=== PATIENT | male | born 1950 | race Caucasian/White ===

== ENCOUNTER → 2017-12-20 | Outpatient (CLI) | payer MEDICARE ==
[2017-12-20 11:09] LABS: HEMATOCRIT 43.8 % (42.0-52.0); HEMOGLOBIN 14.3 g/dl (13.5-17.5); MEAN CORPUSCULAR HEMOGLOBIN 28.5 pg (27.0-33.0); MEAN CORPUSCULAR HGB CONC 32.6 g/dl (32.0-36.5); MEAN CORPUSCULAR VOLUME 87.3 fl (80.0-96.0); PLATELET COUNT, AUTOMATED 205 10^3/uL (150-450); RED BLOOD COUNT 5.02 10^6/uL (4.30-6.10); RED CELL DISTRIBUTION WIDTH 13.6 % (11.5-14.5); WHITE BLOOD COUNT 7.7 10^3/uL (4.0-10.0)
== END ==
LOC: M LAB 09:51
DX: R19.5 Other fecal abnormalities (principal)
CPT/HCPCS: 85027

== ENCOUNTER → 2018-10-24 | Outpatient (CLI) | payer MEDICARE ==
[~2018-10-24] MED LIST: /AMLO25TA PO; /GLIP10TAB PO; ASPI81TA PO; COLA50CA3 PO; COUM7.5T PO; ENAL5TA PO; GLIP2.5T2 PO; GLIP5TAB2 PO; GLUC10TA3 PO; HYDR20IN2 PO; LEVO500T PO; METF1000 PO; MULTCAP PO; PROSCAR PO; VICOBULK PO
--- NOTE | 2018-10-24 15:32 | REP ---
Ultrasound-guided paracentesis The procedure was performed under the direct supervision of Dr. Rogers. The risks and benefits of the procedure were explained to the patient and informed consent was obtained. The largest pocket of fluid was localized in the right flank using ultrasound guidance. The skin was prepped and draped in a sterile fashion. 1% lidocaine was used as a local anesthetic. An 8-Ukrainian multi side-hole catheter was inserted using trocar technique. 7600 ml of meghan colored fluid was withdrawn and discarded. The patient tolerated the procedure well and there were no immediate complications. After the appropriate amount of monitored convalescence the patient was discharged from the department. Reviewed by MT Lentz 10/24/2018 03:22 P Electronically Signed by Sen Rogers MD 10/24/2018 03:24 P
== END ==
LOC: M RADPRO 11:58
PROVIDERS: ATTEND Internal Medicine Nephrology
DX: R18.8 Other ascites (principal); Z88.0 Allergy status to penicillin; Z88.8 Allergy status to other drugs, medicaments and biological substances
CPT/HCPCS: 49083; P9047

== ENCOUNTER → 2018-12-19 | Outpatient (REF) | payer MEDICARE ==
[~2018-12-19] MED LIST changes: -/AMLO25TA PO; -ASPI81TA PO; +CHIL1CHW5 PO; -ENAL5TA PO; +NORV2TAB PO; +[UNRECOGNIZED DRUG - CODE] PO
== END ==
LOC: M LAB LCGH 15:47
PROVIDERS: ATTEND Family Medicine
DX: B07.9 Viral wart, unspecified (principal)

== ENCOUNTER → 2018-12-21 | Outpatient (CLI) | payer MEDICARE ==
--- NOTE | 2018-12-22 11:01 | REP ---
Ultrasound-guided paracentesis The procedure was performed under the direct supervision of Dr. Rogers. The risks and benefits of the procedure were explained to the patient and informed consent was obtained. The largest pocket of fluid was localized in the right flank using ultrasound guidance. The skin was prepped and draped in a sterile fashion. 1% lidocaine was used as a local anesthetic. An 8-Lithuanian multi side-hole catheter was inserted using trocar technique. 3800 ml of clear pink fluid was withdrawn and discarded. The patient tolerated the procedure well and there were no immediate complications. After the appropriate amount of monitored convalescence the patient was discharged from the department. Reviewed by MT Lentz 12/21/2018 03:15 P Electronically Signed by Sen Rogers MD 12/22/2018 10:49 A
== END ==
LOC: M RADPRO 12:48
PROVIDERS: ATTEND Internal Medicine Nephrology
DX: R18.8 Other ascites (principal); I50.22 Chronic systolic (congestive) heart failure; Z79.899 Other long term (current) drug therapy; Z79.4 Long term (current) use of insulin
CPT/HCPCS: 49083; P9047

== ENCOUNTER → 2019-01-23 | Outpatient (CLI) | payer MEDICARE ==
--- NOTE | 2019-01-23 13:21 | REP ---
Ultrasound-guided paracentesis The procedure was performed by MT Salazar, under the direct supervision of Dr. Bello. The risks and benefits of the procedure were explained to the patient and informed consent was obtained both verbally and written. Directly prior to the start of the procedure, a formal timeout was completed in the procedure room. Under ultrasound guidance, the largest pocket of fluid in the left flank was localized and skin was marked. The skin was then prepped and draped in a sterile fashion. 10 ml of 1% lidocaine was used as a local anesthetic. Using ultrasound guidance, an 8-Nigerian multi side-hole catheter was inserted using trocar technique. 5,300 mL of blood tinged colored fluid was withdrawn and discarded. The patient tolerated the procedure well and there were no immediate complications. After the appropriate monitored convalescence the patient was discharged from the department. Reviewed by MT Dobbs 01/23/2019 12:01 P Electronically Signed by Flavio Bello MD 01/23/2019 01:11 P
== END ==
LOC: M RADPRO 10:26
PROVIDERS: ATTEND Internal Medicine Nephrology
DX: I50.22 Chronic systolic (congestive) heart failure (principal); R18.8 Other ascites
CPT/HCPCS: 49083; 96365; P9047

== ENCOUNTER → 2019-02-06 | Outpatient (CLI) | payer MEDICARE ==
--- NOTE | 2019-02-07 17:46 | REP ---
Ultrasound-guided paracentesis The procedure was performed by MT Salazar, under the direct supervision of Dr. Rogers. The risks and benefits of the procedure were explained to the patient and informed consent was obtained both verbally and written. Directly prior to the start of the procedure, a formal timeout was completed in the procedure room. Under ultrasound guidance, the largest pocket of fluid in the right flank was localized and skin was marked. The skin was then prepped and draped in a sterile fashion. 5 ml of 1% lidocaine was used as a local anesthetic. Using ultrasound guidance, an 8-Khmer multi side-hole catheter was inserted using trocar technique. 5,600 mL of meghan colored fluid was withdrawn and discarded. The patient tolerated the procedure well and there were no immediate complications. After the appropriate monitored convalescence the patient was discharged from the department. Reviewed by MT Dobbs 02/06/2019 04:32 P Electronically Signed by Sen Rogers MD 02/07/2019 05:37 P
== END ==
LOC: M IRPRO 14:05 → M RADPRO 14:05
PROVIDERS: ATTEND Internal Medicine Nephrology
DX: R18.8 Other ascites (principal); I50.20 Unspecified systolic (congestive) heart failure
CPT/HCPCS: 49083; 96365; P9047

== ENCOUNTER → 2019-03-27 | Outpatient (CLI) | payer MEDICARE ==
[~2019-03-27] MED LIST changes: +BISO5TAB5 PO; +INSUHUMDS SC; +INSULANT SC; +MAGN400C2 PO; +METO25TA PO; +POTA1TAB14 PO; +PROAAER10 INH; +ROSU20TA5 PO; +SPIR-10 PO; +TORS20TA2 PO
[2019-03-27 08:33] VITALS: BP 112/61
--- NOTE | 2019-03-28 23:33 | REP ---
Ultrasound-guided paracentesis The procedure was performed under the direct supervision of Dr. Rogers. The risks and benefits of the procedure were explained to the patient and informed consent was obtained. The largest pocket of fluid was localized in the left lower quadrant using ultrasound guidance. The skin was prepped and draped in a sterile fashion. 1% lidocaine was used as a local anesthetic. An 8-Indonesian multi side-hole catheter was inserted using trocar technique. 3500 ml of dark meghan fluid was withdrawn and discarded. The patient tolerated the procedure well and there were no immediate complications. After the appropriate amount of monitored convalescence the patient was discharged from the department. Reviewed by MT Lentz 03/27/2019 03:41 P Electronically Signed by Sen Rogers MD 03/28/2019 11:25 P
== END ==
LOC: M IRPRO 07:26
DX: R18.8 Other ascites (principal); I50.22 Chronic systolic (congestive) heart failure
CPT/HCPCS: 49083; 96365; P9047

== ENCOUNTER → 2019-04-14 | Outpatient (CLI) | payer MEDICARE ==
[~2019-04-14] MED LIST changes: +BISO5TAB14 PO; -BISO5TAB5 PO
[2019-04-14 15:10] VITALS: BP 116/67
--- NOTE | 2019-04-14 16:52 | REP ---
Ultrasound-guided paracentesis The procedure was performed under the direct supervision of Dr. Rogers. The risks and benefits of the procedure were explained to the patient and informed consent was obtained. The largest pocket of fluid was localized in the right flank using ultrasound guidance. The skin was prepped and draped in a sterile fashion. 1% lidocaine was used as a local anesthetic. Using ultrasound guidance an 8-Rwandan multi side-hole catheter was inserted using trocar technique. 3200 ml of meghan colored fluid was withdrawn and discarded. The patient tolerated the procedure well and there were no immediate complications. After the appropriate amount of monitored convalescence the patient was discharged from the department. Electronically Signed by MT Lentz 04/14/2019 04:03 P Electronically Signed by Sen Rogers MD 04/14/2019 04:44 P
== END ==
LOC: M IRPRO 14:06
PROVIDERS: ATTEND Internal Medicine Nephrology
DX: R18.8 Other ascites (principal)
CPT/HCPCS: 49083; 96365; P9047

== ENCOUNTER → 2019-04-27 | Outpatient (CLI) | payer MEDICARE ==
[~2019-04-27] MED LIST changes: -BISO5TAB14 PO; +BISO5TAB9 PO
[2019-04-27 10:48] VITALS: BP 103/51
--- NOTE | 2019-04-27 13:40 | REP ---
Ultrasound-guided paracentesis The procedure was performed by MT Salazar, under the direct supervision of Dr. Rogers. The risks and benefits of the procedure were explained to the patient and informed consent was obtained both verbally and written. Directly prior to the start of the procedure, a formal timeout was completed in the procedure room. Under ultrasound guidance, the largest pocket of fluid in the right flank was localized and skin was marked. The skin was then prepped and draped in a sterile fashion. 10 ml of 1% lidocaine was used as a local anesthetic. Using ultrasound guidance, an 8-Somali multi side-hole catheter was inserted using trocar technique. 3,850 mL of meghan colored fluid was withdrawn and discarded. The patient tolerated the procedure well and there were no immediate complications. After the appropriate monitored convalescence the patient was discharged from the department. Reviewed by MT Dobbs 04/27/2019 11:45 A Electronically Signed by Sen Rogers MD 04/27/2019 01:31 P
== END ==
LOC: M IRPRO 09:14
PROVIDERS: ATTEND Internal Medicine Nephrology
DX: R18.8 Other ascites (principal)
CPT/HCPCS: 49083; 96365; P9047

== ENCOUNTER → 2019-05-18 | Outpatient (CLI) | payer MEDICARE ==
[2019-05-18 10:03] VITALS: BP 139/84
--- NOTE | 2019-05-18 18:26 | REP ---
Ultrasound-guided paracentesis The procedure was performed by MT Salazar, under the direct supervision of Dr. Bello. The risks and benefits of the procedure were explained to the patient and informed consent was obtained both verbally and written. Directly prior to the start of the procedure, a formal timeout was completed in the procedure room. Under ultrasound guidance, the largest pocket of fluid in the right flank was localized and skin was marked. The skin was then prepped and draped in a sterile fashion. 10 ml of 1% lidocaine was used as a local anesthetic. Using ultrasound guidance, an 8-Urdu multi side-hole catheter was inserted using trocar technique. 3,500 mL of meghan colored fluid was withdrawn and discarded. The patient tolerated the procedure well and there were no immediate complications. After the appropriate monitored convalescence the patient was discharged from the department. Reviewed by MT Dobbs 05/18/2019 02:44 P Electronically Signed by Flavio Bello MD 05/18/2019 06:17 P
== END ==
LOC: M IRPRO 08:21
PROVIDERS: ATTEND Internal Medicine Nephrology
DX: R18.8 Other ascites (principal)
CPT/HCPCS: 49083; 96365; P9047

== ENCOUNTER → 2019-06-01 | Outpatient (CLI) | payer MEDICARE ==
[2019-06-01 14:52] VITALS: BP 112/71
--- NOTE | 2019-06-01 16:03 | REP ---
Ultrasound-guided paracentesis The procedure was performed under the direct supervision of Dr. Rogers. The risks and benefits of the procedure were explained to the patient and informed consent was obtained. The largest pocket of fluid was localized in the left flank in using ultrasound guidance. The skin was prepped and draped in a sterile fashion. 1% lidocaine was used as a local anesthetic. An 8-Nepali multi side-hole catheter was inserted using trocar technique. 3050 ml of low viscosity red colored fluid was withdrawn and discarded. The patient tolerated the procedure well and there were no immediate complications. After the appropriate amount of monitored convalescence the patient was discharged from the department. Electronically Signed by MT Lentz 06/01/2019 03:50 P Electronically Signed by Sen Rogers MD 06/01/2019 03:55 P
== END ==
LOC: M IRPRO 13:06
PROVIDERS: ATTEND Internal Medicine Nephrology
DX: I50.20 Unspecified systolic (congestive) heart failure (principal); R18.8 Other ascites; Z88.0 Allergy status to penicillin
CPT/HCPCS: 49083; 96374; P9047

== ENCOUNTER → 2020-09-13 | Outpatient (CLI) | payer MEDICARE ==
[~2020-09-13] MED LIST changes: +ALBU8.5H; +BISO5TAB14 PO; -BISO5TAB9 PO; +D31000TA2 PO; +VITMTA PO
== END ==
LOC: M LABSMTC 12:22
PROVIDERS: ATTEND Anesthesiology
DX: Z01.812 Encounter for preprocedural laboratory examination (principal); Z20.822 Contact with and (suspected) exposure to COVID-19

== ENCOUNTER 2020-09-18 09:55 | Day surgery (SDC) | payer MEDICARE ==
[~2020-09-18] VITALS: Ht 180.3 cm; Wt 114.3 kg
[~2020-09-18 09:55] MED LIST changes: +LIDOCAINE 1% MDV 20ML VIAL SQ PRN; +LR 1,000 ML IV ONE; +MIDAZOLAM INJ 2MG/2ML VIAL (J2250 PER 1MG) IV PRN; +ceFAZolin SOD 2 GM in IV 1 EA IV ONE; +fentaNYL 100 MCG/2 ML INJECTION (J3010) IV PRN
--- OUTSIDE RECORDS SUMMARY | 2020-09-18 10:00 | CCD | Continuity of Care Document ---
Author Author Jackson BENITEZ MD Organization Unknown Address [id number] [place] [address] , [facility] [address] [place] [address] Phone [phone] Care Team Providers Care [employer] President Name Role Phone Ailyn Henry AUTM [phone] AUTM Unavailable Ace Espinoza M.D. AUTM [phone] Carole Feliz M.D. AUTM [phone] Problems Description No Active Problems Social History Type Date Description Comments Sex Unknown ETOH Use Denies alcohol use Tobacco Use Start: Unknown Patient has never smoked Allergies, Adverse Reactions, Alerts Active Allergies Reaction Severity Comments Date Penicillin 12/20/2017 Atenolol 12/20/2017 Medications Active Medications SIG Qnty Indications Ordering Provide r Date Benzoyl Peroxide 5% Gel 5 cc apply to affected area as directed 60gm Amrit Benitez MD 08/2020 Advair HFA 115-21mcg/Act Aerosol 2 puff twice a day with spacer. use spacer. rinse mouth 12gm Carmen Reid M.D. 07/06/2018 Aerochamber Plus Misc as directed w/ hfa 1units Carmen Reid M.D. 07/06/2018 Lantus 100Unit/ML Solution 30 unit injection every night Unknown Humalog 100Unit/ML Solution sliding scale Unknown Multivitamins Capsules 1 by mouth every day Unknown Ventolin HFA 108(90Base) mcg/Act A erosol 2 puffs every 4 hours as needed Unknown Torsemide 20mg Tablets 2 by mouth every other day, 1 every other day Unknown Spironolactone 25mg Tablets 1/2 by mouth every day Unknown Potassium Chloride ER 10Meq Capsul es ER 1 by mouth daily Unknown Magnesium 400mg Tablets 1 by mouth every week Unknown Vitamin D3 Complete Tablets 2000 units once a week Unknown History Medications Benzoyl Peroxide 5% Gel 1 60gm Amrit Benitez MD 09/02/2020 - 09/02/2020 Immunizations Description No Information Available Vital Signs Date Vital Result Comment 09/02/2020 8:50am Body Temperature 98.6 F Height 70.5 inches 5'10.50" [place] Body Weight 166 lb 06/09/2018 10:06am BP Systolic 115 mmHg BP Diastolic 77 mmHg Heart Rate 88 /min Height 70.5 inches 5'10.50" Weight 253.00 lb BMI (Body Mass Index) 35.8 kg/m2 [place] Body Weight 166 lb Weight 114.761 kg BSA (Body Surface Area) 2.32 m2 Results Test Acquired Date Facility Test Result H/L Range Note CBC With Auto Diff 09/11/2020 [facility] [address] [place] [address] [phone] WBC # Bld Auto 7.3 10*3/uL Normal 4.45-10.71 1 RBC # Bld Auto 4.56 10*6/uL Normal 4.3-6.1 Hgb Bld-sCnc 13.7 g/dL Normal 13-18 Hct VFr Bld Auto 42.3 % Normal 42-52 MCV BldCo Auto 92.8 fL Normal 80-96 MCH RBC Qn Auto 30.0 pg Normal 27-31 MCHC BldCo-mCnc 32.4 g/dL Low 33-37 RDW RBC Auto 14 % Normal 11-15 Platelet # Bld Auto 176 10*3/uL Normal 130-472 PMV Bld 10.7 fL Normal 9.1-13.1 Neutrophils/leuk NFr Bld Auto 72.7 % Normal 41-77 Neutrophils # Bld Auto 5.3 U Normal 1.7-7.6 Lymphocytes/leuk NFr Bld Auto 11.5 % Low 14-46 Lymphocytes # Bld Auto 0.8 U Normal 0.6-4.6 Monocytes/leuk NFr Bld Auto 8.4 % Normal 4-12 Monocytes # Bld Auto 0.6 U Normal 0.2-1.2 Eosinophil/leuk NFr Bld Auto 5.9 % Normal 0-7 Eosinophil # Bld Auto 0.4 U Normal 0.0-0.5 Basophils/leuk NFr Bld Auto 1.4 % High 0.4-1.3 Basophils # Bld Auto 0.1 U Normal 0.0-0.2 Nucleated Red Blood Cell 0 % Nucleated Red Blood Cell# 0 U Imm Granulocytes Bld Ql Auto 0.1 Normal 0-2 Imm Granulocytes # Bld Auto 0.0 U Normal 0-0.1 Manual diff Bld NO Electrolyte Panel 09/11/2020 [facility] [id number] [place] [address] [phone] Sodium SerPl-sCnc 139 mmol/L Normal 132-146 Potassium SerPl-sCnc 4.0 mmol/L Normal 3.5-5.5 Chloride SerPl-sCnc 101 mmol/L Normal 99-109 Co2 SerPl-sCnc 32 mmol/L High 20-31 Anion Gap SerPl-sCnc 10 mmol/L Normal 8-16 PT/PTT 09/11/2020 [facility] [id number] [place] [address] [phone] Prothrombin Time (Patient) 11.1 s Normal 9.6-1 2.3 Inr 1.0 Normal 0.9-1.1 2 Screen aPTT 25.8 s Normal 22.7-31.6 1 PREOP M19.90,M19.011 2 THE INR IS OPERATIONALLY DEF INED FOR FRESH PLASMA FROM PATIENTS STABILIZED ON ORAL ANTICOAGULANTS. ROUTINE ANTICOAGULANT THERAPY 2.0-3.0 RECURRENT SYSTEMIC EMBOLISM/HEART VALVE REPLACEMENT 2.5-3.5 Procedures Description No Information Available Medical Devices Description No Information Available Encounters Type Date Location Provider Dx Diagnosis Office Visit 09/02/2020 9:00a [facility] Amrit Benitez MD M19.011 Primary osteoarthritis, right shoulder Assessments Date Code Description Provider 09/02/2020 M19.011 Primary osteoarthritis, right sh sarah Benitez MD Plan of Treatment Future Appointment(s):* 10/01/2020 9:45 am - Amrit Benitez MD at [facility] * 09/18/2020 12:45 pm - Amrit Benitez MD at [facility] 09/02/2020 - Amrit Benitez MD* M19.011 Primary osteoarthritis, right shoulder Functional Status Functional Condition Comment Date Status Independent with all ADL's Activ e Independent with all IADL's Acti ve Mental Status Mental Condition Comment Date Status Cognitive ability not impaired A ctive Referrals Refer to Reason for Referral Status Appt Date Amrit Benitez M.D. rt shoulder pain, arthrosco py, rotator cuff repair, osteoarthritis and looks like high-riding humeral head. Closed [address] [place] [address] [phone]
--- OUTSIDE RECORDS SUMMARY | 2020-09-18 10:00 | CCD | Continuity of Care Document ---
Author Author Jackson WANG RN Organization Unknown Address [address] [place] [id number] Phone [phone] Care Team Providers Care Business Administration Instructor Name Role Phone Carole Lux M.D. AUTM [phone] Mckinley Conn MD AUTM [phone] Problems Active Problems Provider Date Benign prostatic hyperplasia Onset: Diabetes mellitus Onset: Hyperlipidemia Onset: Asystole Onset: Note: During surgery Dyspnea Mak Sol MD Onset: 09/29/2016 Precordial pain Mak Sol MD Onset: 09/29/2016 Mixed hyperlipidemia Mak Sol MD Onset: 09/29/2016 Benign prostatic hypertrophy without outflow obstruction Last Sol MD Onset: 09/29/2016 Type 2 diabetes mellitus Mak Sol MD Onset: 09/29/19 17 Sinus node dysfunction Mak Sol MD Onset: 09/29/2016 Chronic diastolic heart failure Mak Sol MD Onset: 0 09/29/2016 Obesity Sen Desouza MD Onset: 10/16/2016 Cardiac pacemaker Ailyn Henry RN, REPAIR ORDER CLERK Onset: 10/27/2016 Cardiac pacemaker in situ Sen Desouza MD Onset: 017 Transient cerebral ischemia Adam Han MD Onset: 0 10/14/2017 Patient post percutaneous transluminal coronary angioplasty Rambo Ward MD Onset: 01/14/2018 St elevation (Stemi) myocardial infarcti on involving other coronary artery of anterior wall Rambo Ward MD Onset: 01/14/2018 Mitral valve disorder Ailyn Henry RN, REPAIR ORDER CLERK Onset: 8 Pulmonary valve disorder Ailyn Henry RN, REPAIR ORDER CLERK Onset: 2017 Rheumatic disease of tricuspid valve Ailyn Henry RN, REPAIR ORDER CLERK O nset: 03/15/2018 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 Ailyn Henry RN, REPAIR ORDER CLERK Onset: 03/15/2018 Paroxysmal atrial fibrillation Coy Webb MD Onset: Paroxysmal ventricular tachycardia Ailyn Henry RN, REPAIR ORDER CLERK Ons et: 06/07/2018 Chronic ischemic heart disease Sen Desouza MD Onset: Chronic kidney disease stage 3 Sen Desouza MD Onset: Chronic systolic heart failure Sen Desouza MD Onset: Complete atrioventricular block Ailyn Henry RN, REPAIR ORDER CLERK Onset: 03/14/2019 First degree atrioventricular block Ailyn Henry RN, REPAIR ORDER CLERK On set: 07/18/2019 Tricuspid valve disorder, non-rheumatic Ailyn Henry RN, FN P Onset: 09/03/2020 Difficulty breathing Ailyn Henry RN, REPAIR ORDER CLERK Onset: 09/03/2020 Social History Type Date Description Comments Sex Unknown ETOH Use Denies alcohol use Tobacco Use Start: Unknown Patient has never smoked Recreational Drug Use Denies Drug Use Smoking Status Reviewed: 03/14/20 Patient has never smoked Allergies, Adverse Reactions, Alerts Active Allergies Reaction Severity Comments Date Penicillins Anaphylaxis Severe 09/28/2016 Atenolol 3rd degree heart block Severe unconscious 09/28 Enalapril cough Mild 09/29/2016 Inactive Allergies Potassium Chloride Hives 7 Medications Active Medications SIG Qnty Indications Ordering Provide r Date Ventolin HFA 108(90Base) mcg/Act A erosol 2 puffs every 4 hours as needed 8gm Ailyn Henry RN, REPAIR ORDER CLERK 04/12/2018 Multivitamins Tablets 1 by mouth every day Unknown Lantus Solostar 100U nit/ML Solution Pen-Inject 20 units qhs Unknown Humalog Kwikpen 100U nit/ML Solution Pen-Inject sliding scale Unknown Magnesium Oxide 400mg Tablets 1 by mouth twice daily Unknown Stool Softener 100mg Capsules 1 by mouth every day as needed Unknown Spironolactone 25mg Tablets 1 tab alternate with 2 tabs daily Unknown Klor-Con 10 10Meq Tablets ER 1 po q am Unknown Torsemide 20mg Tablets 2 po i n am Unknown Vitamin D2 2000Unit Tablets 1 po daily Unknown History Medications Eliquis 2.5mg Tablets 1 tab by mouth twice a day 180tabs Ailyn Henry RN, REPAIR ORDER CLERK 09/03/2020 - 09/03/2020 Medications Administered in Office Medication SIG Qnty Indications Ordering Provider Date Injection For Venography Injection Sen Desouza MD 11/15/2018 Immunizations Description No Information Available Vital Signs Date Vital Result Comment 09/03/2020 1:39pm BP Systolic 110 mmHg stated home B P BP Diastolic 76 mmHg stated home BP Height 71 inches 5'11" Weight 254.00 lb BMI (Body Mass Index) 35.4 kg/m2 04/30/2020 1:06pm BP Systolic 122 mmHg BP Diastolic 64 mmHg Heart Rate 68 /min Height 71 inches 5'11" Weight 246.00 lb BMI (Body Mass Index) 34.3 kg/m2 Results Test Acquired Date Facility Test Result H/L Range Note Order 09/03/2020 [facility] Icd Remote Check Prof & Tech <pending> [facility] Remote Check Prof & Tech <pending> Order 04/30/2020 [facility] Cardiology Icd Multi Program <pending> Optivol In Office <pending> CBC With Auto Diff 04/04/2020 [facility] WBC # Bld Auto 6.2 10*3/uL Normal 4.45-10.71 RBC # Bld Auto 4.39 10*6/uL Normal 4.3-6.1 Hgb Bld-sCnc 13.3 g/dL Normal 13-18 Hct VFr Bld Auto 40.2 % Low 42-52 MCV BldCo Auto 91.6 fL Normal 80-96 MCH RBC Qn Auto 30.3 pg Normal 27-31 MCHC BldCo-mCnc 33.1 g/dL Normal 33-37 RDW RBC Auto 15 % Normal 11-15 Platelet # Bld Auto 175 10*3/uL Normal 130-472 PMV Bld 9.7 fL Normal 9.1-13.1 Neutrophils/leuk NFr Bld Auto 71.6 % Normal 41-77 Neutrophils # Bld Auto 4.5 U Normal 1.7-7.6 Lymphocytes/leuk NFr Bld Auto 13.2 % Low 14-46 Lymphocytes # Bld Auto 0.8 U Normal 0.6-4.6 Monocytes/leuk NFr Bld Auto 8.8 % Normal 4-12 Monocytes # Bld Auto 0.6 U Normal 0.2-1.2 Eosinophil/leuk NFr Bld Auto 4.7 % Normal 0-7 Eosinophil # Bld Auto 0.3 U Normal 0.0-0.5 Basophils/leuk NFr Bld Auto 1.4 % High 0.4-1.3 Basophils # Bld Auto 0.1 U Normal 0.0-0.2 Nucleated Red Blood Cell 0 % Nucleated Red Blood Cell# 0 U Imm Granulocytes Bld Ql Auto 0.3 Normal 0-2 Imm Granulocytes # Bld Auto 0.0 U Normal 0-0.1 Manual diff Bld NO PT/PTT 04/04/2020 [facility] Prothrombin Time (Patient) 11.2 s Normal 9.6-12.3 Inr 1.1 Normal 0.9-1.1 1 Screen aPTT 27.3 s Normal 22.7-31.6 Comprehensive Metabolic Prof 04/04/2020 [facility] BUN SerPl-mCnc 60 mg/dL High 9-23 Sodium SerPl-sCnc 138 mmol/L Normal 132-146 Potassium SerPl-sCnc 4.5 mmol/L Normal 3.5-5.5 Chloride SerPl-sCnc 102 mmol/L Normal 99-109 Co2 SerPl-sCnc 30 mmol/L Normal 20-31 Anion Gap SerPl-sCnc 11 mmol/L Normal 8-16 Glucose SerPl-mCnc 185 mg/dL High 74-106 Creatinine 2.5 mg/dL High 0.5-1.1 GFR/Bsa.pred SerPlBld-ArVRat 26 [facility] Above 60 Alt SerPl w P-5'-P-cCnc 34 U/L Normal 10-49 Ast SerPl w P-5'-P-cCnc 25 U/L Normal 0-33 Alp SerPl-cCnc 173 U/L High 45-129 Calcium SerPl-mCnc 10.5 mg/dL High 8.5-10.1 Bilirub SerPl-mCnc 1.2 mg/dL Normal 0.3-1.2 Albumin SerPl BCP-mCnc 3.9 g/dL Normal 3.2-4.8 Prot SerPl-mCnc 7.6 g/dL Normal 5.7-8.2 Laboratory test finding 03/26/2020 [facility] Coronavirus Covid-19 QL RT-PCR <pending> Xray 03/18/2020 [facility] Chest 2 Views <pending> CBC With Auto Diff 03/12/2020 [facility] WBC # Bld Auto 8.3 10*3/uL Normal 4.45-10.71 2 RBC # Bld Auto 4.85 10*6/uL Normal 4.3-6.1 Hgb Bld-sCnc 14.7 g/dL Normal 13-18 Hct VFr Bld Auto 43.8 % Normal 42-52 MCV BldCo Auto 90.3 fL Normal 80-96 MCH RBC Qn Auto 30.3 pg Normal 27-31 MCHC BldCo-mCnc 33.6 g/dL Normal 33-37 RDW RBC Auto 14 % Normal 11-15 Platelet # Bld Auto 191 10*3/uL Normal 130-472 PMV Bld 10.3 fL Normal 9.1-13.1 Neutrophils/leuk NFr Bld Auto 77.1 % High 41-77 Neutrophils # Bld Auto 6.4 U Normal 1.7-7.6 Lymphocytes/leuk NFr Bld Auto 8.8 % Low 14-46 Lymphocytes # Bld Auto 0.7 U Normal 0.6-4.6 Monocytes/leuk NFr Bld Auto 8.6 % Normal 4-12 Monocytes # Bld Auto 0.7 U Normal 0.2-1.2 Eosinophil/leuk NFr Bld Auto 4.0 % Normal 0-7 Eosinophil # Bld Auto 0.3 U Normal 0.0-0.5 Basophils/leuk NFr Bld Auto 1.0 % Normal 0.4-1.3 Basophils # Bld Auto 0.1 U Normal 0.0-0.2 Nucleated Red Blood Cell 0 % Nucleated Red Blood Cell# 0 U Imm Granulocytes Bld Ql Auto 0.5 Normal 0-2 Imm Granulocytes # Bld Auto 0.0 U Normal 0-0.1 Manual diff Bld NO Comprehensive Metabolic Prof 03/12/2020 [facility] BUN SerPl-mCnc 78 mg/dL 9-23 3 Sodium SerPl-sCnc 140 mmol/L Normal 132-146 Potassium SerPl-sCnc 4.4 mmol/L Normal 3.5-5.5 Chloride SerPl-sCnc 103 mmol/L Normal 99-109 Co2 SerPl-sCnc 31 mmol/L Normal 20-31 Anion Gap SerPl-sCnc 10 mmol/L Normal 8-16 Glucose SerPl-mCnc 208 mg/dL High 74-106 Creatinine 2.6 mg/dL High 0.5-1.1 GFR/Bsa.pred SerPlBld-ArVRat 24 [facility] Above 60 Alt SerPl w P-5'-P-cCnc 54 U/L High 10-49 Ast SerPl w P-5'-P-cCnc 31 U/L Normal 0-33 Alp SerPl-cCnc 177 U/L High 45-129 Calcium SerPl-mCnc 10.8 mg/dL High 8.5-10.1 Bilirub SerPl-mCnc 0.8 mg/dL Normal 0.3-1.2 Albumin SerPl BCP-mCnc 4.2 g/dL Normal 3.2-4.8 Prot SerPl-mCnc 8.5 g/dL High 5.7-8.2 CMP 03/12/2020 [facility] Albumin Serum/Plasma <pending> Alt - SGPT <pending> Calcium Ser/Plasma Mass/Vol <pending> Carbon Dioxide Ser/Plasm <pending> Chloride Serum/Plasma <pending> Creatinine Serum Mass/Vol <pending> Glucose Serum <pending> Alkaline Phosphatase <pending> Potassium <pending> Protein Total <pending> Sodium QN Ser/Plasma <pending> Ast - Sgot <pending> BUN - Urea Nitrogen <pending> CBC W/Manual Diff 03/12/2020 [facility] White Blood Count Ser Auto CNT <pending> RBC Red Blood Count <pending> Hemoglobin Blood <pending> Hematocrit <pending> MCV (Corpuscular Volume) <pending> MCH (Corpuscular Hemoglobin) <pending> MCHC (Corpuscular Hemog Conc) <pending> RDW <pending> Platelet Count Blood Auto CNT <pending> MPV <pending> Neutrophils <pending> Fluid Bands <pending> Fluid Lymphocytes <pending> Monocytes <pending> Fluid Body Eosinophils <pending> Basophils % <pending> Absolute Neutrophils Auto CNT <pending> Absolute Lymphocytes <pending> Absolute Monocytes <pending> Absolute Eosinophils <pending> Absolute Basophils <pending> Order 03/12/2020 [facility] Icd Multi Program <pending> Optivol In Office <pending> Order 03/12/2020 [facility] EKG <pending> Order 03/08/2020 [facility] Echocardiogram <pending> 1 THE INR IS OPERATIONALLY DEF INED FOR FRESH PLASMA FROM PATIENTS STABILIZED ON ORAL ANTICOAGULANTS. ROUTINE ANTICOAGULANT THERAPY 2.0-3.0 RECURRENT SYSTEMIC EMBOLISM/HEART VALVE REPLACEMENT 2.5-3.5 2 I50.23,N18.3,I49.5 3 Called to [facility] @ 7212 by Judi Bermeo. Results read back. Repeated by: Judi Bermeo 03/12/20 1400. Result Confirmation: 77 mg/dL Procedures Date Code Description Status 04/30/2020 78658 Implant Cardiovascular Monitorin g System Completed 04/30/2020 74479 Multiple Lead Impantable Cardiov erter-Defibrillator Completed 03/12/2020 53203 Implant Cardiovascular Monitorin g System Completed 03/12/2020 70485 Multiple Lead Impantable Cardiov erter-Defibrillator Completed 03/08/2020 58800 Echocardiography, Tranthoracic C omplete Image Documentation Completed Medical Devices Description No Information Available Encounters Type Date Location Provider Dx Diagnosis Office Visit 03/12/2020 12:00p [place] [facility] Ailyn Henry RN, REPAIR ORDER CLERK I50.23 Acute on chronic systolic (congestive) heart failure Z45.02 Encntr for adjust and mgmt o f automatic implntbl card defib I25.5 Ischemic cardiomyopathy I48.0 Paroxysmal atrial fibrillati on N18.3 Chronic kidney disease, stag e 3 (moderate) I47.2 Ventricular tachycardia R06.02 Shortness of breath E11.9 Type 2 diabetes mellitus wit hout complications E78.2 Mixed hyperlipidemia I34.0 Nonrheumatic mitral (valve) insufficiency Assessments Date Code Description Provider 09/03/2020 I34.0 Nonrheumatic mitral (valve) insu fficiency Ailyn Henry RN, REPAIR ORDER CLERK 09/03/2020 I36.1 Nonrheumatic tricuspid (valve) i nsufficiency Ailyn Henry RN, [facility] 09/03/2020 I25.5 Ischemic cardiomyopathy Ailyn Henry RN, [facility] 09/03/2020 I48.0 Paroxysmal atrial fibrillation S rory Henry RN, [facility] 09/03/2020 N18.31 Chronic kidney disease, stage 3a Ailyn Henry RN, [facility] 09/03/2020 I47.2 Ventricular tachycardia Ailyn Henry RN, [facility] 09/03/2020 E78.2 Mixed hyperlipidemia Ailyn carbajal RN, [facility] 09/03/2020 I50.22 Chronic systolic (congestive) he art failure Ailyn Henry RN, [facility] 09/03/2020 Z95.810 Presence of automatic (implantab le) cardiac defibrillator Ailyn Henry RN, [facility] 09/03/2020 I44.2 Atrioventricular block, complete Ailyn Henry RN, [facility] 09/03/2020 E66.09 Other obesity due to excess betzy anuj Ailyn Henry RN, [facility] 09/03/2020 E11.9 Type 2 diabetes mellitus without complications Ailyn Henry RN, [facility] 09/03/2020 Z95.810 Presence of automatic (implantab le) cardiac defibrillator Bridget Wang RN, [facility] 09/03/2020 I25.5 Ischemic cardiomyopathy Bridget lee RN, [facility] 09/03/2020 I48.0 Paroxysmal atrial fibrillation A phillip Wang RN, [facility] ATT[facility] 09/03/2020 I50.22 Chronic systolic (congestive) he art failure Bridget Wang RN, [facility] ATT[facility] 04/30/2020 I34.0 Nonrheumatic mitral (valve) insu fficiency Ailyn Henry RN, [facility] 04/30/2020 I37.1 Nonrheumatic pulmonary valve ins ufficiency Ailyn Henry RN, [facility] 04/30/2020 I36.1 Nonrheumatic tricuspid (valve) i nsufficiency Ailyn Henry RN, [facility] 04/30/2020 I50.23 Acute on chronic systolic (conge stive) heart failure Ailyn Henry RN, [facility] 04/30/2020 I25.5 Ischemic cardiomyopathy Ailyn Henry RN, [facility] 04/30/2020 I48.0 Paroxysmal atrial fibrillation S rory Henry RN, [facility] 04/30/2020 N18.3 Chronic kidney disease, stage 3 (moderate) Ailyn Henry RN, [facility] 04/30/2020 I47.2 Ventricular tachycardia Ailyn Henry RN, [facility] 04/30/2020 R06.02 Shortness of breath Ailyn Henry RN, [facility] 04/30/2020 E78.2 Mixed hyperlipidemia Ailyn carbajal RN, [facility] 04/30/2020 I50.22 Chronic systolic (congestive) he art failure Ailyn Henry RN, [facility] 04/30/2020 Z95.810 Presence of automatic (implantab le) cardiac defibrillator Ailyn Henry RN, [facility] 04/30/2020 I44.2 Atrioventricular block, complete Ailyn Henry RN, [facility] 04/30/2020 R07.2 Precordial pain Ailyn Henry RN , [facility] 04/30/2020 I49.5 Sick sinus syndrome Ailyn Henry RN, [facility] 04/30/[address] elevation (Stemi) myocardial infarction involving other c Ailyn Henry RN, [facility] 04/30/2020 Z98.61 Coronary angioplasty status Dalton Henry RN, [facility] 04/30/2020 I44.0 Atrioventricular block, first de gree Ailyn Henry RN, [facility] 04/30/2020 E66.09 Other obesity due to excess betzy anuj Ailyn Henry RN, [facility] 04/30/2020 I50.32 Chronic diastolic (congestive) h eart failure Ailyn Henry RN, [facility] 03/12/2020 I50.23 Acute on chronic systolic (conge stive) heart failure Ailyn Henry RN, [facility] 03/12/2020 Z45.02 Encounter for adjust ment and management of automatic implantable cardiac defibrillator Ailyn Henry RN, [facility] 03/12/2020 I25.5 Ischemic cardiomyopathy Ailyn Henry RN, [facility] 03/12/2020 I48.0 Paroxysmal atrial fibrillation S rory Henry RN, [facility] 03/12/2020 N18.3 Chronic kidney disease, stage 3 (moderate) Ailyn Henry RN, [facility] 03/12/2020 I47.2 Ventricular tachycardia Ailyn Henry RN, [facility] 03/12/2020 R06.02 Shortness of breath Ailyn Henry RN, [facility] 03/12/2020 E11.9 Type 2 diabetes mellitus without complications Ailyn Henry RN, [facility] 03/12/2020 E78.2 Mixed hyperlipidemia Ailyn carbajal RN, [facility] 03/12/2020 I34.0 Nonrheumatic mitral (valve) insu fficiency Ailyn Henry RN, [facility] 03/08/2020 I25.5 Ischemic cardiomyopathy Antione vargas MD 03/08/2020 I50.22 Chronic systolic (congestive) he art failure Antione Camarena MD 03/08/2020 Z95.810 Presence of automatic (implantab le) cardiac defibrillator Antione Camarena MD Plan of Treatment Future Appointment(s):* 12/04/2020 10:15 am - [facility] Schedule (517) at [place] [facility] Downloads (Patch-Ins) * 01/21/2021 2:00 pm - [place] [facility]/Device (415) at [place] [facility] * 03/25/2021 3:30 pm - [place] [facility] (315) at [place] [facility] 09/03/2020 - Ailyn Henry RN, [facility]* I34.0 Nonrheumatic mitral (valve) insufficiency * I36.1 Nonrheumatic tricuspid (valve) insufficiency * I25.5 Ischemic cardiomyopathy * I48.0 Paroxysmal atrial fibrillation * N18.31 Chronic kidney disease, stage 3a * I47.2 Ventricular tachycardia * E78.2 Mixed hyperlipidemia * I50.22 Chronic systolic (congestive) heart failure * Z95.810 Presence of automatic (implantable) cardiac defibrillator * I44.2 Atrioventricular block, complete * E66.09 Other obesity due to excess calories * E11.9 Type 2 diabetes mellitus without complications* Recommendations:* At this time is pending shoulder surgery and is felt to be stable though at a mo derate risk given his cardiomyopathy. He does not require any further testing prior to having this completed. He will be scheduled for an echocardiogram in March 2021 to reevaluate his valvular disease and overall LV dysfunction. He is aware of the embolic risk associated with not being anticoagulated for his paroxysmal atrial fibrillation. He will be scheduled for a device check in the clinic as soon as possible. He will continue to try to monitor his caloric intake and would benefit with weight loss. He will have a clinical follow-up in 4 months in the office will call him for that appointment. This was completed as a phone interview no video capability. Visit was in excess of 20 minutes to review chart, discuss patient disposition and upcoming surgery and discuss plan of care, review meds. Plan of care will be reviewed with Dr. Sol Functional Status Description No Information Available Mental Status Description No Information Available Referrals Description No Information Available
--- OUTSIDE RECORDS SUMMARY | 2020-09-18 10:00 | CCD | Continuity of Care Document ---
Author Author Jackson HENRY RN Organization Unknown Address [address] [place] [address] Phone [phone] Care Team Providers Care Shift Boss Name Role Phone Carole Lux M.D. AUTM [phone] Mckinley Conn MD AUTM [phone] Problems Active Problems Provider Date Benign prostatic [...] Onset: 10/16/2016 Cardiac pacemaker Ailyn Henry RN, VICE PRESIDENT OF CONSULTING SERVICES Onset: 10/27/2016 Cardiac pacemaker in situ Sen Desouza MD Onset: 017 Transient cerebral ischemia Adam Han MD Onset: 0 10/14/2017 Patient post percutaneous transluminal coronary angioplasty Rambo Ward MD Onset: 01/14/2018 St elevation (Stemi) myocardial infarcti on involving other coronary artery of anterior wall Rambo Ward MD Onset: 01/14/2018 Mitral valve disorder Ailyn Henry RN, VICE PRESIDENT OF CONSULTING SERVICES Onset: 8 Pulmonary valve disorder Ailyn Henry RN, VICE PRESIDENT OF CONSULTING SERVICES Onset: 2017 Rheumatic disease of tricuspid valve Ailyn Henry RN, VICE PRESIDENT OF CONSULTING SERVICES O nset: 03/15/2018 Atherosclerotic heart disease of [place] coronary arter y without angina pectoris Ailyn Henry RN, VICE PRESIDENT OF CONSULTING SERVICES Onset: 03/15/2018 Paroxysmal atrial fibrillation Coy Webb MD Onset: Paroxysmal ventricular tachycardia Ailyn Henry RN, VICE PRESIDENT OF CONSULTING SERVICES Ons et: 06/07/2018 Chronic ischemic heart disease Sen Desouza MD Onset: Chronic kidney disease stage 3 Sen Desouza MD Onset: Chronic systolic heart failure Sen Desouza MD Onset: Complete atrioventricular block Ailyn Henry RN, VICE PRESIDENT OF CONSULTING SERVICES Onset: 03/14/2019 First degree atrioventricular block Ailyn Henry RN, VICE PRESIDENT OF CONSULTING SERVICES On set: 07/18/2019 Tricuspid valve disorder, non-rheumatic Ailyn Henry RN, FN P Onset: 09/03/2020 Difficulty breathing Ailyn Henry RN, VICE PRESIDENT OF CONSULTING SERVICES Onset: 09/03/2020 Social History Type Date Description [...] hours as needed 8gm Ailyn Henry RN, VICE PRESIDENT OF CONSULTING SERVICES 04/12/2018 Multivitamins Tablets 1 by mouth every [...] twice a day 180tabs Ailyn Henry RN, VICE PRESIDENT OF CONSULTING SERVICES 09/03/2020 - 09/03/2020 Medications Administered in Office [...] Test Result H/L Range Note Order 09/03/2020 [facility] Cardiology Icd Remote Check Prof & Tech <pending> Optivol Remote Check Prof & Tech <pending> Order 04/30/2020 [facility] Cardiology Icd Multi Program <pending> Optivol In Office <pending> CBC With Auto Diff 04/04/2020 [facility] WBC # Bld Auto 6.2 10*3/uL Normal [...] 0-0.1 Manual diff Bld NO PT/PTT 04/04/2020 [facility] Prothrombin Time (Patient) 11.2 s Normal 9.6-12.3 Inr 1.1 Normal 0.9-1.1 1 Screen aPTT 27.3 s Normal 22.7-31.6 Comprehensive Metabolic Prof 04/04/2020 [facility] BUN SerPl-mCnc 60 mg/dL High 9-23 [...] 03/18/2020 [facility] 2 Views <pending> 1 THE INR IS OPERATIONALLY DEF INED FOR FRESH PLASMA FROM PATIENTS STABILIZED ON ORAL ANTICOAGULANTS. ROUTINE ANTICOAGULANT THERAPY 2.0-3.0 RECURRENT SYSTEMIC EMBOLISM/HEART VALVE REPLACEMENT 2.5-3.5 Procedures Date Code Description Status 04/30/2020 23736 Implant Cardiovascular Monitorin g System Completed 04/30/2020 73522 Multiple Lead Impantable Cardiov erter-Defibrillator Completed Medical Devices Description No Information Available Encounters Type Date Location Provider Dx Diagnosis Office Visit 09/03/2020 3:15p [place] [facility] Ailyn Henry RN, [facility] I34.0 Nonrheumatic mitral (valve) insufficiency I36.1 Nonrheumatic tricuspid (valv e) insufficiency I25.5 Ischemic cardiomyopathy I48.0 Paroxysmal atrial fibrillati on N18.31 Chronic kidney disease, stag e 3a I47.2 Ventricular tachycardia E78.2 Mixed hyperlipidemia I50.22 Chronic systolic (congestive ) heart failure Z95.810 Presence of automatic (impla ntable) cardiac defibrillator I44.2 Atrioventricular block, comp lete E66.09 Other obesity due to excess calories E11.9 Type 2 diabetes mellitus wit hout complications Assessments Date Code Description Provider 09/03/2020 I34.0 Nonrheumatic mitral (valve) insu fficiency Ailyn Henry RN, VICE PRESIDENT OF CONSULTING SERVICES 09/03/2020 I36.1 Nonrheumatic tricuspid (valve) i nsufficiency Ailyn Henry RN, VICE PRESIDENT OF CONSULTING SERVICES 09/03/2020 I25.5 Ischemic cardiomyopathy Ailyn Henry RN, [employer]ICE PRESIDENT OF CONSULTING SERVICES 09/03/2020 I48.0 Paroxysmal atrial fibrillation S rory Henry RN, VICE PRESIDENT OF CONSULTING SERVICES 09/03/2020 N18.31 Chronic kidney disease, stage 3a Ailyn Henry RN, VICE PRESIDENT OF CONSULTING SERVICES 09/03/2020 I47.2 Ventricular tachycardia Ailyn Henry RN, [facility] 09/03/2020 E78.2 Mixed hyperlipidemia Ailyn carbajal RN, [facility] 09/03/2020 I50.22 Chronic systolic (congestive) he art failure Ailyn Henry RN, [facility] 09/03/2020 Z95.810 Presence of automatic (implantab le) cardiac defibrillator Ailyn Henry RN, [facility] 09/03/2020 I44.2 Atrioventricular block, complete Ailyn Henry RN, [facility] 09/03/2020 E66.09 Other obesity due to excess betzy anuj Ailyn Henry RN, [facility] 09/03/2020 E11.9 Type 2 diabetes mellitus without complications Ailyn Henry RN, [facility] 09/03/2020 Z95.810 Presence of automatic (implantab le) cardiac defibrillator Bridegt Wang RN, SUPERVISOR MACHINING 09/03/2020 I25.5 Ischemic cardiomyopathy Bridget lee RN, SUPERVISOR MACHINING 09/03/2020 I48.0 Paroxysmal atrial fibrillation A phillip Wang RN, SUPERVISOR MACHINING 09/03/2020 I50.22 Chronic systolic (congestive) he art failure Bridget Wang RN, SUPERVISOR MACHINING 04/30/2020 I34.0 Nonrheumatic mitral (valve) insu fficiency Ailyn Henry RN, [facility] 04/30/2020 I37.1 Nonrheumatic pulmonary valve ins ufficiency Ailyn Henry RN, [facility] 04/30/2020 I36.1 Nonrheumatic tricuspid (valve) i nsufficiency Ailyn Henry RN, [facility] 04/30/2020 I50.23 Acute on chronic systolic (conge stive) heart failure Ailyn Henry RN, [facility] 04/30/2020 I25.5 Ischemic cardiomyopathy Ailyn Henry RN, [facility] 04/30/2020 I48.0 Paroxysmal atrial fibrillation S rory Henry RN, [facility] 04/30/2020 N18.3 Chronic kidney disease, stage 3 (moderate) Ailyn Henry RN, [facility] 04/30/2020 I47.2 Ventricular tachycardia Ailyn Henry RN, [facility] 04/30/2020 R06.02 Shortness of breath Ailyn Henry RN, [facility] 04/30/2020 E78.2 Mixed hyperlipidemia Ailyn carbajal RN, [facility] 04/30/2020 I50.22 Chronic systolic (congestive) he art failure Ailyn Henry RN, [facility] 04/30/2020 Z95.810 Presence of automatic (implantab le) cardiac defibrillator Ailyn Henry RN, [facility] 04/30/2020 I44.2 Atrioventricular block, complete Ailyn Henry RN, [facility] 04/30/2020 R07.2 Precordial pain Ailyn Henry RN , [facility] 04/30/2020 I49.5 Sick sinus syndrome Ailyn Henry RN, [facility] 04/30/[address] elevation (Stemi) myocardial infarction involving other c Ailyn Henry RN, [facility] 04/30/2020 Z98.61 Coronary angioplasty status Dalton Henry RN, [facility] 04/30/2020 I44.0 Atrioventricular block, first de gree Ailyn Henry RN, [facility] 04/30/2020 E66.09 Other obesity due to excess betzy anuj Ailyn Henry RN, [facility] 04/30/2020 I50.32 Chronic diastolic (congestive) h eart failure Ailyn Henry RN, [facility] Plan of Treatment Future Appointment(s):* 12/04/2020 10:15 am - Device SUPERVISOR MACHINING Schedule (517) at [place] Device Downloads (Patch-Ins) * 01/21/2021 2:00 pm - [place] SUPERVISOR MACHINING/Device (415) at [place] [facility] * 03/25/2021 3:30 pm - [place] [facility] (315) at [place] [facility] 09/03/2020 - Ailyn Henry RN, VICE PRESIDENT OF CONSULTING SERVICES* I34.0 Nonrheumatic mitral (valve) insufficiency * I36.1 [...]
--- OUTSIDE RECORDS SUMMARY | 2020-09-18 10:01 | CCD | Continuity of Care Document ---
Author Author Jackson BENITEZ MD Organization Unknown Address [address] [place] [address] , [facility] [address] [place] [address] Phone [phone] Care Team Providers Care Baseball Pitcher Name Role Phone Aliyn Henry AUTM [phone] AUTM Unavailable Ace Espinoza M.D. AUTM [phone] Carole Feliz M.D. AUTM [phone] Problems Description No Active Problems Social History Type Date Description Comments Sex Unknown ETOH Use Denies alcohol use Tobacco Use Start: Unknown Patient has never smoked Allergies, Adverse Reactions, Alerts Active Allergies Reaction Severity Comments Date Penicillin 12/20/2017 Atenolol 12/20/2017 Medications Active Medications SIG Qnty Indications Ordering Provide r Date Advair HFA 115-21mcg/Act Aerosol 2 puff twice a day with spacer. use spacer. rinse mouth 12gm Carmen Reid M.D. 07/06/2018 Aerochamber Plus Misc as directed w/ hfa 1units Carmen Reid M.D. 07/06/2018 Lantus 100Unit/ML Solution 20 unit injection every night Unknown Humalog 100Unit/ML Solution sliding scale Unknown Multivitamins Capsules 1 by mouth every day Unknown Atorvastatin Calcium 20mg Tablets 1 by mouth every day Unknown Clopidogrel Bisulfate 75mg Tablets 1 by mouth every day Unknown Bisoprolol Fumarate 5mg Tablets 1/2 by mouth every day Unknown Ventolin HFA 108(90Base) mcg/Act A erosol 2 puffs every 4 hours as needed Unknown Torsemide 20mg Tablets 2 by mouth every other day, 1 every other day Unknown Docusate Sodium 100mg Capsules daily Unknown Spironolactone 25mg Tablets 1/2 by mouth every day Unknown Metolazone 2.5mg Tablets Wed and prn Unknown Potassium Chloride ER 10Meq Capsul es ER 1 by mouth daily Unknown Immunizations Description No Information Available Vital Signs Date Vital Result Comment 09/02/2020 8:50am Body Temperature 98.6 F Height 70.5 inches 5'10.50" [place] Body Weight 166 lb 06/09/2018 10:06am BP Systolic 115 mmHg BP Diastolic 77 mmHg Heart Rate 88 /min Height 70.5 inches 5'10.50" Weight 253.00 lb BMI (Body Mass Index) 35.8 kg/m2 [place] Body Weight 166 lb Weight 114.761 kg BSA (Body Surface Area) 2.32 m2 Results Description No Information Available Procedures Description No Information Available Medical Devices Description No Information Available Encounters Type Date Location Provider Dx Diagnosis Office Visit 09/02/2020 9:00a [facility] Orthopedics Amrit Benitez MD M19.011 Primary osteoarthritis, right shoulder Assessments Date Code Description Provider 09/02/2020 M19.011 Primary osteoarthritis, right [facility] Amrit Benitez MD Plan of Treatment No Information Available Functional Status Functional Condition Comment Date Status Independent with all ADL's Activ e Independent with all IADL's Acti ve Mental Status Mental Condition Comment Date Status Cognitive ability not impaired A ctive Referrals Refer to Reason for Referral Status Appt Date Amrit Benitez M.D. rt shoulder pain, arthrosco py, rotator cuff repair, osteoarthritis and looks like high-riding humeral head. Closed [id number] [place] [address] [phone]
--- OUTSIDE RECORDS SUMMARY | 2020-09-18 10:01 | CCD | Continuity of Care Document ---
Author Author Jackson HENRY RN Organization Unknown Address [address] [place] [address] Phone [phone] Care Team Providers Care Principal Technical Writer Name Role Phone Carole Lux M.D. AUTM [phone] Mckinley Conn MD AUTM [phone] Problems Active Problems Provider Date Benign prostatic [...] Onset: 10/16/2016 Cardiac pacemaker Ailyn Henry RN, MANAGER INVENTORY Onset: 10/27/2016 Cardiac pacemaker in situ Sen Desouza MD Onset: 017 Transient cerebral ischemia Adam Han MD Onset: 0 10/14/2017 Patient post percutaneous transluminal coronary angioplasty Rambo Ward MD Onset: 01/14/2018 St elevation (Stemi) myocardial infarcti on involving other coronary artery of anterior wall Rambo Ward MD Onset: 01/14/2018 Mitral valve disorder Ailyn Henry RN, MANAGER INVENTORY Onset: 8 Pulmonary valve disorder Ailyn Henry RN, MANAGER INVENTORY Onset: 2017 Rheumatic disease of tricuspid valve Ailyn Henry RN, MANAGER INVENTORY O nset: 03/15/2018 Atherosclerotic heart disease of [place] coronary arter y without angina pectoris Ailyn Henry RN, MANAGER INVENTORY Onset: 03/15/2018 Paroxysmal atrial fibrillation Coy Webb MD Onset: Paroxysmal ventricular tachycardia Ailyn Henry RN, MANAGER INVENTORY Ons et: 06/07/2018 Chronic ischemic heart disease Sen Desouza MD Onset: Chronic kidney disease stage 3 Sen Desouza MD Onset: Chronic systolic heart failure Sen Desouza MD Onset: Complete atrioventricular block Ailyn Henry RN, MANAGER INVENTORY Onset: 03/14/2019 First degree atrioventricular block Ailyn Henry RN, MANAGER INVENTORY On set: 07/18/2019 Tricuspid valve disorder, non-rheumatic Ailyn Henry RN, FN P Onset: 09/03/2020 Difficulty breathing Ailyn Henry RN, MANAGER INVENTORY Onset: 09/03/2020 Social History Type Date Description [...] hours as needed 8gm Ailyn Henry RN, MANAGER INVENTORY 04/12/2018 Multivitamins Tablets 1 by mouth every [...] twice a day 180tabs Ailyn Henry RN, MANAGER INVENTORY 09/03/2020 - 09/03/2020 Medications Administered in Office [...] Test Result H/L Range Note Order 09/03/2020 [facility] Cardiology Icd Remote Check Prof & Tech <pending> Optivol Remote Check Prof & Tech <pending> Order 04/30/2020 [facility] Cardiology Icd Multi Program <pending> Optivol In Office <pending> CBC With Auto Diff 04/04/2020 [facility] WBC # Bld Auto 6.2 10*3/uL [...] 0-0.1 Manual diff Bld NO PT/PTT 04/04/2020 [facility] Prothrombin Time (Patient) 11.2 s Normal 9.6-12.3 Inr 1.1 Normal 0.9-1.1 1 Screen aPTT 27.3 s Normal 22.7-31.6 Comprehensive Metabolic Prof 04/04/2020 [facility] BUN SerPl-mCnc 60 mg/dL High [...] Views <pending> CBC With Auto Diff 03/12/2020 [facility] WBC # Bld Auto 8.3 10*3/uL Normal [...] diff Bld NO Comprehensive Metabolic Prof 03/12/2020 [facility] BUN SerPl-mCnc 78 mg/dL 9-23 3 [...] 2 I50.23,N18.3,I49.5 3 Called to YUE @ 2328 by Judi Bermeo. Results read back. Repeated by: Judi Bermeo 03/12/20 1400. Result Confirmation: 77 mg/dL Procedures Date Code Description Status 04/30/2020 69039 Implant Cardiovascular Monitorin g System Completed 04/30/2020 45374 Multiple Lead Impantable Cardiov erter-Defibrillator Completed 03/12/2020 02701 Implant Cardiovascular Monitorin g System Completed 03/12/2020 05329 Multiple Lead Impantable Cardiov erter-Defibrillator Completed 03/08/2020 74920 Echocardiography, Tranthoracic C omplete Image Documentation Completed Medical Devices Description No Information Available Encounters Type Date Location Provider Dx Diagnosis Office Visit 03/12/2020 12:00p [place] [facility] Ailyn Henry RN, MANAGER INVENTORY I50.23 Acute on chronic systolic (congestive) heart [...] mitral (valve) insu fficiency Ailyn Henry RN, MANAGER INVENTORY 09/03/2020 I36.1 Nonrheumatic tricuspid (valve) i nsufficiency Ailyn Henry RN, [facility] 09/03/2020 I25.5 Ischemic cardiomyopathy Ailyn Henry RN, [facility] 09/03/2020 I48.0 Paroxysmal atrial fibrillation S rory Henry RN, [facility] 09/03/2020 N18.31 Chronic kidney disease, stage 3a Ailyn Henry RN, [facility] 09/03/2020 I47.2 Ventricular tachycardia Ailyn Henry RN, [facility] 09/03/2020 E78.2 Mixed hyperlipidemia Ailyn carbajal RN, [facility] 09/03/2020 I50.22 Chronic systolic (congestive) he art failure Ailyn Henry RN, [facility] 09/03/2020 Z95.810 Presence of automatic (implantab le) cardiac defibrillator Ailyn Henry RN, [facility] 09/03/2020 I44.2 Atrioventricular block, complete Ailyn Henry RN, [facility] 09/03/2020 E66.09 Other obesity due to excess betzy anuj Ailyn Henry RN, [facility] 09/03/2020 E11.9 Type 2 diabetes mellitus without complications Ailyn Henry RN, [facility] 09/03/2020 Z95.810 Presence of automatic (implantab le) cardiac defibrillator Bridget Wang RN, DRIER OPERATOR 09/03/2020 I25.5 Ischemic cardiomyopathy Bridget lee RN, DRIER OPERATOR 09/03/2020 I48.0 Paroxysmal atrial fibrillation A phillip Wang RN, DRIER OPERATOR 09/03/2020 I50.22 Chronic systolic (congestive) he art failure Bridget Wang RN, DRIER OPERATOR 04/30/2020 I34.0 Nonrheumatic mitral (valve) insu fficiency Ailyn Henry RN, [facility] 04/30/2020 I37.1 Nonrheumatic pulmonary valve ins ufficiency Ailyn Henry RN, [facility] 04/30/2020 I36.1 Nonrheumatic tricuspid (valve) i nsufficiency Ailyn Henry RN, [facility] 04/30/2020 I50.23 Acute on chronic systolic (conge stive) heart failure Ailyn Henry RN, [facility] 04/30/2020 I25.5 Ischemic cardiomyopathy Ailyn Henry RN, [facility] 04/30/2020 I48.0 Paroxysmal atrial fibrillation S rory Henry RN, [facility] 04/30/2020 N18.3 Chronic kidney disease, stage 3 (moderate) Ailyn Henry RN, [facility] 04/30/2020 I47.2 Ventricular tachycardia Ailyn Henry RN, [facility] 04/30/2020 R06.02 Shortness of breath Ailyn Henry RN, [facility] 04/30/2020 E78.2 Mixed hyperlipidemia Ailyn carbajal RN, [facility] 04/30/2020 I50.22 Chronic systolic (congestive) he art failure Ailyn Henry RN, [facility] 04/30/2020 Z95.810 Presence of automatic (implantab le) cardiac defibrillator Ailyn Henry RN, [facility] 04/30/2020 I44.2 Atrioventricular block, complete Ailyn Henry RN, [facility] 04/30/2020 R07.2 Precordial pain Ailyn Henry RN , [facility] 04/30/2020 I49.5 Sick sinus syndrome Ailyn Henry RN, [facility] 04/30/[address] elevation (Stemi) myocardial infarction involving other c Ailyn Henry RN, [facility] 04/30/2020 Z98.61 Coronary angioplasty status Dalton Henry RN, [facility] 04/30/2020 I44.0 Atrioventricular block, first de gree Ailyn Henry RN, [facility] 04/30/2020 E66.09 Other obesity due to excess betzy anuj Ailyn Henry RN, [facility] 04/30/2020 I50.32 Chronic diastolic (congestive) h eart failure Ailyn Henry RN, [facility] 03/12/2020 I50.23 Acute on chronic systolic (conge stive) heart failure Ailyn Henry RN, [facility] 03/12/2020 Z45.02 Encounter for adjust ment and management of automatic implantable cardiac defibrillator Ailyn Henry RN, [facility] 03/12/2020 I25.5 Ischemic cardiomyopathy Ailyn Henry RN, [facility] 03/12/2020 I48.0 Paroxysmal atrial fibrillation S rory Henry RN, [facility] 03/12/2020 N18.3 Chronic kidney disease, stage 3 (moderate) Ailyn Henry RN, [facility] 03/12/2020 I47.2 Ventricular tachycardia Ailyn Henry RN, [facility] 03/12/2020 R06.02 Shortness of breath Ailyn Henry RN, [facility] 03/12/2020 E11.9 Type 2 diabetes mellitus without complications Ailyn Henry RN, [facility] 03/12/2020 E78.2 Mixed hyperlipidemia Ailyn carbajal RN, [facility] 03/12/2020 I34.0 Nonrheumatic mitral (valve) insu fficiency Ailyn Henry RN, [facility] 03/08/2020 I25.5 Ischemic cardiomyopathy Antione vargas MD 03/08/2020 I50.22 Chronic systolic (congestive) he art failure Antione Camarena MD 03/08/2020 Z95.810 Presence of automatic (implantab le) cardiac defibrillator Antione Camarena MD Plan of Treatment Future Appointment(s):* 12/04/2020 10:15 am - Device DRIER OPERATOR Schedule (517) at [place] Device Downloads (Patch-Ins) * 01/21/2021 2:00 pm - [place] DRIER OPERATOR/Device (415) at [place] [facility] * 03/25/2021 3:30 pm - [place] [facility] (315) at [place] [facility] 09/03/2020 - Ailyn Henry RN, [facility]* I34.0 Nonrheumatic mitral (valve) insufficiency * I36.1 [...]
--- OUTSIDE RECORDS SUMMARY | 2020-09-18 10:01 | CCD ---
Author Author [facility] Organization [facility] Address [address] [place] [address] Phone Care Team Providers Care Gullet Slitter Name Role Phone JAMILAH, Cardiology Unavailable [phone] Alexis PACE, Allison Unavailable [phone] Jose J PACE, Carole Lafleur PP [phone] Johnathan PACE, Saulo Rider Unavailable Unavailable Deandra Conn DO Unavailable Unavailable Jeanette PACE/peds,Sleep, Carmen Daniel Unavailable [phone] Reason for Referral No Reason for Referral Recorded Problems Includes: Active, inactive, and resolved Problems All Visits Onset Date - Time Resolved Date - Time Provider Co ndition Status Hypertens Heart & Chronic Kidney Dis Malig W/ [facility] Heart 10/13/2018 - 12:00AM Tanisha Lozada ANP-BC Active Note: Diastolic per ECHO Sick Sinus Syndrome 06/20/2018 - 12:00AM Carole rondon MD Active Note: pacemaker placed Congestive Heart Failure Diastolic 06/20/2018 - 12:00AM Carole Lux MD Active Note: EF 40-45% on 02/16 echo Family History of Colon Cancer 06/15/2018 - 12:00AM Leticia Lozada ANP-BC Active Note: brother dx age 54 Chronic Obstructive Asthma 04/08/2018 - 12:00AM Jefferson Lux MD Active Coronary Artery Disease 12/30/2017 - 12:00AM Tanisha bauman ANP-BC Active Note: s/p STEMI and stent LA D, on plavix Mixed hyperlipidemia 11/23/2017 - 12:00AM Carole Magallanes MD Active Atrial Fibrillation Chronic 08/04/2016 - 12:00AM Lew Lozada PA-C Active Note: not on anticoagulation Vasomotor rhinitis 08/04/2016 - 12:00AM Carole hess MD Active Chronic Kidney Disease Stage 3 08/04/2016 - 12:00AM Gene Lux MD Active Diabetes Mellitus Type 2 with Complication 08/04/2016 - 12:00AM Carole Lux MD Active Note: HAI 09/20 7.5 improved , sees Dr Espinoza Male erectile dysfunction, unspecified 08/04/2016 - 12:00AM Carole Lux MD Active Essential Hypertension 08/04/2016 - 12:00AM Carole Lux MD Active Benign prostatic hyperplasia with lower urinary tract symp 0 08/04/2016 - 12:00AM Carole Lux MD Active Plan of Treatment Pending Tests Order Diagnosis Results Due Ordering Provi carol Outside Labs Uric Acid Gout due to renal impairment, le ft ankle and foot 07/22/20 Carole Lux MD Referral Orthopedic Pain in right shoulder 07/25/20 Pari uLx MD Xrays - X-Ray Orders Foot X-Ray Pain in left foot 08/14/20 Gene Lux MD Future Tests Order Diagnosis Results Due Ordering Provid er Lab A1C 10/30/20 Carole nelson MD Lab AlbuminCreatinineRatio 10/30/20 Pari Lux MD Lab CMP 10/30/20 Carole nelson MD Lab Lipid Panel 10/30/20 Carole nelson MD Findings Encounter Date Education and counseling Age and gender specific counceling on preventative health discussed with the patient using USPTF and/or ACP guidlines on health maintenance and screening ANNUAL PE-followup with Carole Lux MD 04/24/2020 Education and counseling Age and gender specific counceling on preventative health discussed with the patient using USPTF and/or ACP guidlines on health maintenance and screening followup with Carole Lux MD 04/24/2020 Aspirin to be held for 1 week prior to the procedure Pre-op consult for surgery with Lew Lozada PA-C 09/12/2019 Management of diabetic care performed . Patient instructed to hold diabetic medication the morning of the procedure Pre-op consult for surgery with Lew Lozada PA-C 09/12/2019 The Preoperative History and Physical c ompleted as above. May proceed with the planned procedure. Chronic medical problems are stable and controlled. Routine perioperative care recommended Pre-op consult for surgery with Lew Lozada PA-C 09/12/2019 Education and counseling Age and gender specific counceling on preventative health discussed with the patient using USPTF and/or ACP guidlines on health maintenance and screening followup with Carole Lux MD 04/24/2019 Assessments Includes: Assessments for all patient encounters Findings Encounter Date Chronic kidney disease (NKF classificati on) stable, follows with nephrology [Chronic kidney disease, stage 4 (severe)] sick visit with Carole Lux MD 07/15/2020 Chronic obstructive asthma which is stab le Not using Advair inhaler, follows with pulmonology [Chronic obstructive pulmonary disease, unspecified] sick visit with Carole Lux MD 07/15/2020 Coronary artery disease which is stable Asymptomatic, on Plavix therapy, cardiology managing diuretics for ascites secondary to his CHF, is on fluid restriction of 1500 cc [Atherosclerotic heart disease of [place] coronary artery without angina pectoris] sick visit with Carole Lux MD 07/15/2020 Diastolic congestive heart failure which is stable -Contributing to ascites. Not to be started on any Freedom or ARB medications due to high risk. Torsemide 40 mg in the morning, 40 mg in the afternoon, spironolactone [Unspecified diastolic (congestive) heart failure] sick visit with Carole Lux MD 07/15/2020 Essential hypertension which is stable Stable [Essential (primary) hypertension] sick visit with Carole Lux MD 07/15/2020 Gout of ankle and foot due to renal impa irment Clinical exam suspicious for gout, however given multiple medical issues and risk for fracture, infection, etc. will evaluate further with x-ray and uric acid level to confirm before proceeding with treatment [Gout due to renal impairment, left ankle and foot] sick visit with Carole Lux MD 07/15/2020 Sick sinus syndrome which is stable def ibrillator in place, on Eliquis [Sick sinus syndrome] sick visit with Carole Lux MD 07/15/2020 Type 2 diabetes mellitus with complicati on last A1c 8.0 in April, A1c pending today. On 30 units of lantus daily and humalog TIDAC. Home glucose readings stable. Foot exam performed 04/24/20. Following with optho [Type 2 diabetes mellitus with other specified complication] sick visit with Carole Lux MD 07/15/2020 Arthralgia of right shoulder region Obt ain x-ray and refer to ortho. Declines PT at this time, would like to discuss with ortho first [Pain in right shoulder] followup with Carole Lux MD 07/08/2020 Chronic obstructive asthma which is stab le Not using Advair inhaler, follows with pulmonology [Chronic obstructive pulmonary disease, unspecified] followup with Carole Lux MD 07/08/2020 Coronary artery disease which is stable Asymptomatic, on Plavix therapy, cardiology managing diuretics for ascites secondary to his CHF, is on fluid restriction of 1500 cc [Atherosclerotic heart disease of [place] coronary artery without angina pectoris] followup with Carole Lux MD 07/08/2020 Diastolic congestive heart failure which is stable -Contributing to ascites. Not to be started on any Freedom or ARB medications due to high risk. Torsemide 40 mg in the morning, 40 mg in the afternoon, spironolactone [Unspecified diastolic (congestive) heart failure] followup with Carole Lux MD 07/08/2020 Essential hypertension which is stable Stable [Essential (primary) hypertension] followup with Carole Lux MD 07/08/2020 Hypertensive heart and stage 3 chronic k idney disease which is stable following with nephrology [Chronic kidney disease, stage 3 (moderate)] followup with Carole Lux MD 07/08/2020 Sick sinus syndrome which is stable def ibrillator in place, on Eliquis [Sick sinus syndrome] followup with Carole Lux MD 07/08/2020 Type 2 diabetes mellitus with complicati on last A1c 8.0 in April, A1c pending today. On 30 units of lantus daily and humalog TIDAC. Home glucose readings stable. Foot exam performed 04/24/20. Following with optho [Type 2 diabetes mellitus with other specified complication] followup with Carole Lux MD 07/08/2020 Routine senior citizen history and physi timi (65-80 yrs) history of colonoscopy, op report requested from [facility] today to determine when due for next [Encounter for general adult medical examination with abnormal findings] ANNUAL PE-followup exam/30 with Carole Lux MD 04/24/2020 Chronic obstructive asthma which is stab le Not using Advair inhaler, follows with pulmonology [Chronic obstructive pulmonary disease, unspecified] followup with Carole Lux MD 04/24/2020 Coronary artery disease which is stable Asymptomatic, on Plavix therapy, cardiology managing diuretics for ascites secondary to his CHF, is on fluid restriction of 1500 cc [Atherosclerotic heart disease of [place] coronary artery without angina pectoris] followup with Carole Lux MD 04/24/2020 Diastolic congestive heart failure which is stable -Contributing to ascites. Not to be started on any Freedom or ARB medications due to high risk. Torsemide 40 mg in the morning, 40 mg in the afternoon, spironolactone [Unspecified diastolic (congestive) heart failure] followup with Carole Lux MD 04/24/2020 Essential hypertension which is stable Stable [Essential (primary) hypertension] followup with Carole Lux MD 04/24/2020 Hypertensive heart and stage 3 chronic k idney disease which is stable following with nephrology [Chronic kidney disease, stage 3 (moderate)] followup with Carole Lux MD 04/24/2020 Sick sinus syndrome which is stable inc reased energy s/p pacemaker/defibrillator adjustment, now on Eliquis [Sick sinus syndrome] followup with Carole Lux MD 04/24/2020 Type 2 diabetes mellitus with complicati on last A1C up to 8.1 in December. On 30 units of lantus daily and humalog. Home glucose readings stable. Obtain A1c today. Lipid, CMP, ACR, A1c prior to next visit in 3 months. Foot exam performed today and normal. Following with optho [Type 2 diabetes mellitus with other specified complication] followup with Carole Lux MD 04/24/2020 Warts Cryotherapy performed today on ri ght knee, right and left wrist warts [Other viral warts] followup with Carole Lux MD 04/24/2020 No tobacco use Annual Wellness SUBSEQUEN T visi t(> 1yr since prev. with Carole Lux MD 04/24/2020 Routine senior citizen history and physical (65-80 yrs ) Annual Wellness SUBSEQUENT visi t(> 1yr since prev. with Carole Lux MD 04/24/2020 Pain in right foot sick visit with Susan Kan [employer] 0 03/01/2020 Plantar fasciitis sick visit with Susan Kan [employer] 0 03/01/2020 Cellulitis of lower leg surrounding wou nd, will treat with Bactrim [Cellulitis of left lower limb] followup with Carole Lux MD 01/23/2020 Chronic kidney disease, stage 3 GFR 51 [Chronic kidney disease, stage 3 (moderate)] followup with Carole Lux MD 01/23/2020 Dysplastic nevus shave biopsies perform ed today [Neoplasm of uncertain behavior of skin] followup with Carole Lux MD 01/23/2020 Type 2 diabetes mellitus with complicati on , A1C up to 8.1. He has not felt well with recent bout of A fib and has been doing much less than normal for him. He is using 30 units of lantus daily and has needed to increase his humalog. He does state that he is doing better with his diet followup with Carole Lux MD 01/23/2020 Chronic atrial fibrillation , recently i n a fib again. Has echo/stress test coming up in January. Has had pacemaker checked followup with Lew Lozada PA-C 01/18/2020 Chronic kidney disease, stage 3 , creati nine 2.5 on 01/01. 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 BP stable with spironolactone and torsemide followup with Lew Lozada PA-C 01/18/2020 Type 2 diabetes mellitus with complicati on , A1C up to 8.1. He has not felt well with recent bout of A fib and has been doing much less than normal for him. He is using 30 units of lantus daily and has needed to increase his humalog. He does state that he is doing better with his diet followup with Lew Lozada PA-C 01/18/2020 Warts , left anterior boothe. Wart versus other. Had wart removed on posterior left leg in 2019 that was concerning for possible squamous cell. Similar concerns regarding these lesions. Schedule with Dr. Lux for possible biopsy of skin lesions followup with Lew Lozada PA-C 01/18/2020 Chronic obstructive asthma Not using Advair inhaler, follows with pulmonology followup with Carole Lux MD 10/18/2019 Coronary artery disease Asymptomatic, o n Plavix therapy, cardiology managing diuretics for ascites secondary to his CHF, is on fluid restriction of 1500 cc, Last paracentesis was last week. Doing them every 2-3 weeks [Atherosclerotic heart disease of [place] coronary artery without angina pectoris] followup with Carole Lux MD 10/18/2019 Diastolic congestive heart failure -Con tributing to ascites. Not to be started on any Freedom or ARB medications due to high risk. Torsemide 40 mg in the morning, 40 mg in the afternoon, spironolactone [Unspecified diastolic (congestive) heart failure] followup with Carole Lux MD 10/18/2019 Essential hypertension Stable [Essential (primary) hy pertension] followup with Carole Lux MD 10/18/2019 Hypertensive heart and stage 3 chronic k idney disease following with nephrology followup with Carole Lux MD 10/18/2019 Sick sinus syndrome continues to feel b nadine s/p pacemaker/defibrillator replacement [Sick sinus syndrome] followup with Carole Lux MD 10/18/2019 Type 2 diabetes mellitus with complicati on Lantus insulin with sliding scale. Humalog on sliding scale TID, doses range from 25-30 units of Humalog. A1c improving from 8.8 to 7.6. Continue lantus 30 units HS. Continue diabetic diet. Follow-up in 3 months with TM with CMP and A1c prior [Type 2 diabetes mellitus with other specified complication] followup with Carole Lux MD 10/18/2019 Cataract in both eyes Pre-op consult for surgery with Lew bauman PA-C 09/12/2019 Chronic kidney disease, stage 3 , managed by Dr. Hogue u's office Pre-op consult for surgery with Lew Lozada PA-C 09/12/2019 Working diagnosis of visit for: preoperative exam , ca taracts Pre-op consult for surgery with Lew Lozada PA-C 09/12/2019 Chronic obstructive asthma Not using Advair inhaler, follows with pulmonology followup with Carole Lux MD 07/24/2019 Coronary artery disease Asymptomatic, o n Plavix therapy, cardiology managing diuretics for ascites secondary to his CHF, is on fluid restriction of 1500 cc, Last paracentesis was last week. Doing them every 2-3 weeks [Atherosclerotic heart disease of [place] coronary artery without angina pectoris] followup with Carole Lux MD 07/24/2019 Diastolic congestive heart failure -Con tributing to ascites. Not to be started on any Freedom or ARB medications due to high risk. Torsemide 40 mg in the morning, 40 mg in the afternoon, spironolactone [Unspecified diastolic (congestive) heart failure] followup with Carole Lux MD 07/24/2019 Essential hypertension Stable [Essential (primary) hy pertension] followup with Carole Lux MD 07/24/2019 Flank pain Will obtain renal US for fur ther evaluation [Upper abdominal pain, unspecified] followup with Carole Lux MD 07/24/2019 Hypertensive heart and stage 3 chronic k idney disease following with nephrology followup with Carole Lux MD 07/24/2019 Sick sinus syndrome continues to feel b nadine s/p pacemaker/defibrillator replacement [Sick sinus syndrome] followup with Carole Lux MD 07/24/2019 Type 2 diabetes mellitus with complicati on Lantus insulin with sliding scale. Humalog on sliding scale TID, doses range from 25-30 units of Humalog. Will increase Lantus to 30 units HS. A1c pending today. [Type 2 diabetes mellitus with other specified complication] followup with Carole Lux MD 07/24/2019 Chronic obstructive asthma Not using Advair inhaler, follows with pulmonology followup with Carole Lux MD 04/24/2019 Coronary artery disease Asymptomatic, o n Plavix therapy, cardiology managing diuretics for ascites secondary to his CHF, is on fluid restriction of 1500 cc, Last paracentesis was last week. Doing them every 2-3 weeks [Atherosclerotic heart disease of [place] coronary artery without angina pectoris] followup with Carole Lux MD 04/24/2019 Diastolic congestive heart failure -Con tributing to ascites. Not to be started on any Freedom or ARB medications due to high risk. Torsemide 40 mg in the morning, 40 mg in the afternoon, spironolactone [Unspecified diastolic (congestive) heart failure] followup with Carole Lux MD 04/24/2019 Essential hypertension Stable [Essential (primary) hy pertension] followup with Carole Lux MD 04/24/2019 Hypertensive heart and stage 3 chronic k idney disease following with nephrology followup with Carole Lux MD 04/24/2019 Sick sinus syndrome continues to feel b nadine s/p pacemaker/defibrillator replacement [Sick sinus syndrome] followup with Carole Lux MD 04/24/2019 Type 2 diabetes mellitus with complicati on Follows with Dr. Espinoza, taking Lantus insulin with sliding scale. Lantus 20 units HS. Humalog on sliding scale TID, doses range from 10-40 units of Humalog. Will increase Lantus to 25 units HS. Obtain labs today [Type 2 diabetes mellitus with other specified complication] followup with Carole Lux MD 04/24/2019 No tobacco use Annual INITIAL Wellness v isit (enrolled >1year) with Carole Lux MD 04/24/2019 Routine senior citizen history and physi timi (65-80 yrs) [Encounter for general adult medical examination with abnormal findings] Annual INITIAL Wellness visit (enrolled >1year) with Carole Lux MD 04/24/2019 Cellulitis Will treat with Bactrim, ref er to wound care for further treatment of non-healing wound [Acute lymphangitis of left lower limb] sick visit with Carole Lux MD 02/08/2019 Chronic kidney disease, stage 3 sick visit with Carole Magallanes MD 02/08/2019 Open wound of left lower leg [Unspecifie d open wound, left lower leg, initial encounter] sick visit with Carole Lux MD 02/08/2019 Cellulitis of left lower leg resolved w ith Keflex follow-up in 3 months for MAW [Cellulitis of left lower limb] followup with Carole Lux MD 01/13/2019 Chronic obstructive asthma Not using Advair inhaler, follows with pulmonology followup with Carole Lux MD 01/13/2019 Coronary artery disease Asymptomatic, o n Plavix therapy, cardiology managing diuretics for ascites secondary to his CHF, is on fluid restriction of 1500 cc, recent paracentesis [Atherosclerotic heart disease of [place] coronary artery without angina pectoris] followup with Carole Lux MD 01/13/2019 Diastolic congestive heart failure -Con tributing to ascites, last paracentesis 2 weeks ago, removed 1.5 gallons. Not to be started on any Freedom or ARB medications due to high risk. Torsemide 40 mg in the morning, 20 mg in the afternoon, spironolactone [Unspecified diastolic (congestive) heart failure] followup with Carole Lux MD 01/13/2019 Essential hypertension Stable [Essential (primary) hy pertension] followup with Carole Lux MD 01/13/2019 Hypertensive heart and stage 3 chronic k idney disease following with nephrology followup with Carole Lux MD 01/13/2019 Sick sinus syndrome continues to feel b nadine s/p pacemaker replacement [Sick sinus syndrome] followup with Carole Lux MD 01/13/2019 Skin disorder pathology reviewed, farheen montemayor [Disorder of the skin and subcutaneous tissue, unspecified] followup with Carole Lux MD 01/13/2019 Type 2 diabetes mellitus with complicati on Follows with Dr. Espinoza, taking Lantus insulin with sliding scale [Type 2 diabetes mellitus with other specified complication] followup with Carole Lux MD 01/13/2019 Cellulitis of left lower leg No signifi cant improvement with Keflex, will try Bactrim [Cellulitis of left lower limb] Ambulatory Procedure with Carole Lux MD 12/19/2018 Skin disorder [Disorder of the skin and subcutaneous t issue, unspecified] Ambulatory Procedure with Carole Lux MD 12/19/2018 Cellulitis of left lower leg Will treat with Keflex [Cellulitis of left lower limb] followup with Carole Lux MD 12/05/2018 Chronic obstructive asthma Not using Advair inhaler, follows with pulmonology followup with Carole Lux MD 12/05/2018 Coronary artery disease Asymptomatic, o n Plavix therapy, cardiology managing diuretics for ascites secondary to his CHF, is on fluid restriction of 1500 cc, recent paracentesis [Atherosclerotic heart disease of [place] coronary artery without angina pectoris] followup with Carole Lux MD 12/05/2018 Diastolic congestive heart failure -Con tributing to ascites, recently had an paracentesis when 7600 cc removed, not to be started on any Freedom or ARB medications due to high risk. Torsemide was increased to 40 mg in the morning, 20 mg in the afternoon, restarted spironolactone discontinued metolazone [Unspecified diastolic (congestive) heart failure] followup with Carole Lux MD 12/05/2018 Essential hypertension Stable [Essential (primary) hy pertension] followup with Carole Lux MD 12/05/2018 Hypertensive heart and stage 3 chronic k idney disease following with nephrology followup with Carole Lux MD 12/05/2018 Sick sinus syndrome Feeling much better s/p pacemaker replacement [Sick sinus syndrome] followup with Carole Lux MD 12/05/2018 Skin disorder on posterior aspect of le ft lower extremity, will schedule for excisional biopsy [Disorder of the skin and subcutaneous tissue, unspecified] followup with Carole Lux MD 12/05/2018 Type 2 diabetes mellitus with complicati on Follows with Dr. Espinoza, taking Lantus insulin with sliding scale [Type 2 diabetes mellitus with other specified complication] followup with Carole Lux MD 12/05/2018 Chronic obstructive asthma Not using Advair inhaler, follows with pulmonology incident to previous visit- with Tanisha Lozada [facility] 10/14/2018 Coronary artery disease -Denies any nicola st discomfort, on Plavix therapy, cardiology managing diuretics for ascites secondary to his CHF, is on fluid restriction of 1500 cc, recent paracentesis, is scheduled for nuclear stress test in next few weeks incident to previous visit- with Tanisha Lozada [facility] 10/14/2018 Diastolic congestive heart failure -Con tributing to ascites, recently had an paracentesis when 7600 cc removed, not to be started on any Freedom or ARB medications due to high risk. Torsemide was increased to 40 mg in the morning, 20 mg in the afternoon, restarted spironolactone and continue metolazone twice weekly incident to previous visit- with Tanisha Lozada [facility] 10/14/2018 Essential hypertension -Under control with bisoprolol incident to previous visit- with Tanisha Lozada [facility] 10/14/2018 Hypertensive heart and stage 3 chronic k idney disease To follow up in 2 weeks with nephrology, will have repeat labs at that time incident to previous visit- with Tanisha Lozada [facility] 10/14/2018 Sick sinus syndrome Has pacemaker, follows with [facility] incident to previous visit- with Tanisha Lozada [facility]- 10/14/2018 Type 2 diabetes mellitus with complicati on Did have hypoglycemia of 51 during the night, reports appetite fluctuates. Continues to use the treadmill 4-5 minutes 2-3 times a day. Follows with Dr. Espinoza, taking Lantus insulin with sliding scale incident to previous visit- with Tanisha Lozada [facility]- 10/14/2018 Chronic kidney disease, stage 3 BUN con tinues to trend up, creatinine stable at 2.0. Follow-up with nephrology. Repeat BMP to monitor hypokalemia. RTC in 3 months for follow-up [Chronic kidney disease, stage 3 (moderate)] followup with Carole Lux MD 07/11/2018 Chronic obstructive asthma Stable, cont inue Advair BID and Ventolin inh q4-6 hours [Chronic obstructive pulmonary disease, unspecified] followup with Carole Lux MD 07/11/2018 Diastolic congestive heart failure Staartem dorado, continue current management per cardiology followup with Carole Lux MD 07/11/2018 Essential hypertension Stable. Continue current management [Essential (primary) hypertension] followup with Carole Lux MD 07/11/2018 Chronic kidney disease, stage 3 BUN and creatining trending up since November with worsening lower extremity edema and ascites. Will refer to nephrology [Chronic kidney disease, stage 3 (moderate)] followup with Carole Lux MD 06/20/2018 Chronic obstructive asthma Wheezing on exam today with reported shortness of breath. Encourage Ventolin inh q4-6 hours [Chronic obstructive pulmonary disease, unspecified] followup with Carole Lux MD 06/20/2018 Diastolic congestive heart failure Adelso dorado, continue current management per cardiology followup with Carole Lux MD 06/20/2018 Essential hypertension Stable. Continue current management [Essential (primary) hypertension] followup with Carole Lux MD 06/20/2018 Type 2 diabetes mellitus with complicati on Stable. Lab results requested from Dr. Espinoza. Continue current management. RTC in 1 month for follow-up [Type 2 diabetes mellitus with other specified complication] followup with Carole Lux MD 06/20/2018 Dog bite right index finger urgent visit with Rebecca Lopez RPA 02/07/2016 Instructions Instructions not supported for this document typeNo Instructions Recorded Medical Equipment - Implanted Devices Includes: Current and historical DevicesNo Medical Equipment Recorded Medications Includes: Current and historical Medications Current Medications (continue as prescribed) Spironolactone 25 MG Oral Tablet 07/09/2020 Provide r: Carole Lux MD Diagnosis: as directed 1 tab PO on even days and 2 tabs PO on odd days Potassium Chloride ER 10 MEQ Oral Tablet Extended Release Provider: Carole Lux MD Diagnosis: Take 2 tablets by mouth once daily Lantus 100 UNIT/ML Subcutaneous Solution 05/23/2020 - 2020 Provider: Carole Lux MD Diagnosis: use as directed 30 units at bedtime BD Pen Needle Short U/F 31G X 8 MM Miscellaneous 05/13/2020 Provider: Carole Lux MD Diagnosis: use as directed testing up to qid and prn Eliquis 2.5 MG Oral Tablet 04/24/2020 - 10/21/2020 Provider: Diagnosis: 1 PO BID HumaLOG KwikPen 100 UNIT/ML Subcutaneous Solution Pen- injector 04/09/2020 - 04/04/2021 Provider: Susan Kan [employer] Diagnosis: use per sliding scale 15-35 units per meals FreeStyle Lite Test In Vitro Strip 02/06/2020 - 09/18/2020 Armand rodarteder: Carole Lux MD Diagnosis: used as directed tid-qid dilTIAZem HCl 60 MG Oral Tablet 01/18/2020 Provider : Diagnosis: 60 mg bid Ventolin HFA 108 (90 Base) MCG/ACT Inhalation Aerosol Soluti on 01/08/2020 Provider: Carole Lux MD Diagnosis: 1 every 4 - 6 hours as needed Torsemide 20MG Oral Tablet 03/27/2019 Provider: Deandra Conn DO Diagnosis: Potassium Chloride 10MEQ/50ML Intravenous Solution 9 Provider: Antione Camarena Diagnosis: Rosuvastatin Calcium 20MG Oral Tablet 10/14/2018 Pr ovider: Tanisha Lozada ANP-BC Diagnosis: taking M and TH cardiology [facility] Magnesium Oxide 500MG Oral Tablet 10/14/2018 Pr ovider: Diagnosis: Advair HFA 115-21MCG/ACT Inhalation Aerosol 07/06/2018 Provider: Carmen Reid MD/peds,Sleep Diagnosis: Colace 100MG Oral Capsule 06/20/2018 Provider: Diagnosis: EQ Complete Multivit Adult 50+ Tablet 02/07/2016 Pr ovider: Diagnosis: Suspended Medications Spironolactone 25MG Oral Tablet 07/03/2019 - 06/27/2020 Prov ider: Carole Lux MD Diagnosis: 1.5 tabs daily Past Medications on file predniSONE 20 MG Oral Tablet 03/01/2020 - 03/06/2020 Provide r: Susan Kan [employer] Diagnosis: 2 tabs once per day in the morning with food BD Pen Needle Short U/F 31G X 8 MM Miscellaneous 02/06/2020 - 04/24/2020 Provider: Carole Lux MD Diagnosis: use as directed testing up to qid and prn Sulfamethoxazole-Trimethoprim 800-160 MG Oral Tablet 020 - 01/30/2020 Provider: Carole Lux MD Diagnosis: 1 PO BID Spironolactone 25 MG Oral Tablet 12/28/2019 - 07/09/2020 Pro vider: Carole Lux MD Diagnosis: Lantus 100 UNIT/ML Subcutaneous Solution 10/31/2019 - 2019 Provider: Carole Lux MD Diagnosis: use as directed 30 units at bedtime HumaLOG KwikPen 100 UNIT/ML Subcutaneous Solution Pen- injector 09/20/2019 - 03/01/2020 Provider: Lew Lozada PA-C Diagnosis: use per sliding scale 15-35 units per meals HumaLOG KwikPen 100UNIT/ML Subcutaneous Solution Pen-i njector 07/24/2019 - 09/12/2019 Provider: Carole Lux MD Diagnosis: use per sliding scale 15-35 units per meals Lantus 100UNIT/ML Subcutaneous Solution 07/24/2019 - 020 Provider: Carole Lux MD Diagnosis: use as directed 30 units at bedtime Lantus 100UNIT/ML Subcutaneous Solution 06/21/2019 - 019 Provider: Carole Lux MD Diagnosis: use as directed 25 units at bedtime BD Pen Needle Short U/F 31G X 8 MM Miscellaneous 06/06/2019 - 01/23/2020 Provider: Carole Lux MD Diagnosis: use as directed testing up to qid and prn Potassium Chloride ER 10MEQ Oral Tablet Extended Relea se 05/01/2019 - 06/08/2020 Provider: Carole Lux MD Diagnosis: 2 PO QD FreeStyle Lite Test In Vitro Strip 04/10/2019 - 01/23/2020 P rovider: Carole Lux MD Diagnosis: used as directed tid-qid Bisoprolol Fumarate 5MG Oral Tablet 04/04/2019 - 07/24/2019 Provider: Diagnosis: HumaLOG KwikPen 100UNIT/ML Subcutaneous Solution Pen-i njector 02/27/2019 - 07/24/2019 Provider: Carole Lux MD Diagnosis: use per sliding scale 15-35 units per meals HumaLOG KwikPen 100UNIT/ML Subcutaneous Solution Pen-i njector 02/13/2019 - 02/08/2019 Provider: Carole Lux MD Diagnosis: use per sliding scale 15-20 units per meals HumaLOG KwikPen 100UNIT/ML Subcutaneous Solution Pen-i njector 02/10/2019 - 02/08/2019 Provider: Carole Lux MD Diagnosis: use per sliding scale 15-20 units per meals FreeStyle Lite Test In Vitro Strip 02/10/2019 - 02/08/2019 P rovider: Carole Lux MD Diagnosis: used as directed tid-qid BD Pen Needle Short U/F 31G X 8 MM Miscellaneous 02/10/2019 - 04/24/2019 Provider: Carole Lux MD Diagnosis: use as directed HumaLOG 100UNIT/ML Subcutaneous Solution Cartridge - 02/10/2019 Provider: Carole Lux MD Diagnosis: use as directed sliding scale Dr Alexis average 15-20 units p er meals Bactrim DS 800-160MG Oral Tablet 02/08/2019 - 02/15/2019 Pro vider: Carole Lux MD Diagnosis: 1 PO BID Spironolactone 25MG Oral Tablet 01/25/2019 - 04/24/2019 Prov ider: Carole Lux MD Diagnosis: 1.5 tabs daily Sulfamethoxazole-Trimethoprim 800-160MG Oral Tablet 12/20/19 - 12/26/2018 Provider: Carole Lux MD Diagnosis: 1 PO BID Cephalexin 500MG Oral Capsule 12/14/2018 - 12/21/2018 Provid er: Carole Lux MD Diagnosis: 1 PO BID Cephalexin 500MG Oral Capsule 12/05/2018 - 12/12/2018 Provid er: Carole Lux MD Diagnosis: 1 PO BID Torsemide 20MG Oral Tablet 11/17/2018 - 01/01/2019 Provider: Diagnosis: 2 tabs in the morning, 1 in the afternoon nephrology metOLazone 2.5MG Oral Tablet 11/17/2018 - 12/05/2018 Provide r: Diagnosis: twice weekly Spironolactone 25MG Oral Tablet 11/12/2018 - 01/13/2019 Prov ider: Carole Lux MD Diagnosis: Bisoprolol Fumarate 5MG Oral Tablet 11/12/2018 - 12/05/2018 Provider: Diagnosis: Ventolin HFA 108 (90 Base)MCG/ACT Inhalation Aerosol S olution 11/11/2018 - 05/10/2019 Provider: Carole Lux MD Diagnosis: 1-2 puffs every 4-6 hours as needed for wheezing. Bisoprolol Fumarate 5MG Oral Tablet 10/14/2018 - 12/13/2018 Provider: Diagnosis: 1/2 once daily HumaLOG 100UNIT/ML Subcutaneous Solution Cartridge 9 - 02/08/2019 Provider: Diagnosis: sliding scale Dr Espinoza average 15-20 units per meals Lantus 100UNIT/ML Subcutaneous Solution 10/14/2018 - 019 Provider: Diagnosis: 20 units at bedtime Torsemide 20MG Oral Tablet 10/14/2018 - 11/17/2018 Provider: Diagnosis: 1 tab twice daily Potassium Chloride ER 10MEQ Oral Tablet Extended Relea se 10/14/2018 - 04/24/2019 Provider: Diagnosis: 2 tabs daily metOLazone 2.5MG Oral Tablet 10/14/2018 - 11/17/2018 Provide r: Diagnosis: once weekly Thur Clopidogrel Bisulfate 75MG Oral Tablet 10/14/2018 - 01/13/20 19 Provider: Rambo Leroy MD Diagnosis: Rosuvastatin Calcium 20MG Oral Tablet 09/16/2018 - 9 Provider: Carole Lux MD Diagnosis: 1 PO QD Spironolactone 25MG Oral Tablet 08/04/2018 - 10/14/2018 Prov ider: Carole Lux MD Diagnosis: 1 PO QD Spironolactone 25MG Oral Tablet 08/03/2018 - 07/11/2018 Prov ider: Carole Lux MD Diagnosis: as directed 1/2 tab po daily Potassium Chloride ER 10MEQ Oral Tablet Extended Relea se 06/07/2018 - 10/14/2018 Provider: Diagnosis: MetOLazone 2.5MG Oral Tablet 06/07/2018 - 10/14/2018 Provide r: Diagnosis: Ventolin HFA 108 (90 Base)MCG/ACT Inhalation Aerosol S olution 05/31/2018 - 10/14/2018 Provider: Diagnosis: Breo Ellipta 200-25MCG/INH Inhalation Aerosol Powder B reath Activated 05/30/2018 - 07/11/2018 Provider: Carmen Reid MD/peds,Sleep Diagnosis: Spironolactone 25MG Oral Tablet 05/20/2018 - 07/11/2018 Prov ider: Diagnosis: Bisoprolol Fumarate 5MG Oral Tablet 05/16/2018 - 10/14/2018 Provider: Diagnosis: BD Pen Needle Short U/F 31G X 8 MM Miscellaneous 05/06/2018 - 02/08/2019 Provider: Allison Espinoza MD Diagnosis: Torsemide 20MG Oral Tablet 05/03/2018 - 10/14/2018 Provider: Diagnosis: Atorvastatin Calcium 20MG Oral Tablet 05/03/2018 - 9 Provider: Diagnosis: Clopidogrel Bisulfate 75MG Oral Tablet 04/10/2018 - 10/15/19 19 Provider: Rambo Leroy MD Diagnosis: FreeStyle Lite Test In Vitro Strip 04/02/2018 - 02/08/2019 Armand orellana: Mariana Ca [employer] Diagnosis: HumaLOG KwikPen 100UNIT/ML Subcutaneous Solution Pen-i njector 02/22/2018 - 02/08/2019 Provider: Allison Espinoza MD Diagnosis: Clindamycin HCl 300 MG Capsule 02/07/2016 - 10/14/2018 Provi carol: Rebecca Lopez RPA Diagnosis: Bitten by dog, initi al encounter 1 tab po tid Xarelto 20 MG Tablet 02/07/2016 - 06/20/2018 Provider: Diagnosis: Lantus 100 UNIT/ML Solution 02/07/2016 - 10/14/2018 Provider : Diagnosis: HumaLOG 100 UNIT/ML Solution Cartridge 02/07/2016 - 10/15/19 19 Provider: Diagnosis: Losartan Potassium 50 MG Tablet 02/07/2016 - 06/20/2018 Prov ider: Diagnosis: MetFORMIN HCl 1000 MG Tablet 02/07/2016 - 06/20/2018 Provide r: Diagnosis: Medications Administered Includes: Administered Medications in patient's chartNo Administered Medications Recorded Vital Signs Includes: Vital Signs from 07/15/2019 through 07/15/2020 Vital Name 07/15/2020 10:45A 07/08/2020 09:31A 04/24/2020 11:03A 04/24/2020 11:01A 04/24/2020 10:59A Blood Pressure Sitting (mmHg) 136/82 108/68 110/74 110/74 110/74 Pulse Rate-Sitting (bpm) 64 115 68 68 68 Height (in) 71 71 71 71 71 Weight (lb) 254.6 255.6 251.6 251.6 251.6 Body Mass Index (kg/m2) 35.5 35.6 35.1 35.1 3 5.1 Body Surface Area (m2) 2.34 2.34 2.32 2.32 2. 32 Respiration Rate (breaths/min) 24 22 22 22 Vital Name 03/01/2020 11:25A 01/23/2020 02:42P 01/18/2020 10:42A 10/18/2019 09:24A 09/12/2019 09:40A Blood Pressure Sitting (mmHg) 120/80 110/70 110/70 Pulse Rate-Sitting (bpm) 78 72 80 72 92 Height (in) 71 71 71 71 71 Weight (lb) 253 256 256 250 248 Body Mass Index (kg/m2) 35.3 35.7 35.7 34.9 3 4.6 Body Surface Area (m2) 2.33 2.34 2.34 2.32 2. 31 Respiration Rate (breaths/min) 18 20 20 20 20 Blood Pressure Sitting L 126/68 110/68 BP Cuff Size Large Large Vital Name 07/24/2019 08:12A Blood Pressure Sitting (mmHg) 120/62 Pulse Rate-Sitting (bpm) 77 Height (in) 71 Weight (lb) 249 Body Mass Index (kg/m2) 34.7 Body Surface Area (m2) 2.31 Respiration Rate (breaths/min) 20 Results Includes: Results from 07/15/2019 through 07/15/2020 [facility] Ordered by Carole Lux MD on 07/08/2020 [address] [place], [address] Collected: 07/08/2020 Reported: 07/08/2020 09:57 tel :[phone] ext. [phone] [facility] 7.6 na (5.0-6.0) H (High) Note: Responsible Observer: KM Reviewed by Carole Lux MD on 07/08; All test results are final unless otherwise noted. [facility] Ordered by Carole Lux MD on 04/24/2020 [address] [place], [address] Collected: 04/24/2020 Reported: 04/24/2020 12:03 tel :[phone] ext. 1500 [facility] 8.0 na (5.0-6.0) H (High) Note: Responsible Observer: KM Reviewed by Carole Lux MD on 04/24; All test results are final unless otherwise noted. CBC W AUTO DIFF [facility] Ordered by Carole Lux MD on 04/04/2020 Collected: 04/04/2020 Reported: 04/04/2020 10:01 MCV BldCo Auto 91.6 FemtoLiter_[SI_Volume_Units] (80-96) N (Normal) Note: Responsible Observer: MCV MCV 100 .0600 (B) RDW RBC Auto 15 percent (11-15) N (Normal) Note: Responsible Observer: RDW RDW 100 .0900 (B) Manual diff Bld NO None Note: Responsible Observer: CBC Manual D ifferential Added 100.1990 (B) PMV Bld 9.7 FemtoLiter_[SI_Volume_Units] (9.1-13.1) N (Normal) Note: Responsible Observer: MPV MPV 100 .1100 (B) Imm Granulocytes Bld Ql Auto See Note (0-2) N (Normal) Note: [id number] ible Observer: IG% IG% 100.1375 (B) Hct VFr Bld Auto 40.2 percent (42-52) L (Low) Note: Responsible Observer: HEMATOCRIT H EMATOCRIT 100.0500 (B) MCHC BldCo-mCnc 33.1 GramsPerDeciLiter_[Mass_Concentration_Units] (33-37) N (Normal) Note: Responsible Observer: MCHC MCHC 1 00.0800 (B) Imm Granulocytes # Bld Auto 0.0 Unit (0-0.1) None Note: Responsible Observer: IG# IG# 100 .1400 (B) Monocytes/leuk NFr Bld Auto 8.8 percent (4-12) N (Normal) Note: Responsible Observer: MONO % MONO % 100.1225 (B) Hgb Bld-sCnc 13.3 GramsPerDeciLiter_[Mass_Concentration_Units] (13-18) N (Normal) Note: Responsible Observer: HGB HEMOGLOB IN 100.0400 (B) WBC # Bld Auto 6.2 ThousandsPerMicroLiter_[Number_Concentration_Units] (4.45-10 .71) N (Normal) Note: Responsible Observer: WBC WHITE BL OOD COUNT 100.0100 (E) Basophils # Bld Auto 0.1 Unit (0.0-0.2) N (Normal) Note: Responsible Observer: BASO # BASO# 100.1350 (B) Basophils/leuk NFr Bld Auto 1.4 percent (0.4-1.3) H (High) Note: Responsible Observer: BASO % BASO % 100.1325 (B) Eosinophil # Bld Auto 0.3 Unit (0.0-0.5) N (Normal) Note: Responsible Observer: EOS # EOS# 100.1300 (D) Eosinophil/leuk NFr Bld Auto 4.7 percent (0-7) N (Normal) Note: Responsible Observer: EOS % EOS % 100.1275 (B) Lymphocytes # Bld Auto 0.8 Unit (0.6-4.6) N (Normal) Note: Responsible Observer: LYMPH # LYMP H# 100.1200 (B) Lymphocytes/leuk NFr Bld Auto 13.2 percent (14-46) L (Low) Note: Responsible Observer: LYMPH % LYMP H % 100.1175 (B) Monocytes # Bld Auto 0.6 Unit (0.2-1.2) N (Normal) Note: Responsible Observer: MONO # MONO# 100.1250 (C) Neutrophils # Bld Auto 4.5 Unit (1.7-7.6) N (Normal) Note: Responsible Observer: NEUT# NEUT# 100.1150 (B) Neutrophils/leuk NFr Bld Auto 71.6 percent (41-77) N (Normal) Note: Responsible Observer: NEUT% NEUT% 100.1125 (B) Platelet # Bld Auto 175 ThousandsPerMicroLiter_[Number_Concentration_Units] (130-472 ) N (Normal) Note: Responsible Observer: PLATELET COU NT PLATELET COUNT 100.1000 (D) MCH RBC Qn Auto 30.3 PicoGram_[SI_Mass_Units] (27-31) N (Normal) Note: Responsible Observer: MCH MCH 100 .0700 (B) RBC # Bld Auto 4.39 MillionsPerMicroLiter_[Number_Concentration_Units] (4.3-6.1) N (Normal) Note: Responsible Observer: RBC Red Bloo d Count 100.0300 (B) NUCLEATED RED BLOOD CELL# 0 Unit None Note: Responsible Observer: NRBC# NUCLEA GABRIEL RBC 100.1362 (A) NUCLEATED RED BLOOD CELL 0 percent None Note: Responsible Observer: NRBC% NRBC% 100.1360 (B) Reviewed by Carole Lux MD on 04/05; All test results are final unless otherwise noted. PT/PTT [facility] Ordered by Carole Lux MD on 04/04/2020 Collected: 04/04/2020 Reported: 04/04/2020 10:28 Screen aPTT 27.3 second (22.7-31.6) N (Normal) Note: Responsible Observer: PTT PTT 200 .0500 (A) INR 1.1 (0.9-1.1) N (Normal) Note: THE INR IS OPERATIONALLY DEFINED F OR FRESH PLASMA FROMPATIENTS STABILIZED ON ORAL ANTICOAGULANTS.ROUTINE ANTICOAGULANT THERAPY 2.0-3.0RECURRENT SYSTEMIC EMBOLISM/HEART VALVE REPLACEMENT 2.5-3.5Responsible Observer: INR INR 200.0400 (A) Prothrombin Time (Patient) 11.2 second (9.6-12.3) N (Normal) Note: Responsible Observer: PT Prothromb in Time 200.0300 (A) Reviewed by Carole Lux MD on 04/05; All test results are final unless otherwise noted. [facility] Ordered by Carole Lux MD on 04/04/2020 Collected: 04/04/2020 Reported: 04/04/2020 10:54 ALT SerPl w P-5'-P-cCnc 34 enzyme_unit_per_liter (10-49) N (Normal) Note: Responsible Observer: SGPT/ALT SGP T/ALT 400.1750 (G) Calcium SerPl-mCnc 10.5 MilliGramsPerDeciLiter_[Mass_Concentration_Units] (8.5-10.1) H (High) Note: Responsible Observer: Calcium Calc ium 400.2500 (G) Bilirub SerPl-mCnc 1.2 MilliGramsPerDeciLiter_[Mass_Concentration_Units] (0.3-1.2) N (Normal) Note: Responsible Observer: T KATI Total Bilirubin 400.2600 (G) CO2 SerPl-sCnc 30 MilliMolesPerLiter_[Substance_Concentration_Units] (20-31) N (Normal) Note: Responsible Observer: CO2 Carbon D ioxide 400.1400 (G) Chloride SerPl-sCnc 102 MilliMolesPerLiter_[Substance_Concentration_Units] (99-109) N (Normal) Note: Responsible Observer: Chloride Chl oride 400.1250 (G) Glucose SerPl-mCnc 185 MilliGramsPerDeciLiter_[Mass_Concentration_Units] (74-106) H (High) Note: Responsible Observer: Glucose Gluc ose 400.1500 (G) Potassium SerPl-sCnc 4.5 MilliMolesPerLiter_[Substance_Concentration_Units] (3.5-5.5) N (Normal) Note: Responsible Observer: K Potassium 400.1210 (G) Prot SerPl-mCnc 7.6 GramsPerDeciLiter_[Mass_Concentration_Units] (5.7-8.2) N (Normal) Note: Responsible Observer: TP Total Pro tein 400.2800 (G) Sodium SerPl-sCnc 138 MilliMolesPerLiter_[Substance_Concentration_Units] (132-146) N (Normal) Note: Responsible Observer: Sodium Sodiu m 400.1100 (G) AST SerPl w P-5'-P-cCnc 25 enzyme_unit_per_liter (0-33) N (Normal) Note: Responsible Observer: SGOT / AST S GOT / AST 400.1900 (G) BUN SerPl-mCnc 60 MilliGramsPerDeciLiter_[Mass_Concentration_Units] (9-23) H (High) Note: Responsible Observer: BUN Blood Ur ea Nitrogen 400.1000 (G) Anion Gap SerPl-sCnc 11 MilliMolesPerLiter_[Substance_Concentration_Units] (8-16) N (Normal) Note: Responsible Observer: ANION GAP AN ION GAP 400.1402 (E) Albumin SerPl BCP-mCnc 3.9 GramsPerDeciLiter_[Mass_Concentration_Units] (3.2-4.8) N (Normal) Note: Responsible Observer: Albumin Albu min 400.2700 (G) ALP SerPl-cCnc 173 enzyme_unit_per_liter (45-129) H (High) Note: Responsible Observer: ALP Alkaline Phosphatase 400.2000 (G) GFR/BSA.pred SerPlBld-ArVRat 26 (ABOVE 60) None Note: Responsible Observer: GFR Glomerul ar Filt Rate Calc 400.1605 (D) Creatinine 2.5 MilliGramsPerDeciLiter_[Mass_Concentration_Units] (0.5-1.1) H (High) Note: Responsible Observer: Creatinine C reatinine 400.1600 (G) Reviewed by Carole Lux MD on 04/05; All test results are final unless otherwise noted. Reported Physicians [facility] Ordered by Carole Lux MD on 04/04/2020 Collected: 04/04/2020 Reported: 04/04/2020 10:54 Reported Physicians See Note None Note: Reported Physicians:Ordering: Fred Traceyending: Margy Desouza To: Carole Lux Reviewed by Carole Lux MD on 04/05; All test results are final unless otherwise noted. CBC W AUTO DIFF [facility] Ordered by Carole Lux MD on 03/12/2020 Collected: 03/12/2020 Reported: 03/12/2020 13:33 MCV BldCo Auto 90.3 FemtoLiter_[SI_Volume_Units] (80-96) N (Normal) Note: Responsible Observer: MCV MCV 100 .0600 (B) RDW RBC Auto 14 percent (11-15) N (Normal) Note: Responsible Observer: RDW RDW 100 .0900 (B) Manual diff Bld NO None Note: Responsible Observer: CBC Manual D ifferential Added 100.1990 (B) PMV Bld 10.3 FemtoLiter_[SI_Volume_Units] (9.1-13.1) N (Normal) Note: Responsible Observer: MPV MPV 100 .1100 (B) Imm Granulocytes Bld Ql Auto See Note (0-2) N (Normal) Note: [id number] ible Observer: IG% IG% 100.1375 (B) Hct VFr Bld Auto 43.8 percent (42-52) N (Normal) Note: Responsible Observer: HEMATOCRIT H EMATOCRIT 100.0500 (B) MCHC BldCo-mCnc 33.6 GramsPerDeciLiter_[Mass_Concentration_Units] (33-37) N (Normal) Note: Responsible Observer: MCHC MCHC 1 00.0800 (B) Imm Granulocytes # Bld Auto 0.0 Unit (0-0.1) None Note: Responsible Observer: IG# IG# 100 .1400 (B) Monocytes/leuk NFr Bld Auto 8.6 percent (4-12) N (Normal) Note: Responsible Observer: MONO % MONO % 100.1225 (B) Hgb Bld-sCnc 14.7 GramsPerDeciLiter_[Mass_Concentration_Units] (13-18) N (Normal) Note: Responsible Observer: HGB HEMOGLOB IN 100.0400 (B) WBC # Bld Auto 8.3 ThousandsPerMicroLiter_[Number_Concentration_Units] (4.45-10 .71) N (Normal) Note: Responsible Observer: WBC WHITE BL OOD COUNT 100.0100 (E) Basophils # Bld Auto 0.1 Unit (0.0-0.2) N (Normal) Note: Responsible Observer: BASO # BASO# 100.1350 (B) Basophils/leuk NFr Bld Auto 1.0 percent (0.4-1.3) N (Normal) Note: Responsible Observer: BASO % BASO % 100.1325 (B) Eosinophil # Bld Auto 0.3 Unit (0.0-0.5) N (Normal) Note: Responsible Observer: EOS # EOS# 100.1300 (D) Eosinophil/leuk NFr Bld Auto 4.0 percent (0-7) N (Normal) Note: Responsible Observer: EOS % EOS % 100.1275 (B) Lymphocytes # Bld Auto 0.7 Unit (0.6-4.6) N (Normal) Note: Responsible Observer: LYMPH # LYMP H# 100.1200 (B) Lymphocytes/leuk NFr Bld Auto 8.8 percent (14-46) L (Low) Note: Responsible Observer: LYMPH % LYMP H % 100.1175 (B) Monocytes # Bld Auto 0.7 Unit (0.2-1.2) N (Normal) Note: Responsible Observer: MONO # MONO# 100.1250 (C) Neutrophils # Bld Auto 6.4 Unit (1.7-7.6) N (Normal) Note: Responsible Observer: NEUT# NEUT# 100.1150 (B) Neutrophils/leuk NFr Bld Auto 77.1 percent (41-77) H (High) Note: Responsible Observer: NEUT% NEUT% 100.1125 (B) Platelet # Bld Auto 191 ThousandsPerMicroLiter_[Number_Concentration_Units] (130-472 ) N (Normal) Note: Responsible Observer: PLATELET COU NT PLATELET COUNT 100.1000 (D) MCH RBC Qn Auto 30.3 PicoGram_[SI_Mass_Units] (27-31) N (Normal) Note: Responsible Observer: MCH MCH 100 .0700 (B) RBC # Bld Auto 4.85 MillionsPerMicroLiter_[Number_Concentration_Units] (4.3-6.1) N (Normal) Note: Responsible Observer: RBC Red Bloo d Count 100.0300 (B) NUCLEATED RED BLOOD CELL# 0 Unit None Note: Responsible Observer: NRBC# NUCLEA GABRIEL RBC 100.1362 (A) NUCLEATED RED BLOOD CELL 0 percent None Note: Responsible Observer: NRBC% NRBC% 100.1360 (B) Reviewed by Carole Lux MD on 03/13; All test results are final unless otherwise noted. [facility] Ordered by Carole Lux MD on 03/12/2020 Collected: 03/12/2020 Reported: 03/12/2020 14:04 ALT SerPl w P-5'-P-cCnc 54 enzyme_unit_per_liter (10-49) H (High) Note: Responsible Observer: SGPT/ALT SGP T/ALT 400.1750 (G) Calcium SerPl-mCnc 10.8 MilliGramsPerDeciLiter_[Mass_Concentration_Units] (8.5-10.1) H (High) Note: Responsible Observer: Calcium Calc ium 400.2500 (G) Bilirub SerPl-mCnc 0.8 MilliGramsPerDeciLiter_[Mass_Concentration_Units] (0.3-1.2) N (Normal) Note: Responsible Observer: T KATI Total Bilirubin 400.2600 (G) CO2 SerPl-sCnc 31 MilliMolesPerLiter_[Substance_Concentration_Units] (20-31) N (Normal) Note: Responsible Observer: CO2 Carbon D ioxide 400.1400 (G) Chloride SerPl-sCnc 103 MilliMolesPerLiter_[Substance_Concentration_Units] (99-109) N (Normal) Note: Responsible Observer: Chloride Chl oride 400.1250 (G) Glucose SerPl-mCnc 208 MilliGramsPerDeciLiter_[Mass_Concentration_Units] (74-106) H (High) Note: Responsible Observer: Glucose Gluc ose 400.1500 (G) Potassium SerPl-sCnc 4.4 MilliMolesPerLiter_[Substance_Concentration_Units] (3.5-5.5) N (Normal) Note: Responsible Observer: K Potassium 400.1210 (G) Prot SerPl-mCnc 8.5 GramsPerDeciLiter_[Mass_Concentration_Units] (5.7-8.2) H (High) Note: Responsible Observer: TP Total Pro tein 400.2800 (G) Sodium SerPl-sCnc 140 MilliMolesPerLiter_[Substance_Concentration_Units] (132-146) N (Normal) Note: Responsible Observer: Sodium Sodiu m 400.1100 (G) AST SerPl w P-5'-P-cCnc 31 enzyme_unit_per_liter (0-33) N (Normal) Note: Responsible Observer: SGOT / AST S GOT / AST 400.1900 (G) BUN SerPl-mCnc 78 MilliGramsPerDeciLiter_[Mass_Concentration_Units] (9-23) None Note: @Review test & document.Called to MARY KAY @ [phone] by Judi Bermeo. Results readback.Repeated by: Judi Bermeo 03/12/20 1400.Result Confirmation: 77 mg/dLResponsible Observer: BUN Blood Urea Nitrogen 400.1000 (G) Anion Gap SerPl-sCnc 10 MilliMolesPerLiter_[Substance_Concentration_Units] (8-16) N (Normal) Note: Responsible Observer: ANION GAP AN ION GAP 400.1402 (E) Albumin SerPl BCP-mCnc 4.2 GramsPerDeciLiter_[Mass_Concentration_Units] (3.2-4.8) N (Normal) Note: Responsible Observer: Albumin Albu min 400.2700 (G) ALP SerPl-cCnc 177 enzyme_unit_per_liter (45-129) H (High) Note: Responsible Observer: ALP Alkaline Phosphatase 400.2000 (G) GFR/BSA.pred SerPlBld-ArVRat 24 (ABOVE 60) None Note: Responsible Observer: GFR Glomerul ar Filt Rate Calc 400.1605 (D) Creatinine 2.6 MilliGramsPerDeciLiter_[Mass_Concentration_Units] (0.5-1.1) H (High) Note: Responsible Observer: Creatinine C reatinine 400.1600 (G) Reviewed by Carole Lux MD on 03/13; All test results are final unless otherwise noted. Reported Physicians [facility] Ordered by Carole Lux MD on 03/12/2020 Collected: 03/12/2020 Reported: 03/12/2020 14:04 Reported Physicians See Note None Note: Reported Physicians:Ordering: Ailyn Henry: Shashi Henry To: Carole Lux Reviewed by Carole Lux MD on 03/13; All test results are final unless otherwise noted. SURGICAL PATHOLOGY [facility] Ordered by Carole Lux MD on 01/23/2020 Collected: 01/23/2020 Reported: 01/30/2020 07:48 Pathology studies See scanned report None Note: Responsible Observer: SURGICAL PAT H SURGICAL PATHOLOGY [phone] (A) NOTES See Note None Note: PATH SPEC #:: [id number] Reviewed by Carole Lux MD on 01/29; All test results are final unless otherwise noted. Reported Physicians [facility] Ordered by Carole Lux MD on 01/23/2020 Collected: 01/23/2020 Reported: 01/30/2020 07:48 Reported Physicians See Note None Note: Reported Physicians:Ordering: Carole MortensenAttending: Carole Lux Reviewed by Carole Lux MD on 01/29; All test results are final unless otherwise noted. [facility] Ordered by Lew Lozada PA-C on 01/18/2020 [address] [place], [address] Collected: 01/18/2020 Reported: 01/18/2020 14:05 tel : ext. 1500 Albumin 4.5 g/dl (3.4-5.0) None Note: Responsible Observer: KM Alkaline Phos 158 IU/L (39-117) H (High) Note: Responsible Observer: KM ALT 23 IU/L (4-40) None Note: Responsible Observer: KM AST 28 IU/L (4-37) None Note: Responsible Observer: KM Urea Nitrogen 51 mg/dl (6-20) H (High) Note: Responsible Observer: KM Calcium 10.8 mg/dl (8.4-10.2) H (High) Note: Responsible Observer: KM Chloride 105 mmol/L (96-108) None Note: Responsible Observer: KM CO2 24 mmol/L (23-31) None Note: Responsible Observer: KM Creatinine 2.1 mg/dl (0.5-1.2) H (High) Note: Responsible Observer: KM EGFR - AfricanAm 38 N/A (-) H (High) Note: Responsible Observer: KM EGFR - Non AF AM 31 N/A (-) H (High) Note: Responsible Observer: KM Glucose 55 mg/dl (70-105) L (Low) Note: Responsible Observer: KM Potassium 4.2 mmol/L (3.2-5.4) None Note: Responsible Observer: KM Sodium 137 mmol/L (133-145) None Note: Responsible Observer: KM Total Bilirubin 1.2 mg/dl (0.0-1.2) None Note: Responsible Observer: KM Total Protein 6.6 g/dl (6.0-8.0) None Note: Responsible Observer: KM Reviewed on 01/18/2020; All test result s are final unless otherwise noted. [facility] Ordered by Carole Lux MD on 01/02/2020 Collected: 01/02/2020 Reported: 01/02/2020 18:25 ALT SerPl w P-5'-P-cCnc 33 enzyme_unit_per_liter (10-49) N (Normal) Note: Responsible Observer: SGPT/ALT SGP T/ALT 400.1750 (G) Calcium SerPl-mCnc 10.0 MilliGramsPerDeciLiter_[Mass_Concentration_Units] (8.5-10.1) N (Normal) Note: Responsible Observer: Calcium Calc ium 400.2500 (G) Bilirub SerPl-mCnc 0.9 MilliGramsPerDeciLiter_[Mass_Concentration_Units] (0.3-1.2) N (Normal) Note: Responsible Observer: T KATI Total Bilirubin 400.2600 (G) CO2 SerPl-sCnc 30 MilliMolesPerLiter_[Substance_Concentration_Units] (20-31) N (Normal) Note: Responsible Observer: CO2 Carbon D ioxide 400.1400 (G) Chloride SerPl-sCnc 102 MilliMolesPerLiter_[Substance_Concentration_Units] (99-109) N (Normal) Note: Responsible Observer: Chloride Chl oride 400.1250 (G) Glucose SerPl-mCnc 131 MilliGramsPerDeciLiter_[Mass_Concentration_Units] (74-106) H (High) Note: Responsible Observer: Glucose Gluc ose 400.1500 (G) Potassium SerPl-sCnc 4.7 MilliMolesPerLiter_[Substance_Concentration_Units] (3.5-5.5) N (Normal) Note: Responsible Observer: K Potassium 400.1210 (G) Prot SerPl-mCnc 7.6 GramsPerDeciLiter_[Mass_Concentration_Units] (5.7-8.2) N (Normal) Note: Responsible Observer: TP Total Pro tein 400.2800 (G) Sodium SerPl-sCnc 139 MilliMolesPerLiter_[Substance_Concentration_Units] (132-146) N (Normal) Note: Responsible Observer: Sodium Sodiu m 400.1100 (G) AST SerPl w P-5'-P-cCnc 27 enzyme_unit_per_liter (0-33) N (Normal) Note: Responsible Observer: SGOT / AST S GOT / AST 400.1900 (G) BUN SerPl-mCnc 56 MilliGramsPerDeciLiter_[Mass_Concentration_Units] (9-23) H (High) Note: Responsible Observer: BUN Blood Ur ea Nitrogen 400.1000 (G) Anion Gap SerPl-sCnc 12 MilliMolesPerLiter_[Substance_Concentration_Units] (8-16) N (Normal) Note: Responsible Observer: ANION GAP AN ION GAP 400.1402 (E) Albumin SerPl BCP-mCnc 3.8 GramsPerDeciLiter_[Mass_Concentration_Units] (3.2-4.8) N (Normal) Note: Responsible Observer: Albumin Albu min 400.2700 (G) ALP SerPl-cCnc 160 enzyme_unit_per_liter (45-129) H (High) Note: Responsible Observer: ALP Alkaline Phosphatase 400.2000 (G) GFR/BSA.pred SerPlBld-ArVRat 26 (ABOVE 60) None Note: Responsible Observer: GFR Glomerul ar Filt Rate Calc 400.1605 (D) Creatinine 2.5 MilliGramsPerDeciLiter_[Mass_Concentration_Units] (0.5-1.1) H (High) Note: Responsible Observer: Creatinine C reatinine 400.1600 (G) Reviewed by Carole Lux MD on 01/02; All test results are final unless otherwise noted. Reported Physicians [facility] Ordered by Carole Lux MD on 01/02/2020 Collected: 01/02/2020 Reported: 01/02/2020 18:26 Reported Physicians See Note None Note: Reported Physicians:Ordering: Yumiko oMrtensenending: Carole Lux Reviewed by Carole Lux MD on 01/02; All test results are final unless otherwise noted. [facility] Ordered by Carole Lux MD on 01/02/2020 [address] [place], [address] Collected: 01/02/2020 Reported: 01/02/2020 15:31 tel :[phone] ext. 1500 Hgba1c 8.1 na (5.0-6.0) H (High) Note: Responsible Observer: AW Reviewed by Carole Lux MD on 01/01; All test results are final unless otherwise noted. [facility]MP [facility] Ordered by Carole Lux MD on 09/12/2019 [address] [place], [address] Collected: 09/12/2019 Reported: 09/12/2019 12:49 tel :[phone] ext. 1500 Albumin 4.5 g/dl (3.4-5.0) None Note: Responsible Observer: AW Alkaline Phos 122 IU/L (39-117) H (High) Note: Responsible Observer: AW ALT 22 IU/L (4-40) None Note: Responsible Observer: AW AST 24 IU/L (4-37) None Note: Responsible Observer: AW Urea Nitrogen 49 mg/dl (6-20) H (High) Note: Responsible Observer: AW Calcium 11.1 mg/dl (8.4-10.2) H (High) Note: Responsible Observer: AW Chloride 98 mmol/L (96-108) None Note: Responsible Observer: AW CO2 30 mmol/L (23-31) None Note: Responsible Observer: AW Creatinine 2.1 mg/dl (0.5-1.2) H (High) Note: Responsible Observer: AW EGFR - AfricanAm 38 N/A (-) H (High) Note: Responsible Observer: AW EGFR - Non AF AM 31 N/A (-) H (High) Note: Responsible Observer: AW Glucose 214 mg/dl (70-105) H (High) Note: Responsible Observer: AW Potassium 4.8 mmol/L (3.2-5.4) None Note: Responsible Observer: AW Sodium 139 mmol/L (133-145) None Note: Responsible Observer: AW Total Bilirubin 1.1 mg/dl (0.0-1.2) None Note: Responsible Observer: AW Total Protein 7 g/dl (6.0-8.0) None Note: Responsible Observer: AW Reviewed by Carole Lux MD on 09/12; All test results are final unless otherwise noted. [facility] Ordered by Carole Lux MD on 09/12/2019 [address] [place], [address] Collected: 09/12/2019 Reported: 09/12/2019 12:49 tel :[phone] ext. 1500 Hgba1c 7.6 na (5.0-6.0) H (High) Note: Responsible Observer: AW Reviewed by Carole Lux MD on 09/12; All test results are final unless otherwise noted. [facility] Ordered by Carole Lux MD on 07/24/2019 [address] [place], [address] Collected: 07/24/2019 Reported: 07/24/2019 09:00 tel :[phone] ext. 1500 Hgba1c 8.8 na (5.0-6.0) H (High) Note: Responsible Observer: AW Reviewed by Carole Lux MD on 07/24; All test results are final unless otherwise noted. History of Present Illness History of Present Illness not supported for this document typeNo History of Present Illness Recorded Social History Description Last Updated Psychosocial support is sufficient 04/24/2019 12th grade completed 06/15/2018 Currently 06/15/2018 Previous service 06/15/2018 No consumption of alcohol 02/08/2016 No tobacco use 02/08/2016 Smoking status : Never smoker 02/07/2016 Procedures and Surgical History Includes: Procedures from 07/15/2019 through 07/15/2020 Procedures Code Diagnosis Performing Provider Service Location Service Date HgbA1C 33013 Type 2 diabetes mellitus with ot her specified complication Carole Lux MD [facility], [facility] 07/08/2020 Venipuncture (routine) 02382 Type 2 diabetes m ellitus with other specified complication Carole Lux MD [facility], P 020 MC- subseq't annual wellness exam(1 yr a fter Initial) (Unrel. Eval. & Man.during post op period) G0439 Encounter for general adult medical exam w abnormal findings Carole Lux MD [facility], [facility] 020 cryo/destruct. of benign lesion(exclude skin tags) < 15 (n/c 94483 Other viral warts Carole Lux MD [facility], [facility] 020 -Annual depression screening- 15 min. (Distinct Sepe rate service-same day) G0444 Encounter for general adult medical exam w abnormal findings, Encounter for screening for other disorder Carole Lux MD [facility], [facility] 04/24/2020 HgbA1C 37615 Type 2 diabetes mellitus with ot her specified complication Carole Lux MD [facility], [facility] 04/24/2020 -collection of capillary blood (fingerstick, heel ) 84734 Type 2 diabetes mellitus with other specified complication Carole Lux MD [facility], [facility] 04/24/2020 Biopsy- skin (shave,scoop,curette) EACH addit'l (w/65059) 11 103 Neoplasm of uncertain behavior of skin Carole Lux MD [facility], [facility] 01/23/2020 Biopsy skin(shave,scoop,curette) First Lesion 00822 Neoplasm of uncertain behavior of skin Carole Lux MD [facility], [facility] 020 CMP-Complete Metabolic Profile 98183 Chronic kidney di sease, stage 3 (moderate) Lew Lozada [facility], [facility] 01/18/2020 Venipuncture (routine) 36499 Chronic kidney disease, s tage 3 (moderate) [facility] 01/18/2020 HgbA1C 77226 Type 2 diabetes mellitus with ot her specified complication Carole Lux MD [facility], [facility] 01/02/2020 -collection of capillary blood (fingerstick, heel ) 06239 Type 2 diabetes mellitus with other specified complication Carole Lux MD [facility], [facility] 01/02/2020 CMP-Complete Metabolic Profile 73392 Type 2 di abetes mellitus with other specified complication Carole Lux MD [facility], [facility] 09/12/2019 Venipuncture (routine) 57334 Type 2 diabetes m ellitus with other specified complication Carole Lux MD [facility], [facility] 020 HgbA1C 62918 Type 2 diabetes mellitus with ot her specified complication Carole Lux MD [facility], [facility] 09/12/2019 HgbA1C 42577 Type 2 diabetes mellitus with ot her specified complication Carole Lux MD [facility], [facility] 07/24/2019 -collection of capillary blood (fingerstick, heel ) 92099 Type 2 diabetes mellitus with other specified complication Carole Lux MD [facility], [facility] 07/24/2019 Surgical History Last Updated Surgical / procedural history PCI with stent 11/2017 ~Shoulder arthroscopies bilaterally ~TURP 12/201206/20/2018 Medical History Includes: Medical History in patient's chart Description Last Updated Health care proxy on file If no HCP in chart the pt was given our informational handout and FAQ sheet along with a blank HCP form to be brought back at the next visit. All questions answered 04/24/2019 History of colonoscopy Report requested 04/24/2019 ~Left Shoulder 09/2014 ~Right Shoulder ~TURP- 201206/15/2018 Tissue injury of the hand 02/08/2016 Trauma to the fingers 02/08/2016 Trauma to the hand(s) 02/08/2016 Family History Includes: Family History in patient's chart Description Last Updated Brother 1 health status was reviewed de ceased ~Colorectal cancer, diagnosed at age 58 ~Mesothelioma 06/20/2018 Children 3 daughters: healthy 06/20/2018 Father health status was reviewed ~Obst ructive sleep apnea syndrome ~Arnett's lung 06/20/2018 Mother health status was reviewed CAD, at ag e 96 06/20/2018 Second sister health status was reviewed healthy 06/02 Sister 1 health status was reviewed CHF 06/20/2018 Review of Systems Review of Systems not supported for this document typeNo Review of Systems Recorded Mental Status Mental Status not supported for this document typeNo Mental Status Recorded Functional Status Functional Status not supported for this document typeNo Functional Status Recorded Physical Exam Physical Exam not supported for this document typeNo Physical Exam Recorded Immunizations Includes: Immunizations in patient's chart Vaccine Dose # Date Site Reaction(s) Status Source [id number] 1 11/15/2017 Complete (Reported) Patient Tdap (> 7 yrs) 1 02/07/2016 Left Arm Complete (Admi nistered) [facility] Allergies Includes: Active, inactive, and resolved Allergies Substance Type Reaction Onset Date - Time Resolved Date - Ti me Status Penicillin G Benzathine Allergy Asthma, Shortness of Maya ath 02/07/2016 - 12:00AM Active Clindamycin HCl Allergy Skin Rashes, Hives 07/15/2020 - 10:48AM Active Breo Ellipta Intolerance tremors dizziness 10/14/2018 - 12:00AM Active Atenolol Allergy Shock, Unconsciousness 02/07/2016 - 12:00AM Active Encounters Includes: Encounters from 07/15/2019 through 07/15/2020 Encounter Provider Location Date Check-In Time Check-Out Time D iagnosis sick visit Carole Lux MD [facility], [facility] 1 09/15/2019 10:34AM 07/08/2020 11:59PM Essential Hypertension, Sick Sinus Syndrome, Coronary Artery Disease, Chronic Obstructive Asthma, Diabetes Mellitus Type 2 with Complication, Congestive Heart Failure Diastolic, Chronic Kidney Disease (Nkf Classification), Gout of Ankle 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 Pari Lux MD [facility], [facility] 04/24/2020 10:50AM 11:23AM Routine History and Physical Senior Citizen (65-80 Yrs), Tobacco Use ANNUAL PE-followup exam/30 Carole Lux MD [facility], [facility] 04/24/2020 10:50AM 11:23AM Routine History and Physical Senior Citizen (65-80 Yrs) followup Carole Lux MD [facility], [facility] 0 04/24/2020 10:50AM 11:23AM Diabetes Mellitus Type 2 wit h Complication, Essential Hypertension, Sick Sinus Syndrome, Coronary Artery Disease, Chronic Obstructive Asthma, Congestive Heart Failure Diastolic, Hypertensive Heart and Chronic Kidney Disease Stage 3, Warts sick visit [facility], [facility] 03/01/2020 11:17AM 11:43AM Plantar Fasciitis, Limb Pain Right Foot followup Carole Lux MD [facility], [facility] 01/22 2:32PM 3:02PM Diabetes Mellitus Type 2 with Complicati on, Chronic Kidney Disease Stage 3, Dysplastic Nevus, Cellulitis of Lower Leg followup Lew Lozada PA-C [facility], [facility] 0 10:28AM 11:06AM Chronic Kidney Disease Stage 3, Atrial F ibrillation Chronic, Chronic Obstructive Asthma, Diabetes Mellitus Type 2 with Complication, Essential Hypertension, Warts [Patient Encounter] Carole Lux MD 01/08/2020 020 9:04AM 10/18/2019 11:59PM followup Carole Lux MD [facility], [facility] 10/17 9:21AM 9:45AM Essential Hypertension, Sick Sinus Syndr ome, Coronary Artery Disease, Chronic Obstructive Asthma, Diabetes Mellitus Type 2 with Complication, Congestive Heart Failure Diastolic, Hypertensive Heart and Chronic Kidney Disease Stage 3 Pre-op consult [facility] 09/12/2019 9:02AM 10:03AM Working Diagnosis of Visit For: Preoperative Exam, Cataract - Both Eyes, Chronic Kidney Disease Stage 3 [Patient Encounter] Ace Mortensen MD 08/03/2019 1 09/24/2018 8:30AM 07/24/2019 11:59PM followup Carole Lux MD [facility], [facility] 07/24 7:45AM 8:22AM Essential Hypertension, Sick Sinus Syndr ome, Coronary Artery Disease, Chronic Obstructive Asthma, Diabetes Mellitus Type 2 with Complication, Congestive Heart Failure Diastolic, Hypertensive Heart and Chronic Kidney Disease Stage 3, Flank Pain Insurance Includes: Active Insurance Policies Plan Name Member ID Group # Subscriber Relationship Effective Da william 1 - [facility] [facility]- [id number] Jackson Lucia Self 08/02/2019 - Unknown Advance Directives Includes: Current Advance DirectivesNo Advance Directives Recorded Health Concerns Includes: Active Health ConcernsNo Active Health Concerns Recorded Goals Includes: Active GoalsNo Active Goals Recorded Interventions Includes: Interventions for active GoalsNo Interventions Recorded Evaluations & Outcomes Includes: Evaluations & Outcomes for active GoalsNo Outcomes Recorded
--- OUTSIDE RECORDS SUMMARY | 2020-09-18 10:01 | CCD | Continuity of Care Document ---
Author Author Jackson BACON MD Organization Unknown Address [address] [place] [address], [address] [address] Phone [phone] Care Team Providers Care Transformer Mechanic Name Role Phone Ace Mortensen MD AUTM [phone] Problems Active Problems Provider Date Type 2 diabetes mellitus Onset: 01/16/20 15 Social History Type Date Description Comments Sex Unknown ETOH Use Denies alcohol use Tobacco Use Start: Unknown Patient has never smoked Allergies, Adverse Reactions, Alerts Active Allergies Reaction Severity Comments Date Penicillin 01/21/2015 Medications Active Medications SIG Qnty Indications Ordering Provide r Date Vicodin 5-500mg Tablets 1-2 tabs q4-6hr prn for pain 40tabs Hira Newberry DO 06/24/2011 Metformin HCL ER 500mg Tablets ER 24HR Unknown Glipizide 5mg Tablets Unknown Multi Complete Capsules po q d Unknown Xarelto 5mg Tablets 1 by mouth every day Unknown Enalapril Maleate 25mg Tablets Unknown Immunizations Description No Information Available Vital Signs Date Vital Result Comment 07/11/2020 11:03am Body Temperature 96.6 F Height 70.75 inches 5'10.75" Weight 246.50 lb BMI (Body Mass Index) 34.6 kg/m2 Results Description No Information Available Procedures Description No Information Available Medical Devices Description No Information Available Encounters Description No Information Available Assessments Date Code Description Provider 08/16/2020 M19.011 Primary osteoarthritis, right sh oulder Ace Bacon MD 07/11/2020 M25.511 Pain in right shoulder Ace Bacon MD Plan of Treatment 08/16/2020 - Ace Bacon MD* M19.011 Primary osteoarthritis, right shoulder * Follow up:* ( sent referral to Dr. Crwoe for surg eval) Functional Status Description No Information Available Mental Status Description No Information Available Referrals Refer to Dr Reason for Referral Status Appt Date Ace Bacon MD REF NO AUTH REQUIRED FOR REF TO DR MEADOWS SON TO TRANS NT Created [address] [facility], [address] [place] [address] [phone]
--- OUTSIDE RECORDS SUMMARY | 2020-09-18 10:01 | CCD | Continuity of Care Document ---
Author Author Jackson BACON MD Organization Unknown Address [address] [place] [address], [address] [address] Phone [phone] Care Team Providers Care Central Office Mechanic Name Role Phone Ace Mortensen MD AUTM [phone] Problems Active Problems Provider Date Type 2 [...] tabs q4-6hr prn for pain 40tabs Hira Newberry, 06/24/2011 Metformin HCL ER 500mg Tablets ER [...] Information Available Assessments Date Code Description Provider 07/11/2020 S40.011A Contusion of right shoulder, ini tial encounter Ace Bacon MD Plan of Treatment 07/11/2020 - Ace Bacon MD* S40.011A Contusion of right shoulder, initial encounter* New Xrays:* CT Arthrogram Shoulder - Right, Ordered: 07/11/20 * Follow up:* with DPV per [facility] for rt shoulder ct results Functional Status Description No Information Available Mental Status Description No Information Available Referrals Description No Information Available
--- OUTSIDE RECORDS SUMMARY | 2020-09-18 10:01 | CCD | Continuity of Care Document ---
Author Author Jackson BACON MD Organization Unknown Address [address] [place] [address], [address] [address] Phone [phone] Care Team Providers Care Chief Projectionist Name Role Phone Ace Mortensen MD AUTM [phone] Problems Active Problems Provider Date Type 2 [...] Available Assessments Date Code Description Provider 07/11/2020 M25.511 Pain in right shoulder Ace aBcon MD Plan of Treatment 07/11/2020 - Ace Bacon MD* M25.511 Pain in right shoulder* Follow up:* with DPV per [facility] for rt shoulder ct results Functional Status Description No Information Available Mental Status Description No Information Available Referrals Description No Information Available
--- OUTSIDE RECORDS SUMMARY | 2020-09-18 10:02 | CCD ---
Author Author [facility] Organization [facility] Address [address] [place] [address] Phone Care Team Providers Care Banking Attorney Name Role Phone JAMILAH, Cardiology Unavailable [phone] Alexis PACE, Allison Unavailable [phone] Jose J PACE, Carole Lafleur PP [phone] Johnathan PACE, Saulo Rider Unavailable Unavailable Deandra Conn DO Unavailable Unavailable Jeanette PACE/peds,Sleep, Carmen Daniel Unavailable [phone] Reason for Referral No Reason for Referral Recorded Problems Includes: Active, inactive, and resolved Problems All Visits Onset Date - Time Resolved Date - Time Provider Co ndition Status Hypertens Heart & Chronic Kidney Dis Malig W/ Congest Heart 10/13/2018 - 12:00AM Tanisha Lozada ANP-BC Active Note: Diastolic per ECHO Sick Sinus Syndrome 06/20/2018 - 12:00AM Carole ronodn MD Active Note: pacemaker placed Congestive Heart [...] - 12:00AM Carole Lux MD Active Note: [facility] 09/20 7.5 improved , sees Dr Espinoza Male erectile dysfunction, unspecified 08/04/2016 - 12:00AM Carole Lux MD Active Essential Hypertension 08/04/2016 - 12:00AM Carole Lux MD Active Benign prostatic hyperplasia with lower urinary tract symp 0 08/04/2016 - 12:00AM Carole Lux MD Active Plan of Treatment Pending Tests Order Diagnosis Results Due Ordering Provi carol Lab A1C 07/15/20 Carole nelson MD Xrays - X-Ray Orders Shoulder X-Ray Pain in right shoulder 08/07/20 Carole Lux MD Future Tests Order Diagnosis Results Due Ordering Provid er Referral Orthopedic Pain in right shoulder 10/06/20 Pari Lux MD Lab A1C 10/30/20 Carole nelson MD Lab [...] for all patient encounters Findings Encounter Date Arthralgia of right shoulder region Obt ain [...] of 1500 cc [Atherosclerotic heart disease of [place] coronary artery without angina pectoris] followup with [...] history of colonoscopy, op report requested from [facility] today to determine when due for next [Encounter for general adult medical examination with abnormal findings] ANNUAL PE-followup exam with Carole Lux MD 04/24/2020 Chronic obstructive asthma which is stab le Not using Advair inhaler, follows with pulmonology [Chronic obstructive pulmonary disease, unspecified] followup with Carole Lux MD 04/24/2020 Coronary artery disease which is stable Asymptomatic, on Plavix therapy, cardiology managing diuretics for ascites secondary to his CHF, is on fluid restriction of 1500 cc [Atherosclerotic heart disease of [place] coronary artery without angina pectoris] followup with [...] Stable [Essential (primary) hypertension] followup with Carole uLx MD 04/24/2020 Hypertensive heart and stage 3 [...] right foot sick visit with Susan Kan [employer] 0 03/01/2020 Plantar fasciitis sick visit with Susan Kan [employer] 0 03/01/2020 Cellulitis of lower leg surrounding [...] asthma , 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, does not use inhalers as they make [...] every 2-3 weeks [Atherosclerotic heart disease of [place] coronary artery without angina pectoris] followup with [...] every 2-3 weeks [Atherosclerotic heart disease of [place] coronary artery without angina pectoris] followup with [...] every 2-3 weeks [Atherosclerotic heart disease of [place] coronary artery without angina pectoris] followup with [...] cc, recent paracentesis [Atherosclerotic heart disease of [place] coronary artery without angina pectoris] followup with [...] cc, recent paracentesis [Atherosclerotic heart disease of [place] coronary artery without angina pectoris] followup with [...] incident to previous visit- with Tanisha Lozada [facility] 10/14/2018 Coronary artery disease -Denies any nicola st discomfort, on Plavix therapy, cardiology managing diuretics for ascites secondary to his CHF, is on fluid restriction of 1500 cc, recent paracentesis, is scheduled for nuclear stress test in next few weeks incident to previous visit- with aTnisha Lozada [facility] 10/14/2018 Diastolic congestive heart failure -Con tributing to ascites, recently had an paracentesis when 7600 cc removed, not to be started on any Freedom or ARB medications due to high risk. Torsemide was increased to 40 mg in the morning, 20 mg in the afternoon, restarted spironolactone and continue metolazone twice weekly incident to previous visit- with Tanisha Lozada [facility] 10/14/2018 Essential hypertension -Under control with bisoprolol incident to previous visit- with Tanisha Lozada [facility] 10/14/2018 Hypertensive heart and stage 3 chronic k idney disease To follow up in 2 weeks with nephrology, will have repeat labs at that time incident to previous visit- with Tanisha Marie Kierra [facility] 10/14/2018 Sick sinus syndrome Has pacemaker, follows with JAMILAH stahl ardiology incident to previous visit- with Tanisha Marie Kierra [facility] 10/14/2018 Type 2 diabetes mellitus with complicati on Did have hypoglycemia of 51 during the night, reports appetite fluctuates. Continues to use the treadmill 4-5 minutes 2-3 times a day. Follows with Dr. Espinoza, taking Lantus insulin with sliding scale incident to previous visit- with Tanisha Marie Kierra [facility] 10/14/2018 Chronic kidney disease, stage 3 BUN [...] Lux MD 07/11/2018 Diastolic congestive heart failure Stab le, continue current management per cardiology followup with [...] Lux MD 06/20/2018 Diastolic congestive heart failure Stab le, continue current management per cardiology followup with [...] historical Medications Current Medications (continue as prescribed) Potassium Chloride ER 10 MEQ Oral Tablet [...] injector 04/09/2020 - 04/04/2021 Provider: Susan Kan [employer] Diagnosis: use per sliding scale 15-35 units per meals FreeStyle Lite Test In Vitro Strip 02/06/2020 - 09/18/2020 Armand orellana: Carole Lux MD Diagnosis: used as directed [...] Oral Tablet 03/01/2020 - 03/06/2020 Provide r: Susanprabha Blandonotte [employer] WORK[employer] Diagnosis: 2 tabs once per day in the morning with food BD Pen Needle Short U/F 31G X 8 MM Miscellaneous 02/06/2020 - 04/24/2020 Provider: Carole Lux MD Diagnosis: use as directed testing up to qid and prn Sulfamethoxazole-Trimethoprim 800-160 MG Oral Tablet 020 - 01/30/2020 Provider: Carole Lux MD Diagnosis: 1 PO BID Lantus 100 UNIT/ML Subcutaneous Solution 10/31/2019 - 2019 Provider: Carole Lux MD Diagnosis: use as directed 30 units at bedtime HumaLOG KwikPen 100 UNIT/ML Subcutaneous Solution Pen- injector 09/20/2019 - 03/01/2020 Provider: eLw Lozada PA-C Diagnosis: use per sliding scale [...] Diagnosis: use as directed sliding scale Dr Fish average 15-20 units p er meals Bactrim [...] 11/17/2018 Provider: Diagnosis: 1 tab twice daily metOLazone 2.5MG Oral Tablet 10/14/2018 - 11/17/2018 Provide r: Diagnosis: once weekly Thur Potassium Chloride ER 10MEQ Oral Tablet Extended Relea se 10/14/2018 - 04/24/2019 Provider: Diagnosis: 2 tabs daily Clopidogrel Bisulfate 75MG Oral Tablet 10/14/2018 - [...] - 02/08/2019 Provider: Allison Espinoza MD Diagnosis: Atorvastatin Calcium 20MG Oral Tablet 05/03/2018 - 9 Provider: Diagnosis: Torsemide 20MG Oral Tablet 05/03/2018 - 10/14/2018 Provider: Diagnosis: Clopidogrel Bisulfate 75MG Oral Tablet 04/10/2018 - 10/15/19 Provider: Rambo Leroy MD Diagnosis: FreeStyle Lite Test In Vitro Strip 04/02/2018 - 02/08/2019 Armand orellana: Mariana Ca [employer]ING WORKER Diagnosis: HumaLOG KwikPen 100UNIT/ML Subcutaneous Solution Pen-i njector 02/22/2018 - 02/08/2019 Provider: Allison Espinoza MD Diagnosis: Xarelto 20 MG Tablet 02/07/2016 - 06/20/2018 Provider: Diagnosis: MetFORMIN HCl 1000 MG Tablet 02/07/2016 - 06/20/2018 Provide r: Diagnosis: Lantus 100 UNIT/ML Solution 02/07/2016 - 10/14/2018 Provider : Diagnosis: HumaLOG 100 UNIT/ML Solution Cartridge 02/07/2016 - 10/15/19 19 Provider: Diagnosis: Losartan Potassium 50 MG Tablet 02/07/2016 - 06/20/2018 Prov ider: Diagnosis: Clindamycin HCl 300 MG Capsule 02/07/2016 - 10/14/2018 Provi carol: Rebecca Lopez [facility] Diagnosis: Bitten by dog, initi al encounter 1 tab po tid Medications Administered Includes: Administered Medications in patient's chartNo Administered Medications Recorded Vital Signs Includes: Vital Signs from 07/08/2019 through 07/08/2020 Vital Name 07/08/2020 09:31A 04/24/2020 11:03A 04/24/2020 11:01A 04/24/2020 10:59A 03/01/2020 11:25A Blood Pressure Sitting (mmHg) 108/68 110/74 110/74 110/74 120/80 Pulse Rate-Sitting (bpm) 115 68 68 68 78 Respiration Rate (breaths/min) 24 22 22 22 18 Height (in) 71 71 71 71 71 Weight (lb) 255.6 251.6 251.6 251.6 253 Body Mass Index (kg/m2) 35.6 35.1 35.1 35.1 3 5.3 Body Surface Area (m2) 2.34 2.32 2.32 2.32 2. 33 Vital Name 01/23/2020 02:42P 01/18/2020 10:42A 10/18/2019 09:24A 09/12/2019 09:40A 07/24/2019 08:12A Blood Pressure Sitting (mmHg) 110/70 110/70 120/62 Pulse Rate-Sitting (bpm) 72 80 72 92 77 Respiration Rate (breaths/min) 20 20 20 20 20 Height (in) 71 71 71 71 71 Weight (lb) 256 256 250 248 249 Body Mass Index (kg/m2) 35.7 35.7 34.9 34.6 3 4.7 Body Surface Area (m2) 2.34 2.34 2.32 2.31 2. 31 Blood Pressure Sitting L 126/68 110/68 BP Cuff Size Large Large Results Includes: Results from 07/08/2019 through 07/08/2020 [facility] Ordered by Carole Lux MD on 04/24/2020 [address] [place], [address] Collected: 04/24/2020 Reported: 04/24/2020 12:03 tel :[phone] ext. 1500 Hgba1c 8.0 na (5.0-6.0) H (High) Note: Responsible Observer: KM Reviewed by Carole uLx MD on 04/24; All test results are final unless otherwise noted. CBC W AUTO DIFF [facility] Ordered by Carole Lux MD on [...] Auto See Note (0-2) N (Normal) Note: [id number] ible Observer: IG% IG% 100.1375 (B) Hct [...] results are final unless otherwise noted. PT/PTT [facility] Ordered by Carole Lux MD on [...] results are final unless otherwise noted. CMP [facility] Ordered by Carole Lux MD on [...] are final unless otherwise noted. Reported Physicians [facility] Ordered by Carole Lux MD on 04/04/2020 Collected: 04/04/2020 Reported: 04/04/2020 10:54 Reported Physicians See Note None Note: Reported Physicians:Ordering: Fred Traceyending: Margy Desouza To: Carole Lux Reviewed by Carole Lux MD on 04/05; All test results are final unless otherwise noted. CBC W AUTO DIFF [facility] Ordered by Carole Lux MD on [...] Auto See Note (0-2) N (Normal) Note: [id number] ible Observer: IG% IG% 100.1375 (B) Hct [...] test results are final unless otherwise noted. [facility] Ordered by Carole Lux MD on [...] test & document.Called to MARY KAY @ [phone] by Judi Bermeo. Results readback.Repeated by: Judi [...] are final unless otherwise noted. Reported Physicians [facility] Ordered by Carole Lux MD on 03/12/2020 Collected: 03/12/2020 Reported: 03/12/2020 14:04 Reported Physicians See Note None Note: Reported Physicians:Ordering: Ailyn Henry: Shashi Henry To: Carole Lux Reviewed by Carole Lux MD on 03/13; All test results are final unless otherwise noted. SURGICAL PATHOLOGY [facility] Ordered by Carole Lux MD on 01/23/2020 Collected: 01/23/2020 Reported: 01/30/2020 07:48 Pathology studies See scanned report None Note: Responsible Observer: SURGICAL PAT H SURGICAL PATHOLOGY [phone] (A) NOTES See Note None Note: PATH SPEC #:: [id number] Reviewed by Carole Lux MD on 01/29; All test results are final unless otherwise noted. Reported Physicians [facility] Ordered by Carole Lux MD on 01/23/2020 Collected: 01/23/2020 Reported: 01/30/2020 07:48 Reported Physicians See Note None Note: Reported Physicians:Ordering: Carole MortensenAttending: Carole Lux Reviewed by Carole Lux MD on 01/29; All test results are final unless otherwise noted. [facility] Ordered by Lew Lozada PA-C on 01/18/2020 [address] [place], [address] Collected: 01/18/2020 Reported: 01/18/2020 14:05 tel : [...] result s are final unless otherwise noted. [facility] Ordered by Carole Lux MD on [...] are final unless otherwise noted. Reported Physicians [facility] Ordered by Carole Lux MD on 01/02/2020 Collected: 01/02/2020 Reported: 01/02/2020 18:26 Reported Physicians See Note None Note: Reported Physicians:Ordering: Carole MortensenAttending: Carole Lux Reviewed by Carole Lux MD on 01/02; All test results are final unless otherwise noted. [facility] Ordered by Carole Lux MD on 01/02/2020 [address] [place], [address] Collected: 01/02/2020 Reported: 01/02/2020 15:31 tel :[phone] ext. 1500 Hgba1c 8.1 na (5.0-6.0) H (High) Note: Responsible Observer: AW Reviewed by Carole Lux MD on 01/01; All test results are final unless otherwise noted. CMP [facility] Ordered by Carole Lux MD on 09/12/[address] [place] [address], [address] Collected: 09/12/2019 Reported: 09/12/2019 12:49 tel :[phone] ext. 1500 Albumin 4.5 g/dl (3.4-5.0) None [...] Ordered by Carole Lux MD on 09/12/[address] [place] [address], [address] Collected: 09/12/2019 Reported: 09/12/2019 12:49 tel : ext. 1500 Hgba1c 7.6 na (5.0-6.0) H (High) Note: Responsible Observer: AW Reviewed by Carole Lux MD on 09/12; All test results are final unless otherwise noted. [facility] Ordered by Carole Lux MD on 07/24/2019 [address] [place], [address] Collected: 07/24/2019 Reported: 07/24/2019 09:00 tel : ext. 1500 Hgba1c 8.8 na (5.0-6.0) H [...] Procedures and Surgical History Includes: Procedures from 07/08/2019 through 07/08/2020 Procedures Code Diagnosis Performing Provider Service Location Service Date - subseq't annual wellness exam(1 yr a fter Initial) (Unrel. Eval. & Man.during post op period) G0439 Encounter for general adult medical exam w abnormal findings Carole Lux MD [facility], [facility] 020 cryo/destruct. of benign lesion(exclude skin tags) < 15 (n/c 55344 Other viral warts Carole Lux MD [facility], [facility] 020 -Annual depression screening- 15 min. (Distinct Sepe rate service-same day) G0444 Encounter for general adult medical exam w abnormal findings, Encounter for screening for other disorder Carole Lux MD [facility], [facility] 04/24/2020 HgbA1C 56516 Type 2 diabetes mellitus with ot her specified complication Carole Lux MD [facility], [facility] 04/24/2020 -collection of capillary blood (fingerstick, heel ) 11253 Type 2 diabetes mellitus with other specified complication Carole Lux MD [facility], [facility] 04/24/2020 Biopsy- skin (shave,scoop,curette) EACH addit'l (w/97187) 11 103 Neoplasm of uncertain behavior of skin Carole Lux MD [facility], [facility] 01/23/2020 Biopsy skin(shave,scoop,curette) First Lesion 05529 Neoplasm of uncertain behavior of skin Carole Lux MD [facility], [facility] 020 CMP-Complete Metabolic Profile 17888 Chronic kidney di sease, stage 3 (moderate) Lew FELIXValerie [facility], [facility] 01/18/2020 Venipuncture (routine) 58533 Chronic kidney disease, s tage 3 (moderate) [facility] 01/18/2020 HgbA1C 86970 Type 2 diabetes mellitus with ot her specified complication Carole Lux MD [facility], [facility] 01/02/2020 -collection of capillary blood (fingerstick, heel ) 13481 Type 2 diabetes mellitus with other specified complication Carole Lux MD [facility], [facility] 01/02/2020 HgbA1C 76350 Type 2 diabetes mellitus with ot her specified complication Carole Lux MD [facility], [facility] 09/12/2019 Venipuncture (routine) 28852 Type 2 diabetes m ellitus with other specified complication Carole Lux MD [facility], [facility] 020 CMP-Complete Metabolic Profile 36686 Type 2 di abetes mellitus with other specified complication Carole Lux MD [facility], [facility] 09/12/2019 HgbA1C 23919 Type 2 diabetes mellitus with ot her specified complication Carole Lux MD [facility], [facility] 07/24/2019 -collection of capillary blood (fingerstick, heel ) 83059 Type 2 diabetes mellitus with other specified complication Carole Lux MD [facility], [facility] 07/24/2019 Surgical History Last Updated Surgical / [...] Dose # Date Site Reaction(s) Status Source [id number] 1 11/15/2017 Complete (Reported) Patient Tdap (> 7 yrs) 1 02/07/2016 Left Arm Complete (Admi nistered) [facility] Allergies Includes: Active, inactive, and resolved Allergies Substance Type Reaction Onset Date - Time Resolved Date - Ti me Status Penicillin G Benzathine Allergy Asthma, Shortness of Maya ath 02/07/2016 - 12:00AM Active Breo Ellipta Intolerance tremors dizziness 10/14/2018 - 12:00AM Active Atenolol Allergy Shock, Unconsciousness 02/07/2016 - 12:00AM Active Encounters Includes: Encounters from 07/08/2019 through 07/08/2020 Encounter Provider Location Date Check-In Time Check-Out Time D iagnosis followup Carole Lux MD [facility], [facility] 07/08 9:22AM 9:46AM Essential Hypertension, Sick Sinus Syndr ome, Coronary Artery Disease, Chronic Obstructive Asthma, Diabetes Mellitus Type 2 with Complication, Congestive Heart Failure Diastolic, Hypertensive Heart and Chronic Kidney Disease Stage 3, Arthralgia - Shoulder Region Right Annual Wellness SUBSEQUENT visi t(> 1yr since prev. Pari Lux MD [facility], [facility] 04/24/2020 10:50AM 11:23AM Routine History and Physical Senior Citizen (65-80 Yrs), Tobacco Use ANNUAL PE-followup exam/30 Carole Lux MD [facility], [facility] 04/24/2020 10:50AM 11:23AM Routine History and Physical Senior Citizen (65-80 Yrs) followup Carole Lux MD [facility], [facility] 0 04/24/2020 10:50AM 11:23AM Diabetes Mellitus Type 2 wit h Complication, Essential Hypertension, Sick Sinus Syndrome, Coronary Artery Disease, Chronic Obstructive Asthma, Congestive Heart Failure Diastolic, Hypertensive Heart and Chronic Kidney Disease Stage 3, Warts sick visit Susan Kan [facility], [facility] 03/01/2020 11:17AM 11:43AM Plantar Fasciitis, Limb Pain Right Foot followup Carole Lux MD [facility], [facility] 01/22 2:32PM 3:02PM Diabetes Mellitus Type 2 with Complicati on, Chronic Kidney Disease Stage 3, Dysplastic Nevus, Cellulitis of Lower Leg followup Lew Lozada PA-C [facility], [facility] 0 10:28AM 11:06AM Chronic Kidney Disease Stage 3, Atrial F ibrillation Chronic, Chronic Obstructive Asthma, Diabetes Mellitus Type 2 with Complication, Essential Hypertension, Warts [Patient Encounter] Carole Lux MD 01/08/2020 020 9:04AM 10/18/2019 11:59PM followup Carole Lux MD [facility], [facility] 10/17 9:21AM 9:45AM Essential Hypertension, Sick Sinus Syndr ome, Coronary Artery Disease, Chronic Obstructive Asthma, Diabetes Mellitus Type 2 with Complication, Congestive Heart Failure Diastolic, Hypertensive Heart and Chronic Kidney Disease Stage 3 Pre-op consult for surgery [facility], [facility] 09/12/2019 9:02AM 10:03AM Working Diagnosis of Visit For: Preoperative Exam, Cataract - Both Eyes, Chronic Kidney Disease Stage 3 [Patient Encounter] Ace Mortensen MD 08/03/2019 1 09/24/2018 8:30AM 07/24/2019 11:59PM followup Carole Lux MD [facility], [facility] 07/24 7:45AM 8:22AM Essential Hypertension, Sick Sinus Syndr ome, Coronary Artery Disease, Chronic Obstructive Asthma, Diabetes Mellitus Type 2 with Complication, Congestive Heart Failure Diastolic, Hypertensive Heart and Chronic Kidney Disease Stage 3, Flank Pain Insurance Includes: Active Insurance Policies Plan Name Member ID Group # Subscriber Relationship Effective Da william 1 - Sherryus [facility]- [id number] Jackson Lucia Self 08/02/2019 - Unknown Advance Directives Includes: Current Advance DirectivesNo Advance Directives Recorded Health Concerns Includes: Active Health ConcernsNo Active Health Concerns Recorded Goals Includes: Active GoalsNo Active Goals Recorded Interventions Includes: Interventions for active GoalsNo Interventions Recorded Evaluations & Outcomes Includes: Evaluations & Outcomes for active GoalsNo Outcomes Recorded
--- OUTSIDE RECORDS SUMMARY | 2020-09-18 10:04 | CCD ---
Author Author [facility] Organization [facility] Address Unknown Phone Unavailable Care Team Providers Care Watch Assembler Name Role Phone Kimberley Crowe MD Unavailable Unavailable Kimberley Crowe MD Unavailable Unavailable Kimberley Crowe MD Unavailable Unavailable Kimberley Crowe MD Unavailable Unavailable Kimberley Crowe MD Unavailable Unavailable Kimberley Crowe MD Unavailable Unavailable Kimberley Crowe MD Unavailable Unavailable Kimberley Crowe MD Unavailable Unavailable Kimberley Crowe MD Unavailable Unavailable Kimberley Crowe MD Unavailable Unavailable Kimberley Crowe MD Unavailable Unavailable Mollison, Kimberley Marcus MD Unavailable Unavailable Mollison, Kimberley Marcus MD Unavailable Unavailable Mollison, Kimberley Marcus MD Unavailable Unavailable Mollison, Kimberley Marcus MD Unavailable Unavailable Mollison, Kimberley Marcus MD Unavailable Unavailable Mollison, Kimberley Marcus MD Unavailable Unavailable Mollison, Kimberley Marcus MD Unavailable Unavailable Mollison, Kimberley Marcus MD Unavailable Unavailable Mollison, Kimberley Marcus MD Unavailable Unavailable Mollison, Kimberley Marcus MD Unavailable Unavailable Mollison, Kimberley Marcus MD Unavailable Unavailable Mollison, Kimberley Marcus MD Unavailable Unavailable Mollison, Kimberley Marcus MD Unavailable Unavailable Mollison, Kimberley Marcus MD Unavailable Unavailable Ciarra HORTON MD Unavailable Unavailable Ciarra HORTON MD Unavailable Unavailable Ciarra HORTON MD Unavailable Unavailable Ciarra HORTON MD Unavailable Unavailable Ciarra HORTON MD Unavailable Unavailable Ciarra HORTON MD Unavailable Unavailable Ciarra HORTON MD Unavailable Unavailable Ciarra HORTON MD Unavailable Unavailable Ciarra HORTON MD Unavailable Unavailable Ciarra HORTON MD Unavailable Unavailable Ciarra HORTON MD Unavailable Unavailable Ciarra HORTON MD Unavailable Unavailable Ciarra HORTON MD Unavailable Unavailable Ciarra HORTON MD Unavailable Unavailable Ciarra HORTON MD Unavailable Unavailable Ciarra HORTON MD Unavailable Unavailable Ciarra HORTON MD Unavailable Unavailable Ciarra HORTON MD Unavailable Unavailable Ciarra HORTON MD Unavailable Unavailable Ciarra HORTON MD Unavailable Unavailable Ciarra HORTON MD Unavailable Unavailable Ciarra HORTON MD Unavailable Unavailable Ciarra HORTON MD Unavailable Unavailable Ciarra HORTON MD Unavailable Unavailable Ciarra HORTON MD Unavailable Unavailable Ciarra HORTON MD Unavailable Unavailable Ciarra HORTON MD Unavailable Unavailable Ciarra HORTON MD Unavailable Unavailable Ciarra HORTON MD Unavailable Unavailable Ciarra HOTRON MD Unavailable Unavailable Ciarra HORTON MD Unavailable Unavailable Ciarra HORTON MD Unavailable Unavailable Ciarra HORTON MD Unavailable Unavailable Ciarra HORTON MD Unavailable Unavailable Ciarra HORTON MD Unavailable Unavailable Ciarra HORTON MD Unavailable Unavailable Ciarra HORTON MD Unavailable Unavailable Ciarra HORTON MD Unavailable Unavailable Ciarra HORTON MD Unavailable Unavailable JEANNINE LOFTON MD Unavailable Unavailable Hamo, M Ailyn FASHION DESIGN PROFESSOR Unavailable Unavailable Hamo, M Ailyn FASHION DESIGN PROFESSOR Unavailable Unavailable Hamo, M Ailyn FASHION DESIGN PROFESSOR Unavailable Unavailable Hamo, M Ailyn FASHION DESIGN PROFESSOR Unavailable Unavailable Hamo, M Ailyn FASHION DESIGN PROFESSOR Unavailable Unavailable Hamo, M Ailyn FASHION DESIGN PROFESSOR Unavailable Unavailable Hamo, M Ailyn FASHION DESIGN PROFESSOR Unavailable Unavailable Hamo, M Ailyn FASHION DESIGN PROFESSOR Unavailable Unavailable Hamo, M Ailyn FASHION DESIGN PROFESSOR Unavailable Unavailable Hamo, M Ailyn FASHION DESIGN PROFESSOR Unavailable Unavailable Hamo, M Ailyn FASHION DESIGN PROFESSOR Unavailable Unavailable Hamo, M Ailyn FASHION DESIGN PROFESSOR Unavailable Unavailable Hamo, M Ailyn FASHION DESIGN PROFESSOR Unavailable Unavailable Hamo, M Ailyn FASHION DESIGN PROFESSOR Unavailable Unavailable Hamo, M Ailyn FASHION DESIGN PROFESSOR Unavailable Unavailable Hamo, M Ailyn FASHION DESIGN PROFESSOR Unavailable Unavailable Hamo, M Ailyn FASHION DESIGN PROFESSOR Unavailable Unavailable Hamo, M Ailyn FASHION DESIGN PROFESSOR Unavailable Unavailable Hamo, M Ailyn FASHION DESIGN PROFESSOR Unavailable Unavailable Hamo, M Ailyn FASHION DESIGN PROFESSOR Unavailable Unavailable Hamo, M Ailyn FASHION DESIGN PROFESSOR Unavailable Unavailable Lucius, A Susan GENETIC SUPERVISOR Unavailable Unavailable Lucius, A Susan GENETIC SUPERVISOR Unavailable Unavailable Lucius, A Susan GENETIC SUPERVISOR Unavailable Unavailable Lucius, A Susan GENETIC SUPERVISOR Unavailable Unavailable Lucius, A Susan GENETIC SUPERVISOR Unavailable Unavailable Lucius, A Susan GENETIC SUPERVISOR Unavailable Unavailable Lucuis, A Susan GENETIC SUPERVISOR Unavailable Unavailable Lucius, A Susan GENETIC SUPERVISOR Unavailable Unavailable Lucius, A Susan GENETIC SUPERVISOR Unavailable Unavailable Lucius, A Susan GENETIC SUPERVISOR Unavailable Unavailable Lucius, A Susan GENETIC SUPERVISOR Unavailable Unavailable Lucius, A Susan GENETIC SUPERVISOR Unavailable Unavailable Lucius, A Susna GENETIC SUPERVISOR Unavailable Unavailable Lucius, A Susan GENETIC SUPERVISOR Unavailable Unavailable Lucius, A Susan GENETIC SUPERVISOR Unavailable Unavailable Lucius, A Susan GENETIC SUPERVISOR Unavailable Unavailable Lucius, A Susan GENETIC SUPERVISOR Unavailable Unavailable Lucius, A Susan GENETIC SUPERVISOR Unavailable Unavailable Lucius, A Susan GENETIC SUPERVISOR Unavailable Unavailable Lucius, A Susan GENETIC SUPERVISOR Unavailable Unavailable Lucius, A Susan GENETIC SUPERVISOR Unavailable Unavailable Lucius, A Susan GENETIC SUPERVISOR Unavailable Unavailable Lucius, A Susan GENETIC SUPERVISOR Unavailable Unavailable Lucius, A Susan GENETIC SUPERVISOR Unavailable Unavailable Lucius, A Susan GENETIC SUPERVISOR Unavailable Unavailable Lucius, A Susan GENETIC SUPERVISOR Unavailable Unavailable Lucius, A Susan GENETIC SUPERVISOR Unavailable Unavailable Lucius, A Susan GENETIC SUPERVISOR Unavailable Unavailable Lucius, A Susan GENETIC SUPERVISOR Unavailable Unavailable Lucius, A Susan GENETIC SUPERVISOR Unavailable Unavailable Lucius, A Susan GENETIC SUPERVISOR Unavailable Unavailable Lucius, A Susan GENETIC SUPERVISOR Unavailable Unavailable Lucius, A Susan GENETIC SUPERVISOR Unavailable Unavailable Lucius, A Susan GENETIC SUPERVISOR Unavailable Unavailable Lucius, A Susan GENETIC SUPERVISOR Unavailable Unavailable Lucius, A Susan GENETIC SUPERVISOR Unavailable Unavailable Lucius, A Susan GENETIC SUPERVISOR Unavailable Unavailable Lucius, A Susan GENETIC SUPERVISOR Unavailable Unavailable Lucius, A Susan GENETIC SUPERVISOR Unavailable Unavailable Lucius, A Susan GENETIC SUPERVISOR Unavailable Unavailable Lucius, A Susan GENETIC SUPERVISOR Unavailable Unavailable Lucius, A Susan GENETIC SUPERVISOR Unavailable Unavailable Lucius, A Susan GENETIC SUPERVISOR Unavailable Unavailable Lucius, A Susan GENETIC SUPERVISOR Unavailable Unavailable Jose J, E Carole MD Unavailable Unavailable Jose J, E Carole MD Unavailable Unavailable Jose J, E Carole MD Unavailable Unavailable Jose J, E Carole MD Unavailable Unavailable Jose J, E Carole MD Unavailable Unavailable Jose J, E Carole MD Unavailable Unavailable Jose J, E Carole MD Unavailable Unavailable Jose J, E Carole MD Unavailable Unavailable Jose J, E Carole MD Unavailable Unavailable Jose J, E Carole MD Unavailable Unavailable Jose J, E Carole MD Unavailable Unavailable Jose J, E Carole MD Unavailable Unavailable Jose J, E Carole MD Unavailable Unavailable Jose J, E Carole MD Unavailable Unavailable Jose J, E Carole MD Unavailable Unavailable oJse J, E Carole MD Unavailable Unavailable Jose J, E Carole MD Unavailable Unavailable Jose J, E Carole MD Unavailable Unavailable Jose J, E Carole MD Unavailable Unavailable Jose J, E Carole MD Unavailable Unavailable Jose J, E Carole MD Unavailable Unavailable Jose J, E Carole MD Unavailable Unavailable Jose J, E Carole MD Unavailable Unavailable Jose J, E Carole MD Unavailable Unavailable Jose J, E Carole MD Unavailable Unavailable Jose J, E Carole MD Unavailable Unavailable Jose J, E Carole MD Unavailable Unavailable Jose J, E Carole MD Unavailable Unavailable Jose J, E Carole MD Unavailable Unavailable Jose J, E Carole MD Unavailable Unavailable Jose J, E Carole MD Unavailable Unavailable Jose J, E Carole MD Unavailable Unavailable Jose J, E Carole MD Unavailable Unavailable Jose J, E Carole MD Unavailable Unavailable Jose J, E Carole MD Unavailable Unavailable Jose J, E Carole MD Unavailable Unavailable Jose J, Ciarra Lam MD Unavailable Unavailable Jose J, Ciarra Carole MD Unavailable Unavailable Jose J, Ciarra Carole MD Unavailable Unavailable Jose J, E Carole MD Unavailable Unavailable Jose J, E Carole MD Unavailable Unavailable Jose J, E Carole MD Unavailable Unavailable Jose J, E Carole MD Unavailable Unavailable Jose J, E Carole MD Unavailable Unavailable Jose J, E Carole MD Unavailable Unavailable Jose J, E Carole MD Unavailable Unavailable Ciarra HORTON MD Unavailable Unavailable Ciarra HORTON MD Unavailable Unavailable Ciarra HORTON MD Unavailable Unavailable Ciarra HORTON MD Unavailable Unavailable Ciarra HORTON MD Unavailable Unavailable Ciarra HORTON MD Unavailable Unavailable Ciarra HORTON MD Unavailable Unavailable Ciarra HORTON MD Unavailable Unavailable Ciarra HORTON MD Unavailable Unavailable Ciarra HORTON MD Unavailable Unavailable Ciarra HORTON MD Unavailable Unavailable Ciarra HORTON MD Unavailable Unavailable Ciarra HORTON MD Unavailable Unavailable Ciarra HORTON MD Unavailable Unavailable Ciarra HORTON MD Unavailable Unavailable Ciarra HORTON MD Unavailable Unavailable Ciarra HORTON MD Unavailable Unavailable Ciarra HORTON MD Unavailable Unavailable Ciarra HORTON MD Unavailable Unavailable Ciarra HORTON MD Unavailable Unavailable Ciarra HORTON MD Unavailable Unavailable Ciarra HORTON MD Unavailable Unavailable Ciarra HORTON MD Unavailable Unavailable Ciarra HORTON MD Unavailable Unavailable Ciarra HORTON MD Unavailable Unavailable Ciarra HORTON MD Unavailable Unavailable Ciarra HORTON MD Unavailable Unavailable Ciarra HORTON MD Unavailable Unavailable Ciarra HORTON MD Unavailable Unavailable Ciarra HORTON MD Unavailable Unavailable Ciarra HORTON MD Unavailable Unavailable Ciarra HORTON MD Unavailable Unavailable Ciarra HORTON MD Unavailable Unavailable Ciarra HORTON MD Unavailable Unavailable Ciarra HORTON MD Unavailable Unavailable Ciarra HORTON MD Unavailable Unavailable Ciarra HORTON MD Unavailable Unavailable Ciarra HORTON MD Unavailable Unavailable Ciarra HORTON MD Unavailable Unavailable Jose J, Ciarra Lam MD Unavailable Unavailable Jose J, Ciarra Lam MD Unavailable Unavailable Jose J, Ciarra Lam MD Unavailable Unavailable Jose J, Ciarra Carole MD Unavailable Unavailable Jose J, Ciarra Carole MD Unavailable Unavailable Jose J, Ciarra Carole MD Unavailable Unavailable Jose J, Ciarra Carole MD Unavailable Unavailable Jose J, Ciarra Carole MD Unavailable Unavailable Jose J, E Carole MD Unavailable Unavailable Jose J, E Carole MD Unavailable Unavailable Jose J, E Carole MD Unavailable Unavailable Jose J, E Carole MD Unavailable Unavailable Jose J, E Carole MD Unavailable Unavailable Jose J, E Carole MD Unavailable Unavailable Jose J, E Carole MD Unavailable Unavailable Jose J, E Carole MD Unavailable Unavailable Jose J, E Carole MD Unavailable Unavailable Jose J, E Carole MD Unavailable Unavailable Jose J, E Carole MD Unavailable Unavailable Jose J, E Carole MD Unavailable Unavailable Jose J, E Carole MD Unavailable Unavailable Jose J, E Carole MD Unavailable Unavailable Jose J, E Carole MD Unavailable Unavailable Jose J, E Carole MD Unavailable Unavailable Jose J, E Carole MD Unavailable Unavailable Jose J, E Carole MD Unavailable Unavailable Jose J, E Carole MD Unavailable Unavailable Jose J, E Carole MD Unavailable Unavailable Jose J, E Carole MD Unavailable Unavailable Jose J, E Carole MD Unavailable Unavailable Jose J, E Carole MD Unavailable Unavailable Jose J, E Carole MD Unavailable Unavailable Jose J, E Carole MD Unavailable Unavailable Jose J, E Carole MD Unavailable Unavailable Jose J, E Carole MD Unavailable Unavailable Jose J, E Carole MD Unavailable Unavailable Jose J, E Carole MD Unavailable Unavailable Jose J, E Carole MD Unavailable Unavailable Jose J, E Carole MD Unavailable Unavailable Jose J, E Carole MD Unavailable Unavailable Jose J, E Carole MD Unavailable Unavailable Jose J, E Carole MD Unavailable Unavailable Jose J, E Carole MD Unavailable Unavailable Jose J, E Carole MD Unavailable Unavailable Jose J, E Carole MD Unavailable Unavailable Jose J, E Carole MD Unavailable Unavailable Lucius, A Susan GENETIC SUPERVISOR Unavailable Unavailable Lucius, A Susan GENETIC SUPERVISOR Unavailable Unavailable Lucius, A Susna GENETIC SUPERVISOR Unavailable Unavailable Lucius, A Susan GENETIC SUPERVISOR Unavailable Unavailable Lucius, A Susan GENETIC SUPERVISOR Unavailable Unavailable Lucius, A Susan GENETIC SUPERVISOR Unavailable Unavailable Lucius, A Susan GENETIC SUPERVISOR Unavailable Unavailable Lucius, A Susan GENETIC SUPERVISOR Unavailable Unavailable Lucius, A Susan GENETIC SUPERVISOR Unavailable Unavailable Lucius, A Susan GENETIC SUPERVISOR Unavailable Unavailable Lucius, A Susan GENETIC SUPERVISOR Unavailable Unavailable Lucius, A Susan GENETIC SUPERVISOR Unavailable Unavailable Lucius, A Susan GENETIC SUPERVISOR Unavailable Unavailable Lucius, A Susan GENETIC SUPERVISOR Unavailable Unavailable Lucius, A Susan GENETIC SUPERVISOR Unavailable Unavailable Lucius, A Susan GENETIC SUPERVISOR Unavailable Unavailable Lucius, A Susan GENETIC SUPERVISOR Unavailable Unavailable Lucius, A Susan GENETIC SUPERVISOR Unavailable Unavailable Lucius, A Susan GENETIC SUPERVISOR Unavailable Unavailable Lucius, A Susan GENETIC SUPERVISOR Unavailable Unavailable Lucius, A Susan GENETIC SUPERVISOR Unavailable Unavailable Lucius, A Susan GENETIC SUPERVISOR Unavailable Unavailable Lucius, A Susan GENETIC SUPERVISOR Unavailable Unavailable Lucius, A Susan GENETIC SUPERVISOR Unavailable Unavailable Lucius, A Susan GENETIC SUPERVISOR Unavailable Unavailable Lucius, A Susan GENETIC SUPERVISOR Unavailable Unavailable Lucius, A Susan GENETIC SUPERVISOR Unavailable Unavailable Lucius, A Susan GENETIC SUPERVISOR Unavailable Unavailable Lucius, A Susan GENETIC SUPERVISOR Unavailable Unavailable Lucius, A Susan GENETIC SUPERVISOR Unavailable Unavailable Lucius, A Susan GENETIC SUPERVISOR Unavailable Unavailable Lucius, A Susan GENETIC SUPERVISOR Unavailable Unavailable Lucius, A Susan GENETIC SUPERVISOR Unavailable Unavailable Lucius, A Susan GENETIC SUPERVISOR Unavailable Unavailable Lucius, A Susan GENETIC SUPERVISOR Unavailable Unavailable Lucius, A Susan GENETIC SUPERVISOR Unavailable Unavailable Lucius, A Susan GENETIC SUPERVISOR Unavailable Unavailable Lucius, A Susan GENETIC SUPERVISOR Unavailable Unavailable Lucius, A Susan GENETIC SUPERVISOR Unavailable Unavailable Lucius, A Susan GENETIC SUPERVISOR Unavailable Unavailable Lucius, A Susan GENETIC SUPERVISOR Unavailable Unavailable Lucius, A Susan GENETIC SUPERVISOR Unavailable Unavailable Lucius, A Susan GENETIC SUPERVISOR Unavailable Unavailable Lucius, A Susan GENETIC SUPERVISOR Unavailable Unavailable Brijesh JRSerafin MD Unavailable Unavailable Brijesh JR D [place] Unavailable Unavailable Brijesh JR, Serafin Jeffrey MD Unavailable Unavailable Brijesh JR D [place] Unavailable Unavailable Brijesh JR D [place] Unavailable Unavailable Brijesh JR D [place] Unavailable Unavailable Brijesh JR D [place] Unavailable Unavailable Brijesh JR, D [place] Unavailable Unavailable Brijesh JR, D [place] Unavailable Unavailable Brijesh JR, D [place] Unavailable Unavailable Brijesh JR, D [place] Unavailable Unavailable Brijesh JR, D [place] Unavailable Unavailable Brijesh JR, D Rachele PCAE Unavailable Unavailable Brijesh JR, D [place] Unavailable Unavailable Brijesh JR, D [place] Unavailable Unavailable Brijesh JR, D [place] Unavailable Unavailable Brijesh JR, D [place] Unavailable Unavailable Brijesh JR, D [place] Unavailable Unavailable Brijesh JR, D [place] Unavailable Unavailable Brijesh JR, D [place] Unavailable Unavailable Brijesh JR, D [place] Unavailable Unavailable Brijesh JR, D [place] Unavailable Unavailable Brijesh JR, D [place] Unavailable Unavailable Brijesh JR, D [place] Unavailable Unavailable Brijesh JR, D [place] Unavailable Unavailable Brijesh JR, D Rahcele PACE Unavailable Unavailable Brijesh JR, D [place] Unavailable Unavailable Brijesh JR, D [place] Unavailable Unavailable Brijesh JR, D [place] Unavailable Unavailable Brijesh JR, D [place] Unavailable Unavailable Brijesh JR, D [place] Unavailable Unavailable Brijesh JR, D [place] Unavailable Unavailable Brijesh JR, D [place] Unavailable Unavailable Brijesh JR, D [place] Unavailable Unavailable Brijesh JR, D [place] Unavailable Unavailable Brijesh JR, D [place] Unavailable Unavailable Brijesh JR, D [place] Unavailable Unavailable Brijesh JR, D [place] Unavailable Unavailable Brijesh JR, D [place] Unavailable Unavailable Brijesh JR, D [place] Unavailable Unavailable Brijesh JR, D [place] Unavailable Unavailable Brijesh JR, D [place] Unavailable Unavailable Brijesh JR, D [place] Unavailable Unavailable Brijesh JR, D [place] Unavailable Unavailable Brijesh JR, D [place] Unavailable Unavailable Brijesh JR, D [place] Unavailable Unavailable Brijesh JR, D [place] Unavailable Unavailable Brijesh JR, D [place] Unavailable Unavailable Brijesh JR, D [place] Unavailable Unavailable Brijesh JR, D [place] Unavailable Unavailable Brijesh JR, D [place] Unavailable Unavailable Brijesh JR, D [place] Unavailable Unavailable Brijesh JR, D [place] Unavailable Unavailable Brijesh JR, D [place] Unavailable Unavailable Brijesh JR, D [place] Unavailable Unavailable Brijesh JR, D [place] Unavailable Unavailable Brijesh JR, D [place] Unavailable Unavailable Brijesh JR, D [place] Unavailable Unavailable Brijesh JR, D [place] Unavailable Unavailable Brijesh JR, D [place] Unavailable Unavailable Brijesh JR, D [place] Unavailable Unavailable Brijesh JR, D [place] Unavailable Unavailable Brijesh JR, D [place] Unavailable Unavailable Brijesh JR, D [place] Unavailable Unavailable Hamo, M Ailyn FASHION DESIGN PROFESSOR Unavailable Unavailable Hamo, M Ailyn FASHION DESIGN PROFESSOR Unavailable Unavailable Hamo, M Ailyn FASHION DESIGN PROFESSOR Unavailable Unavailable Hamo, M Ailyn FASHION DESIGN PROFESSOR Unavailable Unavailable Hamo, M Ailyn FASHION DESIGN PROFESSOR Unavailable Unavailable Hamo, M Ailyn FASHION DESIGN PROFESSOR Unavailable Unavailable Hamo, M Ailyn FASHION DESIGN PROFESSOR Unavailable Unavailable Hamo, M Ailyn FASHION DESIGN PROFESSOR Unavailable Unavailable Hamo, M Ailyn FASHION DESIGN PROFESSOR Unavailable Unavailable Hamo, M Ailyn FASHION DESIGN PROFESSOR Unavailable Unavailable Hamo, M Ailyn FASHION DESIGN PROFESSOR Unavailable Unavailable Hamo, M Ailyn FASHION DESIGN PROFESSOR Unavailable Unavailable Hamo, M Ailyn FASHION DESIGN PROFESSOR Unavailable Unavailable Hamo, M Ailyn FASHION DESIGN PROFESSOR Unavailable Unavailable Hamo, M Ailyn FASHION DESIGN PROFESSOR Unavailable Unavailable Hamo, M Ailyn FASHION DESIGN PROFESSOR Unavailable Unavailable Hamo, M Ailyn FASHION DESIGN PROFESSOR Unavailable Unavailable Hamo, M Ailyn FASHION DESIGN PROFESSOR Unavailable Unavailable Hamo, M Ailyn FASHION DESIGN PROFESSOR Unavailable Unavailable Hamo, M Ailyn FASHION DESIGN PROFESSOR Unavailable Unavailable Hamo, M Ailyn FASHION DESIGN PROFESSOR Unavailable Unavailable Emory Mortensen MD Unavailable Unavailable Emory Mortensen MD Unavailable Unavailable Emory Mortensen MD Unavailable Unavailable Emory Mortensen MD Unavailable Unavailable Emory Mortensen MD Unavailable Unavailable Emory Mortensen MD Unavailable Unavailable Eomry Mortensen MD Unavailable Unavailable Emory Mortensen MD Unavailable Unavailable Emory Mortensen MD Unavailable Unavailable Emory Mortensen MD Unavailable Unavailable Emory Mortensen MD Unavailable Unavailable Emory Mortensen MD Unavailable Unavailable Emory Mortensen MD Unavailable Unavailable Emory Mortensen MD Unavailable Unavailable LyndaEmory griffin MD Unavailable Unavailable LyndaEmory griffin MD Unavailable Unavailable LyndaEmory griffin MD Unavailable Unavailable LyndaEmory griffin MD Unavailable Unavailable LyndaEmory griffin MD Unavailable Unavailable LyndaEmory griffin MD Unavailable Unavailable LyndaEmory griffin MD Unavailable Unavailable LyndaEmory griffin MD Unavailable Unavailable LyndaEmory griffin MD Unavailable Unavailable LyndaEmory griffin MD Unavailable Unavailable LyndaEmory griffin MD Unavailable Unavailable LyndaEmory griffin MD Unavailable Unavailable LyndaEmory griffin MD Unavailable Unavailable LyndaEmory griffin MD Unavailable Unavailable LyndaEmory griffin MD Unavailable Unavailable LyndaEmory griffin MD Unavailable Unavailable LyndaEmory griffin MD Unavailable Unavailable LyndaEmory griffin MD Unavailable Unavailable LyndaEmory griffin MD Unavailable Unavailable LynEmory sultana MD Unavailable Unavailable LynEmory sultana MD Unavailable Unavailable LyndaEmory griffin MD Unavailable Unavailable LyndaEmory griffin MD Unavailable Unavailable LyndaEmory griffin MD Unavailable Unavailable LyndaEmory griffin MD Unavailable Unavailable LyndaEmory griffin MD Unavailable Unavailable LynEmory sultana MD Unavailable Unavailable LynEmory sultana MD Unavailable Unavailable LyndaEmory griffin MD Unavailable Unavailable LynEmory sultana MD Unavailable Unavailable LynEmory sultana MD Unavailable Unavailable LynEmory sultana MD Unavailable Unavailable LynEmory sultana MD Unavailable Unavailable LynEmory sultana MD Unavailable Unavailable LynEmory sultana MD Unavailable Unavailable LyndaEmory griffin MD Unavailable Unavailable LynEmory sultana MD Unavailable Unavailable LynEmory sultana MD Unavailable Unavailable LynEmory sultana MD Unavailable Unavailable LynEmory sultana MD Unavailable Unavailable LynEmory sultana MD Unavailable Unavailable LyndaEmory griffin MD Unavailable Unavailable LyndaEmory griffin MD Unavailable Unavailable LynEmory sultana MD Unavailable Unavailable LynEmory sultana MD Unavailable Unavailable LynEmory sultana MD Unavailable Unavailable LyndaEmory griffin MD Unavailable Unavailable LyndaEmory griffin MD Unavailable Unavailable LyndaEmory griffin MD Unavailable Unavailable LyndaEmory griffin MD Unavailable Unavailable Emory Mortensen MD Unavailable Unavailable Emory Mortensen MD Unavailable Unavailable Emory Mortensen MD Unavailable Unavailable Emory Mortensen MD Unavailable Unavailable Emory Mortensen MD Unavailable Unavailable Emory Mortensen MD Unavailable Unavailable Emory Mortensen MD Unavailable Unavailable Emory Mortensen MD Unavailable Unavailable Emory Mortensen MD Unavailable Unavailable Eomry Mortensen MD Unavailable Unavailable Emory Mortensen MD Unavailable Unavailable Emory Mortensen MD Unavailable Unavailable Emory Mortensen MD Unavailable Unavailable Emory Mortensen MD Unavailable Unavailable Emory Mortensen MD Unavailable Unavailable Emory Mortensen MD Unavailable Unavailable Emory Mortensen MD Unavailable Unavailable Emory Mortensen MD Unavailable Unavailable Emory Mortensen MD Unavailable Unavailable Emory Mortensen MD Unavailable Unavailable Emory Mortensen MD Unavailable Unavailable Emory Mortensen MD Unavailable Unavailable Emory Mortensen MD Unavailable Unavailable Emory Mortensen MD Unavailable Unavailable Emory Mortensen MD Unavailable Unavailable Emory Mortensen MD Unavailable Unavailable Emory Mortensen MD Unavailable Unavailable Kierra, D Lew PA Unavailable Unavailable Kierra, D Lew PA Unavailable Unavailable Kierra, D Lew PA Unavailable Unavailable Kierra, D Lew PA Unavailable Unavailable Kierra, D Lew PA Unavailable Unavailable Kierra, D Lew PA Unavailable Unavailable Kierra, D Lwe PA Unavailable Unavailable Kierra, D Lew PA Unavailable Unavailable Kierra, D Lew PA Unavailable Unavailable Kierra, D Lew PA Unavailable Unavailable Kierra, D Lew PA Unavailable Unavailable Kierra, D Lew PA Unavailable Unavailable Kierra, D Lew PA Unavailable Unavailable Kierra, D Lew PA Unavailable Unavailable Kierra, D Lew PA Unavailable Unavailable Kierra, D Lew PA Unavailable Unavailable Ikerra, D Lew PA Unavailable Unavailable Kierra, D Lew PA Unavailable Unavailable Kierra, D Lew PA Unavailable Unavailable Kierra, D Lew PA Unavailable Unavailable Kierra, D Lew PA Unavailable Unavailable Emory Mortensen MD Unavailable Unavailable Emory Mortensen MD Unavailable Unavailable Emory Mortensen MD Unavailable Unavailable Emory Mortensen MD Unavailable Unavailable LyndaEmory griffin MD Unavailable Unavailable LyndaEmory griffin MD Unavailable Unavailable LyndaEmory griffin MD Unavailable Unavailable LyndaEmory griffin MD Unavailable Unavailable LyndaEmory griffin MD Unavailable Unavailable LyndaEmory griffin MD Unavailable Unavailable LyndaEmory griffin MD Unavailable Unavailable LyndaEmory griffin MD Unavailable Unavailable LyndaEmory griffin MD Unavailable Unavailable LyndakerEmory MD Unavailable Unavailable LyndaEmory griffin MD Unavailable Unavailable LyndaEmory griffin MD Unavailable Unavailable LyndaEmory griffin MD Unavailable Unavailable LyndaEmory griffin MD Unavailable Unavailable LyndaEmory griffin MD Unavailable Unavailable LyndaEmory griffin MD Unavailable Unavailable LyndaEmory griffin MD Unavailable Unavailable LyndaEmory griffin MD Unavailable Unavailable LyndaEmory griffin MD Unavailable Unavailable LyndaEmory griffin MD Unavailable Unavailable LyndaEmory griffin MD Unavailable Unavailable LyndaEmory griffin MD Unavailable Unavailable LyndaEmory griffin MD Unavailable Unavailable LyndaEmory griffin MD Unavailable Unavailable LyndaEmory griffin MD Unavailable Unavailable LyndaEmory griffin MD Unavailable Unavailable LynEmory sultana MD Unavailable Unavailable LyndaEmory griffin MD Unavailable Unavailable LyndaEmory griffin MD Unavailable Unavailable LyndaEmory griffin MD Unavailable Unavailable LyndaEmory griffin MD Unavailable Unavailable LynEmory sultana MD Unavailable Unavailable LynEmory sultana MD Unavailable Unavailable LynEmory sultana MD Unavailable Unavailable LynEmory sultana MD Unavailable Unavailable LyndaEmory griffin MD Unavailable Unavailable LyndaEmory griffin MD Unavailable Unavailable LynEmory sultana MD Unavailable Unavailable LyndaEmory griffin MD Unavailable Unavailable LynEmory sultana MD Unavailable Unavailable LyndaEmory griffin MD Unavailable Unavailable LyndaEmory griffin MD Unavailable Unavailable LyndaEmory griffin MD Unavailable Unavailable LyndaEmory griffin MD Unavailable Unavailable LyndaEmory griffin MD Unavailable Unavailable LyndaEmory griffin MD Unavailable Unavailable LyndaEmory griffin MD Unavailable Unavailable LyndaEmory griffin MD Unavailable Unavailable LyndaEmory griffin MD Unavailable Unavailable LyndaEmory griffin MD Unavailable Unavailable LynEmory sultana MD Unavailable Unavailable LynEmory sultana MD Unavailable Unavailable LynEmory sultana MD Unavailable Unavailable LynEmory sultana MD Unavailable Unavailable LynEmory sultana MD Unavailable Unavailable LynEmory sultana MD Unavailable Unavailable LynEmory sultana MD Unavailable Unavailable LynEmory sultana MD Unavailable Unavailable LynEmory sultana MD Unavailable Unavailable LynEmory sultana MD Unavailable Unavailable LynEmory sultana MD Unavailable Unavailable LynEmory sultana MD Unavailable Unavailable LynEmory sultana MD Unavailable Unavailable LynEmory sultana MD Unavailable Unavailable LynEmory sultana MD Unavailable Unavailable LynEmory sultana MD Unavailable Unavailable LynEmory sultana MD Unavailable Unavailable LynEmory sultana MD Unavailable Unavailable LynEmory sultana MD Unavailable Unavailable LynEmory sultana MD Unavailable Unavailable Emory Mortensen MD Unavailable Unavailable LynEmory sultana MD Unavailable Unavailable LynEmory sultana MD Unavailable Unavailable LynEmory sultana MD Unavailable Unavailable LynEmory sultana MD Unavailable Unavailable LynEmory sultana MD Unavailable Unavailable Emory Mortensen MD Unavailable Unavailable Emory Mortensen MD Unavailable Unavailable Emory Mortensen MD Unavailable Unavailable Emory Mortensen MD Unavailable Unavailable Emory Mortensen MD Unavailable Unavailable Emory Mortensen MD Unavailable Unavailable Emory Mortensen MD Unavailable Unavailable Emory Mortensen MD Unavailable Unavailable LynEmory sultana MD Unavailable Unavailable LynEmory sultana MD Unavailable Unavailable LynEmory sultana MD Unavailable Unavailable Ciarra Lux MD Unavailable Unavailable Ciarra Lux MD Unavailable Unavailable Jose JCiarra rondon MD Unavailable Unavailable Jose JCiarra rondon MD Unavailable Unavailable Jose JCiarra MD Unavailable Unavailable Jose JCiarra MD Unavailable Unavailable Jose JCiarra rondon MD Unavailable Unavailable Jose JCiarra rondon MD Unavailable Unavailable Jose JCiarra rondon MD Unavailable Unavailable Jose JCiarra MD Unavailable Unavailable Jose JCiarra MD Unavailable Unavailable Jose JCiarra MD Unavailable Unavailable Jose J, E Carole MD Unavailable Unavailable Jose J, E Carole MD Unavailable Unavailable Jose J, E Carole MD Unavailable Unavailable Jose J, E Carole MD Unavailable Unavailable Jose J, E Carole MD Unavailable Unavailable Jose J, E Carole MD Unavailable Unavailable Jose J, E Carole MD Unavailable Unavailable Jose J, E Carole MD Unavailable Unavailable Jose J, E Carole MD Unavailable Unavailable Jose J, E Carole MD Unavailable Unavailable Jose J, E Carole MD Unavailable Unavailable Jose J, E Carole MD Unavailable Unavailable Jose J, E Carole MD Unavailable Unavailable Jose J, E Carole MD Unavailable Unavailable Jose J, E Carole MD Unavailable Unavailable Jose J, E Carole MD Unavailable Unavailable Jose J, E Carole MD Unavailable Unavailable Jose J, E Carole MD Unavailable Unavailable Jose J, E Carole MD Unavailable Unavailable Jose J, E Carole MD Unavailable Unavailable Jose J, E Carole MD Unavailable Unavailable Jose J, E Carole MD Unavailable Unavailable Jose J, E Carole MD Unavailable Unavailable Jose J, E Carole MD Unavailable Unavailable Jose J, E Carole MD Unavailable Unavailable Jose J, E Carole MD Unavailable Unavailable Jose J, E Carole MD Unavailable Unavailable Jose J, E Carole MD Unavailable Unavailable Jose J, E Carole MD Unavailable Unavailable Jose J, E Carole MD Unavailable Unavailable Jose J, E Carole MD Unavailable Unavailable Jose J, E Carole MD Unavailable Unavailable Jose J, E Carole MD Unavailable Unavailable Jose J, E Carole MD Unavailable Unavailable Kimberley Crowe MD Unavailable Unavailable MollKimberley duncan MD Unavailable Unavailable MollKimberley duncan MD Unavailable Unavailable MollKimberley duncan MD Unavailable Unavailable MollKimberley duncan MD Unavailable Unavailable MollKimberley duncan MD Unavailable Unavailable Kimberley Crowe MD Unavailable Unavailable Kimberley Crowe MD Unavailable Unavailable Kimberley Crowe MD Unavailable Unavailable Kimberley Crowe MD Unavailable Unavailable Kimberley Crowe MD Unavailable Unavailable Kimbelrey Crowe MD Unavailable Unavailable Kimberley Crowe MD Unavailable Unavailable Kimberley Crowe MD Unavailable Unavailable Kimberley Crowe MD Unavailable Unavailable Kimberley Crowe MD Unavailable Unavailable Kimberley Crowe MD Unavailable Unavailable Kimberley Crowe MD Unavailable Unavailable Kimberley Crowe MD Unavailable Unavailable Kimberley Crowe MD Unavailable Unavailable Kimberley Crowe MD Unavailable Unavailable Mollperla W Amrit MD Unavailable Unavailable Kimberley Crowe MD Unavailable Unavailable Kimberley Crowe MD Unavailable Unavailable Kimberley Crowe MD Unavailable Unavailable Nereida Cespedes Unavailable Unavailable Re-disclosure Warning The records that you are about to access may contain information from federally-assisted alcohol or drug abuse programs. If such information is present, then the following federally mandated warning applies: This information has been disclosed to you from records protected by federal confidentiality rules (42 CFR part 2). The federal rules prohibit you from making any further disclosure of this information unless further disclosure is expressly permitted by the written consent of the person to whom it pertains or as otherwise permitted by 42 CFR part 2. A general authorization for the release of medical or other information is NOT sufficient for this purpose. The Federal rules restrict any use of the information to criminally investigate or prosecute any alcohol or drug abuse patient.The records that you are about to access may contain highly sensitive health information, the redisclosure of which is protected by Article 27-F of the [facility] Public Health law. If you continue you may have access to information: Regarding HIV / AIDS; Provided by facilities licensed or operated by the [facility] Office of Mental Health; or Provided by the [facility] Office for People With Developmental Disabilities. If such information is present, then the following [facility] mandated warning applies: This information has been disclosed to you from confidential records which are protected by state law. State law prohibits you from making any further disclosure of this information without the specific written consent of the person to whom it pertains, or as otherwise permitted by law. Any unauthorized further disclosure in violation of state law may result in a fine or long term sentence or both. A general authorization for the release of medical or other information is NOT sufficient authorization for further disc losure. Allergies and Adverse Reactions Type Description Substance Reaction Status Data Source(s ) Drug allergy Cleocin Clindamycin HCl Skin Rashes, Hives Active [place] ([facility]) Drug Class PENICILLINS PENICILLINS Swelling [facility] DRUG INGREDI ENALAPRIL Enalapril Dizziness [facility] DRUG INGREDI ATENOLOL Atenolol Dizziness [facility] SYSTEMIC NO ALLERGIES ON FILE NO ALLERGIES ON FILE [facility] Drug allergy atenolol atenolol LO BLOOD PRESSURE [facility] Drug allergy Pencillin Pencillin PUFFS UP [facility] Family History Family Member Name Family Member Gender Family Member Status Date o f Status Description Data Source(s) Unknown Male Problem [facility] ([facility]) () Encounters Encounter Providers Location Date Indications Data Source(s ) Outpatient Attender: Amrit Crowe MD 09/11/2020 09 :29:00 AM EST PREOP M19.90,M19.011 [facility] PREOP M19.90,M19.011 Outpatient Attender: Ailyn Henry NP [facility] 09/03 02:15:00 PM EST [facility] ([facility]) Outpatient Attender: Amrit Mesa/Sayad/Etienne/Re indl 09/02/2020 08:00:00 AM EST [facility] ([facility] Outpatient Attender: Carole Lux MD 07/15/2020 11 :06:00 AM EST PAIN IN LT FOOT,M10.372 [facility] PAIN IN LT FOOT,M10.372 Outpatient<td ID="encounterTypeDescripti onID0">sick visit</td><td>Carole Lux MD</td><td>[facility], [facility]</td><td>07/15/2020</td><td>10:34AM</td><td>07/08/2020 11:59PM</td> <td><content ID="encounterDiagnosisID0-0">Essential Hypertension</content>, <content ID="encounterDiagnosisID0-1">Sick Sinus Syndrome</content>, <content ID="encounterDiagnosisID0-2">Coronary Artery Disease</content>, <content ID="encounterDiagnosisID0-3">Chronic Obstructive Asthma</content>, <content ID="encounterDiagnosisID0-4">Diabetes Mellitus Type 2 with Complication</content >, <content ID="encounterDiagnosisID0-5">Congestive Heart Failure Diastolic</content>, <content ID="encounterDiagnosisID0-6">Chronic Kidney Disease (Nkf Classification)</content>, <content ID="encounterDiagnosisID0- 7">Gout of Ankle and Foot Secondary To Renal Impairment</content></td> Attender: Carole Lux MD [facility] 07/15/2020 10:34:00 A M EST - 07/08/2020 11:59:00 PM EST Gout of Ankle and Foot Secondary To Ashley l ImpairmentChronic Kidney Disease (Nkf Classification)Congestive Heart Failure DiastolicSick Sinus SyndromeChronic Obstructive AsthmaCoronary Artery DiseaseDi abetes Mellitus Type 2 with ComplicationEssential Hypertension [place] ([facility]) Gout of Ankle and Foot Secondary To Ashley l Impairment Chronic Kidney Disease (Nkf Classificati on) Congestive Heart Failure Diastolic Sick Sinus Syndrome Chronic Obstructive Asthma Coronary Artery Disease Diabetes Mellitus Type 2 with Complicati on Essential Hypertension Outpatient Attender: Carole Lux MD 07/08/2020 10:11:[address] [facility] M25.511 Outpatient<td ID="encounterTypeDescripti onID1">followup</td><td>Carole Lux MD</td><td>[facility], [facility]</td><td>07/08/2020</td><td>9:22AM</td><td>9:46AM</td><td><content ID="encounterDiagnosisID1-0">Essential Hypertension</content>, <content ID="encounterDiagnosisID1-1">Sick Sinus Syndrome</content>, <content ID="encounterDiagnosisID1-2">Coronary Artery Disease</content>, <content ID="encounterDiagnosisID1-3">Chronic Obstructive Asthma</content>, <content ID="encounterDiagnosisID1-4">Diabetes Mellitus Type 2 with Complication</content >, <content ID="encounterDiagnosisID1-5">Congestive Heart Failure Diastolic</content>, <content ID="encounterDiagnosisID1-6">Hypertensive Heart and Chronic Kidney Disease Stage 3</content>, <content ID="encounterDiagnosisID1-7">Arthralgia - Shoulder Region Right</content></td> Attender: Carole Lux MD [facility] 07/08/2020 09:22:00 AM EST - 07/08/2020 09:46:00 AM EST Arthralgia - Shoulder Region RightArthra lgia - Shoulder Region RightCongestive Heart Failure DiastolicSick Sinus SyndromeCongestive Heart Failure DiastolicSick Sinus SyndromeChronic Obstructive AsthmaChronic Obstructive AsthmaCoronary Artery DiseaseCoronary Artery DiseaseHypertensive Heart and Chronic Kidney Disease Stage 3Diabetes Mellitus Type 2 with ComplicationEssential HypertensionHypertensive Heart and Chronic Kidney Disease Stage 3Diabetes Mellitus Type 2 with ComplicationEssential Hypertension [place] ([facility]) Arthralgia - Shoulder Region Right Arthralgia - Shoulder Region Right Congestive Heart Failure Diastolic Sick Sinus Syndrome Congestive Heart Failure Diastolic Sick Sinus Syndrome Chronic Obstructive Asthma Chronic Obstructive Asthma Coronary Artery Disease Coronary Artery Disease Hypertensive Heart and Chronic Kidney Di sease Stage 3 Diabetes Mellitus Type 2 with Complicati on Essential Hypertension Hypertensive Heart and Chronic Kidney Di sease Stage 3 Diabetes Mellitus Type 2 with Complicati on Essential Hypertension Outpatient<td ID="encounterTypeDescripti onID4">followup</td><td>Carole Lux MD</td><td>[facility]</td><td>04/24/2020</td><td>10:50AM</td><td>11:23AM</td><td><content ID="encounterDiagnosisID4-0">Diabetes Mellitus Type 2 with Complication</content>, <content ID="encounterDiagnosisID4-1">Essential Hypertension</content>, <content ID="encounterDiagnosisID4-2">Sick Sinus Syndrome</content>, <content ID="encounterDiagnosisID4-3">Coronary Artery Disease</content>, <content ID="encounterDiagnosisID4-4">Chronic Obstructive Asthma</content>, <content ID="encounterDiagnosisID4-5">Congestive Heart Failure Diastolic</content>, <content ID="encounterDiagnosisID4-6">Hypertensive Heart and Chronic Kidney Disease Stage 3</content>, <content ID="encounterDiagnosisID4-7">Warts</content></td> Attender: Carole Lux MD [facility] 04/24/2020 10:50:00 AM EDT - 04/24/2020 11:23:00 AM EDT WartsWartsWartsWartsWartsCongestive Hear t Failure DiastolicSick Sinus SyndromeCongestive Heart Failure DiastolicSick Sinus SyndromeCongestive Heart Failure DiastolicSick Sinus SyndromeCongestive Heart Failure DiastolicSick Sinus SyndromeCongestive Heart Failure DiastolicSick Sinus SyndromeChronic Obstructive AsthmaChronic Obstructive AsthmaChronic Obstructive AsthmaChronic Obstructive AsthmaChronic Obstructive AsthmaCoronary Artery DiseaseCoronary Artery DiseaseCoronary Artery DiseaseCoronary Artery DiseaseCoronary Artery DiseaseHypertensive Heart and Chronic Kidney Disease Stage 3Essential HypertensionDiabetes Mellitus Type 2 with ComplicationHypertensive Heart and Chronic Kidney Disease Stage 3Essential HypertensionDiabetes Mellitus Type 2 with ComplicationHypertensive Heart and Chronic Kidney Disease Stage 3Essential HypertensionDiabetes Mellitus Type 2 with ComplicationHypertensive Heart and Chronic Kidney Disease Stage 3Essential HypertensionDiabetes Mellitus Type 2 with ComplicationHypertensive Heart and Chronic Kidney Disease Stage 3Essential HypertensionDiabetes Mellitus Type 2 with Complication [place] ([facility]) Warts Warts Warts Warts Warts Congestive Heart Failure Diastolic Sick Sinus Syndrome Congestive Heart Failure Diastolic Sick Sinus Syndrome Congestive Heart Failure Diastolic Sick Sinus Syndrome Congestive Heart Failure Diastolic Sick Sinus Syndrome Congestive Heart Failure Diastolic Sick Sinus Syndrome Chronic Obstructive Asthma Chronic Obstructive Asthma Chronic Obstructive Asthma Chronic Obstructive Asthma Chronic Obstructive Asthma Coronary Artery Disease Coronary Artery Disease Coronary Artery Disease Coronary Artery Disease Coronary Artery Disease Hypertensive Heart and Chronic Kidney Di sease Stage 3 Essential Hypertension Diabetes Mellitus Type 2 with Complicati on Hypertensive Heart and Chronic Kidney Di sease Stage 3 Essential Hypertension Diabetes Mellitus Type 2 with Complicati on Hypertensive Heart and Chronic Kidney Di sease Stage 3 Essential Hypertension Diabetes Mellitus Type 2 with Complicati on Hypertensive Heart and Chronic Kidney Di sease Stage 3 Essential Hypertension Diabetes Mellitus Type 2 with Complicati on Hypertensive Heart and Chronic Kidney Di sease Stage 3 Essential Hypertension Diabetes Mellitus Type 2 with Complicati on Outpatient<td ID="encounterTypeDescripti onID3">ANNUAL PE-followup exam</td><td>Carole Lux MD</td><td>[facility], [facility]</td><td>04/24/2020</td><td>10:50AM</td><td>11:23AM</td><td><content ID="encounterDiagnosisID3-0">Routine History and Physical Senior Citizen (65-80 Yrs)</content></td> Attender: Carole Lux MD [facility], [facility] 04/24/2020 10:50:00 AM EDT - 04/24/2020 11:23:00 AM ED T Routine History and Physical Senior Citizen (65-80 Yrs)Routine History and Physical Senior Citizen (65-80 Yrs)Routine History and Physical Senior Citizen (65-80 Yrs)Routine History and Physical Senior Citizen (65-80 Yrs) [place] ([facility]) Routine History and Physical Senior Citi jyoti (65-80 Yrs) Routine History and Physical Senior Citi jyoti (65-80 Yrs) Routine History and Physical Senior Citi jyoti (65-80 Yrs) Routine History and Physical Senior Citi jyoti (65-80 Yrs) Outpatient<td ID="encounterTypeDescripti onID2"> Annual Wellness SUBSEQUENT visi t(> 1yr since prev.</td><td>Carole Lux MD</td><td>[facility], [facility]</td><td>04/24/2020</td><td> 10:50AM</td><td>11:23AM</td><td><content ID="encounterDiagnosisID2-0">Routine History and Physical Senior Citizen (65-80 Yrs)</content>, <content ID="encounterDiagnosisID2-1">Tobacco Use</content></td> Attender: Carole Lux MD [facility] 04/24/2020 10:50:00 A M EDT - 04/24/2020 11:23:00 AM EDT Tobacco UseRoutine History and Physical Senior Citizen (65-80 Yrs)Tobacco UseRoutine History and Physical Senior Citizen (65-80 Yrs)Tobacco UseRoutine History and Physical Senior Citizen (65-80 Yrs) [place] ([facility]) Tobacco Use Routine History and Physical Senior Citi jyoti (65-80 Yrs) Tobacco Use Routine History and Physical Senior Citi jyoti (65-80 Yrs) Tobacco Use Routine History and Physical Senior Citi jyoti (65-80 Yrs) OUTPATIENT Attender: JEANNINE LOFTON MD 2E-CCL 04/11/2020 07:09:49 AM EDT [facility] Outpatient Attender: SEN HOROTN MDAdmitter: SEN HORTON MD 2E-2C 04/11/2020 06:19:55 AM EDT - 04/11/2020 09:15:00 AM EDT [facility] Patient discharged. Outpatient [id number] 04/08/2020 07:06:00 AM EDT - 020 11:59:00 PM EDT [facility] Patient discharged. Outpatient Attender: SEN HORTON MDAttender: Nereida nelson 04/04/2020 12:00:00 AM EDT [facility] Outpatient Attender: Ailyn Henry NP 03/12/2020 12:57: 00 PM EDT I50.23,N18.3,I49.5 [facility] I50.23,N18.3,I49.5 Outpatient Attender: Ailyn Henry NP [facility] 03/12 12:00:00 PM EDT [facility] ([facility]) Outpatient Attender: Susan Kan [facility] 03/01/2020 11:54:00 AM EDT M79.671,M79.671,M79.671 [facility] M79.671,M79.671,M79.671 Outpatient<td ID="encounterTypeDescripti onID5">sick visit</td><td>Susan Kan [facility]</td><td>[facility]</td><td>03/01/2020</td><td>11:17AM</td><td>11:43AM</td><td><content ID="encounterDiagnosisID5-0">Plantar Fasciitis</content>, <content ID="encounterDiagnosisID5-1">Limb Pain Right Foot</content></td> [facility] 03/01/2020 11:17:00 A M EDT - 03/01/2020 11:43:00 AM EDT Limb Pain Right FootPlantar FasciitisLim b Pain Right FootPlantar FasciitisLimb Pain Right FootPlantar FasciitisLimb Pain Right FootPlantar FasciitisLimb Pain Right FootPlantar FasciitisLimb Pain Right FootPlantar Fasciitis [place] ([facility]) Limb Pain Right Foot Plantar Fasciitis Limb Pain Right Foot Plantar Fasciitis Limb Pain Right Foot Plantar Fasciitis Limb Pain Right Foot Plantar Fasciitis Limb Pain Right Foot Plantar Fasciitis Limb Pain Right Foot Plantar Fasciitis Outpatient Attender: Carole Lux MD 02/13/2020 08 :39:00 AM EDT CAD, HTN, CM, PAF, SOB, DYSLIPIDEMIA [facility] CAD, HTN, CM, PAF, SOB, DYSLIPIDEMIA Outpatient Attender: Carole Lux MD 01/23/2020 05:53:[address] [facility] D48.5 Outpatient<td ID="encounterTypeDescripti onID6">followup</td><td>Carole Lux MD</td><td>[facility]</td><td>01/23/2020</td><td>2:32PM</td><td>3:02PM</td><td><content ID="encounterDiagnosisID6-0">Diabetes Mellitus Type 2 with Complication</content>, <content ID="encounterDiagnosisID6-1">Chronic Kidney Disease Stage 3</content>, <content ID="encounterDiagnosisID6-2">Dysplastic Nevus</content>, <content ID="encounterDiagnosisID6-3">Cellulitis of Lower Leg</content></td> Attender: Carole Lux MD [facility] 01/23/2020 02:32:00 PM EDT - 01/23/2020 03:02:00 PM EDT Cellulitis of Lower LegDysplastic NevusCellulitis of Lower LegDysplastic NevusCellulitis of Lower LegDysplastic NevusCellulitis of Lower LegDysplastic NevusCellulitis of Lower LegDysplastic NevusCellulitis of Lower LegDysplastic NevusCellulitis of Lower LegDysplastic NevusChronic Kidney Disease Stage 3Diabetes Mellitus Type 2 with ComplicationChronic Kidney Disease Stage 3Diabetes Mellitus Type 2 with ComplicationChronic Kidney Disease Stage 3Diabetes Mellitus Type 2 with ComplicationChronic Kidney Disease Stage 3Diabetes Mellitus Type 2 with ComplicationChronic Kidney Disease Stage 3Diabetes Mellitus Type 2 with ComplicationChronic Kidney Disease Stage 3Diabetes Mellitus Type 2 with ComplicationChronic Kidney Disease Stage 3Diabetes Mellitus Type 2 with Complication [place] ([facility]) Cellulitis of Lower Leg Dysplastic Nevus Cellulitis of Lower Leg Dysplastic Nevus Cellulitis of Lower Leg Dysplastic Nevus Cellulitis of Lower Leg Dysplastic Nevus Cellulitis of Lower Leg Dysplastic Nevus Cellulitis of Lower Leg Dysplastic Nevus Cellulitis of Lower Leg Dysplastic Nevus Chronic Kidney Disease Stage 3 Diabetes Mellitus Type 2 with Complicati on Chronic Kidney Disease Stage 3 Diabetes Mellitus Type 2 with Complicati on Chronic Kidney Disease Stage 3 Diabetes Mellitus Type 2 with Complicati on Chronic Kidney Disease Stage 3 Diabetes Mellitus Type 2 with Complicati on Chronic Kidney Disease Stage 3 Diabetes Mellitus Type 2 with Complicati on Chronic Kidney Disease Stage 3 Diabetes Mellitus Type 2 with Complicati on Chronic Kidney Disease Stage 3 Diabetes Mellitus Type 2 with Complicati on Outpatient<td ID="encounterTypeDescripti onID7">followup</td><td>Lew Padilla</td><td>[facility]</td><td>01/18/2020</td><td>10:28AM</td><td>11:06AM</td><td><content ID="encounterDiagnosisID7-0">Chronic Kidney Disease Stage 3</content>, <content ID="encounterDiagnosisID7-1">Atrial Fibrillation Chronic</content>, <content ID="encounterDiagnosisID7-2">Chronic Obstructive Asthma</content>, <content ID="encounterDiagnosisID7-3">Diabetes Mellitus Type 2 with Complication</content>, <content ID="encounterDiagnosisID7-4">Essential Hypertension</content>, <content ID="encounterDiagnosisID7-5">Warts</content></td> Attender: Lew FELIX [facility] 01/18/2020 10:28:00 AM EDT - 01/18/2020 11:06:00 AM EDT [place] Chronic Obstructive AsthmaChronic Obstructive AsthmaChronic Obstructive AsthmaChronic Obstructive AsthmaChronic Obstructive AsthmaChronic Obstructive AsthmaChronic Obstructive AsthmaChronic Obstructive AsthmaEssential HypertensionDiabetes Mellitus Type 2 with ComplicationAtrial Fibrillation ChronicChronic Kidney Disease Stage 3Essential HypertensionDiabetes Mellitus Type 2 with ComplicationAtrial Fibrillation ChronicChronic Kidney Disease Stage 3Essential HypertensionDiabetes Mellitus Type 2 with ComplicationAtrial Fibrillation ChronicChronic Kidney Disease Stage 3Essential HypertensionDiabetes Mellitus Type 2 with ComplicationAtrial Fibrillation ChronicChronic Kidney Disease Stage 3Essential HypertensionDiabetes Mellitus Type 2 with ComplicationAtrial Fibrillation ChronicChronic Kidney Disease Stage 3Essential HypertensionDiabetes Mellitus Type 2 with ComplicationAtrial Fibrillation ChronicChronic Kidney Disease Stage 3Essential HypertensionDiabetes Mellitus Type 2 with ComplicationAtrial Fibrillation ChronicChronic Kidney Disease Stage 3Essential HypertensionDiabetes Mellitus Type 2 with ComplicationAtrial Fibrillation ChronicChronic Kidney Disease Stage 3 [place] ([facility]) Warts Warts Warts Warts Warts Warts Warts Warts Chronic Obstructive Asthma Chronic Obstructive Asthma Chronic Obstructive Asthma Chronic Obstructive Asthma Chronic Obstructive Asthma Chronic Obstructive Asthma Chronic Obstructive Asthma Chronic Obstructive Asthma Essential Hypertension Diabetes Mellitus Type 2 with Complicati on Atrial Fibrillation Chronic Chronic Kidney Disease Stage 3 Essential Hypertension Diabetes Mellitus Type 2 with Complicati on Atrial Fibrillation Chronic Chronic Kidney Disease Stage 3 Essential Hypertension Diabetes Mellitus Type 2 with Complicati on Atrial Fibrillation Chronic Chronic Kidney Disease Stage 3 Essential Hypertension Diabetes Mellitus Type 2 with Complicati on Atrial Fibrillation Chronic Chronic Kidney Disease Stage 3 Essential Hypertension Diabetes Mellitus Type 2 with Complicati on Atrial Fibrillation Chronic Chronic Kidney Disease Stage 3 Essential Hypertension Diabetes Mellitus Type 2 with Complicati on Atrial Fibrillation Chronic Chronic Kidney Disease Stage 3 Essential Hypertension Diabetes Mellitus Type 2 with Complicati on Atrial Fibrillation Chronic Chronic Kidney Disease Stage 3 Essential Hypertension Diabetes Mellitus Type 2 with Complicati on Atrial Fibrillation Chronic Chronic Kidney Disease Stage 3 Outpatient Attender: Ailyn Henry NP [facility] 01/08 09:30:00 AM EDT [facility] ([facility]) Outpatient Attender: Ailyn Henry NP [facility] 01/08 09:30:00 AM EDT [facility] ([facility]) Outpatient<td ID="encounterTypeDescripti onID8">[Patient Encounter]</td><td>Carole Lux MD</td><td></td><td>01/08/2020</td><td>10/18/2019 9:04AM</td><td>10/18/2019 11:59PM</td><td></td> Attender: Carole Lux MD 01/08/2020 09:04:00 AM EDT - 10/18/2019 11:59:00 PM EDT [place] ([facility]) Outpatient Attender: Carole Lux MD 01/02/2020 02:54:[address] [facility] E11.69 Outpatient Attender: Ailyn Henry NP [facility] 10/23 01:15:00 PM EDT [facility] ([facility]) Outpatient Attender: Ailyn Henry NP [facility] 10/23 01:00:00 PM EDT [facility] ([facility]) Outpatient<td ID="encounterTypeDescripti onID9">followup</td><td>Carole Lux MD</td><td>[facility]</td><td>10/18/2019</td><td>9:21AM</td><td>9:45AM</td><td><content ID="encounterDiagnosisID9-0">Essential Hypertension</content>, <content ID="encounterDiagnosisID9-1">Sick Sinus Syndrome</content>, <content ID="encounterDiagnosisID9-2">Coronary Artery Disease</content>, <content ID="encounterDiagnosisID9-3">Chronic Obstructive Asthma</content>, <content ID="encounterDiagnosisID9-4">Diabetes Mellitus Type 2 with Complication</content >, <content ID="encounterDiagnosisID9-5">Congestive Heart Failure Diastolic</content>, <content ID="encounterDiagnosisID9-6">Hypertensive Heart and Chronic Kidney Disease Stage 3</content></td> Attender: Carole Lux MD [facility] 10/18/2019 09:21:00 AM EDT - 10/18/2019 09:45:00 AM EDT Congestive Heart Failure DiastolicSick S inus SyndromeCongestive Heart Failure DiastolicSick Sinus SyndromeCongestive Heart Failure DiastolicSick Sinus SyndromeCongestive Heart Failure DiastolicSick Sinus SyndromeCongestive Heart Failure DiastolicSick Sinus SyndromeCongestive Heart Failure DiastolicSick Sinus SyndromeCongestive Heart Failure DiastolicSick Sinus SyndromeCongestive Heart Failure DiastolicSick Sinus SyndromeCongestive Heart Failure DiastolicSick Sinus SyndromeChronic Obstructive AsthmaChronic Obstructive AsthmaChronic Obstructive AsthmaChronic Obstructive AsthmaChronic Obstructive AsthmaChronic Obstructive AsthmaChronic Obstructive AsthmaChronic Obstructive AsthmaChronic Obstructive AsthmaCoronary Artery DiseaseCoronary Artery DiseaseCoronary Artery DiseaseCoronary Artery DiseaseCoronary Artery DiseaseCoronary Artery DiseaseCoronary Artery DiseaseCoronary Artery DiseaseCoronary Artery DiseaseHypertensive Heart and Chronic Kidney Disease Stage 3Diabetes Mellitus Type 2 with ComplicationEssential HypertensionHypertensive Heart and Chronic Kidney Disease Stage 3Diabetes Mellitus Type 2 with ComplicationEssential HypertensionHypertensive Heart and Chronic Kidney Disease Stage 3Diabetes Mellitus Type 2 with ComplicationEssential HypertensionHypertensive Heart and Chronic Kidney Disease Stage 3Diabetes Mellitus Type 2 with Complication Essential HypertensionHypertensive Heart and Chronic Kidney Disease Stage 3Diabetes Mellitus Type 2 with ComplicationEssential HypertensionHypertensive Heart and Chronic Kidney Disease Stage 3Diabetes Mellitus Type 2 with ComplicationEssential HypertensionHypertensive Heart and Chronic Kidney Disease Stage 3Diabetes Mellitus Type 2 with ComplicationEssential HypertensionHypertensive Heart and Chronic Kidney Disease Stage 3Diabetes Mellitus Type 2 with ComplicationEssential HypertensionHypertensive Heart and Chronic Kidney Disease Stage 3Diabetes Mellitus Type 2 with ComplicationEssential Hypertension [place] ([facility]) Congestive Heart Failure Diastolic Sick Sinus Syndrome Congestive Heart Failure Diastolic Sick Sinus Syndrome Congestive Heart Failure Diastolic Sick Sinus Syndrome Congestive Heart Failure Diastolic Sick Sinus Syndrome Congestive Heart Failure Diastolic Sick Sinus Syndrome Congestive Heart Failure Diastolic Sick Sinus Syndrome Congestive Heart Failure Diastolic Sick Sinus Syndrome Congestive Heart Failure Diastolic Sick Sinus Syndrome Congestive Heart Failure Diastolic Sick Sinus Syndrome Chronic Obstructive Asthma Chronic Obstructive Asthma Chronic Obstructive Asthma Chronic Obstructive Asthma Chronic Obstructive Asthma Chronic Obstructive Asthma Chronic Obstructive Asthma Chronic Obstructive Asthma Chronic Obstructive Asthma Coronary Artery Disease Coronary Artery Disease Coronary Artery Disease Coronary Artery Disease Coronary Artery Disease Coronary Artery Disease Coronary Artery Disease Coronary Artery Disease Coronary Artery Disease Hypertensive Heart and Chronic Kidney Di sease Stage 3 Diabetes Mellitus Type 2 with Complicati on Essential Hypertension Hypertensive Heart and Chronic Kidney Di sease Stage 3 Diabetes Mellitus Type 2 with Complicati on Essential Hypertension Hypertensive Heart and Chronic Kidney Di sease Stage 3 Diabetes Mellitus Type 2 with Complicati on Essential Hypertension Hypertensive Heart and Chronic Kidney Di sease Stage 3 Diabetes Mellitus Type 2 with Complicati on Essential Hypertension Hypertensive Heart and Chronic Kidney Di sease Stage 3 Diabetes Mellitus Type 2 with Complicati on Essential Hypertension Hypertensive Heart and Chronic Kidney Di sease Stage 3 Diabetes Mellitus Type 2 with Complicati on Essential Hypertension Hypertensive Heart and Chronic Kidney Di sease Stage 3 Diabetes Mellitus Type 2 with Complicati on Essential Hypertension Hypertensive Heart and Chronic Kidney Di sease Stage 3 Diabetes Mellitus Type 2 with Complicati on Essential Hypertension Hypertensive Heart and Chronic Kidney Di sease Stage 3 Diabetes Mellitus Type 2 with Complicati on Essential Hypertension Outpatient Attender: Rachele Coley JRConsultant: Carole Lux MD 10/12/2019 07:30:00 AM EDT - 10/12/2019 10:02:00 AM T [facility] Patient discharged. Outpatient Attender: Rachele Coley JRConsultant: Carole Lux MD 09/28/2019 07:00:00 AM EST - 09/28/2019 10:07:00 AM [facility] Patient discharged. Outpatient<td ID="encounterTypeDescripti onID10">Pre-op consult for surgery</td><td>Lew Lozada PA-C</td><td>[facility]</td><td>09/12/2019</td><td>9:02AM</td><td>10:03AM</td><td><content ID="[id number]">Working Diagnosis of Visit For: Preoperative Exam</content>, <content ID="[id number]">Cataract - Both Eyes</content>, <content ID="ahhvvkkspFelbouzewZD56-1">Chronic Kidney Disease Stage 3</content></td> [facility] 09:02:00 AM EST - 09/12/2019 10:03:38 AM EST Cataract - Both EyesWorking Diagnosis of Visit For: Preoperative ExamCataract - Both EyesWorking Diagnosis of Visit For: Preoperative ExamCataract - Both EyesWorking Diagnosis of Visit For: Preoperative ExamCataract - Both EyesWorking Diagnosis of Visit For: Preoperative ExamCataract - Both EyesWorking Diagnosis of Visit For: Preoperative ExamCataract - Both EyesWorking Diagnosis of Visit For: Preoperative ExamCataract - Both EyesWorking Diagnosis of Visit For: Preoperative ExamCataract - Both EyesWorking Diagnosis of Visit For: Preoperative ExamCataract - Both EyesWorking Diagnosis of Visit For: Preoperative ExamCataract - Both EyesWorking Diagnosis of Visit For: Preoperative ExamChronic Kidney Disease Stage 3Chronic Kidney Disease Stage 3Chronic Kidney Disease Stage 3Chronic Kidney Disease Stage 3Chronic Kidney Disease Stage 3Chronic Kidney Disease Stage 3Chronic Kidney Disease Stage 3Chronic Kidney Disease Stage 3Chronic Kidney Disease Stage 3Chronic Kidney Disease Stage 3 [facility] Cataract - Both Eyes Working Diagnosis of Visit For: Preopera tive Exam Cataract - Both Eyes Working Diagnosis of Visit For: Preopera tive Exam Cataract - Both Eyes Working Diagnosis of Visit For: Preopera tive Exam Cataract - Both Eyes Working Diagnosis of Visit For: Preopera tive Exam Cataract - Both Eyes Working Diagnosis of Visit For: Preopera tive Exam Cataract - Both Eyes Working Diagnosis of Visit For: Preopera tive Exam Cataract - Both Eyes Working Diagnosis of Visit For: Preopera tive Exam Cataract - Both Eyes Working Diagnosis of Visit For: Preopera tive Exam Cataract - Both Eyes Working Diagnosis of Visit For: Preopera tive Exam Cataract - Both Eyes Working Diagnosis of Visit For: Preopera tive Exam Chronic Kidney Disease Stage 3 Chronic Kidney Disease Stage 3 Chronic Kidney Disease Stage 3 Chronic Kidney Disease Stage 3 Chronic Kidney Disease Stage 3 Chronic Kidney Disease Stage 3 Chronic Kidney Disease Stage 3 Chronic Kidney Disease Stage 3 Chronic Kidney Disease Stage 3 Chronic Kidney Disease Stage 3 Outpatient Attender: Ace Mortensen MD 08/07/2019 1 0:12:00 AM EST W/O, RIGHT FLANK PAIN N18.3 [facility] W/O, RIGHT FLANK PAIN N18.3 Outpatient<td ID="encounterTypeDescripti onID11">[Patient Encounter]</td><td>Ace Mortensen MD</td><td></td><td>08/03/2019</td><td>07/24/2019 8:30AM</td><td>07/24/2019 11:59PM</td><td></td> Attender: Ace Mortensen MD 0 08:30:00 AM EST - 07/24/2019 11:59:00 PM EST [place] ([facility]) Outpatient Attender: Carole Lux MD 07/28/2019 08:46:[address] [facility] N81.3 Outpatient<td ID="encounterTypeDescripti onID12">followup</td><td>Carole Lux MD</td><td>[facility]</td><td>07/24/2019</td><td>7:45AM</td><td>8:22AM</td><td><content ID="[id number]">Essential Hypertension</content>, <content ID="[id number]">Sick Sinus Syndrome</content>, <content ID="[id number]">Coronary Artery Disease</content>, <content ID="ciewobhasItqqfwwkeDI96-0">Chronic Obstructive Asthma</content>, <content ID="qrrmorgirWwjfponyrIJ31-6">Diabetes Mellitus Type 2 with Complication</yas nt>, <content ID="fsmhapcuaDcqomrrymAE60-6">Congestive Heart Failure Diastolic</content>, <content ID="qlftvoujrUhybxelyrNP96-7">Hypertensive Heart and Chronic Kidney Disease Stage 3</content>, <content ID="kslppahlqZgmpquallFN58-4">Flank Pain</content></td> Attender: Carole Lux MD [facility] 07/24/2019 07:45:00 A M EST - 07/24/2019 08:22:00 AM EST Flank PainFlank PainFlank PainFlank Pain Flank PainFlank PainFlank PainFlank PainFlank PainFlank PainFlank PainCongestive Heart Failure DiastolicSick Sinus SyndromeCongestive Heart Failure DiastolicSick Sinus SyndromeCongestive Heart Failure DiastolicSick Sinus SyndromeCongestive Heart Failure DiastolicSick Sinus SyndromeCongestive Heart Failure DiastolicSick Sinus SyndromeCongestive Heart Failure DiastolicSick Sinus SyndromeCongestive Heart Failure DiastolicSick Sinus SyndromeCongestive Heart Failure DiastolicSick Sinus SyndromeCongestive Heart Failure DiastolicSick Sinus SyndromeCongestive Heart Failure DiastolicSick Sinus SyndromeCongestive Heart Failure DiastolicSick Sinus SyndromeChronic Obstructive AsthmaChronic Obstructive AsthmaChronic Obstructive AsthmaChronic Obstructive AsthmaChronic Obstructive AsthmaChronic Obstructive AsthmaChronic Obstructive AsthmaChronic Obstructive AsthmaChronic Obstructive AsthmaChronic Obstructive AsthmaChronic Obstructive AsthmaCoronary Artery DiseaseCoronary Artery DiseaseCoronary Artery DiseaseCoronary Artery DiseaseCoro nary Artery DiseaseCoronary Artery DiseaseCoronary Artery DiseaseCoronary Artery DiseaseCoronary Artery DiseaseCoronary Artery DiseaseCoronary Artery DiseaseHypertensive Heart and Chronic Kidney Disease Stage 3Diabetes Mellitus Type 2 with ComplicationEssential HypertensionHypertensive Heart and Chronic Kidney Disease Stage 3Diabetes Mellitus Type 2 with ComplicationEssential HypertensionHypertensive Heart and Chronic Kidney Disease Stage 3Diabetes Mellitus Type 2 with ComplicationEssential HypertensionHypertensive Heart and Chronic Kidney Disease Stage 3Diabetes Mellitus Type 2 with ComplicationEssential HypertensionHypertensive Heart and Chronic Kidney Disease Stage 3Diabetes Mellitus Type 2 with ComplicationEssential Hypertension Hypertensive Heart and Chronic Kidney Disease Stage 3Diabetes Mellitus Type 2 with ComplicationEssential HypertensionHypertensive Heart and Chronic Kidney Disease Stage 3Diabetes Mellitus Type 2 with ComplicationEssential Hypertension Hypertensive Heart and Chronic Kidney Disease Stage 3Diabetes Mellitus Type 2 with ComplicationEssential HypertensionHypertensive Heart and Chronic Kidney Disease Stage 3Diabetes Mellitus Type 2 with ComplicationEssential Hypertension Hypertensive Heart and Chronic Kidney Disease Stage 3Diabetes Mellitus Type 2 with ComplicationEssential HypertensionHypertensive Heart and Chronic Kidney Disease Stage 3Diabetes Mellitus Type 2 with ComplicationEssential Hypertension [place] ([facility]) Flank Pain Flank Pain Flank Pain Flank Pain Flank Pain Flank Pain Flank Pain Flank Pain Flank Pain Flank Pain Flank Pain Congestive Heart Failure Diastolic Sick Sinus Syndrome Congestive Heart Failure Diastolic Sick Sinus Syndrome Congestive Heart Failure Diastolic Sick Sinus Syndrome Congestive Heart Failure Diastolic Sick Sinus Syndrome Congestive Heart Failure Diastolic Sick Sinus Syndrome Congestive Heart Failure Diastolic Sick Sinus Syndrome Congestive Heart Failure Diastolic Sick Sinus Syndrome Congestive Heart Failure Diastolic Sick Sinus Syndrome Congestive Heart Failure Diastolic Sick Sinus Syndrome Congestive Heart Failure Diastolic Sick Sinus Syndrome Congestive Heart Failure Diastolic Sick Sinus Syndrome Chronic Obstructive Asthma Chronic Obstructive Asthma Chronic Obstructive Asthma Chronic Obstructive Asthma Chronic Obstructive Asthma Chronic Obstructive Asthma Chronic Obstructive Asthma Chronic Obstructive Asthma Chronic Obstructive Asthma Chronic Obstructive Asthma Chronic Obstructive Asthma Coronary Artery Disease Coronary Artery Disease Coronary Artery Disease Coronary Artery Disease Coronary Artery Disease Coronary Artery Disease Coronary Artery Disease Coronary Artery Disease Coronary Artery Disease Coronary Artery Disease Coronary Artery Disease Hypertensive Heart and Chronic Kidney Di sease Stage 3 Diabetes Mellitus Type 2 with Complicati on Essential Hypertension Hypertensive Heart and Chronic Kidney Di sease Stage 3 Diabetes Mellitus Type 2 with Complicati on Essential Hypertension Hypertensive Heart and Chronic Kidney Di sease Stage 3 Diabetes Mellitus Type 2 with Complicati on Essential Hypertension Hypertensive Heart and Chronic Kidney Di sease Stage 3 Diabetes Mellitus Type 2 with Complicati on Essential Hypertension Hypertensive Heart and Chronic Kidney Di sease Stage 3 Diabetes Mellitus Type 2 with Complicati on Essential Hypertension Hypertensive Heart and Chronic Kidney Di sease Stage 3 Diabetes Mellitus Type 2 with Complicati on Essential Hypertension Hypertensive Heart and Chronic Kidney Di sease Stage 3 Diabetes Mellitus Type 2 with Complicati on Essential Hypertension Hypertensive Heart and Chronic Kidney Di sease Stage 3 Diabetes Mellitus Type 2 with Complicati on Essential Hypertension Hypertensive Heart and Chronic Kidney Di sease Stage 3 Diabetes Mellitus Type 2 with Complicati on Essential Hypertension Hypertensive Heart and Chronic Kidney Di sease Stage 3 Diabetes Mellitus Type 2 with Complicati on Essential Hypertension Hypertensive Heart and Chronic Kidney Di sease Stage 3 Diabetes Mellitus Type 2 with Complicati on Essential Hypertension Medications Medication Brand Name Start Date Product Form Dose Route Admi nistrative Instructions Pharmacy Instructions Status Indications Reaction Description Data Source(s) apixaban 2.5 MG Oral Tablet [Eliquis] Eliquis 09/03/2020 12:00:00 AM EST ORAL completed [facility] Benzoyl Peroxide 0.05 MG/MG Topical Gel Benzoyl Peroxide 09/02/2020 12:00:00 AM EST completed [facility] ([facility] ) Benzoyl Peroxide 0.05 MG/MG Topical Gel Benzoyl Peroxide 09/02/2020 12:00:00 AM EST TOPICAL active [facility] ([facility], ) Spironolactone 25 MG Oral Tablet Spironolactone 25 MG Oral T ablet 07/09/2020 12:00:00 AM EST active spironol actone 25 MG Oral Tablet [place] ([facility]) Potassium Chloride 10 MEQ Extended Relea se Oral Tablet Potassium Chloride ER 10 MEQ Oral Tablet Extended Release Potassium Chloride ER 10 MEQ Oral Tablet Extended Release 06/08/2020 12:00:00 AM EST a ctive potassium chloride 10 MEQ Extended Release Oral Tablet [place] ([facility]) Insulin Glargine 100 UNT/ML Injectable S olution [Lantus] Lantus 100 UNIT/ML Subcutaneous Solution Lantus 100 UNIT/ML Subcutaneous Solution 05/23/2020 12:00:00 AM EDT active insulin glargine 100 UNT/ML Injectable Solution [Lantus] [place] ([facility]) BD Pen Needle Short U/F 31G X 8 MM Miscellaneous BD Pe n Needle Short U/F 31G X 8 MM Miscellaneous 05/13/2020 12:00:00 AM EDT active BD Pen Needle Short U/F [place] ([facility]) apixaban 2.5 MG Oral Tablet [Eliquis] Eliquis 2.5 MG O ral Tablet Eliquis 2.5 MG Oral Tablet 04/24/2020 12:00:00 AM EDT 1 active apixaban 2.5 MG Oral Tablet [Eliquis] [place] ([facility]) 3 ML Insulin Lispro 100 UNT/ML Pen Injec tor [Humalog] HumaLOG KwikPen 100 UNIT/ML Subcutaneous Solution Pen-injector HumaLOG KwikPen 100 UNIT/ML Subcutaneous Solution Pen-injector 04/09/2020 12:00:00 AM EDT active 3 ML insulin lispro 100 UNT/ML Pen Injec tor [Humalog] [place] ([facility]) apixaban 2.5 MG Oral Tablet [Eliquis] Eliquis 03/14/2020 12:00:00 AM EDT ORAL active [facility] Prednisone 20 MG Oral Tablet predniSONE 20 MG Oral Tab let predniSONE 20 MG Oral Tablet 03/01/2020 12:00:00 AM EDT completed prednisone 20 MG Oral Tablet [place] ([facility]) BD Pen Needle Short U/F 31G X 8 MM Miscellaneous BD Pe n Needle Short U/F 31G X 8 MM Miscellaneous 02/06/2020 12:00:00 AM EDT aborted BD Pen Needle Short U/F [place] ([facility]) FreeStyle Lite Test In Vitro Strip FreeStyle Lite Test In Vi tro Strip 02/06/2020 12:00:00 AM EDT active FreeSty le Lite Test [place] ([facility]) Sulfamethoxazole 800 MG / Trimethoprim 1 60 MG Oral Tablet Sulfamethoxazole- Trimethoprim 800-160 MG Oral Tablet Sulfamethoxazole-Trimethoprim 800-160 MG Oral Tablet 01/23/2020 12:00:00 AM EDT 1 comple sol sulfamethoxazole 800 MG / trimethoprim 160 MG Oral Tablet [place] ([facility]) Diltiazem Hydrochloride 60 MG Oral Tablet dilTIAZem HC l 60 MG Oral Tablet dilTIAZem HCl 60 MG Oral Tablet 01/18/2020 12:00:00 AM EDT active diltiazem hydrochloride 60 MG Oral Tablet [place] ([facility]) Diltiazem Hydrochloride 60 MG Oral Tablet Diltiazem HCL 01/09/2020 12:00:00 AM EDT active [facility] 200 ACTUAT Albuterol 0.09 MG/ACTUAT [place] red Dose Inhaler [Ventolin] Ventolin HFA 108 (90 Base) MCG/ACT Inhalation Aerosol Solution Ventolin HFA 108 (90 Base) MCG/ACT Inhalation Aerosol Solution 01/08/2020 12:00:00 AM EDT active [id number] 200 ACTUAT albuter ol 0.09 MG/ACTUAT Metered Dose Inhaler [Ventolin] [place] ([facility]) Spironolactone 25 MG Oral Tablet Spironolactone 25 MG Oral T ablet 12/28/2019 12:00:00 AM EDT aborted spirono lactone 25 MG Oral Tablet [place] ([facility]) Insulin Glargine 100 UNT/ML Injectable S olution [Lantus] Lantus 100 UNIT/ML Subcutaneous Solution Lantus 100 UNIT/ML Subcutaneous Solution 10/31/2019 12:00:00 AM EDT aborted insulin glargine 100 UNT/ML Injectable Solution [Lantus] [place] ([facility]) 3 ML Insulin Lispro 100 UNT/ML Pen Injec tor [Humalog] HumaLOG KwikPen 100 UNIT/ML Subcutaneous Solution Pen-injector HumaLOG KwikPen 100 UNIT/ML Subcutaneous Solution Pen-injector 09/20/2019 12:00:00 AM EST aborted 3 ML insulin lispro 100 UNT/ML Pen Injec tor [Humalog] [place] ([facility]) Insulin Glargine 100 UNT/ML Injectable S olution [Lantus] Lantus 100UNIT/ML Subcutaneous Solution Lantus 100UNIT/ML Subcutaneous Solution 07/24/2019 12:00:00 AM EST aborted insulin glargine 100 UNT/ML Injectable Solution [Lantus] [place] ([facility]) 3 ML Insulin Lispro 100 UNT/ML Pen Injec tor [Humalog] HumaLOG KwikPen 100UNIT/ML Subcutaneous Solution Pen-injector HumaLOG KwikPen 100UNIT/ML Subcutaneous Solution Pen-injector 07/24/2019 12:00:00 AM EST aborted 3 ML insulin lispro 100 UNT/ML Pen Injector [Humalog] [place] ([facility]) Spironolactone 25 MG Oral Tablet Spironolactone 25MG O ral Tablet Spironolactone 25MG Oral Tablet 07/03/2019 12:00:00 AM EST s uspended spironolactone 25 MG Oral Tablet [place] ([facility]) Insulin Glargine 100 UNT/ML Injectable S olution [Lantus] Lantus 100UNIT/ML Subcutaneous Solution Lantus 100UNIT/ML Subcutaneous Solution 06/21/2019 12:00:00 AM EST aborted insulin glargine 100 UNT/ML Injectable Solution [Lantus] [place] ([facility]) BD Pen Needle Short U/F 31G X 8 MM Miscellaneous BD Pe n Needle Short U/F 31G X 8 MM Miscellaneous 06/06/2019 12:00:00 AM EST aborted BD Pen Needle Short U/F [place] ([facility]) Potassium Chloride 10 MEQ Extended Relea se Oral Tablet Potassium Chloride ER 10MEQ Oral Tablet Extended Release Potassium Chloride ER 10MEQ Oral Tablet Extended Release 05/01/2019 12:00:00 AM EDT 2 a borted potassium chloride 10 MEQ Extended Release Oral Tablet [place] ([facility]) FreeStyle Lite Test In Vitro Strip FreeStyle Lite Test In Vi tro Strip 04/10/2019 12:00:00 AM EDT aborted FreeSt yle Lite Test [place] ([facility]) Bisoprolol Fumarate 5 MG Oral Tablet Bisoprolol Fumara te 5MG Oral Tablet Bisoprolol Fumarate 5MG Oral Tablet 04/04/2019 12:00:00 AM EDT aborted bisoprolol fumarate 5 MG Oral Ta blet [place] ([facility]) 3 ML Insulin Lispro 100 UNT/ML Pen Injec tor [Humalog] HumaLOG KwikPen 100UNIT/ML Subcutaneous Solution Pen-injector HumaLOG KwikPen 100UNIT/ML Subcutaneous Solution Pen-injector 02/27/2019 12:00:00 AM EDT aborted 3 ML insulin lispro 100 UNT/ML Pen Injector [Humalog] [place] ([facility]) Insurance Providers Payer name Policy type / Coverage type Policy ID Covered green party ID Covered green party's relationship to salvador Policy Salvador Plan Information MEDICARE BLUE PPO 306 [id number] SP [id number] [employer] BCBS B [id number] S [id number] [employer] of [place] Other 0 Self 0 [employer] [place] Other 0 Self 0 [employer] [place] Other 0 Self 0 [employer] [place] Other 0 Self 0 [employer] [facility] [place] Other 0 Self 0 [facility] MEDICARE [id number] Self [id number] [facility] MEDICARE [id number] [employer] [place] Other 0 Self 0 [facility] MEDICARE BLUE PPO G [id number] Self [id number] [employer] of [place] Other 0 Self 0 [employer] [place] Other 0 Self 0 BLUE CROSS BLUE SHIELD MCR -OP [id number] 18 [id number] [employer] [place] Other 0 Self 0 BLUE CROSS BLUE SHIELD -O/P [id number] 18 [id number] [employer] [place] Other 0 Self 0 [facility] [facility] [place] Other 0 Self 0 [facility] of [facility] [place] Other 0 Self 0 BC[employer] of [facility] [place] Other 0 Self 0 BC[employer] of [facility] [place] Other 0 Self 0 MEDICARE BLUE PPO 306 [id number] SP [id number] MEDICARE BLUE PPO 306 [id number] SP [id number] BC[employer] of [facility] [place] Other 0 Self 0 ANSI-Medicare Part B [id number] BCBS of [facility] [place] Other 0 Self 0 MEDICAID [id number] SP [id number] BCBS of [facility] [place] Other 0 Self 0 BCBS of [facility] [place] Other 0 Self 0 [employer] MEDICARE CHOICE [id number] Patient [id number] [employer] BCBS Medicare Health Maintenance Organization (HMO) [id number] Self [id number] BCBS of [facility] [place] Other 0 Self 0 Blue Shield MCR Advantage Commercial [id number] Self [id number] [facility] Other 0 Self 0 BCBS of [facility] [place] Other 0 Self 0 BCBS of [facility] [place] Other 0 Self 0 Medicare Blue Ppo Commercial [id number] Self [id number] Medicare Blue Ppo Commercial [id number] Self [id number] Medicare Blue Ppo Commercial [id number] Self [id number] MEDICARE BLUE PPO 306 [id number] SP [id number] [employer] [place] Commercial [id number] Self [id number] [employer] [place] Commercial [id number] Self [id number] Blue Shield MCR Advantage Commercial Self HMO BLUE [id number] SP [id number] MEDICAID [id number] PT [id number] MEDICAID P [id number] MEDICAID [id number] PT [id number] MEDICAID MISSING INFO MA PEND PT MA PEND SELF PAY UNAVAILABLE SP UNAVAILA BLE UNAVAILABLE UNAVAILA BLE Problems, Conditions, and Diagnoses Code Display Name Description Problem Type Effective Dates Data Source(s) 949020735 Difficulty breathing Difficulty breathing Problem 09/03/2020 12:00:00 AM EST [facility] ([facility]) [id number] Tricuspid valve disorder, non-rheumatic Tricuspid valve disorder, non-rheumatic Problem 09/03/2020 12:00:00 AM EST [facility]) CARDIOVERSION CARDIOVERSION Diagnosis 04/11/2020 06:19:55 AM EDT [facility] Z01.818 Encounter for other preprocedural examin ation Encounter for other preprocedural examination Diagnosis 04/08/2020 07:06:11 AM EDT [facility] [id number] Primary open-angle glaucoma, right eye, mild stage Primary open-angle glaucoma, right eye, mild stage Diagnosis 10/12/2019 07:30:00 AM EDT [facility] H268 Other specified cataract Other specified cataract Diag nosis 10/12/2019 07:30:00 AM EDT [facility] [id number] Primary open-angle glaucoma, left eye, m ild stage Primary open-angle glaucoma, left eye, mild stage Diagnosis 09/28/2019 07:00:00 AM EST [facility] Surgeries/Procedures Procedure Description Date Indications Data Source(s) Venipuncture (routine) Venipuncture (routine) 07/08/2020 12:00:00 A M UBALDO QUINTERO ([facility]) HgbA1C HgbA1C 07/08/2020 12:00:00 AM EST Bebeto GÓMEZ ([facility]) Multiple Lead Impantable Cardioverter-Defibrillator 04/30/2020 12:00:00 AM EDT [facility] ([facility]) Implant Cardiovascular Monitoring System 04/30/2020 12 :00:00 AM EDT [facility] ([facility]) -collection of capillary blood (fingerstick, heel ) -c ollection of capillary blood (fingerstick, heel ) 04/24/2020 12:00:00 AM EDJuan C ASTOR[place] ([facility]) HgbA1C HgbA1C 04/24/2020 12:00:00 AM EDT Bebeto GÓMEZ ([facility]) Annual depression screening, 15 minutes [facility]-Annual depr ession screening- 15 min. (Distinct Seperate service-same day) 04/24/2020 12:00:00 AM EDT [facility] DESTRUCTION BENIGN LESIONS UP TO 14 cryo/destruct. of benign lesion(exclude skin tags) < 15 (n/c 04/[facility] visit, includes a person alized prevention plan of service (pps), subsequent visit [facility] subseq't annual wellness exam(1 yr a fter Initial) (Unrel. Eval. & Man.during post op period) 04/24/2020 12:00:00 AM EDT [facility]) DESTRUCTION BENIGN LESIONS UP TO 14 cryo/destruct. of benign lesion(exclude skin tags) < 15 (n/c 04/24/2020 [facility] Annual depression screening, 15 minutes MC-Annual depression screening- 15 min. 04/24/2020 12:00:00 AM [facility] ([facility]) Annual wellness visit, includes a person alized prevention plan of service (pps), subsequent visit [facility]- subseq't annual wellness exam(1 yr after Initial) 04/24/2020 12:00:00 AM [facility] ([facility]) POCT GLUCOSE METER UNSOLICITED RESULTS POCT GLUCOSE METER U NSOLICITED RESULTS Routine 04/11/2020 7:03 AM EDT 04/11/2020 11:03:00 AM EDT [facility] Multiple Lead Impantable Cardioverter-Defibrillator 03/12/2020 12:00:00 AM EDT [facility] ([facility]) Implant Cardiovascular Monitoring System 03/12/2020 12 :00:00 AM EDT [facility] ([facility]) ECG Complete 03/12/2020 12:00:00 AM EDT M [facility] ([facility]) Echocardiography, Tranthoracic Complete Image Documentation 03/08/2020 12:00:00 AM [facility] Myocardial Perfusion Imaging Tomographic (Spect) Multiple St udies 02/13/2020 12:00:00 AM EDT [facility]) Cardiovascular Stress Test Physician Supervision Only 02/13/2020 12:00:00 AM EDT [facility]) Cardiovascular Stress Test Interpretation & Report Only 02/13/2020 12:00:00 AM EDT [facility]) Biopsy skin(shave,scoop,curette) First Lesion Biopsy s kin(shave,scoop,curette) First Lesion 01/23/2020 12:00:00 AM EDT [place] ([facility]) Biopsy- skin (shave,scoop,curette) EACH addit'l (w/111 ) Biopsy- skin (shave,scoop,curette) EACH addit'l (w/[id number]) 01/23/2020 12:00:00 AM EDT [place] ([facility]) Biopsy- skin (shave,scoop,curette) EACH addit'l (w/111 ) Biopsy- skin (shave,scoop,curette) EACH addit'l (w/[id number]) 01/23/2020 12:00:00 AM EDT [place] ([facility]) Biopsy skin(shave,scoop,curette) First Lesion Biopsy s kin(shave,scoop,curette) First Lesion 01/23/2020 12:00:00 AM EDT [place] ([facility]) Venipuncture (routine) Venipuncture (routine) 01/18/2020 12:00:00 A M EDJuan C [place] ([facility]) CMP-Complete Metabolic Profile CMP-Complete Metabolic Profil e 01/18/2020 12:00:00 AM EDT [place] [facility]) Multiple Lead Impantable Cardioverter-Defibrillator 01/09/2020 12:00:00 AM EDT [facility] Implant Cardiovascular Monitoring System 01/09/2020 12 :00:00 AM EDT [facility] ([facility]) -collection of capillary blood (fingerstick, heel ) -c ollection of capillary blood (fingerstick, heel ) 01/02/2020 12:00:00 AM EDJuan C ASTORGA ([facility]) HgbA1C HgbA1C 01/02/2020 12:00:00 AM EDT Bebeto GÓMEZ ([facility]) Multiple Lead Impantable Cardioverter-Defibrillator 10/24/2019 12:00:00 AM EDT [facility] ([facility]) Implant Cardiovascular Monitoring System 10/24/2019 12 :00:00 AM EDT [facility] ([facility]) HgbA1C HgbA1C 09/12/2019 12:00:00 AM EST Bebeto GÓMEZ ([facility]) Venipuncture (routine) Venipuncture (routine) 09/12/2019 12:00:00 A M EST [place] ([facility]) CMP-Complete Metabolic Profile CMP-Complete Metabolic Profil e 09/12/2019 12:00:00 AM EST [place] [facility]) -collection of capillary blood (fingerstick, heel ) -c ollection of capillary blood (fingerstick, heel ) 07/24/2019 12:00:00 AM EST LOVE ASTORGA ([facility]) HgbA1C HgbA1C 07/24/2019 12:00:00 AM EST Bebeto GÓMEZ ([facility]) Results ID Date Data Source [id number] 09/13/2020 10:45:00 AM EST [facility] Name Value Range Interpretation Code Description Data Jaci rce(s) Supporting Document(s) SARS coronavirus 2 RNA Not Detected [facility] [place] This lab was ordered by [facility] and reported by [facility]. ID Date Data Source [id number] 09/11/2020 10:24:00 AM EST [facility] [address] [place] [address] [place] [address] [phone] NAME SEX PT STATUS ACCOUNT NUMBER JACKSON LUCIA REG REF [id number] ORDERING PHYSICIAN LOCATION MEDICAL RECORD NO. Amrit Crowe MD RAD [id number] ATTENDING PHYSICIAN DATE OF DATE OF EXAM/TIME Carole Lux MD 1950 09/11/201019 TYPE / EXAM Xray Chest 2 view PA/LAT REASON FOR EXAM PRE OP COMPARISON: April 04, 2020 FINDINGS: A left-sided dual-chamber AICD is in place. A third lead is seen in the coronary sinus. There is cardiomegaly. The mediastinal silhouette is otherwise unremarkable. Subsegmental atelectasis is seen at the left lung base. Lungs otherwise essentially clear. There isno pleural effusion. No focal bone lesion is seen. The patient has had rotator cuff surgery, bilaterally. IMPRESSION: 1. Cardiomegaly. 2. Subsegmental atelectasis at the left lung base. Lungs otherwise essentially clear. Reported By Jerel Buitrago MD on 09/11/20 1024 Signed By Jerel Buitrago MD on 09/11/20 1025 Date Time CC: Carole Lux MD; Jerel Buitrago MD Techn: BAKLE Trans Dt/Tm: Trans by: DT Prt Dt/Tm: 4399-6914: Total DLP = 0.00 mGy-cm Fluoroscopy Time (in secs): Name Value Range Interpretation Code Description Data Jaci rce(s) Supporting Document(s) ID Date Data Source [id number] 09/11/2020 10:28:[address] [facility] Name Value Range Interpretation Code Description Data Jaci rce(s) Supporting Document(s) Leukocytes [#/volume] in Blood by Automated count 7.3 10*3/uL 4.45-10 .71 [facility] Erythrocytes [#/volume] in Blood by Automated count 4.56 10*6/uL 4.3- 6.1 [facility] Hemoglobin [Moles/volume] in Blood 13.7 g/dL 13-[address] [facility] Hematocrit [Volume Fraction] of Blood by Automated count 42.3 % 4 2-[address] [facility] Erythrocyte mean corpuscular volume [Ent itic volume] in Cord blood by Automated count 92.8 fL 80-96 N [facility] Erythrocyte mean corpuscular hemoglobin [Entitic mass] by Automated count 30.0 pg 27-31 N [facility] l Erythrocyte mean corpuscular hemoglobin concentration [Mass/volume] in Cord blood 32.4 g/dL 33-37 Below low normal [facility] Erythrocyte distribution width [Entitic volume] by Automated count 14 % 11-[address] [facility] Platelets [#/volume] in Blood by Automated count 176 10*3/uL 130-[address] [facility] Platelet mean volume [Entitic volume] in Blood 10.7 fL 9.1-13.[address] [facility] Neutrophils/100 leukocytes in Blood by Automated count 72.7 % 41- [address] [facility] Neutrophils [#/volume] in Blood by Automated count 5.3 U 1.7-7.[address] [facility] Lymphocytes/100 leukocytes in Blood by Automated count 11.5 % 14-[address] [facility] Lymphocytes [#/volume] in Blood by Automated count 0.8 U 0.6-4.[address] [facility] Monocytes/100 leukocytes in Blood by Automated count 8.4 % 4-[address] [facility] Monocytes [#/volume] in Blood by Automated count 0.6 U 0.2-1.[address] [facility] Eosinophils/100 leukocytes in Blood by Automated count 5.9 % 0-[address] [facility] Eosinophils [#/volume] in Blood by Automated count 0.4 U 0.0-0.[address] [facility] Basophils/100 leukocytes in Blood by Automated count 1.4 % 0.4-1.[address] [facility] Basophils [#/volume] in Blood by Automated count 0.1 U 0.0-0.[address] [facility] NUCLEATED RED BLOOD CELL 0 % [facility] NUCLEATED RED BLOOD CELL# 0 U [facility] Immature granulocytes [Presence] in Blood by Automated count 0-[address] [facility] Immature granulocytes [#/volume] in Blood by Automated count 0.0 U 0-0.[address] [facility] Manual Differential panel - Blood NO [facility] ID Date Data Source [id number] 09/11/2020 10:51:[address] [facility] Name Value Range Interpretation Code Description Data Jaci rce(s) Supporting Document(s) Sodium [Moles/volume] in Serum or Plasma 139 mmol/L 132-[address] [facility] Potassium [Moles/volume] in Serum or Plasma 4.0 mmol/L 3.5-5.[address] [facility] Chloride [Moles/volume] in Serum or Plasma 101 mmol/L 99-[address] [facility] Carbon dioxide, total [Moles/volume] in Serum or Plasma 32 mmol/ L 20-[address] [facility] Anion gap in Serum or Plasma 10 mmol/L 8-16 N [facility] ID Date Data Source [id number] 09/11/2020 10:52:[address] [facility] Name Value Range Interpretation Code Description Data Jaci rce(s) Supporting Document(s) Prothrombin Time (Patient) 11.1 s 9.6-12.3 N [facility] INR 1.0 0.9-1.[address] [facility] THE INR IS OPERATIONALLY DEFINED FOR LAVIN SH PLASMA FROMPATIENTS STABILIZED ON ORAL ANTICOAGULANTS.ROUTINE ANTICOAGULANT THERAPY 2.0-3.0RECURRENT SYSTEMIC EMBOLISM/HEART VALVE REPLACEMENT 2.5-3.5 aPTT.lupus sensitive (LA screen) 25.8 s 22.7-31.[address] [facility] ID Date Data Source [id number] 09/11/2020 09:56:00 AM EST [facility] ([facility], ) Name Value Range Interpretation Code Description Data Jaci rce(s) Supporting Document(s) Laboratory test finding (navigational concept) 11.1 s 9 .6-12.3 Normal (applies to non-numeric results) [facility] ([facility], ) PREOP M19.90,M19.011 Inr 1.0 0.9-1.1 Normal (applies to non-numeric resul ts) [facility]) PREOP M19.90,M19.011 aPTT.lupus sensitive (LA screen) 25.8 s 22.7-31.6 Normal (applies to non-numeric results) [facility] ([facility]) PREOP M19.90,M19.011 ID Date Data Source [id number] 09/11/2020 09:56:00 AM EST [facility] ([facility]) Name Value Range Interpretation Code Description Data Jaci rce(s) Supporting Document(s) Sodium [Moles/volume] in Serum or Plasma 139 mmol/L 132-146 Normal (applies to non-numeric results) [facility] ([facility], ) PREOP M19.90,M19.011 Potassium [Moles/volume] in Serum or Plasma 4.0 mmol/L 3.5- 5.5 Normal (applies to non-numeric results) [facility] ([facility]) PREOP M1.,M19.011 Chloride [Moles/volume] in Serum or Plasma 101 mmol/L 99-10 9 Normal (applies to non-numeric results) [facility]) PREOP M1.,M19.011 Carbon dioxide, total [Moles/volume] in Serum or Plasma 32 mmol/ L 20-31 Above high normal [facility] ([facility]) PREOP M1.,M19.011 Anion gap in Serum or Plasma 10 mmol/L 8-16 Nor mal (applies to non-numeric results) [facility]) PREOP .,M19.011 ID Date Data Source [id number] 09/11/2020 09:56:00 AM EST [facility] ([facility]) Name Value Range Interpretation Code Description Data Jaci rce(s) Supporting Document(s) Leukocytes [#/volume] in Blood by Automated count 7.3 10*3/uL 4.45-10.71 Normal (applies to non-numeric results) [facility] ([facility]) PREOP M1.,.011 Hematocrit [Volume Fraction] of Blood by Automated count 42.3 % 42-52 Normal (applies to non-numeric results) [facility] ([facility]) PREOP .,.011 Erythrocytes [#/volume] in Blood by Automated count 4.56 10*6/uL 4.3-6.1 Normal (applies to non-numeric results) [facility] ([facility]) PREOP M1.,M19.011 Hemoglobin [Moles/volume] in Blood 13.7 g/dL 13-18 Normal (applies to non- numeric results) [facility] ([facility]) PREOP M1.,M19.011 Erythrocyte mean corpuscular volume [Ent itic volume] in Cord blood by Automated count 92.8 fL 80-96 Normal (applies to non-numeric results) [facility] ([facility]) PREOP M19.90,M19.011 Erythrocyte mean corpuscular hemoglobin [Entitic mass] by Automated count 30.0 pg 27-31 Normal (applies to non-numeric results) [facility] ([facility]) PREOP M19.90,M19.011 Erythrocyte mean corpuscular hemoglobin concentration [Mass/volume] in Cord blood 32.4 g/dL 33-37 Below low normal [facility] ([facility]) PREOP M19.90,M19.011 Erythrocyte distribution width [Entitic volume] by Automated cou nt 14 % 11-15 Normal (applies to non-numeric results) [facility] ([facility]) PREOP M19.90,M19.011 Platelets [#/volume] in Blood by Automated count 176 10*3/uL 130-472 Normal (applies to non-numeric results) [facility] ([facility]) PREOP M19.90,M19.011 Neutrophils [#/volume] in Blood by Automated count 5.3 U 1.7-7.6 Normal (applies to non-numeric results) [facility] ([facility]) PREOP M19.90,M19.011 Platelet mean volume [Entitic volume] in Blood 10.7 fL 9 .1-13.1 Normal (applies to non-numeric results) [facility] ([facility]) PREOP M19.90,M19.011 Neutrophils/100 leukocytes in Blood by Automated count 72.7 % 41-77 Normal (applies to non-numeric results) [facility] ([facility]) PREOP M19.90,M19.011 Lymphocytes [#/volume] in Blood by Automated count 0.8 U 0.6-4.6 Normal (applies to non-numeric results) [facility] ([facility]) PREOP M19.90,M19.011 Monocytes/100 leukocytes in Blood by Automated count 8.4 % 4-12 Normal (applies to non-numeric results) [facility] ([facility]) PREOP M19.90,M19.011 Lymphocytes/100 leukocytes in Blood by Automated count 11.5 % 14-46 Below low normal [facility] ([facility]) PREOP M19.90,M19.011 Monocytes [#/volume] in Blood by Automated count 0.6 U 0.2-1.2 Normal (applies to non-numeric results) [facility] ([facility]) PREOP M19.90,M19.011 Eosinophils/100 leukocytes in Blood by Automated count 5.9 % 0-7 Normal (applies to non-numeric results) [facility] ([facility]) PREOP M19.90,M19.011 Eosinophils [#/volume] in Blood by Automated count 0.4 U 0.0-0.5 Normal (applies to non-numeric results) [facility] ([facility]) PREOP M19.90,M19.011 Basophils/100 leukocytes in Blood by Automated count 1.4 % 0.4-1.3 Above high normal [facility] ([facility]) PREOP M19.90,M19.011 Basophils [#/volume] in Blood by Automated count 0.1 U 0.0-0.2 Normal (applies to non-numeric results) [facility] ([facility]) PREOP M19.90,M19.011 Immature granulocytes [Presence] in Blood by Automated count 0.1 0-2 Normal (applies to non-numeric results) [facility] ([facility]) PREOP M19.90,M19.011 Laboratory test finding (navigational concept) 0 U [facility] PREOP M19.90,M19.011 Nucleated Red Blood Cell 0 % [facility] ([facility]) PREOP M19.90,M19.011 Manual Differential panel - Blood Laboratory test result [facility] ([facility]) PREOP M19.90,M19.011 Immature granulocytes [#/volume] in Blood by Automated count 0.0 U 0-0.1 Normal (applies to non-numeric results) [facility] ([facility]) PREOP M19.90,M19.011 ID Date Data Source [id number] 09/03/2020 03:03:00 PM EST [facility] ([facility] Name Value Range Interpretation Code Description Data Jaci rce(s) Supporting Document(s) [facility]cd Remote Check [facility] Tech Laboratory test result [facility] ([facility]) Optivol Remote Check Prof & Tech Laboratory test result [facility] ([facility]) ID Date Data Source [id number] 08/05/2020 12:00:00 AM EST [facility] Ace Espinoza MD Patient Name: [facility]IA [facility] 1950[facility] [place] [address] Date of Exam: 08/05/2020#: Fax: [phone] EXAM: CT UPPER RIGHT EXTREMITY WITH CONTRASTCLINICAL INFORMATION: Chronic pain.Low dose 64 slice helical scanning through the right shoulder with shoulderCT arthrography was obtained using 2 mm increments and reconstructed inboth coronal and sagittal planes. 3D reconstructions were also obtained.Post processing was performed at the physician's workstation. Theglenohumeral injection was performed by Gerber Lopez [facility].There is glenohumeral joint space narrowing which is asymmetric and seen inconjunction with superior subluxation of the humeral head within theglenoid. There is marked chondral thinning and irregularity seen involvingboth the humeral head and the glenoid. The superior labrum appears rathermarkedly truncated. There is also evidence of labral irregularity andpossibly fraying and particularly along the biceps labr al complex. A smallamount of the injected fluid seems to have migrated superior to thesupraspinatus tendon. The tendon cannot be directly visualized, however.There does appear to be severe supraspinatus muscle atrophy. There ismoderate hypertrophic degenerative change seen involving theacromioclavicular joint. The acromion process is Type II with a spurarising from the inferior surface at the level of the AC joint.IMPRESSION:1. Changes involving the labrum as described above. An acute tear uponchronic labral degeneration cannot be ruled out.2. Advanced arthritic changes.3. The supraspinatus tendon is most probably torn but would be much betterevaluation with shoulder MRI.4. Other findings as described above.Accredited by the [employer] in [place].TABITHA Dang/Seema you for referring JACKSON LUCIA to our office.Electronically Signed - BRONSON UNDERWOOD DO 08/06/20 10:17 Name Value Range Interpretation Code Description Data Jaci rce(s) Supporting Document(s) ID Date Data Source [id number] 08/05/2020 12:00:00 AM EST [facility] Imaging Ace Espinoza MD Patient Name: JACKSON LUCIA[address] [facility] Date of : 1950[place] [address] Date of Exam: 08/05/2020#: Fax: [phone] EXAM: INJECTION PROCEDURE FOR SHOULDER ARTHROGRAMRIGHT SHOULDER ARTHROGRAM:The procedure was performed by [facility], under the generalsupervision of Dr. Rogers.The benefits and risks including but not limited to pain, infection,bleeding and anaphylaxis were explained to the patient and informed consentwas obtained. The right glenohumeral joint space was localized usingfluoroscopic guidance. The skin was prepped and draped in a sterilefashion. 1% Lidocaine was used as a local anesthetic. Using fluoroscopicguidance, a #22 gauge spinal needle was inserted and advanced into theglenohumeral joint space. 11 cc of Omnipaque 300 was injected into thejoint space. The needle was removed and the patient was taken to CT forpost procedural imaging.The patient tolerated the procedure well and there were no immediatecomplications.Fluoroscopic images are performed with last image hold technology. Theseimages require no additional radiation to acquire.Fluoroscopy time was 2 seconds at 3 pulses/second. This is equal to 0.5seconds continuous fluoroscopy time which is a 75% reduction in radiation.Dictated by MT Agee, with Dr. Rogers.Sen Rogers, MDDSG/jmcTestuardo you for referring JACKSON LUCIA to our office.Electronically Signed - SEN ROGERS MD 08/08/20 17:12 Name Value Range Interpretation Code Description Data Jaci rce(s) Supporting Document(s) ID Date Data Source [id number] 08/05/2020 12:00:00 AM EST [facility] Imaging Ace Espinoza MD Patient Name: EDA LUCIA [facility] Date of : 1950[place] [address] Date of Exam: 08/05/2020#: Fax: [phone] EXAM: INJECTION PROCEDURE FOR SHOULDER ARTHROGRAMRIGHT SHOULDER ARTHROGRAM:The procedure was performed by [facility] Agee, under the generalsupervision of Dr. Rogers.The benefits and risks including but not limited to pain, infection,bleeding and anaphylaxis were explained to the patient and informed consentwas obtained. The right glenohumeral joint space was localized usingfluoroscopic guidance. The skin was prepped and draped in a sterilefashion. 1% Lidocaine was used as a local anesthetic. Using fluoroscopicguidance, a #22 gauge spinal needle was inserted and advanced into theglenohumeral joint space. 11 cc of Omnipaque 300 was injected into thejoint space. The needle was removed and the patient was taken to CT forpost procedural imaging.The patient tolerated the procedure well and there were no immediatecomplications.Fluoroscopic images are performed with last image hold technology. Theseimages require no additional radiation to acquire.Fluoroscopy time was 2 seconds at 3 pulses/second. This is equal to 0.5seconds continuous fluoroscopy time which is a 75% reduction in radiation.Dictated by MT Agee, with Dr. Rogers.Sen Rogers, HIRA/jmcThank you for referring JACKSON LUCIA to our office.Electronically Signed - SEN ROGERS MD 08/08/20 17:12 Name Value Range Interpretation Code Description Data Jaci rce(s) Supporting Document(s) ID Date Data Source [id number] 07/15/2020 04:31:00 PM [facility] [address] [place] [address] [phone] NAME SEX PT STATUS ACCOUNT NUMBER JACKSON LUCIA REG REF [id number] ORDERING PHYSICIAN LOCATION MEDICAL RECORD NO. Carole Lux MD LAB [id number] ATTENDING PHYSICIAN DATE OF DATE OF EXAM/TIME Carole Lux MD 1950 07/15/201124 TYPE / EXAM Xray Foot Complete LT REASON FOR EXAM PAIN IN LEFT FOOT COMPARISON: None FINDINGS: Routine views show no fracture or dislocation. The joint spaces are well-maintained and the articular surfaces are smooth. No osseous abnormality is demonstrated. Mild degenerative changes are noted with a plantar heel spur. Vascular calcifications correspond with patient's history of diabetes. Diffuse soft tissue swelling is identified nonspecific.. IMPRESSION: Diffuse soft tissue swelling is nonspecific. No acute bony abnormality is seen. Reported By Marly Lanier MD on 07/15/201630 Signed By Marly Lanier MD on 07/15/201632 Date Time CC: Carole Lux MD; Marly Lanier MD Techn: MORSA Trans Dt/Tm: Trans by: DT Prt Dt/Tm: [id number]: Total DLP = 0.00 mGy-cm Fluoroscopy Time (in secs): Name Value Range Interpretation Code Description Data Jaci rce(s) Supporting Document(s) ID Date Data Source [id number] 07/15/2020 11:49:00 AM [facility] Name Value Range Interpretation Code Description Data Jaci rce(s) Supporting Document(s) Urate [Mass/volume] in Serum or Plasma 11.9 mg/dL 3.3-8.[address] hi gh normal [facility] ID Date Data Source [id number] 07/08/2020 11:21:00 AM [facility] [address] [place] [id number] [phone] NAME SEX PT STATUS ACCOUNT NUMBER JACKSON LUCIA REG REF [id number] ORDERING PHYSICIAN LOCATION MEDICAL RECORD NO. Carole Lux MD [facility] [id number] ATTENDING PHYSICIAN DATE OF DATE OF EXAM/TIME Carole Lux MD 1950 07/08/20 / 0 TYPE / EXAM Xray Shoulder complete RT REASON FOR EXAM PAIN IN RIGHT SHOULDER COMPARISON: 05/09/2017 FINDINGS: There is normal alignment and position of the bones of the shoulder. No evidence for acute bony injury is identified. Postoperative changes are seen with 2 anchors identified in the region of the humeral head. There is a new bony spur seen at extending from the inferior part of the humeral head medially with mild to moderate degenerative changes in the shoulder joint. The AC joint also shows degenerative change which is moderate in degree. The soft tissues also appear normal. IMPRESSION: Postoperative changes with 2 anchors seen in the humeral head. Moderate degenerative changes are seen in the shoulder joint itself and AC joint. This represents progression since prior study. Reported By Marly Lanier MD on 07/08/201120 Signed By Marly Lanier MD on 07/08/20 112 Date Time CC: Carole Lux MD; Marly Lanier MD Techn: MORSA Trans Dt/Tm: Trans by: DT Prt Dt/Tm: [id number]: Total DLP = 0.00 mGy-cm Fluoroscopy Time (in secs): Name Value Range Interpretation Code Description Data Jaci rce(s) Supporting Document(s) ID Date Data Source [id number] 07/08/2020 09:56:00 AM EST [facility] ([facility]) Name Value Range Interpretation Code Description Data Jaci rce(s) Supporting Document(s) Hemoglobin A1c/Hemoglobin.total in Blood 7.6 na Above high normal [facility]) Note: Responsible Observer: KM ID Date Data Source [id number] 04/30/2020 01:17:00 PM EDT [facility] ([facility]) Name Value Range Interpretation Code Description Data Jaci rce(s) Supporting Document(s) Icd Multi Program Laboratory test result [facility] ([facility]) [facility] In Office Laboratory test result [facility]) ID Date Data Source [id number] 04/24/2020 12:02:00 PM EDT [facility] ([facility]) Name Value Range Interpretation Code Description Data Jaci rce(s) Supporting Document(s) Hemoglobin A1c/Hemoglobin.total in Blood 8.0 na Above high normal Hgba1c [facility] ([facility]) Note: Responsible Observer: KM ID Date Data Source [id number] 04/11/2020 08:53:12 AM EDT [facility] Name Value Range Interpretation Code Description Data Jaci rce(s) Supporting Document(s) Cardiology/IR note [facility] VERJGm0aZtKVMnEs45/SBIsyLNOxr1ZdTUxsAOe6JKeeZVLdL4AuEZS8vL6mBPU6EAkDRpBxOuWgZQWg lbm [file] AgICAgICAgICAgICAgICAgICAgICAgICAgICAgICAg ICAgICAgICAgICAgICAgICAgICAgICAgICAgICAgICAgICAgICAgICAgICAgICAgICANCiAgICAgICAg ICAgICAgICAgICAgICAgICAgICAgICAgICAgICAgICAgICAgICAgICAgICAgICAgICAgICAgICAgICAg ICAgICAgICAgICAgICAgICAgICAgICAgICAgICAgIC ANCiAgICAgICAgICAgICAgICAgICAgICAgICAgICAgICAgICAgICAgICAgICAgICAgICAgICAgICAgIC AgICAgICAgICAgICAgICAgICAgICAgICAgICAgICAgICAgICAgICAgICANCiAgICAgICAgICAgICAgIC AgICAgICAgICAgICAgICAgICAgICAgICAgICAgICAg ICAgICAgICAgICAgICAgICAgICAgICAgICAgICAgICAgICAgICAgICAgICAgICAgICAgICANCiAgICAg ICAgICAgICAgICAgICAgICAgICAgICAgICAgICAgICAgICAgICAgICAgICAgICAgICAgICAgICAgICAg ICAgICAgICAgICAgICAgICAgICAgICAgICAgICAgIC AgICANCiAgICAgICAgICAgICAgICAgICAgICAgICAgICAgICAgICAgICAgICAgICAgICAgICAgICAgIC AgICAgICAgICAgICAgICAgICAgICAgICAgICAgICAgICAgICAgICAgICAgICANCiAgICAgICAgICAgIC AgICAgICAgICAgICAgICAgICAgICAgICAgICAgICAg ICAgICAgICAgICAgICAgICAgICAgICAgICAgICAgICAgICAgICAgICAgICAgICAgICAgICAgICANCiAg ICAgICAgICAgICAgICAgICAgICAgICAgICAgICAgICAgICAgICAgICAgICAgICAgICAgICAgICAgICAg ICAgICAgICAgICAgICAgICAgICAgICAgICAgICAgIC AgICAgICANCiAgICAgICAgICAgICAgICAgICAgICAgICAgICAgICAgICAgICAgICAgICAgICAgICAgIC AgICAgICAgICAgICAgICAgICAgICAgICAgICAgICAgICAgICAgICAgICAgICAgICANCiAgICAgICAgIC AgICAgICAgICAgICAgICAgICAgICAgICAgICAgICAg ICAgICAgICAgICAgICAgICAgICAgICAgICAgICAgICAgICAgICAgICAgICAgICAgICAgICAgICAgICAN Cjw/zGDvW5kgjDPadbP6R6lbVb6VQt4ZYN9pt2OtIBFkGEdrmmMwMtuLHrBhMNKpKewZTau3XItrEI8Y aSSyV3ZbI1PeWGguRK7BJHRbPKNlmTPhWXEsUOHcCo M6BINrNEjiZP7LsTKmZIpjGHYxHQQtDR8MWBTxG669fuHxNT0PBa0MPyRsHZ8ezw4CEcKtCKQsEnoYMs c2YKgoKP8TnWUhsQKqSVVyYCKOQgWbY1ybw2OgNeAbHIKKXBrvMX9Pb0LqnKCnAQx+Zw3SHN8ol0RfTT wcUPAgXA3lmx7OKIgSKeKyZ6PksAtqFDNrhmFuo8xs C6lvMSCnnd44OYJodSCEJN1mYIyvCJFtFkCWZCIkCNFZWKMvbFX3WbRpVlVfRhCmOFd9RQpvDD5iTOfj EJ8SARS1IXvnNTRgCQEuX7lNViQyBRtgRNPczIcoWQ5PQhYhQ1VqdyWwkLRuXSTmJZNUJk9+DQplbmRv JmnVUmKhCPUow9XxTRb3HV5LFHRdILjkZD5WOABpaD 4aZGlwPN5MFyExHKXjCOCGSxVkB25tnVSzBLm3H0FkQaSjZVEvHqbnMDJlXJldRyDnRKGhJzHjTVttDS 4+ID4+XCsaFA2OVRlckfBuYNGgSg9KSEEzCMKbHE3uDBEnCDPtP4P0vVzpTVCZBoKcE2sphvplCT8bDM SrC154kFdxigFpDZWqIJKtQb9TMEUrMEE4JIAgfQQc LJbdKWRMDCluVO6WyDAbNEO6hD5aNHbjOZKmOJGrK4tIZwGayCekZS64hZrcgePjvHBmZXa+Jv4FSZ2c c5JpOGg7paIsKQhpTQTlCWvgGPBjBQJtCQQlSUK4AGM8XQPWZyHiGNWuQIMdBCjnXIBaXFEayc1CFRQe BFXeTzEuTkNfXLZhNWAiSVhyPUMpYQT7GTrfAOEyKF LpRB2RBvIoFBUcRZRqBVceFACiUJYadg3OWACfXTEnMUzaQnYcJSCmUNVqJRqoEJUsZSVbMRMsQXKjFY XlOX9INpCnXPUaMBF4OIadOYKpBNLpih4OCXNoSTBaYgY0VXSiKZFdMXSgUOshJDUlHHTtXit5TOMhGB JoJN3TEdIvSCPwWCUeDsQzWWYgABFlfx5IDHOeIOAz SXZkAAAjQINqPGTeOErnLPKsTGK6GnNkJTCpXBTiKE5NTnSvPJUmCJS1LaSxXETxVIXiue4XBZNgIDPv CRt4VEIbINPyTJAjMFwzHPYoSGO4IZC4PJErNTSgYM1VXmGxAZEzNPgmUqopQQXjAOUpgp7RJVTaWMFy MiOyACIyGXDyFYMuDAlgKHBhWEV5JTJpDICfXOMcCC 8QGxQaRPMjUXx1QFFcVYRsZDNwce8IAZTqFENmBKB7DZSiHTCyWLQuRRfaRXRvPYX2SvMsSYLzNIJmGV 3TKdJzYQZeXQi2QYdxTDIcQGOhjw8FhRUkaJwaka0BJNrBVp5QeSwuTNQfCBgqJf1xdCTwSrWvSRJXXl 3XwsJlCMSvZEXKQEuvZVDfXUE6QLq0VXYwB7WdWND8 OdZaPVLoVeFrCNLwBSYfBEVhAwM4QeuqYJYtF1RtXYPiSsewWzL2Y0NwQXC8UqG7WST4LDQ+QT2uFDf+ Wa6Un7DwdfE8wmKdUQe5SnWzZLnfXXZZTo5B ID Date Data Source [id number] 04/11/2020 07:09:49 AM EDT [facility] Name Value Range Interpretation Code Description Data Jaci rce(s) Supporting Document(s) Anesthesia Preprocedure Evaluation [facility] KJHWQa1nUkXWZrPt20/OXPpaKEFjj1MmBIjpLXz1XOrhTNQqL3XoKVW6mO2bUXA0CNzZUaWyQtFxOCHj lbm [file] AgICAgICAgICAgICAgICAgICAgICAgICAgICAgICAgICAgICAgICAgICAgICAgICAgICAgICAgICAgIC IxFWClBXHmQKDcNLIcWV2FJRKaSTEaUFZrEKUkFYKj ICAgICAgICAgICAgICAgICAgICAgICAgICAgICAgICAgICAgICAgICAgICAgICAgICAgICAgICAgICAg DJGwWVNqCHNrNOKqSHEqNOPuHSCoWXLjOS0BLFFgLSPdSKQhCAZfSKPyTTQqBAGkEKBdGIPzSRDbWDZj ICAgICAgICAgICAgICAgICAgICAgICAgICAgICAgIC VhKVYfNVUaJRPoRHTcKTUcSYHrEJAkZZHmNXObXEKyEWQtKD8JYCFbYLKpDYDdYVCnJKOyRGGhMGJkWM AgICAgICAgICAgICAgICAgICAgICAgICAgICAgICAgICAgICAgICAgICAgICAgICAgICAgICAgICAgIC EmYJUyJNOkYXQhLMGzCDWoLJ5TNSJvRZOzNXWlDKUl ICAgICAgICAgICAgICAgICAgICAgICAgICAgICAgICAgICAgICAgICAgICAgICAgICAgICAgICAgICAg ODNvAUBsWNOfALZaCYPaCOGoRHIeODNqUTHvSA2AVBIqJXAkWUDnVCKuCLCqFSMhLNLwZMVpTOFjVZJq ICAgICAgICAgICAgICAgICAgICAgICAgICAgICAgIC YsMKVjTPAwGFZeJKUzLHBtVKNnTBDgJZIpVENjAWBmNBOsSGQvLZ9HMQWyJKIqANOmFLMoHRVrAJItCN AgICAgICAgICAgICAgICAgICAgICAgICAgICAgICAgICAgICAgICAgICAgICAgICAgICAgICAgICAgIC MbIZIcBTYwWLHbLXOaVAReNBYpRX4DABYuRULlXLOb ICAgICAgICAgICAgICAgICAgICAgICAgICAgICAgICAgICAgICAgICAgICAgICAgICAgICAgICAgICAg WISqDNFjVTXjLCRpOKZbHEWqNZGxLSWlODOpPMHtND1ORDFxOUVhZXGdEVRxWGUsNOWzQHTtPJCgKOLi ICAgICAgICAgICAgICAgICAgICAgICAgICAgICAgIC WzJOIgMMQmSWGbUFNrQQZhEHYaDZFcBFSrGSFcCYUuHQDuJQJaDACiEU0GKHUvSCFuZEVaACQtEFTsJM AgICAgICAgICAgICAgICAgICAgICAgICAgICAgICAgICAgICAgICAgICAgICAgICAgICAgICAgICAgIC KtBICfZPJgRCVdJRDfLWRfOFBaISFoSA9XES43pFTb z9P2RBDfTC4nmfv/Gk6HOJjqqnDsjCHaXI1NCiLgRU4zqn1WClSdWC7ihm2UNTzBMkUzZ9R5yHIrNGVv AUQVRnHeI79jTMqnLq22EZliJSEnRaJdNTp4Em4HBrVnN5cuOCVlCcD2YQLvVgQbUSqbMJ9Lp6DeiWWj DQo+Ib6BFE2ot4DfVBmjDLLlXN9zll3LOQzHOnMlY1 IsexE1YES8RBAaFd8NUBBmWQJbeEHeNaBbSFWUWcJdZ4HnwP56ZZHPBe7+CWcrurLjAxhLUeA8CCDcr6 BtGQt4TM0UAAOxAYi0oNKfDD0fa7XiXAMqISSDxgXyos7wHEV3xkPnYCTijEYjrJxuvxNnxPBGFzPmHF OKgZ1zNSriMSQkWKKgNB1qXJ7nVDWpJMF8LpO8UMZP DZ3FDFDjVAPmkUIzYVRrJSKLUK1RJOrwPVY6TebvbvCncTDwSArsVJ5XOAVddlJaNiBhUNMCFCt+Pg0K YT6fj4KcRFkmRvXfOB2uap4SPZmOHmOpU3I2cPVmE8H7RUzkOc8GPESoEBHiFgYfVBKUIUsdSO7WDG5z rmI1WG4QuVQgCBNrGTTrfDSsZXq3T14cmMElVAewHK 0KICA+Maxine+Lp3QFLNcOQKrVXMfBpMmYUWDIuDlJ8McB9CYx8VtS7XwWT13jYjaqwTnGQhnDG0TKP0vGG IjPYQHJB5DaKEkhX5vfiTvEJLsGDWQDgQvU56geOZeRFIuNRW6OYOpGa6ZQJWcB1TyurTciWbvzwWdIB CqMVWXRF5PDEyohqTfpVHxgPzyGX47eYohTC0MKp7N IlJiGY9grt9GqQCnMj6XDEVlTA8FXEGwAAAlVMHxYTG1KJSkIlJgLVaxIYFdBHKcNAR1VDZuXISeUZ5I JhIvWJHuXlA6BCbkQBIxPLWqfn9BMPJfNNYjLiK4RCBiXQEdAGGlSMyuGEQuUAWfEVR5IYHlRRBeJB1N UfNlQNHbTPV1KijvOBSpLGPoiz8RCSMnGFSjHdArUs ArMOAyXMFbWOdwOMQiWTZjFYrfPHPgUAKvDP4RGkBbLJGcLOOfPBSvXWEoCVTdoq3YNSStDRHeCjG0Tk EoSQOtHWKuXSphSYJpRFO0RTT2PPSvATNsJD4PCoOrOLRcGWN6YuKnKXXoTHSadl4QUZUgTDWkIHqrWV BnQSIkPNFgMPokVIGwGJY3VWImAQJoXFUzMX7FLtGa IKNzGDm3GufcYPCwDBSozu9FHJIiZUBvOrE4DXSdGHXbBLWaBMsyMLDtQJO6PET2HRXbQEIdCV8VZrYm GVQrRXuiYtTkOSQdELQxfk8QYALeHIAuGWIzAiZoMVYwZOImFUvhTLQyYTD5XvPbLHDxLPGyCJ6ZLyMz UDCdIQevSrRuIMLyGNIkuv4JSUXrPIRoAIZiBaTaMF PkYRGkYVokMPXuOVFmTOT9LPMzESTwRA9HQlFvPWYoRbX3AWAkPKWsWAUwtq3PNAJjUIOkBRQcVJZdRK EuDDUkVMfqIRFjHOHhOLW1DVKkAXCwUM6USjCsULLnJlU7GfvbBRDyIHBjgb8EPCFlJBNdAal3NdYzJF BnIZPhANq8qzQdoMZnGAf4VG1OJ1VsncDdKqrZJl7B o813VEK3CIQzHp1HB8imFl1vBAKxYAMPVi1SPQv4ZGkpLSAqZiSoDGRkVUS4JIl0FtJxPUJoCSMeBUIz ZWY+MKd5MwOrOjM8PSI3PgS8ZoZzCDr1EEVbNjNvTTEmBRBlNn8gJOQJEn1+DQpzdGFydHhyZWYNCjIz OIM5KIdeZXRMNw6Z ID Date Data Source [id number] 04/11/2020 07:06:00 AM EDT [facility] Name Value Range Interpretation Code Description Data Jaci rce(s) Supporting Document(s) Glucose, Fingerstick 166 mg/dl 70-110 Above high normal [facility] The above 1 analytes were performed by [facility] [id number] [place] [address],[facility]#: [id number],[place] [address] ID Date Data Source [id number] 04/08/2020 08:48:00 AM EDT [facility] Name Value Range Interpretation Code Description Data Jaci rce(s) Supporting Document(s) :PrThr:Pt:Respiratory:Ord:Probe.amp.tar [facility] This lab was ordered by [facility] site and reported by [facility]. ID Date Data Source [id number] 04/09/2020 03:52:00 PM EDT [facility] Name Value Range Interpretation Code Description Data Jaci rce(s) Supporting Document(s) CRSP SARS-CoV-2 (RT)-PCR Assay Negative Negative N ormal (applies to non-numeric results) [facility] The [place] FDA has made th is test available under anemergency access mechanism called Emergency Use Authorization (EUA). TheEUA is supported by the audio visual secretary of Health and Human Service?s (HHS?s)declaration that circumstances exist to justify the emergency use of invitro diagnostics (IVDs) for the detection and/or diagnosis of the virusthat causes COVID-19.Test performed at [facility] located at [facility], [address] [place] [address]. First Test Yes [facility] Employed in healthcare No [facility] Symptomatic as defined by CDC No [facility] Hospitalized No [facility] Resident in a congregate care setting No [facility] The above 6 analytes were performed by [facility] [place] [address] ID Date Data Source [id number] 04/04/2020 10:19:00 AM EDT [facility] [address] [place] [id number] [phone] NAME SEX PT STATUS ACCOUNT NUMBER JACKSON LUCIA PRE REF [id number] ORDERING PHYSICIAN LOCATION MEDICAL RECORD NO. Sen Horton MD LAB [id number] ATTENDING PHYSICIAN DATE OF DATE OF EXAM/TIME Carole Lux MD 1950 04/04/20999 TYPE / EXAM Xray Chest 2 view PA/LAT REASON FOR EXAM PRESENCE OF CARDIAC PACEMAKER, SHORTNESS OF BREATH COMPARISON: November 08, 2018 FINDINGS: A left-sided dual-chamber AICD is seen. A third lead is seen in the coronary sinus. There is cardiomegaly. The mediastinal silhouette is otherwise unremarkable. Elevation of the right hemidiaphragm is seen. Lungs are otherwise essentially clear. There is no focal pulmonary consolidation, pleural effusion, or pulmonary vascular congestion. The patient is remotely post rotator cuff surgery, bilaterally. Degenerative changes are seen in the lower thoracic spine. No acute osseous abnormality is seen. IMPRESSION: 1. Cardiomegaly. 2. Interval exchange of a dual-chamber cardiac pacemaker or AICD. 3. No acute cardiopulmonary disease. Reported By Jerel Buitrago MD on 04/04/20 1019 Signed By Jerel Buitrago MD on 04/04/20 1022 Date Time CC: Carole Lux MD; Jerel Buitrago MD Techn: CARRC Trans Dt/Tm: Trans by: DT Prt Dt/Tm: : Total DLP = 0.00 mGy-cm Fluoroscopy Time (in secs): Name Value Range Interpretation Code Description Data Jaci rce(s) Supporting Document(s) ID Date Data Source [id number] 04/04/2020 10:01:[address] [facility] Name Value Range Interpretation Code Description Data Jaci rce(s) Supporting Document(s) Leukocytes [#/volume] in Blood by Automated count 6.2 10*3/uL 4.45-[address] [facility] Erythrocytes [#/volume] in Blood by Automated count 4.39 10*6/uL 4.3- 6.[address] [facility] Hemoglobin [Moles/volume] in Blood 13.3 g/dL 13-[address] [facility] Hematocrit [Volume Fraction] of Blood by Automated count 40.2 % 42-[address] [facility] Erythrocyte mean corpuscular volume [Ent itic volume] in Cord blood by Automated count 91.6 fL 80-96 N [facility] ital Erythrocyte mean corpuscular hemoglobin [Entitic mass] by Automated count 30.3 pg 27-31 N [facility] l Erythrocyte mean corpuscular hemoglobin concentration [Mass/volume] in Cord blood 33.1 g/dL 33-37 N [facility] Erythrocyte distribution width [Entitic volume] by Automated count 15 % 11-[address] [facility] Platelets [#/volume] in Blood by Automated count 175 10*3/uL 130-[address] [facility] Platelet mean volume [Entitic volume] in Blood 9.7 fL 9.1-13.[address] [facility] Neutrophils/100 leukocytes in Blood by Automated count 71.6 % 41- [address] [facility] Neutrophils [#/volume] in Blood by Automated count 4.5 U 1.7-7.[address] [facility] Lymphocytes/100 leukocytes in Blood by Automated count 13.2 % 14-[address] [facility] Lymphocytes [#/volume] in Blood by Automated count 0.8 U 0.6-4.[address] [facility] Monocytes/100 leukocytes in Blood by Automated count 8.8 % 4-[address] [facility] Monocytes [#/volume] in Blood by Automated count 0.6 U 0.2-1.[address] [facility] Eosinophils/100 leukocytes in Blood by Automated count 4.7 % 0-[address] [facility] Eosinophils [#/volume] in Blood by Automated count 0.3 U 0.0-0.[address] [facility] Basophils/100 leukocytes in Blood by Automated count 1.4 % 0.4-1.[address] [facility] Basophils [#/volume] in Blood by Automated count 0.1 U 0.0-0.[address] [facility] NUCLEATED RED BLOOD CELL 0 % [facility] NUCLEATED RED BLOOD CELL# 0 U [facility] Immature granulocytes [Presence] in Blood by Automated count 0-[address] [facility] Immature granulocytes [#/volume] in Blood by Automated count 0.0 U 0-0.[address] [facility] Manual Differential panel - Blood NO [facility] ID Date Data Source [id number] 04/04/2020 10:28:[address] [facility] Name Value Range Interpretation Code Description Data Jaci rce(s) Supporting Document(s) Prothrombin Time (Patient) 11.2 s 9.6-12.3 N [facility] INR 1.1 0.9-1.1 [facility] THE INR IS OPERATIONALLY DEFINED FOR ALVIN SH PLASMA FROMPATIENTS STABILIZED ON ORAL ANTICOAGULANTS.ROUTINE ANTICOAGULANT THERAPY 2.0-3.0RECURRENT SYSTEMIC EMBOLISM/HEART VALVE REPLACEMENT 2.5-3.5 aPTT.lupus sensitive (LA screen) 27.3 s 22.7-31.6 [facility] ID Date Data Source [id number] 04/04/2020 10:54:[address] [facility] Name Value Range Interpretation Code Description Data Jaci rce(s) Supporting Document(s) Urea nitrogen [Mass/volume] in Serum or Plasma 60 mg/dL 9-[address] [facility] Sodium [Moles/volume] in Serum or Plasma 138 mmol/L 132-146 [facility] Potassium [Moles/volume] in Serum or Plasma 4.5 mmol/L 3.5-5.5 [facility] Chloride [Moles/volume] in Serum or Plasma 102 mmol/L 99-109 [facility] Carbon dioxide, total [Moles/volume] in Serum or Plasma 30 mmol/L 20 -[address] [facility] Anion gap in Serum or Plasma 11 mmol/L 8-16 N [facility] Glucose [Mass/volume] in Serum or Plasma 185 mg/dL 74-[address] [facility] Creatinine 2.5 mg/dL 0.5-1.1 Above high normal [facility] Glomerular filtration rate/1.73 sq M.pre dicted [Volume Rate/Area] in Serum or Plasma 26 ml/min ABOVE 60 [facility] Alanine aminotransferase [Enzymatic acti vity/volume] in Serum or Plasma by With P-5'-P 34 U/L 10-49 [facility] Aspartate aminotransferase [Enzymatic ac tivity/volume] in Serum or Plasma by With P-5'-P 25 U/L 0-33 [facility] Alkaline phosphatase [Enzymatic activity/volume] in Serum or Plasma 173 U/L 45-[address] [facility] Calcium [Mass/volume] in Serum or Plasma 10.5 mg/dL 8.5-10.[address] [facility] Bilirubin.total [Mass/volume] in Serum or Plasma 1.2 mg/dL 0.3-1.[address] [facility] Albumin [Mass/volume] in Serum or Plasma by Bromocresol purple (BCP) dye binding method 3.9 g/dL 3.2-4.8 N [facility] Protein [Mass/volume] in Serum or Plasma 7.6 g/dL 5.7-8.2 [facility] ID Date Data Source [id number] 04/04/2020 09:48:00 AM EDT [facility] ([facility]) Name Value Range Interpretation Code Description Data Jaci rce(s) Supporting Document(s) Urea nitrogen [Mass/volume] in Serum or Plasma 60 mg/dL 9-23 Above high normal [facility] ([facility]) Sodium [Moles/volume] in Serum or Plasma 138 mmol/L 132-146 Normal (applies to non-numeric results) [facility]) Chloride [Moles/volume] in Serum or Plasma 102 mmol/L 99-10 9 Normal (applies to non-numeric results) [facility]) Potassium [Moles/volume] in Serum or Plasma 4.5 mmol/L 3.5- 5.5 Normal (applies to non-numeric results) [facility]) Anion gap in Serum or Plasma 11 mmol/L 8-16 Nor mal (applies to non-numeric results) [facility]) Carbon dioxide, total [Moles/volume] in Serum or Plasma 30 mmol/ L 20-31 Normal (applies to non-numeric results) [facility]) Glucose [Mass/volume] in Serum or Plasma 185 mg/dL 74-106 Above high normal [facility] ([facility]) Creatinine 2.5 mg/dL 0.5-1.1 Above high normal [facility] ([facility]) Glomerular filtration rate/1.73 sq M.pre dicted [Volume Rate/Area] in Serum or Plasma 26 [facility]) Alanine aminotransferase [Enzymatic acti vity/volume] in Serum or Plasma by With P-5'-P 34 U/L 10-49 Normal (applies to non-numeric results) [facility]) Aspartate aminotransferase [Enzymatic ac tivity/volume] in Serum or Plasma by With P-5'-P 25 U/L 0-33 Normal (applies to non-numeric results) [facility]) Alkaline phosphatase [Enzymatic activity/volume] in Serum or Plasma 173 U/L 45-129 Above high normal [facility] ([facility]) Calcium [Mass/volume] in Serum or Plasma 10.5 mg/dL 8.5-10.1 Above high normal [facility] ([facility]) Bilirubin.total [Mass/volume] in Serum or Plasma 1.2 mg/dL 0.3-1.2 Normal (applies to non-numeric results) [facility]) Protein [Mass/volume] in Serum or Plasma 7.6 g/dL 5.7-8.2 Normal (applies to non-numeric results) [facility]) Albumin [Mass/volume] in Serum or Plasma by Bromocresol purple (BCP) dye binding method 3.9 g/dL 3.2-4.8 Normal (applies to non-numeric results) [facility]) ID Date Data Source [id number] 04/04/2020 09:48:00 AM EDT [facility] Name Value Range Interpretation Code Description Data Jaci rce(s) Supporting Document(s) Inr 1.1 0.9-1.1 Normal (applies to non-numeric resul ts) [facility] ([facility]) THE INR IS OPERATIONALLY DEFINED FOR ALVIN SH PLASMA FROM PATIENTS STABILIZED ON ORAL ANTICOAGULANTS. ROUTINE ANTICOAGULANT THERAPY 2.0-3.0 RECURRENT SYSTEMIC EMBOLISM/HEART VALVE REPLACEMENT 2.5-3.5 Laboratory test finding (navigational concept) 11.2 s 9 .6-12.3 Normal (applies to non-numeric results) [facility] ([facility]) aPTT.lupus sensitive (LA screen) 27.3 s 22.7-31.6 Normal (applies to non-numeric results) [facility]) ID Date Data Source [id number] 04/04/2020 09:48:00 AM EDT [facility] Name Value Range Interpretation Code Description Data Jaci rce(s) Supporting Document(s) Erythrocytes [#/volume] in Blood by Automated count 4.39 10*6/uL 4.3-6.1 Normal (applies to non-numeric results) [facility]) Hemoglobin [Moles/volume] in Blood 13.3 g/dL 13-18 Normal (applies to non- numeric results) [facility]) Leukocytes [#/volume] in Blood by Automated count 6.2 10*3/uL 4.45-10.71 Normal (applies to non-numeric results) [facility]) Erythrocyte mean corpuscular volume [Ent itic volume] in Cord blood by Automated count 91.6 fL 80-96 Normal (applies to non-numeric results) [facility]) Erythrocyte mean corpuscular hemoglobin [Entitic mass] by Automated count 30.3 pg 27-31 Normal (applies to non-numeric results) [facility] ([facility]) Hematocrit [Volume Fraction] of Blood by Automated count 40.2 % 42-52 Below low normal [facility] ([facility]) Erythrocyte distribution width [Entitic volume] by Automated cou nt 15 % 11-15 Normal (applies to non-numeric results) [facility] Erythrocyte mean corpuscular hemoglobin concentration [Mass/volume] in Cord blood 33.1 g/dL 33-37 Normal (applies to non-numeric results) [facility]) Platelet mean volume [Entitic volume] in Blood 9.7 fL 9 .1-13.1 Normal (applies to non-numeric results) [facility]) Platelets [#/volume] in Blood by Automated count 175 10*3/uL 130-472 Normal (applies to non-numeric results) [facility]) Neutrophils [#/volume] in Blood by Automated count 4.5 U 1.7-7.6 Normal (applies to non-numeric results) [facility]) Lymphocytes/100 leukocytes in Blood by Automated count 13.2 % 14-46 Below low normal [facility] ([facility]) Neutrophils/100 leukocytes in Blood by Automated count 71.6 % 41-77 Normal (applies to non-numeric results) [facility]) Lymphocytes [#/volume] in Blood by Automated count 0.8 U 0.6-4.6 Normal (applies to non-numeric results) [facility]) Monocytes/100 leukocytes in Blood by Automated count 8.8 % 4-12 Normal (applies to non-numeric results) [facility]) Monocytes [#/volume] in Blood by Automated count 0.6 U 0.2-1.2 Normal (applies to non-numeric results) [facility]) Eosinophils/100 leukocytes in Blood by Automated count 4.7 % 0-7 Normal (applies to non-numeric results) [facility]) Eosinophils [#/volume] in Blood by Automated count 0.3 U 0.0-0.5 Normal (applies to non-numeric results) [facility]) Basophils/100 leukocytes in Blood by Automated count 1.4 % 0.4-1.3 Above high normal [facility] ([facility]) Laboratory test finding (navigational concept) 0 % [facility]) Basophils [#/volume] in Blood by Automated count 0.1 U 0.0-0.2 Normal (applies to non-numeric results) [facility]) Immature granulocytes [Presence] in Blood by Automated count 0.3 0-2 Normal (applies to non-numeric results) [facility]) Laboratory test finding (navigational concept) 0 U [facility] ([facility]) Immature granulocytes [#/volume] in Blood by Automated count 0.0 U 0-0.1 Normal (applies to non-numeric results) [facility]) Manual Differential panel - Blood Laboratory test result [facility]) ID Date Data Source [id number] 04/04/2020 09:48:00 AM EDT [facility]) Name Value Range Interpretation Code Description Data Jaci rce(s) Supporting Document(s) Reported Physicians See Note Reported Physici ans [place] ([facility]) Note: Reported Physicians:Ordering: Fred Traceyending: Margy Horton To: Carole Lux ID Date Data Source [id number] 04/04/2020 09:48:00 AM EDT [facility] ([facility]) Name Value Range Interpretation Code Description Data Jaci rce(s) Supporting Document(s) Alanine aminotransferase [Enzymatic acti vity/volume] in Serum or Plasma by With P-5'-P 34 enzyme_unit_per_liter Normal ALT [facility] Note: Responsible Observer: SGPT/ALT SGP T/ALT 400.1750 (G) Bilirubin.total [Mass/volume] in Serum or Plasma 1.2 MilliGramsPerDeciLiter_[Mass_Concentration_Units] Normal Bilirub [facility] ([facility]) Note: Responsible Observer: T KATI Total Bilirubin 400.2600 (G) Calcium [Mass/volume] in Serum or Plasma 10.5 MilliGramsPerDeciLiter_[Mass_Concentration_Units] Above high normal Calcium [facility] ([facility]) Note: Responsible Observer: Calcium Calc ium 400.2500 (G) Carbon dioxide, total [Moles/volume] in Serum or Plasm a 30 MilliMolesPerLiter_[Substance_Concentration_Units] Normal CO2 [facility] ([facility]) Note: Responsible Observer: CO2 Carbon D ioxide 400.1400 (G) Glucose [Mass/volume] in Serum or Plasma 185 MilliGramsPerDeciLiter_[Mass_Concentration_Units] Above high normal Glucose [facility] ([facility]) Note: Responsible Observer: Glucose Gluc ose 400.1500 (G) Chloride [Moles/volume] in Serum or Plasma 102 MilliMolesPerLiter_[Substance_Concentration_Units] Normal Chloride [facility] ([facility]) Note: Responsible Observer: Chloride Chl oride 400.1250 (G) Potassium [Moles/volume] in Serum or Plasma 4.5 MilliMolesPerLiter_[Substance_Concentration_Units] Normal Potassium [facility] ([facility]) Note: Responsible Observer: K Potassium 400.1210 (G) Protein [Mass/volume] in Serum or Plasma 7.6 GramsPerDeciLiter_[Mass_Concentration_Units] Normal Pro t [facility] ([facility]) Note: Responsible Observer: TP Total Pro tein 400.2800 (G) Sodium [Moles/volume] in Serum or Plasma 138 MilliMolesPerLiter_[Substance_Concentration_Units] Normal Sodium [facility] ([facility]) Note: Responsible Observer: Sodium Sodiu m 400.1100 (G) Aspartate aminotransferase [Enzymatic ac tivity/volume] in Serum or Plasma by With P-5'-P 25 enzyme_unit_per_liter Normal AST SerP w P-5' -[facility] ([facility]) Note: Responsible Observer: SGOT / AST S GOT / AST 400.1900 (G) Urea nitrogen [Mass/volume] in Serum or Plasma 60 MilliGramsPerDeciLiter_[Mass_Concentration_Units] Above high normal BUN [facility] ([facility]) Note: Responsible Observer: BUN Blood Ur ea Nitrogen 400.1000 (G) Anion gap in Serum or Plasma 11 MilliMolesPerLiter_[Substance_Concentration_Units] Normal Anion Gap [facility] ([facility]) Note: Responsible Observer: ANION GAP AN ION GAP 400.1402 (E) Albumin [Mass/volume] in Serum or Plasma by Bromocresol purple (BCP) dye binding method 3.9 GramsPerDeciLiter_[Mass_Concentration_Units] Normal Albumin [facility] ([facility]) Note: Responsible Observer: Albumin [place] 400.2700 (G) Alkaline phosphatase [Enzymatic activity/volume] in Se rum or Plasma 173 enzyme_unit_per_liter Above high normal ALP [facility] ([facility]) Note: Responsible Observer: ALP Alkaline Phosphatase 400.2000 (G) Glomerular filtration rate/1.73 sq M.pre dicted [Volume Rate/Area] in Serum or Plasma 26 [facility] [place] Note: Responsible Observer: GFR Glomerul ar Filt Rate Calc 400.1605 (D) Creatinine [Moles/volume] in Vitreous fluid 2.5 MilliGramsPerDeciLiter_[Mass_Concentration_Units] Above high normal Creatinine [place] ([facility]) Note: Responsible Observer: Creatinine C reatinine 400.1600 (G) ID Date Data Source [id number] 04/04/2020 09:48:00 AM EDT [place] ([facility]) Name Value Range Interpretation Code Description Data Jaci rce(s) Supporting Document(s) aPTT.lupus sensitive (LA screen) 27.3 second Normal Sc reen aPTT [place] ([facility]) Note: Responsible Observer: PTT PTT 200 .0500 (A) INR 1.1 Normal INR [place] ([facility]) Note: THE INR IS OPERATIONALLY DEFINED F OR FRESH PLASMA FROMPATIENTS STABILIZED ON ORAL ANTICOAGULANTS.ROUTINE ANTICOAGULANT THERAPY 2.0-3.0RECURRENT SYSTEMIC EMBOLISM/HEART VALVE REPLACEMENT 2.5-3.5Responsible Observer: INR INR 200.0400 (A) Prothrombin Time (Patient) 11.2 second Normal Prothrom bin Time (Patient) [place] ([facility]) Note: Responsible Observer: PT Prothromb in Time 200.0300 (A) ID Date Data Source [id number] 04/04/2020 09:48:00 AM EDT [place] ([facility]) Name Value Range Interpretation Code Description Data Jaci rce(s) Supporting Document(s) Erythrocyte mean corpuscular volume [Ent itic volume] in Cord blood by Automated count 91.6 FemtoLiter_[SI_Volume_Units] Normal MCV Bld Co Auto [place] ([facility]) Note: Responsible Observer: MCV MCV 100 .0600 (B) Erythrocyte distribution width [Entitic volume] by Automated cou nt 15 percent Normal RDW RBC Auto [place] ([facility]) Note: Responsible Observer: RDW RDW 100 .0900 (B) Manual Differential panel - Blood NO Ma nual diff d [place] ([facility]) Note: Responsible Observer: CBC Manual D ifferential Added 100.1990 (B) Platelet mean volume [Entitic volume] in Blood 9.7 FemtoLite r_[SI_Volume_Units] Normal PMV Bld [facility]: Responsible Observer: MPV MPV 100 .1100 (B) Immature granulocytes [Presence] in Blood by Automated count See No te Normal Imm Granulocytes Bld Ql Auto [facility] ([facility]) Note: [id number] ible Observer: IG% IG% 100.1375 (B) Hematocrit [Volume Fraction] of Blood by Automated count 40.2 pe rcent Below low normal Hct VFr Bld Auto [facility] ([facility]) Note: Responsible Observer: HEMATOCRIT H EMATOCRIT 100.0500 (B) Erythrocyte mean corpuscular hemoglobin concentration [Mass/volume] in Cord blood 33.1 GramsPerDeciLiter_[Mass_Concentration_Units] Normal MCHC BldCo-mCnc [facility] ([facility]) Note: Responsible Observer: MCHC MCHC 1 00.0800 (B) Monocytes/100 leukocytes in Blood by Automated count 8.8 percent Normal Monocytes/leuk NFr Bld Auto [facility] ([facility]) Note: Responsible Observer: MONO % MONO % 100.1225 (B) Immature granulocytes [#/volume] in Blood by Automated count 0.0 Un it Imm Granulocytes # Bld Auto [facility] ([facility]) Note: Responsible Observer: IG# IG# 100 .1400 (B) Hemoglobin [Moles/volume] in Blood 13.3 GramsPerDeciLiter_[Mass_Concentration_Units] Normal Hgb Bld-sCnc [facility] ([facility]) Note: Responsible Observer: HGB HEMOGLOB IN 100.0400 (B) Leukocytes [#/volume] in Blood by Automated count 6.2 ThousandsPerMicroLiter_[Number_Concentration_Units] Normal WBC # Bld Auto [facility] ([facility]) Note: Responsible Observer: WBC WHITE BL OOD COUNT 100.0100 (E) Basophils [#/volume] in Blood by Automated count 0.1 Unit Normal Basophils # Bld Auto [facility] ([facility]) Note: Responsible Observer: BASO # BASO# 100.1350 (B) Basophils/100 leukocytes in Blood by Automated count 1.4 percent Above high normal Basophils/leuk NFr Bld Auto [facility] Note: Responsible Observer: BASO % BASO % 100.1325 (B) Eosinophils [#/volume] in Blood by Automated count 0.3 Unit Normal Eosinophil # Bld Auto [facility] ([facility]) Note: Responsible Observer: EOS # EOS# 100.1300 (D) Eosinophils/100 leukocytes in Blood by Automated count 4.7 percent Normal Eosinophil/leuk NFr Bld Auto [facility] ([facility]) Note: Responsible Observer: EOS % EOS % 100.1275 (B) Lymphocytes [#/volume] in Blood by Automated count 0.8 Unit Normal Lymphocytes # Bld Auto [facility] ([facility]) Note: Responsible Observer: LYMPH # LYMP H# 100.1200 (B) Lymphocytes/100 leukocytes in Blood by Automated count 13.2 perc ent Below low normal Lymphocytes/leuk NFr Bld Auto [facility] Note: Responsible Observer: LYMPH % LYMP H % 100.1175 (B) Monocytes [#/volume] in Blood by Automated count 0.6 Unit Normal Monocytes # Bld Auto [facility] ([facility]) Note: Responsible Observer: MONO # MONO# 100.1250 (C) Neutrophils [#/volume] in Blood by Automated count 4.5 Unit Normal Neutrophils # Bld Auto [facility] ([facility]) Note: Responsible Observer: NEUT# NEUT# 100.1150 (B) Neutrophils/100 leukocytes in Blood by Automated count 71.6 percent Normal Neutrophils/leuk NFr Bld Auto [facility] ([facility]) Note: Responsible Observer: NEUT% NEUT% 100.1125 (B) Platelets [#/volume] in Blood by Automated count 175 ThousandsPerMicroLiter_[Number_Concentration_Units] Normal Platelet # Bld Auto [facility] ([facility]) Note: Responsible Observer: PLATELET COU NT PLATELET COUNT 100.1000 (D) Erythrocyte mean corpuscular hemoglobin [Entitic mass] by Automated count 30.3 PicoGram_[SI_Mass_Units] Normal MCH RBC Qn Auto [place] ([facility]) Note: Responsible Observer: MCH MCH 100 .0700 (B) Erythrocytes [#/volume] in Blood by Automated count 4. 39 MillionsPerMicroLiter_[Number_Concentration_Units] Normal RBC # Bld Auto [facility] ([facility]) Note: Responsible Observer: RBC Red Bloo d Count 100.0300 (B) NUCLEATED RED BLOOD CELL# 0 Unit NUCLEATED RED BLOOD CELL# [facility] ([facility]) Note: Responsible Observer: NRBCKrystle RIOS RBC 100.1362 (A) NUCLEATED RED BLOOD CELL 0 percent NUCLEATED R ED BLOOD CELL [facility] ([facility]) Note: Responsible Observer: NRBC% NRBC% 100.1360 (B) ID Date Data Source [id number] 03/26/2020 11:36:00 AM EDT [facility] ([facility] Name Value Range Interpretation Code Description Data Jaci rce(s) Supporting Document(s) Laboratory test finding (navigational concept) Laboratory test result [facility] ([facility]) ID Date Data Source [id number] 03/18/2020 01:37:00 PM EDT [facility] Name Value Range Interpretation Code Description Data Jaci rce(s) Supporting Document(s) Chest X-ray PA and lateral Laboratory test result [facility] ([facility]) ID Date Data Source [id number] 03/12/2020 06:35:00 PM EDT [facility] Name Value Range Interpretation Code Description Data Jaci rce(s) Supporting Document(s) Optivol In Office Laboratory test result [facility] ([facility]) Icd Multi Program Laboratory test result [facility] ([facility]) ID Date Data Source [id number] 03/12/2020 01:33:[address] [facility] Name Value Range Interpretation Code Description Data Jaci rce(s) Supporting Document(s) Leukocytes [#/volume] in Blood by Automated count 8.3 10*3/uL 4.45-[address] [facility] Erythrocytes [#/volume] in Blood by Automated count 4.85 10*6/uL 4.3- 6.[address] [facility] Hemoglobin [Moles/volume] in Blood 14.7 g/dL 13-[address] [facility] Hematocrit [Volume Fraction] of Blood by Automated count 43.8 % 4 2-[address] [facility] Erythrocyte mean corpuscular volume [Ent itic volume] in Cord blood by Automated count 90.3 fL 80-96 N [facility] Erythrocyte mean corpuscular hemoglobin [Entitic mass] by Automated count 30.3 pg 27-31 N [facility] l Erythrocyte mean corpuscular hemoglobin concentration [Mass/volume] in Cord blood 33.6 g/dL 33-37 N [facility] ital Erythrocyte distribution width [Entitic volume] by Automated count 14 % 11-[address] [facility] Platelets [#/volume] in Blood by Automated count 191 10*3/uL 130-[address] [facility] Platelet mean volume [Entitic volume] in Blood 10.3 fL 9.1-13.[address] [facility] Neutrophils/100 leukocytes in Blood by Automated count 77.1 % 41-[address] [facility] Neutrophils [#/volume] in Blood by Automated count 6.4 U 1.7-7.[address] [facility] Lymphocytes/100 leukocytes in Blood by Automated count 8.8 % 14-[address] [facility] Lymphocytes [#/volume] in Blood by Automated count 0.7 U 0.6-4.[address] [facility] Monocytes/100 leukocytes in Blood by Automated count 8.6 % 4-[address] [facility] Monocytes [#/volume] in Blood by Automated count 0.7 U 0.2-1.[address] [facility] Eosinophils/100 leukocytes in Blood by Automated count 4.0 % 0-[address] [facility] Eosinophils [#/volume] in Blood by Automated count 0.3 U 0.0-0.[address] [facility] Basophils/100 leukocytes in Blood by Automated count 1.0 % 0.4-[address] [facility] Basophils [#/volume] in Blood by Automated count 0.1 U 0.0-0.[address] [facility] NUCLEATED RED BLOOD CELL 0 % [facility] NUCLEATED RED BLOOD CELL# 0 U [facility] Immature granulocytes [Presence] in Blood by Automated count 0-[address] [facility] Immature granulocytes [#/volume] in Blood by Automated count 0.0 U 0-0.[address] [facility] Manual Differential panel - Blood NO [facility] ID Date Data Source [id number] 03/12/2020 02:04:[address] [facility] Name Value Range Interpretation Code Description Data Jaci rce(s) Supporting Document(s) Urea nitrogen [Mass/volume] in Serum or Plasma 78 mg/dL 9 -23 No range defined, or normal ranges don't apply [facility] @Review test & document.Called to LILLIAN Cantu @ [phone] by Judi Bermeo. Results readback.Repeated by: Judi Bermeo 03/12/20 1400.Result Confirmation: 77 mg/dL Sodium [Moles/volume] in Serum or Plasma 140 mmol/L 132-[address] [facility] Potassium [Moles/volume] in Serum or Plasma 4.4 mmol/L 3.5-5.[address] [facility] Chloride [Moles/volume] in Serum or Plasma 103 mmol/L 99-[address] [facility] Carbon dioxide, total [Moles/volume] in Serum or Plasma 31 mmol/L 20 -[address] [facility] Anion gap in Serum or Plasma 10 mmol/L 8-16 N L [facility] Glucose [Mass/volume] in Serum or Plasma 208 mg/dL 74-[address] [facility] Creatinine 2.6 mg/dL 0.5-1.1 Above high normal [facility] Glomerular filtration rate/1.73 sq M.pre dicted [Volume Rate/Area] in Serum or Plasma 24 ml/min ABOVE 60 [facility] ital Alanine aminotransferase [Enzymatic acti vity/volume] in Serum or Plasma by With P-5'-P 54 U/L 10-[address] [facility] Aspartate aminotransferase [Enzymatic ac tivity/volume] in Serum or Plasma by With P-5'-P 31 U/L 0-33 [facility] Alkaline phosphatase [Enzymatic activity/volume] in Serum or Plasma 177 U/L 45-[address] [facility] Calcium [Mass/volume] in Serum or Plasma 10.8 mg/dL 8.5-10.[address] [facility] [address] [facility] Bilirubin.total [Mass/volume] in Serum or Plasma 0.8 mg/dL 0.3-1.2 [facility] Albumin [Mass/volume] in Serum or Plasma by Bromocresol purple (BCP) dye binding method 4.2 g/dL 3.2-4.8 [facility] ital Protein [Mass/volume] in Serum or Plasma 8.5 g/dL 5.7-8.[address] [facility] normal [facility] ID Date Data Source [id number] 03/12/2020 01:05:00 PM EDT [facility] ([facility] Name Value Range Interpretation Code Description Data Jaci rce(s) Supporting Document(s) Urea nitrogen [Mass/volume] in Serum or Plasma 78 mg/dL 9-23 No range defined [facility] ([facility]) I50.23,N18.3,I49.5 Potassium [Moles/volume] in Serum or Plasma 4.4 mmol/L 3.5- 5.5 Normal (applies to non-numeric results) [facility] ([facility]) I50.23,N18.3,I49.5 Sodium [Moles/volume] in Serum or Plasma 140 mmol/L 132-146 Normal (applies to non-numeric results) [facility] ([facility]) I50.23,N18.3,I49.5 Chloride [Moles/volume] in Serum or Plasma 103 mmol/L 99-10 9 Normal (applies to non-numeric results) [facility] ([facility]) I50.23,N18.3,I49.5 Carbon dioxide, total [Moles/volume] in Serum or Plasma 31 mmol/ L 20-31 Normal (applies to non-numeric results) [facility] ([facility]) I50.23,N18.3,I49.5 Glucose [Mass/volume] in Serum or Plasma 208 mg/dL 74-106 Above high normal [facility] ([facility]) I50.23,N18.3,I49.5 Anion gap in Serum or Plasma 10 mmol/L 8-16 Nor mal (applies to non-numeric results) [facility] ([facility]) I50.23,N18.3,I49.5 Creatinine 2.6 mg/dL 0.5-1.1 Above high normal [facility] ([facility]) I50.23,N18.3,I49.5 Alanine aminotransferase [Enzymatic acti vity/volume] in Serum or Plasma by With P-5'-P 54 U/L 10-49 Above high normal [facility] I50.23,N18.3,I49.5 Glomerular filtration rate/1.73 sq M.pre dicted [Volume Rate/Area] in Serum or Plasma 24 [facility] ([facility]) I50.23,N18.3,I49.5 Alkaline phosphatase [Enzymatic activity/volume] in Serum or Plasma 177 U/L 45-129 Above high normal [facility] ([facility]) I50.23,N18.3,I49.5 Aspartate aminotransferase [Enzymatic ac tivity/volume] in Serum or Plasma by With P-5'-P 31 U/L 0-33 Normal (applies to non-numeric results) [facility] ([facility]) I50.23,N18.3,I49.5 Calcium [Mass/volume] in Serum or Plasma 10.8 mg/dL 8.5-10.1 Above high normal [facility] ([facility]) I50.23,N18.3,I49.5 Albumin [Mass/volume] in Serum or Plasma by Bromocresol purple (BCP) dye binding method 4.2 g/dL 3.2-4.8 Normal (applies to non-numeric results) [facility] ([facility]) I50.23,N18.3,I49.5 Bilirubin.total [Mass/volume] in Serum or Plasma 0.8 mg/dL 0.3-1.2 Normal (applies to non-numeric results) [facility] ([facility]) I50.23,N18.3,I49.5 Protein [Mass/volume] in Serum or Plasma 8.5 g/dL 5.7-8.2 Above high normal [facility] ([facility]) I50.23,N18.3,I49.5 ID Date Data Source [id number] 03/12/2020 01:05:00 PM EDT [facility] ([facility]) Name Value Range Interpretation Code Description Data Jaci rce(s) Supporting Document(s) Erythrocytes [#/volume] in Blood by Automated count 4.85 10*6/uL 4.3-6.1 Normal (applies to non-numeric results) [facility] ([facility]) I50.23,N18.3,I49.5 Leukocytes [#/volume] in Blood by Automated count 8.3 10*3/uL 4.45-10.71 Normal (applies to non-numeric results) [facility] ([facility]) I50.23,N18.3,I49.5 Erythrocyte mean corpuscular volume [Ent itic volume] in Cord blood by Automated count 90.3 fL 80-96 Normal (applies to non-numeric results) [facility] ([facility]) I50.23,N18.3,I49.5 Hemoglobin [Moles/volume] in Blood 14.7 g/dL 13-18 Normal (applies to non- numeric results) [facility] ([facility]) I50.23,N18.3,I49.5 Hematocrit [Volume Fraction] of Blood by Automated count 43.8 % 42-52 Normal (applies to non-numeric results) [facility] ([facility]) I50.23,N18.3,I49.5 Erythrocyte mean corpuscular hemoglobin [Entitic mass] by Automated count 30.3 pg 27-31 Normal (applies to non-numeric results) [facility] ([facility]) I50.23,N18.3,I49.5 Erythrocyte distribution width [Entitic volume] by Automated cou nt 14 % 11-15 Normal (applies to non-numeric results) [facility]) I50.23,N18.3,I49.5 Erythrocyte mean corpuscular hemoglobin concentration [Mass/volume] in Cord blood 33.6 g/dL 33-37 Normal (applies to non-numeric results) [facility] ([facility]) I50.23,N18.3,I49.5 Platelet mean volume [Entitic volume] in Blood 10.3 fL 9 .1-13.1 Normal (applies to non-numeric results) [facility] ([facility]) I50.23,N18.3,I49.5 Neutrophils/100 leukocytes in Blood by Automated count 77.1 % 41-77 Above high normal [facility] ([facility]) I50.23,N18.3,I49.5 Platelets [#/volume] in Blood by Automated count 191 10*3/uL 130-472 Normal (applies to non-numeric results) [facility] ([facility]) I50.23,N18.3,I49.5 Lymphocytes [#/volume] in Blood by Automated count 0.7 U 0.6-4.6 Normal (applies to non-numeric results) [facility] ([facility]) I50.23,N18.3,I49.5 Neutrophils [#/volume] in Blood by Automated count 6.4 U 1.7-7.6 Normal (applies to non-numeric results) [facility] ([facility]) I50.23,N18.3,I49.5 Lymphocytes/100 leukocytes in Blood by Automated count 8.8 % 14-46 Below low normal [facility] ([facility]) I50.23,N18.3,I49.5 Eosinophils/100 leukocytes in Blood by Automated count 4.0 % 0-7 Normal (applies to non-numeric results) [facility] ([facility]) I50.23,N18.3,I49.5 Monocytes [#/volume] in Blood by Automated count 0.7 U 0.2-1.2 Normal (applies to non-numeric results) [facility] ([facility]) I50.23,N18.3,I49.5 Monocytes/100 leukocytes in Blood by Automated count 8.6 % 4-12 Normal (applies to non-numeric results) [facility]) I50.23,N18.3,I49.5 Basophils/100 leukocytes in Blood by Automated count 1.0 % 0.4-1.3 Normal (applies to non-numeric results) [facility] ([facility]) I50.23,N18.3,I49.5 Basophils [#/volume] in Blood by Automated count 0.1 U 0.0-0.2 Normal (applies to non-numeric results) [facility] ([facility]) I50.23,N18.3,I49.5 Eosinophils [#/volume] in Blood by Automated count 0.3 U 0.0-0.5 Normal (applies to non-numeric results) [facility] ([facility]) I50.23,N18.3,I49.5 Laboratory test finding (navigational concept) 0 % [facility] ([facility]) I50.23,N18.3,I49.5 Laboratory test finding (navigational concept) 0 U [facility] ([facility]) I50.23,N18.3,I49.5 Immature granulocytes [Presence] in Blood by Automated count 0.5 0-2 Normal (applies to non-numeric results) [facility] ([facility]) I50.23,N18.3,I49.5 Immature granulocytes [#/volume] in Blood by Automated count 0.0 U 0-0.1 Normal (applies to non-numeric results) [facility] ([facility]) I50.23,N18.3,I49.5 Manual Differential panel - Blood Laboratory test result [facility] ([facility]) I50.23,N18.3,I49.5 ID Date Data Source [id number] 03/12/2020 01:05:00 PM EDT [place] ([facility]) Name Value Range Interpretation Code Description Data Jaci rce(s) Supporting Document(s) Reported Physicians See Note Reported Physici ans [place] ([facility]) Note: Reported Physicians:Ordering: Ailyn Henryding: Shashi Henry To: Carole Lux ID Date Data Source [id number] 03/12/2020 01:05:00 PM [facility] ([facility]) Name Value Range Interpretation Code Description Data Jaci rce(s) Supporting Document(s) Calcium [Mass/volume] in Serum or Plasma 10.8 MilliGramsPerDeciLiter_[Mass_Concentration_Units] Above high normal Calcium [facility] ([facility]) Note: Responsible Observer: Calcium Calc ium 400.2500 (G) Alanine aminotransferase [Enzymatic acti vity/volume] in Serum or Plasma by With P-5'-P 54 enzyme_unit_per_liter Above high normal [facility] ([facility]) Note: Responsible Observer: SGPT/ALT SGP T/ALT 400.1750 (G) Bilirubin.total [Mass/volume] in Serum or Plasma 0.8 MilliGramsPerDeciLiter_[Mass_Concentration_Units] Normal Bilirub [facility] ([facility]) Note: Responsible Observer: T KATI Total Bilirubin 400.2600 (G) Carbon dioxide, total [Moles/volume] in Serum or Plasm a 31 MilliMolesPerLiter_[Substance_Concentration_Units] Normal CO2 [facility] ([facility]) Note: Responsible Observer: CO2 Carbon D ioxide 400.1400 (G) Chloride [Moles/volume] in Serum or Plasma 103 MilliMolesPerLiter_[Substance_Concentration_Units] Normal Chloride [facility] ([facility]) Note: Responsible Observer: Chloride Chl oride 400.1250 (G) Glucose [Mass/volume] in Serum or Plasma 208 MilliGramsPerDeciLiter_[Mass_Concentration_Units] Above high normal Glucose [facility] ([facility]) Note: Responsible Observer: Glucose Gluc ose 400.1500 (G) Protein [Mass/volume] in Serum or Plasma 8.5 GramsPerDeciLiter_[Mass_Concentration_Units] Above high norm al Prot [facility] ([facility]) Note: Responsible Observer: TP Total Pro tein 400.2800 (G) Potassium [Moles/volume] in Serum or Plasma 4.4 MilliMolesPerLiter_[Substance_Concentration_Units] Normal Potassium [facility] ([facility]) Note: Responsible Observer: K Potassium 400.1210 (G) Sodium [Moles/volume] in Serum or Plasma 140 MilliMolesPerLiter_[Substance_Concentration_Units] Normal Sodium [facility] ([facility]) Note: Responsible Observer: Sodium Sodiu m 400.1100 (G) Aspartate aminotransferase [Enzymatic ac tivity/volume] in Serum or Plasma by With P-5'-P 31 enzyme_unit_per_liter Normal AST [facility] [place] [facility] Note: Responsible Observer: SGOT / AST S GOT / AST 400.1900 (G) Urea nitrogen [Mass/volume] in Serum or Plasma 78 MilliGramsPerDeciLiter_[Mass_Concentration_Units] BUN [facility] ([facility]) Note: @Review test & document.Called to YUE @ 7334 by Judi Bermeo. Results readback.Repeated by: Judi Bermeo 03/12/20 1400.Result Confirmation: 77 mg/dLResponsible Observer: BUN Blood Urea Nitrogen 400.1000 (G) Anion gap in Serum or Plasma 10 MilliMolesPerLiter_[Substance_Concentration_Units] Normal Anion Gap [facility] ([facility]) Note: Responsible Observer: ANION GAP AN ION GAP 400.1402 (E) Albumin [Mass/volume] in Serum or Plasma by Bromocresol purple (BCP) dye binding method 4.2 GramsPerDeciLiter_[Mass_Concentration_Units] Normal Albumin [facility] ([facility]) Note: Responsible Observer: Albumin [place] 400.2700 (G) Alkaline phosphatase [Enzymatic activity/volume] in Se rum or Plasma 177 enzyme_unit_per_liter Above high normal ALP SerPl-cCnc [facility] ([facility]) Note: Responsible Observer: ALP Alkaline Phosphatase 400.2000 (G) Creatinine [Moles/volume] in Vitreous fluid 2.6 MilliGramsPerDeciLiter_[Mass_Concentration_Units] Above high normal Creatinine [place] ([facility]) Note: Responsible Observer: Creatinine C reatinine 400.1600 (G) Glomerular filtration rate/1.73 sq M.pre dicted [Volume Rate/Area] in Serum or Plasma 24 GFR/BSA.pred [facility] [place] ([facility]) Note: Responsible Observer: GFR Glomerul ar Filt Rate Calc 400.1605 (D) ID Date Data Source [id number] 03/12/2020 01:05:00 PM EDT [place] ([facility]) Name Value Range Interpretation Code Description Data Jaci rce(s) Supporting Document(s) Erythrocyte mean corpuscular volume [Ent itic volume] in Cord blood by Automated count 90.3 FemtoLiter_[SI_Volume_Units] Normal MCV Bld Co Auto [place] ([facility]) Note: Responsible Observer: MCV MCV 100 .0600 (B) Manual Differential panel - Blood NO Ma nual diff Bld [place] ([facility]) Note: Responsible Observer: CBC Manual D ifferential Added 100.1990 (B) Erythrocyte distribution width [Entitic volume] by Automated cou nt 14 percent Normal RDW RBC Auto [place] ([facility]) Note: Responsible Observer: RDW RDW 100 .0900 (B) Platelet mean volume [Entitic volume] in Blood 10.3 Fe mtoLiter_[SI_Volume_Units] Normal PMV Bld [place] [facility] Note: Responsible Observer: MPV MPV 100 .1100 (B) Hematocrit [Volume Fraction] of Blood by Automated count 43.8 perce nt Normal Hct VFr Bld Auto [facility] ([facility]) Note: Responsible Observer: HEMATOCRIT H EMATOCRIT 100.0500 (B) Immature granulocytes [Presence] in Blood by Automated count See No te Normal Imm Granulocytes Bld Ql Auto [facility] ([facility]) Note: [id number] ible Observer: IG% IG% 100.1375 (B) Immature granulocytes [#/volume] in Blood by Automated count 0.0 Un it Imm Granulocytes # Bld Auto [facility] ([facility]) Note: Responsible Observer: IG# IG# 100 .1400 (B) Erythrocyte mean corpuscular hemoglobin concentration [Mass/volume] in Cord blood 33.6 GramsPerDeciLiter_[Mass_Concentration_Units] Normal MCHC BldCo-mCnc [facility] ([facility]) Note: Responsible Observer: MCHC MCHC 1 00.0800 (B) Monocytes/100 leukocytes in Blood by Automated count 8.6 percent Normal Monocytes/leuk NFr Bld Auto [facility] ([facility]) Note: Responsible Observer: MONO % MONO % 100.1225 (B) Hemoglobin [Moles/volume] in Blood 14.7 GramsPerDeciLiter_[Mass_Concentration_Units] Normal Hgb Bld-sCnc [facility] ([facility]) Note: Responsible Observer: HGB HEMOGLOB IN 100.0400 (B) Leukocytes [#/volume] in Blood by Automated count 8.3 ThousandsPerMicroLiter_[Number_Concentration_Units] Normal WBC # Bld Auto [facility] ([facility]) Note: Responsible Observer: WBC WHITE BL OOD COUNT 100.0100 (E) Basophils/100 leukocytes in Blood by Automated count 1.0 percent Normal Basophils/leuk NFr Bld Auto [facility] ([facility]) Note: Responsible Observer: BASO % BASO % 100.1325 (B) Basophils [#/volume] in Blood by Automated count 0.1 Unit Normal Basophils # Bld Auto [facility] ([facility]) Note: Responsible Observer: BASO # BASO# 100.1350 (B) Eosinophils/100 leukocytes in Blood by Automated count 4.0 percent Normal Eosinophil/leuk NFr Bld Auto [facility] ([facility]) Note: Responsible Observer: EOS % EOS % 100.1275 (B) Eosinophils [#/volume] in Blood by Automated count 0.3 Unit Normal Eosinophil # Bld Auto [facility] ([facility]) Note: Responsible Observer: EOS # EOS# 100.1300 (D) Lymphocytes [#/volume] in Blood by Automated count 0.7 Unit Normal Lymphocytes # Bld Auto [facility] ([facility]) Note: Responsible Observer: LYMPH # LYMP H# 100.1200 (B) Lymphocytes/100 leukocytes in Blood by Automated count 8.8 perce nt Below low normal Lymphocytes/leuk NFr Bld Auto [facility] ([facility]) Note: Responsible Observer: LYMPH % LYMP H % 100.1175 (B) Monocytes [#/volume] in Blood by Automated count 0.7 Unit Normal Monocytes # Bld Auto [facility] ([facility]) Note: Responsible Observer: MONO # MONO# 100.1250 (C) Neutrophils [#/volume] in Blood by Automated count 6.4 Unit Normal Neutrophils # Bld Auto [facility] ([facility]) Note: Responsible Observer: NEUT# NEUT# 100.1150 (B) Neutrophils/100 leukocytes in Blood by Automated count 77.1 perc ent Above high normal Neutrophils/leuk NFr Bld Auto [facility] ([facility]) Note: Responsible Observer: NEUT% NEUT% 100.1125 (B) Platelets [#/volume] in Blood by Automated count 191 ThousandsPerMicroLiter_[Number_Concentration_Units] Normal Platelet # Bld Auto [facility] ([facility]) Note: Responsible Observer: PLATELET COU NT PLATELET COUNT 100.1000 (D) Erythrocytes [#/volume] in Blood by Automated count 4. 85 MillionsPerMicroLiter_[Number_Concentration_Units] Normal RBC # Bld Auto [facility] ([facility]) Note: Responsible Observer: RBC Red Bloo d Count 100.0300 (B) Erythrocyte mean corpuscular hemoglobin [Entitic mass] by Automated count 30.3 PicoGram_[SI_Mass_Units] Normal MCH RBC Qn Auto [place] ([facility]) Note: Responsible Observer: MCH MCH 100 .0700 (B) NUCLEATED RED BLOOD CELL# 0 Unit NUCLEATED RED BLOOD CELL# [facility] ([facility]) Note: Responsible Observer: NRBC# NUCLEA SOL RBC 100.1362 (A) NUCLEATED RED BLOOD CELL 0 percent NUCLEATED R ED BLOOD CELL [facility] ([facility]) Note: Responsible Observer: NRBC% NRBC% 100.1360 (B) ID Date Data Source [id number] 03/12/2020 12:41:00 PM EDT [facility] ([facility]) Name Value Range Interpretation Code Description Data Jaci rce(s) Supporting Document(s) EKG Laboratory test result [facility] ([facility]) ID Date Data Source [id number] 03/12/2020 12:37:00 PM EDT [facility] ([facility]) Name Value Range Interpretation Code Description Data Jaci rce(s) Supporting Document(s) Leukocytes [#/volume] in Blood by Automated count Laboratory test res ult [facility] ([facility]) Erythrocytes [#/volume] in Blood by Automated count Laboratory test result [facility] ([facility]) Hematocrit [Volume Fraction] of Blood by Automated count Lab oratory test result [facility] ([facility]) Hemoglobin [Mass/volume] in Blood Laboratory test result [facility] ([facility]) Erythrocyte mean corpuscular hemoglobin [Entitic mass] by Automated count Laboratory test result [facility] Erythrocyte mean corpuscular volume [Entitic volume] b y Automated count Laboratory test result [facility]) Erythrocyte mean corpuscular hemoglobin concentration [Mass/volume] by Automated count Laboratory test result [facility]) Erythrocyte distribution width [Ratio] by Automated co unt Laboratory test result [facility] ([facility]) Platelets [#/volume] in Blood by Automated count Laboratory test resu lt [facility] ([facility]) Platelet mean volume [Entitic volume] in Blood by Ash Hopper Laboratory test result [facility] ([facility]) Band form neutrophils/100 leukocytes in Body fluid by Manual count Laboratory test result [facility] ([facility]) Lymphocytes/100 leukocytes in Body fluid by Manual count Lab oratory test result [facility] ([facility]) Neutrophils Laboratory test result [facility] ([facility]) Monocytes Laboratory test result [facility] ([facility]) Eosinophils/100 leukocytes in Body fluid by Manual count Lab oratory test result [facility] ([facility]) Lymphocytes [#/volume] in Blood Laboratory test result [facility] ([facility]) Neutrophils [#/volume] in Blood by Automated count Laboratory test re sult [facility] ([facility]) Basophils/100 leukocytes in Blood Laboratory test result [facility] ([facility]) Basophils [#/volume] in Blood by Automated count Laboratory test resu lt [facility] ([facility]) Monocytes [#/volume] in Blood Laboratory test result [facility] ([facility]) Eosinophils [#/volume] in Blood by Automated count Laboratory test re sult [facility] ([facility]) ID Date Data Source [id number] 03/12/2020 12:37:00 PM EDT [facility] ([facility]) Name Value Range Interpretation Code Description Data Jaci rce(s) Supporting Document(s) Albumin [Mass/volume] in Serum or Plasma Laboratory test result [facility] ([facility]) Alanine aminotransferase [Enzymatic activity/volume] i n Serum or Plasma Laboratory test result [facility]) Carbon dioxide, total [Moles/volume] in Serum or Plasma Labo ratory test result [facility] ([facility]) Calcium [Mass/volume] in Serum or Plasma Laboratory test result [facility] ([facility]) Chloride [Moles/volume] in Serum or Plasma Laboratory test result [facility] ([facility]) Alkaline phosphatase [Enzymatic activity/volume] in Se rum or Plasma Laboratory test result [facility] ([facility]) Creatinine [Mass/volume] in Serum or Plasma Laboratory test result [facility] ([facility]) Glucose [Mass/volume] in Serum or Plasma Laboratory test result [facility] ([facility]) Protein [Mass/volume] in Serum or Plasma Laboratory test result [facility] ([facility]) Potassium [Moles/volume] in Serum or Plasma Laboratory test result [facility] ([facility]) Sodium [Moles/volume] in Serum or Plasma Laboratory test result [facility] ([facility]) Aspartate aminotransferase [Enzymatic activity/volume] in Serum or Plasma Laboratory test result [facility]) Urea nitrogen [Mass/volume] in Serum or Plasma Laboratory test result [facility] ([facility]) ID Date Data Source [id number] 03/08/2020 10:48:00 AM EDT [facility] ([facility]) Name Value Range Interpretation Code Description Data Jaci rce(s) Supporting Document(s) Echocardiogram Laboratory test result [facility] ([facility]) ID Date Data Source [id number] 03/01/2020 01:52:00 PM EDT [facility] [address] [place] [address] [phone] NAME SEX PT STATUS ACCOUNT NUMBER Jackson Lucia REG REF [id number] ORDERING PHYSICIAN LOCATION MEDICAL RECORD NO. Susan Kan RAD [id number] ATTENDING PHYSICIAN DATE OF DATE OF EXAM/TIME Carole Lux MD 1950 03/01/201212 TYPE / EXAM Xray Foot Complete RT REASON FOR EXAM PAIN IN RIGHT FOOT COMPARISON: None FINDINGS: No acute fracture or dislocation is seen. However, note is made of pes planus deformity. Vascular calcification of distal vessels suggests chronic underlying diabetes. Correlation patient history advised. Plantar and dorsal calcaneal spurs are seen. IMPRESSION: 1. No acute fracture or dislocation. 2. Plantar and dorsal calcaneal spurs. 3. Vascular calcification suggests chronic diabetes. Clinical correlation advised. Reported By Jerel Buitrago MD on 03/01/20 1352 Signed By Jerel Buitrago MD on 03/01/20 1406 Date Time CC: Carole Lux MD; Jerel Buitrago MD Techn: RADTC Trans Dt/Tm: Trans by: DT Prt Dt/Tm: [id number]: Tota l DLP = 0.00 mGy-cm Fluoroscopy Time (in secs): Name Value Range Interpretation Code Description Data Jaci rce(s) Supporting Document(s) ID Date Data Source [id number] 02/13/2020 05:02:00 PM EDT [facility] [address] [place] [address] [phone] NAME SEX PT STATUS ACCOUNT NUMBER Jackson Lucia REG REF [id number] ORDERING PHYSICIAN LOCATION MEDICAL RECORD NO. Carole Lux MD EKG [id number] ATTENDING PHYSICIAN DATE OF DATE OF EXAM/TIME Carole Lux MD 1950 02/13/20699 TYPE / EXAM NM Nuclear Stress Test REASON FOR EXAM CAD,HTN,DYSLIPIDEMIA,CM,PAF,SOB INDICATION FOR PROCEDURE: 1. Dyspnea on exertion. 2. Ischemia cardiomyopathy. 3. History of myocardial infarction. DESCRIPTION OF PROCEDURE: Gated myocardial perfusion SPECT imaging was performed, using the rest-stress sequence. Technetium 99m sestamibi was injected intravenously: 10.92 millicuries with rest, 31.5 millicuries with stress. Stress testing dictated under separate cover. FINDINGS: 1. There was no significant artifact identified. 2. There is a severe mid to distal septal fixed defect. There is a severe apical fixed defect. 3. Polar quarter mapping confirmed the above findings. 4. Gat ed SPECT ejection fraction of 33 percent with mid to distal antral septum akinetic, and apicalakinesis to dyskinesis. IMPRESSION: 1. Severe ischemic cardiomyopathy. 2. Fixed defect in the typical LAD distribution. RECOMMENDATIONS: 1. Continue current medical therapies. 2. ICD checks as scheduled. 3. Follow up with [facility], regarding medical therapies. Results and recommendations communicated directly to the patient. Reported By Gilmer Whaley MD on 02/13/20 1702 Signed By Gilmer Whaley MD on 03/05/20 1025 <<Signature on File>> Date Time CC: Carole Lux MD; Gilmer Whaley M.D. Techn: PIO Trans Dt/Tm: 02/13/20 1733 Trans by: JULIO Prjuan c Dt/Tm: : Total DLP = 0.00 mGy-cm : Total Radiation Dose = 0.0000 mSv Lifetime Dose: 12.0450 mSv Name Value Range Interpretation Code Description Data Jaci rce(s) Supporting Document(s) ID Date Data Source [id number] 02/13/2020 10:11:00 AM EDT [facility] TEST CONSULTATION NAME: Jackson Lucia : 1950 AGE: 69 MR#: [id number] ADMITTING DATE: 02/13/[address]: DISCHARGE DATE: ATTENDING DR: Carole Lux MD ROOM#: PROCEDURE Lexiscan Cardiolite. INDICATIONS FOR PROCEDURE Exertional dyspnea. Ischemic cardiomyopathy. Status post old myocardial infarction. Status post ICD. Paroxysmal atrial fibrillation. Chronic systolic heart failure. DESCRIPTION OF PROCEDURE Informed consent obtained from the patient. Patient's resting blood pressure 122/70 mmHg. The resting electrocardiogram demonstrated an AV sequentially paced rhythm. Patient receiv ed Lexiscan 0.4 mg intravenously over 20 seconds, followed by Cardiolite injection. The blood pressure fell to a nilsa of 108/56. The heart rate remained at 70 beats per minute throughout. No dyspnea. No chest pain. Ventricular premature depolarizations were seen. IMPRESSION No Lexiscan-induced chest pain. AV sequentially paced rhythm throughout. Appropriate hemodynamic response to Lexiscan infusion. Blunted chronotropic response to Lexiscan. Lexiscan-induced ventricular premature depolarizations. Overall this represented a clinically negative, electrocardiographically nondiagnostic pharmacologic stress study. RECOMMENDATIONS Await nuclear imaging, submitted separately. CC: Carole Lux MD <Electronically signed by Gilmer Whaley MD> Gilmer Whaley MD 03/05/20 1027 Gilmer Whaley M.D. Cosigner: D: CAMILLA 02/13/20 1011 T: KASSY 02/13/20 1035 CC: Carole Lux MD; Gilmer Whaley M.D. LAST EDIT: Name Value Range Interpretation Code Description Data Jaci rce(s) Supporting Document(s) ID Date Data Source [id number] 01/30/2020 07:48:[address] [facility] PATH SPEC #:: [id number] Name Value Range Interpretation Code Description Data Jaci rce(s) Supporting Document(s) Pathology studies (set) See scanned report [facility] ID Date Data Source [id number] 01/23/2020 03:00:00 PM EDT [place] ([facility]) Name Value Range Interpretation Code Description Data Jaci rce(s) Supporting Document(s) Reported Physicians See Note Reported Physici ans [place] ([facility]) Note: Reported Physicians:Ordering: Carole MortensenAttending: Carole Lux ID Date Data Source [id number] 01/23/2020 03:00:00 PM EDT [place] ([facility]) Name Value Range Interpretation Code Description Data Jaci rce(s) Supporting Document(s) Pathology studies (set) See scanned report Path ology studies [place] ([facility]) Note: Responsible Observer: SURGICAL PAT H SURGICAL PATHOLOGY 805.4052 (A) Notes [TIMP] See Note NOTES [place] ([facility]) Note: PATH SPEC #:: [id number] ID Date Data Source [id number] 01/18/2020 11:11:00 AM EDT [place] ([facility]) Name Value Range Interpretation Code Description Data Jaci rce(s) Supporting Document(s) Albumin [Mass/volume] in Blood by Bromocresol purple ( BCP) dye binding method 4.5 g/dl Albumin [place] ([facility]) Note: Responsible Observer: KM ALT 23 IU/L ALT [place] ([facility]) Note: Responsible Observer: KM Alkaline Phos 158 IU/L Above high normal Alkaline Phos G [facility] ([facility]) Note: Responsible Observer: KM AST 28 IU/L AST [place] ([facility]) Note: Responsible Observer: KM Calcium [Moles/volume] in Urine collected for unspecified durati on 10.8 mg/dl Above high normal Calcium [place] ([facility]) Note: Responsible Observer: KM Urea nitrogen [Moles/volume] in Blood 51 mg/dl Abo ve high normal Urea Nitrogen [place] ([facility]) Note: Responsible Observer: KM CO2 24 mmol/L CO2 [place] ([facility]) Note: Responsible Observer: KM Chloride [Moles/volume] in Serum, Plasma or Blood 105 mmol/L Chloride [place] ([facility]) Note: Responsible Observer: KM Creatinine [Moles/volume] in Vitreous fluid 2.1 mg/dl Above high normal Creatinine [place] ([facility]) Note: Responsible Observer: KM EGFR - AfricanAm 38 N/A Above high normal EGFR - Afric Esdras [place] ([facility]) Note: Responsible Observer: KM EGFR - Non AF AM 31 N/A Above high normal EGFR - Non A F AM [place] ([facility]) Note: Responsible Observer: KM Potassium [Mass/volume] in Blood 4.2 mmol/L Pot assium [place] ([facility]) Note: Responsible Observer: KM Glucose [Mass/volume] in Urine collected for unspecified duratio n 55 mg/dl Below low normal Glucose [place] ([facility]) Note: Responsible Observer: KM Sodium [Moles/volume] in Serum, Plasma or Blood 137 mmol/L Sodium [place] ([facility]) Note: Responsible Observer: KM Total Bilirubin 1.2 mg/dl Total Bilirubin [facility] ([facility]) Note: Responsible Observer: KM Total Protein 6.6 g/dl Total Protein [place] ([facility]) Note: Responsible Observer: KM ID Date Data Source [id number] 01/12/2020 11:20:00 AM EDT [facility] ([facility]) Name Value Range Interpretation Code Description Data Jaci rce(s) Supporting Document(s) .Scanned Labs Laboratory test result MED E[facility] ([facility]) ID Date Data Source [id number] 01/09/2020 10:01:00 AM EDT [facility] ([facility]) Name Value Range Interpretation Code Description Data Jaci rce(s) Supporting Document(s) Icd Multi Program Laboratory test result [facility] ([facility]) Optivol In Office Laboratory test result [facility] ([facility]) ID Date Data Source [id number] 01/02/2020 06:25:[address] [facility] Name Value Range Interpretation Code Description Data Jaci rce(s) Supporting Document(s) Urea nitrogen [Mass/volume] in Serum or Plasma 56 mg/dL 9-[address] [facility] Sodium [Moles/volume] in Serum or Plasma 139 mmol/L 132-[address] [facility] Potassium [Moles/volume] in Serum or Plasma 4.7 mmol/L 3.5-5.[address] [facility] Chloride [Moles/volume] in Serum or Plasma 102 mmol/L 99-[address] [facility] Carbon dioxide, total [Moles/volume] in Serum or Plasma 30 mmol/L 20 -[address] [facility] Anion gap in Serum or Plasma 12 mmol/L 8-16 N L [facility] Glucose [Mass/volume] in Serum or Plasma 131 mg/dL 74-[address] [facility] Creatinine 2.5 mg/dL 0.5-1.1 Above high normal [facility] Glomerular filtration rate/1.73 sq M.pre dicted [Volume Rate/Area] in Serum or Plasma 26 ml/min ABOVE 60 [facility] ital Alanine aminotransferase [Enzymatic acti vity/volume] in Serum or Plasma by With P-5'-P 33 U/L 10-49 N [facility] ital Aspartate aminotransferase [Enzymatic ac tivity/volume] in Serum or Plasma by With P-5'-P 27 U/L 0-33 N [facility] Alkaline phosphatase [Enzymatic activity/volume] in Serum or Plasma 160 U/L 45-[address] [facility] Calcium [Mass/volume] in Serum or Plasma 10.0 mg/dL 8.5-10.[address] [facility] Bilirubin.total [Mass/volume] in Serum or Plasma 0.9 mg/dL 0.3-1.[address] [facility] Albumin [Mass/volume] in Serum or Plasma by Bromocresol purple (BCP) dye binding method 3.8 g/dL 3.2-4.8 N [facility] ital Protein [Mass/volume] in Serum or Plasma 7.6 g/dL 5.7-8.[address] [facility] ID Date Data Source [id number] 01/02/2020 02:54:00 PM [facility]) Name Value Range Interpretation Code Description Data Jaci rce(s) Supporting Document(s) Hemoglobin A1c/Hemoglobin.total in Blood 8.1 na Above high normal Hgba1c [place] ([facility]) Note: Responsible Observer: AW ID Date Data Source [id number] 01/02/2020 02:54:00 PM [facility] ([facility]) Name Value Range Interpretation Code Description Data Jaci rce(s) Supporting Document(s) Reported Physicians See Note Reported Physici ans [place] ([facility]) Note: Reported Physicians:Ordering: Carole MortensenAttending: Carole Lux ID Date Data Source [id number] 01/02/2020 02:54:00 PM [facility] ([facility]) Name Value Range Interpretation Code Description Data Jaci rce(s) Supporting Document(s) Calcium [Mass/volume] in Serum or Plasma 10.0 MilliGramsPerDeciLiter_[Mass_Concentration_Units] Normal Calcium [facility] ([facility]) Note: Responsible Observer: Calcium Calc ium 400.2500 (G) Bilirubin.total [Mass/volume] in Serum or Plasma 0.9 MilliGramsPerDeciLiter_[Mass_Concentration_Units] Normal Bilirub [facility] ([facility]) Note: Responsible Observer: T KATI Total Bilirubin 400.2600 (G) Alanine aminotransferase [Enzymatic acti vity/volume] in Serum or Plasma by With P-5'-P 33 enzyme_unit_per_liter Normal ALT SerPl w P-[facility]' [facility] [place] ([facility]) Note: Responsible Observer: SGPT/ALT SGP T/ALT 400.1750 (G) Carbon dioxide, total [Moles/volume] in Serum or Plasm a 30 MilliMolesPerLiter_[Substance_Concentration_Units] Normal CO2 [facility] ([facility]) Note: Responsible Observer: CO2 Carbon D ioxide 400.1400 (G) Chloride [Moles/volume] in Serum or Plasma 102 MilliMolesPerLiter_[Substance_Concentration_Units] Normal Chloride [facility] ([facility]) Note: Responsible Observer: Chloride Chl oride 400.1250 (G) Glucose [Mass/volume] in Serum or Plasma 131 MilliGramsPerDeciLiter_[Mass_Concentration_Units] Above high normal Glucose [facility] ([facility]) Note: Responsible Observer: Glucose Gluc ose 400.1500 (G) Potassium [Moles/volume] in Serum or Plasma 4.7 MilliMolesPerLiter_[Substance_Concentration_Units] Normal Potassium [facility] ([facility]) Note: Responsible Observer: K Potassium 400.1210 (G) Protein [Mass/volume] in Serum or Plasma 7.6 GramsPerDeciLiter_[Mass_Concentration_Units] Normal Pro t [facility] ([facility]) Note: Responsible Observer: TP Total Pro tein 400.2800 (G) Sodium [Moles/volume] in Serum or Plasma 139 MilliMolesPerLiter_[Substance_Concentration_Units] Normal Sodium [facility] [place] ([facility]) Note: Responsible Observer: Sodium Sodiu m 400.1100 (G) Aspartate aminotransferase [Enzymatic ac tivity/volume] in Serum or Plasma by With P-5'-P 27 enzyme_unit_per_liter Normal AST SerPl w P-[facility]' [facility] [place] ([facility]) Note: Responsible Observer: SGOT / AST S GOT / AST 400.1900 (G) Urea nitrogen [Mass/volume] in Serum or Plasma 56 MilliGramsPerDeciLiter_[Mass_Concentration_Units] Above high normal BUN [facility] ([facility]) Note: Responsible Observer: BUN Blood Ur ea Nitrogen 400.1000 (G) Anion gap in Serum or Plasma 12 MilliMolesPerLiter_[Substance_Concentration_Units] Normal Anion Gap [facility] ([facility]) Note: Responsible Observer: ANION GAP AN ION GAP 400.1402 (E) Alkaline phosphatase [Enzymatic activity/volume] in Se rum or Plasma 160 enzyme_unit_per_liter Above high normal ALP [facility] ([facility]) Note: Responsible Observer: ALP Alkaline Phosphatase 400.2000 (G) Glomerular filtration rate/1.73 sq M.pre dicted [Volume Rate/Area] in Serum or Plasma 26 GFR/BSA.pred [facility] [place] [facility]) Note: Responsible Observer: GFR Glomerul ar Filt Rate Calc 400.1605 (D) Albumin [Mass/volume] in Serum or Plasma by Bromocresol purple (BCP) dye binding method 3.8 GramsPerDeciLiter_[Mass_Concentration_Units] Normal Albumin [facility] BCP-nc [place] ([facility]) Note: Responsible Observer: Albumin [place] min 400.2700 (G) Creatinine [Moles/volume] in Vitreous fluid 2.5 MilliGramsPerDeciLiter_[Mass_Concentration_Units] Above high normal Creatinine [place] ([facility]) Note: Responsible Observer: Creatinine C reatinine 400.1600 (G) ID Date Data Source [id number] 10/18/2019 09:48:00 [place] [address] OPERATIVE SUMMARYNAME: MARLENE LAMAS DATE OF : 8ATTENDING PHYS: Rachele Coley Jr., MD DATE: 10/12/19 MR#: [id number] OF PROCEDURE: 10/12/2019PREOPERATIVE DIAGNOSIS: Visually significant cataract, right eye.POSTOPERATIVE DIAGNOSIS: Phacoemulsification cataract extraction with intraocular lensimplantation, right eye.SURGEON: Rachele Coley MDPROCEDURE NOTE: After informed consent was obtained and a long discussion regardingreasonable expectations for visual recovery, the patient was brought to the surgical suite where thepatient was laid supine on the operating table. Blood pressure cuff, EKG, pulse oximeter, and nasalcannula were attached and monitored by the anesthesiology department. The patient was thenprepped and draped in a manner consistent with ophthalmic surgery to the eye. Lid speculum wasplaced. The remainder of the procedure was done with the aid of an operating microscope.Paracentesis blade was used to create a paracentesis site at the 12 o'clock position. 1% NPFLidocaine was injected intracamerally. Viscoelastic on a cannula was then used to reform theanterior chamber. Keratome, using a clear corneal technique, was used to create a tunneled entryinto the eye. Cystotome on Viscoelastic material was then used to begin a capsulorrhexis. Utrataforceps w ere then introduced, and the remainder of the capsulorrhexis was completed withoutdifficulty. BSS on a cannula was then used to hydro-dissect and hydro- delineate the nucleus andepi-nucleus respectively. Phacoemulsification unit was then introduced, and using a [id number]-gka-sxhiypc technique, the nucleus and epi- nucleus were removed without difficulty. Automatedirrigation aspiration was then introduced into the anterior chamber, and the remaining corticalremnants were removed. Viscoelastic material on the cannula was then used to reform the capsularbag and the anterior chamber. The appropriate intraocular lens was identified and brought onto thesurgical field. The lens was then loaded into the capsular bag without difficulty. Automatedirrigation aspiration unit was introduced, and remaining Viscoelastic material was removed. Thelens centered well.COMPLICATIONS: None.BLOOD LOSS: Negligible.ADDENDUM: Please note, after the lens was inserted, an OMNI microsurgical catheter was usedto perform a 180 deg ree visco dilatation and goniotomy of the trabecular mesh work superiorly. [address] [place] [address] OPERATIVE SUMMARYNAME: MARLENE LAMAS DATE OF : 1950TTENDING PHYS: Rachele Coley Jr., MD DATE: 10/12/19 MR#: [id number]: Rachele Coley Jr., MD 10/18/19 09:08DT: SSR 10/18/19 09:46DS: Rachele Coley Jr., MD 12/14/19 10:38 2 Name Value Range Interpretation Code Description Data Jaci rce(s) Supporting Document(s) ID Date Data Source [id number] 10/24/2019 01:08:00 PM EDT [facility] ([facility]) Name Value Range Interpretation Code Description Data Jaci rce(s) Supporting Document(s) Optivol In Office Laboratory test result [facility] ([facility]) Icd Multi Program Laboratory test result [facility] ([facility]) ID Date Data Source [id number] 10/03/2019 01:31:00 [place] [address] OPERATIVE SUMMARYNAME: MARLENE LAMAS DATE OF : 1950TTENDING PHYS: Rachele Coley Jr., MD DATE: 09/28/19 MR#: [id number] OF PROCEDURE: 09/28/2019PREOPERATIVE DIAGNOSIS: Visually significant cataract, left eye.POSTOPERATIVE DIAGNOSIS: Phacoemulsification cataract extraction with intraocular lensimplantation, left eye.SURGEON: Rachele Coley MDPROCEDURE NOTE: After informed consent was obtained and a long discussion regardingreasonable expectations for visual recovery, the patient was brought to the surgical suite where thepatient was laid supine on the operating table. Blood pressure cuff, EKG, pulse oximeter, and nasalcannula were attached and monitored by the anesthesiology department. The patient was thenprepped and draped in a manner consistent with ophthalmic surgery to the eye. Lid speculum wasplaced. The remainder of the procedure was done with the aid of an operating microscope.Paracentesis blade was used to create a paracentesis site at the 12 o'clock position. 1% NPFLidocaine was injected intracamerally. Viscoelastic on a cannula was then used to reform theanterior chamber. Keratome, using a clear corneal technique, was used to create a tunneled entryinto the eye. Cystotome on Viscoelastic material was then used to begin a capsulorrhexis. Utrataforceps were then introduced, and the remainder of the capsulorrhexis was completed withoutdifficulty. BSS on a cannula was then used to hydro-dissect and hydro- delineate the nucleus andepi-nucleus respectively. Phacoemulsification unit was then introduced, and using a xfmivt-anq-ybmbvoh technique, the nucleus and epi- nucleus were removed without difficulty. Automatedirrigation aspiration was then introduced into the anterior chamber, and the remaining corticalremnants were removed. Viscoelastic material on the cannula was then used to reform the capsularbag and the anterior chamber. The appropriate intraocular lens was identified and brought onto thesurgical field. The lens was then loaded into the capsular bag without difficulty. Automatedirrigation aspiration unit was introduced, and remaining Viscoelastic material was removed. Thelens centered well.COMPLICATIONS: None.BLOOD LOSS: Negligible.ADDENDUM: At the end of the procedure, an OMNI surgical device was used on the left eye tocreate an inferior 180 degree visco dilatation followed by goniotomy. [address] [place] [address] OPERATIVE SUMMARYNAME: MARLENE LAMAS DATE OF : 8ATTENDING PHYS: Rachele Coley Jr., MD DATE: 09/28/19 MR#: [id number]: Rachele Coley Jr., MD 10/03/19 12:57DT: EVELIN 10/03/19 13:30DS: Rachele Coley Jr., MD 10/12/19 11:10 2 Name Value Range Interpretation Code Description Data Jaci rce(s) Supporting Document(s) ID Date Data Source [id number] 09/12/2019 10:03:00 AM [facility]) Name Value Range Interpretation Code Description Data Jaci rce(s) Supporting Document(s) Hemoglobin A1c/Hemoglobin.total in Blood 7.6 na Above high normal Hgba1c [place] ([facility]) Note: Responsible Observer: AW ID Date Data Source [id number] 09/12/2019 10:03:00 AM EST [place] ([facility]) Name Value Range Interpretation Code Description Data Jaci rce(s) Supporting Document(s) Albumin [Mass/volume] in Blood by Bromocresol purple ( BCP) dye binding method 4.5 g/dl Albumin [place] ([facility]) Note: Responsible Observer: AW Alkaline Phos 122 IU/L Above high normal Alkaline Phos [facility]) Note: Responsible Observer: AW ALT 22 IU/L ALT [place] ([facility]) Note: Responsible Observer: AW Calcium [Moles/volume] in Urine collected for unspecified durati on 11.1 mg/dl Above high normal Calcium [place] ([facility]) Note: Responsible Observer: AW Urea nitrogen [Moles/volume] in Blood 49 mg/dl Abo ve high normal Urea Nitrogen [place] ([facility]) Note: Responsible Observer: AW AST 24 IU/L AST [place] ([facility]) Note: Responsible Observer: AW Chloride [Moles/volume] in Serum, Plasma or Blood 98 mmol/L Chloride [place] ([facility]) Note: Responsible Observer: AW Creatinine [Moles/volume] in Vitreous fluid 2.1 mg/dl Above high normal Creatinine [place] ([facility]) Note: Responsible Observer: AW CO2 30 mmol/L CO2 [place] ([facility]) Note: Responsible Observer: AW EGFR - AfricanAm 38 N/A Above high normal EGFR - Afric Esdras [place] ([facility]) Note: Responsible Observer: AW Glucose [Mass/volume] in Urine collected for unspecified duratio n 214 mg/dl Above high normal Glucose [place] ([facility]) Note: Responsible Observer: AW Sodium [Moles/volume] in Serum, Plasma or Blood 139 mmol/L Sodium [place] ([facility]) Note: Responsible Observer: AW EGFR - Non AF AM 31 N/A Above high normal EGFR - Non A F AM [place] ([facility]) Note: Responsible Observer: AW Potassium [Mass/volume] in Blood 4.8 mmol/L Pot assium [place] ([facility]) Note: Responsible Observer: AW Total Protein 7 g/dl Total Protein [place] ([facility]) Note: Responsible Observer: AW Total Bilirubin 1.1 mg/dl Total Bilirubin [facility] ([facility]) Note: Responsible Observer: AW ID Date Data Source [id number] 08/07/2019 12:51:00 PM [facility] [address] [place] [address] [phone] NAME SEX PT STATUS ACCOUNT NUMBER JACKSON LUCIA REG REF [id number] ORDERING PHYSICIAN LOCATION MEDICAL RECORD NO. Ace Mortensen MD CT [id number] ATTENDING PHYSICIAN DATE OF DATE OF EXAM/TIME Carole Lux MD 1950 08/07/191055 TYPE / EXAM CT Abd/pel w/o contrast REASON FOR EXAM RT FLANK PAIN CONSTANT COMPARISON: None available FINDINGS: A calcified granuloma is seen at the left lung base. Lung bases are otherwise essentially clear. The liver, spleen, pancreas, adrenals, and appendix appear normal. Low-density lesions that probably represent cysts are seen in both kidneys. The largest cyst on the right measuring approximately 1.7 cm. The largest cyst on the left measures approximately 1.3 cm the renal calculus is seen on either side, and there is no hydronephrosis or hydroureter. Several small calcified gallstones are seen, but there is no biliary ductal dilatation. The bones and soft tissues are within normal limits. The bowel loops within normal limits. No signs of any free fluid or acute disease. The bladder is unremarkable. No significant adenopathy is seen. IMPRESSION: 1. No renal calculus or hydronephrosis on either side. 2. Multiple small calcified gallstones. No biliary ductal dilatation. 3. No free intraperitoneal air or fluid. Dose reduction was performed util izing CARE dose with automated adjustment of the kV and MAS according to patient size, iterative reconstruction, automated exposure control, as well as adaptivedose shielding. Reported By Jerel Buitrago MD on 08/07/19 1251 Signed By Jerel Buitrago MD on 08/07/19 1320 Date Time CC: Carole Lux MD; Jerel Buitrago MD Techn: [id number] Trans Dt/Tm: Trans by: DT Prt Dt/Tm: 5: Total DLP = 803.00 mGy-cm : Total Radiation Dose = 12.0450 mSv Lifetime Dose: 12.0450 mSv Name Value Range Interpretation Code Description Data Jaci rce(s) Supporting Document(s) ID Date Data Source [id number] 07/28/2019 02:29:00 PM [facility] [address] [id number] [phone] NAME SEX PT STATUS ACCOUNT NUMBER JACKSON LUCIA REG REF [id number] ORDERING PHYSICIAN LOCATION MEDICAL RECORD NO. Carole Lux MD [id number] ATTENDING PHYSICIAN DATE OF DATE OF EXAM/TIME Carole Lux MD 1950 07/28/19920 TYPE / EXAM US Retroperitoneal REASON FOR EXAM PAIN IN RT FLANK PAIN RENAL ULTRASOUND FINDINGS: Right kidney measures 10.9 x 5.6 x 6.1 cm. Left kidney measures 9.5 x 4.8 x 5.3 cm. In the right kidney there are three cystic lesions that measure 1.3 x 1.2 x 1.1 cm, 1.9 x 1.4 x 1.8 cm and 1.1 x 1.1 x 1.1 cm. In the left kidney is a cyst with dimensions of 1.4 x 1.3 x 1.0 cm. Solid renal mass, hydronephrosis or calculus is not identified. Sonography of the urinary bladder was without suggestion of mucosal mass or internal calculus. IMPRESSION: Benign cystic foci in bilateral kidneys. Otherwise unremarkable sonography of the urinary bladder and kidneys. Reported By Ricky Garcia MD on 07/28/19 1429 Signed By Ricky Garcia MD on 08/03/19 0133 Date Time CC: Carole Lux MD; Ricky Garcia MD Techn: BUSMI Trans Dt/Tm: Trans by: DT Prt Dt/Tm: : Total DLP = 0.00 mGy-cm : Total Radiation Dose = 0.0000 mSv Lifetime Dose: 0 mSv Name Value Range Interpretation Code Description Data Jaci rce(s) Supporting Document(s) ID Date Data Source [id number] 07/24/2019 08:30:00 AM EST [place] ([facility]) Name Value Range Interpretation Code Description Data Jaci rce(s) Supporting Document(s) Hemoglobin A1c/Hemoglobin.total in Blood 8.8 na Above high normal Hgba1c [place] ([facility]) Note: Responsible Observer: AW Procedure Social History Code Duration Value Status Description Data Source(s ) Alcohol intake 04/11/2020 12:00:00 AM EDT Not Currently completed [facility] Smoking 04/11/2020 12:00:00 AM EDT Never smoker completed Never s moker [facility] Smoking 03/14/2020 12:00:00 AM EDT Patient has never smoked co mpleted Patient has never smoked [facility] ([facility]) Vital Signs ID Date Data Source UNK Name Value Range Interpretation Code Description Data Source(s) Body mass index (BMI) [Ratio] 35.4 kg/m2 35.4 k g/m2 [facility] ([facility]) Body weight 254.00 [lb_av] 254.00 [lb_av] [facility] T ([facility]) Body height 71 [in_i] 71 [in_i] [facility] 5'11" Diastolic blood pressure 76 mm[Hg] 76 mm[Hg] [facility] ([facility]) stated home BP Systolic blood pressure 110 mm[Hg] 110 mm[Hg] M [place] ([facility]) stated home BP [place] body weight 166 [lb_av] 166 [lb_av] [facility] T ([facility], ) Body height 70.5 [in_i] 70.5 [in_i] [facility] ([facility], ) 5'10.50" Body temperature 98.6 [degF] 98.6 [degF] [facility] ([facility], ) Body surface area Derived from formula 2.34 m2 2.34 m2 [place] ([facility]) Body mass index (BMI) [Ratio] 35.5 kg/m2 35.5 k g/m2 [place] ([facility]) Body weight 254.6 [lb_av] 254.6 [lb_av] [place] ([facility]) Body height 71 [in_i] 71 [in_i] [place] ([facility]) Heart rate 64 /min 64 /min [place] ([facility]) Diastolic blood pressure 82 mm[Hg] 82 mm[Hg] [place] ([facility]) Systolic blood pressure 136 mm[Hg] 136 mm[Hg] [facility] ([facility]) Body mass index (BMI) [Ratio] 34.6 kg/m2 34.6 k g/m2 [facility] ([facility] ) Body weight 246.50 [lb_av] 246.50 [lb_av] [facility] T ([facility] ) Body height 70.75 [in_i] 70.75 [in_i] [facility] ([facility] ) 5'10.75" Body temperature 96.6 [degF] 96.6 [degF] [facility] ([facility] ) Body surface area Derived from formula 2.34 m2 2.34 m2 [place] ([facility]) Body mass index (BMI) [Ratio] 35.6 kg/m2 35.6 k g/m2 [place] ([facility]) Body weight 255.6 [lb_av] 255.6 [lb_av] [place] [facility] ([facility]) Body height 71 [in_i] 71 [in_i] [place] ([facility]) Respiratory rate 24 /min 24 /min [place] ([facility]) Heart rate 115 /min 115 /min [place] ([facility] Diastolic blood pressure 68 mm[Hg] 68 mm[Hg] [place] ([facility]) Systolic blood pressure 108 mm[Hg] 108 mm[Hg] [facility]) Body mass index (BMI) [Ratio] 34.3 kg/m2 34.3 k g/m2 [facility] ([facility]) Body weight 246.00 [lb_av] 246.00 [lb_av] [facility] T ([facility]) Body height 71 [in_i] 71 [in_i] [facility] 5'11" Heart rate 68 /min 68 /min [facility] ([facility]) Diastolic blood pressure 64 mm[Hg] 64 mm[Hg] [facility] ([facility]) Systolic blood pressure 122 mm[Hg] 122 mm[Hg] M [facility] ([facility]) Body surface area Derived from formula 2.32 m2 2.32 m2 [place] ([facility]) Body mass index (BMI) [Ratio] 35.1 kg/m2 35.1 k g/m2 [place] ([facility]) Body weight 251.6 [lb_av] 251.6 [lb_av] [facility] ([facility]) Body height 71 [in_i] 71 [in_i] [place] ([facility]) Respiratory rate 22 /min 22 /min [place] ([facility]) Heart rate 68 /min 68 /min [place] ([facility]) Diastolic blood pressure 74 mm[Hg] 74 mm[Hg] [place] ([facility]) Systolic blood pressure 110 mm[Hg] 110 mm[Hg] [facility] ([facility]) Body surface area Derived from formula 2.32 m2 2.32 m2 [place] ([facility]) Body mass index (BMI) [Ratio] 35.1 kg/m2 35.1 k g/m2 [place] ([facility]) Body weight 251.6 [lb_av] 251.6 [lb_av] [place] ([facility]) Body height 71 [in_i] 71 [in_i] [place] ([facility]) Respiratory rate 22 /min 22 /min [place] ([facility]) Heart rate 68 /min 68 /min [place] ([facility]) Diastolic blood pressure 74 mm[Hg] 74 mm[Hg] [place] ([facility]) Systolic blood pressure 110 mm[Hg] 110 mm[Hg] [facility] ([facility]) Body surface area Derived from formula 2.32 m2 2.32 m2 [place] ([facility]) Body mass index (BMI) [Ratio] 35.1 kg/m2 35.1 k g/m2 [place] ([facility]) Body weight 251.6 [lb_av] 251.6 [lb_av] [facility] ([facility]) Body height 71 [in_i] 71 [in_i] [place] ([facility]) Respiratory rate 22 /min 22 /min [place] ([facility]) Heart rate 68 /min 68 /min [place] ([facility]) Diastolic blood pressure 74 mm[Hg] 74 mm[Hg] [place] ([facility]) Systolic blood pressure 110 mm[Hg] 110 mm[Hg] [facility] ([facility]) Heart rate 70 /min 70 /min [facility] Respiratory rate 16 /min 16 /min [facility] Oxygen saturation in Arterial blood by Pulse oximetry 100 % 100 % [facility] Diastolic blood pressure 86 mm[Hg] 86 mm[Hg] [facility] Systolic blood pressure 152 mm[Hg] 152 mm[Hg] [facility] Body mass index (BMI) [Ratio] 33.47 kg/m2 33.47 kg/m2 [facility] Body weight 108.863 kg 108.863 kg [facility] Body height 180.3 cm 180.3 cm [facility] Body temperature 36.78 Adali 36.78 Adali [facility] Body height 71 [in_i] 71 [in_i] [place] ([facility] 5'11" Heart rate 70 /min 70 /min [place] ([facility]) Diastolic blood pressure 70 mm[Hg] 70 mm[Hg] [place] ([facility]) Systolic blood pressure 126 mm[Hg] 126 mm[Hg] M [place] ([facility]) Body mass index (BMI) [Ratio] 33.2 kg/m2 33.2 k g/m2 [place] ([facility]) Body weight 238.00 [lb_av] 238.00 [lb_av] [place] [facility] ([facility]) Body surface area Derived from formula 2.33 m2 2.33 m2 [place] ([facility]) Body mass index (BMI) [Ratio] 35.3 kg/m2 35.3 k g/m2 [place] ([facility]) Body weight 253 [lb_av] 253 [lb_av] [place] ([facility]) Body height 71 [in_i] 71 [in_i] [place] ([facility]) Respiratory rate 18 /min 18 /min [place] ([facility]) Heart rate 78 /min 78 /min [place] ([facility]) Diastolic blood pressure 80 mm[Hg] 80 mm[Hg] [place] ([facility]) Systolic blood pressure 120 mm[Hg] 120 mm[Hg] [facility] ([facility]) Body surface area Derived from formula 2.34 m2 2.34 m2 [place] ([facility]) Body mass index (BMI) [Ratio] 35.7 kg/m2 35.7 k g/m2 [place] ([facility]) Body weight 256 [lb_av] 256 [lb_av] [place] ([facility]) Body height 71 [in_i] 71 [in_i] [place] ([facility]) Respiratory rate 20 /min 20 /min [place] ([facility]) Heart rate 72 /min 72 /min [place] ([facility]) Diastolic blood pressure 70 mm[Hg] 70 mm[Hg] [place] ([facility]) Systolic blood pressure 110 mm[Hg] 110 mm[Hg] [facility] ([facility]) Body surface area Derived from formula 2.34 m2 2.34 m2 [place] ([facility]) Body mass index (BMI) [Ratio] 35.7 kg/m2 35.7 k g/m2 [place] ([facility]) Body weight 256 [lb_av] 256 [lb_av] [place] ([facility]) Body height 71 [in_i] 71 [in_i] [place] ([facility]) Respiratory rate 20 /min 20 /min [place] ([facility]) Heart rate 80 /min 80 /min [place] ([facility]) Diastolic blood pressure 68 mm[Hg] 68 mm[Hg] [place] ([facility]) Systolic blood pressure 126 mm[Hg] 126 mm[Hg] [facility] ([facility]) Body mass index (BMI) [Ratio] 35.1 kg/m2 35.1 k g/m2 [place] ([facility]) Body weight 252.00 [lb_av] 252.00 [lb_av] [place] [facility] ([facility]) Body height 71 [in_i] 71 [in_i] [facility] 5'11" Heart rate 70 /min 70 /min [facility] ([facility] Diastolic blood pressure 66 mm[Hg] 66 mm[Hg] [facility] ([facility]) Systolic blood pressure 110 mm[Hg] 110 mm[Hg] M [facility] ([facility]) Body mass index (BMI) [Ratio] 33.5 kg/m2 33.5 k g/m2 [facility] ([facility]) Body weight 240.00 [lb_av] 240.00 [lb_av] [facility] ([facility]) Body height 71 [in_i] 71 [in_i] [facility] 5'11" Heart rate 68 /min 68 /min [facility] ([facility] Diastolic blood pressure 60 mm[Hg] 60 mm[Hg] [facility] ([facility]) Systolic blood pressure 118 mm[Hg] 118 mm[Hg] M [facility] ([facility]) Body surface area Derived from formula 2.32 m2 2.32 m2 [place] ([facility]) Body mass index (BMI) [Ratio] 34.9 kg/m2 34.9 k g/m2 [place] ([facility]) Body weight 250 [lb_av] 250 [lb_av] [place] ([facility]) Body height 71 [in_i] 71 [in_i] [place] ([facility]) Respiratory rate 20 /min 20 /min [place] ([facility]) Heart rate 72 /min 72 /min [place] ([facility]) Diastolic blood pressure 70 mm[Hg] 70 mm[Hg] [place] ([facility]) Systolic blood pressure 110 mm[Hg] 110 mm[Hg] [facility]) Body surface area Derived from formula 2.31 m2 2.31 m2 [place] ([facility]) Body mass index (BMI) [Ratio] 34.6 kg/m2 34.6 k g/m2 [place] ([facility]) Body weight 248 [lb_av] 248 [lb_av] [place] ([facility]) Body height 71 [in_i] 71 [in_i] [place] ([facility]) Respiratory rate 20 /min 20 /min [place] ([facility]) Heart rate 92 /min 92 /min [place] ([facility]) Diastolic blood pressure 68 mm[Hg] 68 mm[Hg] [place] ([facility]) Systolic blood pressure 110 mm[Hg] 110 mm[Hg] [facility] ([facility]) Body surface area Derived from formula 2.31 m2 2.31 m2 [place] ([facility]) Body mass index (BMI) [Ratio] 34.7 kg/m2 34.7 k g/m2 [place] ([facility]) Body weight 249 [lb_av] 249 [lb_av] [place] ([facility]) Body height 71 [in_i] 71 [in_i] [place] ([facility]) Respiratory rate 20 /min 20 /min [place] ([facility]) Heart rate 77 /min 77 /min [place] ([facility]) Diastolic blood pressure 62 mm[Hg] 62 mm[Hg] [place] ([facility]) Systolic blood pressure 120 mm[Hg] 120 mm[Hg] [facility] ([facility]) ID Date Data Source [id number] 12/14/2019 10:39:27 AM EDT [facility] Value Range Interpretation Code Description Data Source(s) WEIGHT RECORDED 242.00 pounds 242.00 pounds [facility] Height 71 Inches 071 Inches [facility] ID Date Data Source [id number] 10/12/2019 11:11:12 AM EDT [facility] Name Value Range Interpretation Code Description Data Source(s) WEIGHT RECORDED 246.00 pounds 246.00 pounds [facility] Height 71 Inches 071 Inches [facility] Patient Treatment Plan of Care Planned Activity Planned Date Details Description Data Source (s) Spironolactone 25 MG Oral Tablet 07/09/2020 12:00:00 AM [facility]) Potassium Chloride 10 MEQ Extended Release Oral Tablet 06/08/2020 12:00:00 AM [facility] ([facility]) Insulin Glargine 100 UNT/ML Injectable Solution [Lantu s] 05/23/2020 12:00:00 AM [facility] ([facility]) BD Pen Needle Short U/F 31G X 8 MM Miscellaneous 05/13/2020 12:00:0 0 AM [facility] ([facility]) 3 ML Insulin Lispro 100 UNT/ML Pen Injector [Humalog] 04/09/2020 12:00:00 AM [facility] ([facility]) Prednisone 20 MG Oral Tablet 03/01/2020 12:00:00 AM [facility] ([facility]) BD Pen Needle Short U/F 31G X 8 MM Miscellaneous 02/06/2020 12:00:0 0 AM [facility] ([facility]) FreeStyle Lite Test In Vitro Strip 02/06/2020 12:00:00 AM [facility] ([facility]) Sulfamethoxazole 800 MG / Trimethoprim 160 MG Oral Tab let 01/23/2020 12:00:00 AM [facility] ([facility]) 200 ACTUAT Albuterol 0.09 MG/ACTUAT Metered Dose Inhal er [Ventolin] 01/08/2020 12:00:00 AM [facility] ([facility]) Insulin Glargine 100 UNT/ML Injectable Solution [Lantu s] 10/31/2019 12:00:00 AM [facility] ([facility]) 3 ML Insulin Lispro 100 UNT/ML Pen Injector [Humalog] 09/20/2019 12:00:00 AM [facility] ([facility]) Insulin Glargine 100 UNT/ML Injectable Solution [Lantu s] 07/24/2019 12:00:00 AM [facility] ([facility]) 3 ML Insulin Lispro 100 UNT/ML Pen Injector [Humalog] 07/24/2019 12:00:00 AM [facility] ([facility]) Spironolactone 25 MG Oral Tablet 07/03/2019 12:00:00 AM [facility]) Insulin Glargine 100 UNT/ML Injectable Solution [Lantu s] 06/21/2019 12:00:00 AM [facility] ([facility]) BD Pen Needle Short U/F 31G X 8 MM Miscellaneous 06/06/2019 12:00:0 0 [address] [facility] ([facility]) Potassium Chloride 10 MEQ Extended Release Oral Tablet 05/01/2019 12:00:00 AM [facility] ([facility]) FreeStyle Lite Test In Vitro Strip 04/10/2019 12:00:00 AM [facility] ([facility]) 3 ML Insulin Lispro 100 UNT/ML Pen Injector [Humalog] 02/27/2019 12:00:00 AM [facility] ([facility])
[2020-09-18] MEDS ORDERED: SPIR-10 PO (10:40)
[2020-09-18] MEDS ORDERED: D5W/0.2% SODIUM CHLORIDE 1,000 ML IV SCH (11:15)
[2020-09-18] MEDS ORDERED: BUPIVACAINE HCL 0.5% 30 ML VIAL XX ONE (11:45)
[2020-09-18] MEDS ORDERED: LIDOCAINE 1% MDV 20ML VIAL XX ONE (11:45)
[2020-09-18] MEDS ORDERED: EPINEPHrine INJ 1 MG/ML 1ML AMP XX ONE (11:45)
[2020-09-18] MEDS ORDERED: METOCLOPRAMIDE INJ 10MG/2ML VIAL (J2765 PER 1) As Ordered ONE (12:07)
[2020-09-18] MEDS ORDERED: propofoL 200 MG/20 ML VIAL As Ordered ONE (12:07)
[2020-09-18] MEDS ORDERED: fentaNYL 100 MCG/2 ML INJECTION (J3010) As Ordered ONE (12:07)
[2020-09-18] MEDS ORDERED: ONDANSETRON 4MG/2ML VIAL As Ordered ONE (12:07)
[2020-09-18] MEDS ORDERED: ROCURONIUM BROMIDE 50 MG/5 ML VIAL As Ordered ONE (12:07)
[2020-09-18] MEDS ORDERED: LIDOCAINE 2% 100MG/5ML SDV (FOR ANES.) As Ordered ONE (12:07)
[2020-09-18] MEDS ORDERED: ceFAZolin SOD 2 GM in IV 1 EA IV ONE (12:15)
[2020-09-18] MEDS ORDERED: TRANEXAMIC ACID 100 MG/ML 10ML VIAL As Ordered ONE ×2 (12:36→12:37)
[2020-09-18] MEDS ORDERED: BUPIVACAINE HCL 0.25% 10ML VIAL As Ordered ONE (12:37)
[2020-09-18] MEDS ORDERED: BUPIVACAINE LIPOSOME/PF 1.3% 20ML VIAL (13.3MG/ML)(EXPAREL)(C9290 PER1MG) As Ordered ONE (12:37)
[2020-09-18] MEDS ORDERED: ceFAZolin 1GM VIAL (J0690 PER 500MG) As Ordered ONE (12:37)
[2020-09-18] MEDS ORDERED: EPINEPHrine INJ 1 MG/ML 1ML AMP As Ordered ONE (12:37)
[2020-09-18] MEDS ORDERED: ETOMIDATE INJ 20MG/10ML VIAL As Ordered ONE (13:04)
[2020-09-18] MEDS ORDERED: PHENYLEPHRINE 10MG/ML 1ML VIAL (J2370 PER 1) As Ordered ONE (13:24)
[2020-09-18] MEDS ORDERED: VANCOMYCIN 500MG/10ML VIAL As Ordered ONE (15:11)
[2020-09-18] MEDS ORDERED: SUGAMMADEX SODIUM 500 MG/5 ML VIAL (BRIDION) As Ordered ONE (15:22)
[2020-09-18] MEDS ORDERED: dexameTHASONE 4 MG/ML 1ML VIAL (J1100 PER 1MG) As Ordered ONE (15:22)
[2020-09-18] MEDS ORDERED: ACETAMINOPHEN TAB 650MG DOSE (2X325MG) As Ordered ONE (16:34)
[2020-09-18] MEDS ORDERED: LR 1,000 ML IV SCH (16:45)
[2020-09-18] MEDS ORDERED: METOCLOPRAMIDE INJ 10MG/2ML VIAL (J2765 PER 1) IV PRN (16:45)
[2020-09-18] MEDS ORDERED: ONDANSETRON 4MG/2ML VIAL IV PRN ×2 (16:45)
[2020-09-18] MEDS ORDERED: fentaNYL 100 MCG/2 ML INJECTION (J3010) IV PRN (16:45)
[2020-09-18] MEDS ORDERED: ACETAMINOPHEN TAB 650MG DOSE (2X325MG) PO PRN (16:45)
[2020-09-18] MEDS ORDERED: PERCOCET 5MG/325MG TAB PO PRN ×2 (16:45)
[2020-09-18] MEDS ORDERED: MORPHINE 2 MG/ML 1ML VIAL (J2270) IV PRN (16:45)
[2020-09-18] MEDS ORDERED: HumaLOG INSULIN (NovoLOG) PER UNIT SC ONE (17:00)
[2020-09-18 18:05] VITALS: BP 114/76
[2020-09-18] MEDS ORDERED: ceFAZolin SOD 2 GM in IV 1 EA IV SCH (21:00)
--- NOTE | 2020-09-19 11:16 | RO ---
OPERATIVE NOTE DATE OF OPERATION: 09/18/2020 PREOPERATIVE DIAGNOSES: Right shoulder osteoarthritis and rotator cuff tear. POSTOPERATIVE DIAGNOSES: Right shoulder osteoarthritis and rotator cuff tear. PLANNED PROCEDURE: Right shoulder reverse total shoulder arthroplasty. PROCEDURE PERFORMED: Right shoulder reverse total shoulder arthroplasty. SURGEON: Amrit Crowe MD ANESTHESIOLOGIST: Shimon Solis M.D. ANESTHESIA: General anesthetic and preoperative block. IMPLANTS USED: CAPONE, S-R base plate, medium peg, 20 and 25 mm screws, 40 mm glenosphere concentric S-R connector plus screw, humerus side 19 mm stem, regular reverse body, 40 mm +3 liner. OPERATIVE PREAMABLE: This 70-year-old man had right shoulder osteoarthritis with superior humeral head migration and a large rotator cuff tear. This was demonstrated on CT arthrogram. He did not have an MRI due to implanted cardiac device. Risks and benefits of a reverse total shoulder arthroplasty discussed. I reminded him of the pros, cons, risks, and benefits of proceeding. The patient had a preoperative block, marked the right upper extremity, and proceeded to surgery. DESCRIPTION OF PROCEDURE: The patient was brought to the operating theater and placed supine on the operating room table. General anesthesia was induced. There he was sat up at a 50 degree angle on the beach chair positioner. Spider arm salvador was placed to the patient's right side. 2 gram of IV Ancef and 2 grams of IV tranexamic acid was administered prior to the start of the case. The limb was prepped and draped in the usual sterile fashion. Chlorhexidine-based prep solution was used. Over three minutes prep solution drying time was employed. Preoperative time-out was performed to confirm the site, the patient, and the surgery. We began by making a standard deltopectoral incision and carried the dissection down through the skin and subcutaneous tissue, achieving meticulous hemostasis. Incised the deltopectoral interval ____ skin incision. Retracted the cephalic vein laterally. Developed the plane just lateral to the conjoint tendon. I placed a Diaz shoulder retractor. Placed stay sutures in the subscapularis tendon. I used 2-0 Vicryl to achieve control of the anterior humeral circumflex vessels. I performed a long head of the biceps tenodesis using #2 FiberWire to the surrounding tissues, as well as the upper border of the pectoralis major tendon, which I incised slightly. Performed subscapularis tenotomy and incised the rotator interval as well. Performed a capsular release along the inferior metaphysis of the humerus protecting the axillary nerve. Delivered the head of the humerus anteriorly and externally rotated the shoulder. I then used the intramedullary guide. I made an appropriate cut in 20 degrees retroversion to the right side. Humeral head was removed. I then used fork tip retractors, as well as anterior glenoid retractor to expose the glenoid. At that point, there was some moderate venous bleeding from the posterior capsule area; so I did place some Surgifoam and Surgicel, as well as pressure to control this bleeding. I removed some of the labrum especially inferiorly. I then placed the guide pin in the center of the glenoid center-center. I used circumferential reaming to bleeding bone. I then used the S-R medium center peg drill and then used pulse lavage to remove the center in. I impacted the S-R CAPONE base plate with medium peg down and this achieved a solid bite. I inserted two screws, one superiorly aiming to the base of the coracoid 20 mg long and the inferior one down the scapular body approximately 25 mm long trying to divert the screw slightly. I then again used pulse lavage at the base plate and then impacted the 40 mm glenosphere concentric with the Centricity inferiorly and then, I used the S-R connector and screw to secure this into place. I then turned my attention to the humerus. I sequentially broached with a size 19 mm stem. I used a reverse reamer for the body aspect of the humeral side. I removed a number of metal and composite suture anchors. I then trialed up to a size 40 mm tray with regular reverse body and +3 mm liner. These were my final components. I removed the trial components and impacted in the final components, as well as impacting the polyethylene liner. Final trialing was achieved. Full range of motion with hand being able to get to the mouth, as well as no levering out, normal adduction, and no obvious impingement. Subscapularis tenotomy was then repaired using the stay sutures in internal rotation. The wound was thoroughly irrigated. 500 mg of vancomycin powder was placed deep inside the shoulder for wound prophylaxis. Bleeding was hemostased and properly controlled prior to wound closure. Subcutaneous tissue was closed with interrupted and running 2-0 Vicryl sutures. 20 mL of Exparel mixed with 20 mL of 0.25% Marcaine with 20 mL of normal saline was instilled in and around the incision site. The wound was cleaned with wet-to-dry dressing followed by application of Prineo wound care, as well as Dermabond allowed to fully dry prior to removing the drapes. The patient's right upper extremity was placed into a sling with the hand on the abdomen. The patient was awoken from general anesthetic, transferred off the operating room table, and taken to the postanesthetic care unit in stable condition. All sponge counts, needle counts, and instrument counts were correct. There were no complications. Estimated blood loss 300 mL. PLAN: The patient will be discharged home according to day surgery protocol. He may need to stay one day overnight depending on pain. Prescription has been sent to his pharmacy of choice. I used oxycodone rather than hydrocodone and encouraged him to try to stick to plain Tylenol as he had some confusion with narcotic medications before. He will follow-up in the office in two weeks time. He will be in the sling the whole time, but come out many times a day for hand, wrist, and elbow exercises; but sleep in it for the first six weeks. No reaching behind the body or external rotation beyond neutral. I spoke to his after surgery and she understands as well.
== END 2020-09-18 18:25 | disposition home or self-care (01) ==
LOC: M SDC 09:55
PROVIDERS: ATTEND Orthopaedic Surgery Sports Medicine
DX: M19.011 Primary osteoarthritis, right shoulder (principal); M75.111 Incomplete rotator cuff tear or rupture of right shoulder, not specified as traumatic; E11.22 Type 2 diabetes mellitus with diabetic chronic kidney disease; E78.2 Mixed hyperlipidemia; I13.0 Hypertensive heart and chronic kidney disease with heart failure and stage 1 through stage 4 chronic kidney disease, or unspecified chronic kidney disease; I25.10 Atherosclerotic heart disease of native coronary artery without angina pectoris; I25.2 Old myocardial infarction; I25.5 Ischemic cardiomyopathy; I34.0 Nonrheumatic mitral (valve) insufficiency; I36.1 Nonrheumatic tricuspid (valve) insufficiency; I44.2 Atrioventricular block, complete; I47.2 Ventricular tachycardia; I48.0 Paroxysmal atrial fibrillation; I50.22 Chronic systolic (congestive) heart failure; N18.4 Chronic kidney disease, stage 4 (severe); Z79.4 Long term (current) use of insulin; Z79.899 Other long term (current) drug therapy; Z88.0 Allergy status to penicillin; Z88.8 Allergy status to other drugs, medicaments and biological substances; Z95.1 Presence of aortocoronary bypass graft; Z95.810 Presence of automatic (implantable) cardiac defibrillator
CPT/HCPCS: 23472; 64415; 82330; 82947; 84132; 84295; 85014; 88304; 88311; 96372; C1713; C1776; C9290; J0171; J0690; J1100; J2250; J2370; J2405; J2765; J3010; J3370

== ENCOUNTER → 2020-10-01 | Outpatient (CLI) | payer MEDICARE ==
[~2020-10-01] MED LIST changes: -LIDOCAINE 1% MDV 20ML VIAL SQ PRN; -LR 1,000 ML IV ONE; -MIDAZOLAM INJ 2MG/2ML VIAL (J2250 PER 1MG) IV PRN; -ceFAZolin SOD 2 GM in IV 1 EA IV ONE; -fentaNYL 100 MCG/2 ML INJECTION (J3010) IV PRN
--- NOTE | 2020-10-01 10:30 | REP ---
INDICATION: F/U RIGHT SHOULDER. COMPARISON: None. TECHNIQUE: Internal rotation, external rotation, and axillary view of the right shoulder FINDINGS: Patient is noted to be status post right shoulder replacement with relatively normal appearance and positioning to the scapular and humeral components. Associated degenerative changes. No obvious periarticular loose bodies or calcifications are appreciated. Surrounding soft tissues are unremarkable. IMPRESSION: Relatively normal appearance to right shoulder replacement. <Electronically signed by Antione Kovacs > 10/01/20 1025
== END ==
LOC: M SOG 09:44
PROVIDERS: ATTEND Orthopaedic Surgery Sports Medicine
DX: Z47.1 Aftercare following joint replacement surgery (principal); Z96.611 Presence of right artificial shoulder joint

== ENCOUNTER → 2020-10-17 | Outpatient (CLI) | payer MEDICARE ==
--- NOTE | 2020-10-17 08:24 | REP ---
INDICATION: F/U. COMPARISON: 10/01/2020 TECHNIQUE: Single AP view FINDINGS: There is a total right shoulder arthroplasty with the components in satisfactory position and alignment on this single view. There are no calcifications or foreign bodies. There is no dislocation or displacement on this single view. IMPRESSION: Total right shoulder arthroplasty as described. <Electronically signed by Sen Almazan > 10/17/20 1534
== END ==
LOC: M SOG 08:00
PROVIDERS: ATTEND Orthopaedic Surgery Sports Medicine
DX: Z47.89 Encounter for other orthopedic aftercare (principal)

== ENCOUNTER → 2021-02-14 | Outpatient (REF) | payer MEDICARE | LOC: M LAB REF 17:59 | PROVIDERS: ATTEND Nurse Practitioner Family | DX: E83.42 Hypomagnesemia (principal) ==

== ENCOUNTER 2021-02-20 17:12 | Inpatient (IN) | payer MEDICARE ==
[~2021-02-20] VITALS: Ht 180.3 cm; Wt 121.4 kg
[~2021-02-20 17:12] MED LIST changes: -ALBU8.5H; +ALBU8.5H INH
--- NOTE | 2021-02-20 18:25 | REP ---
INDICATION: DYSPNEA/COUGH. COMPARISON: None. TECHNIQUE: AP portable seated FINDINGS: Multilead AICD pacer with leads terminating in the right atrium, right ventricle and an epicardial lead. Battery unit projects over the mid upper left chest. Heart is enlarged with left atrial and ventricular enlargement. The aorta is mildly tortuous without aneurysm. CP angles without definite effusion. Some minor lateral pleural thickening inferiorly. No dense consolidation or parenchymal mass. No shiloh edema. Some degenerative changes in the bones and a right shoulder arthroplasty with left the shoulder surgical anchors in the humeral head. IMPRESSION: Mild cardiomegaly with left atrial ventricular enlargement but no gross effusion, definite consolidation or shiloh edema. Multilead AICD pacer. Mildly tortuous aorta but no definite aneurysm. Airway intact. <Electronically signed by Villa Cee > 02/20/21 0350
[2021-02-20 18:28] LABS: BASO # 0.1 10^3/uL (0.0-0.2); BASO % 1.2 % (0.0-1.0); EOS # 0.4 10^3/uL (0.0-0.5); EOS % 4.6 % (0.0-3.0); HEMATOCRIT 41.6 % (42.0-52.0); LYMPH # 0.8 10^3/uL (1.5-5.0); LYMPH % 8.6 % (24.0-44.0); MEAN CORPUSCULAR HEMOGLOBIN 28.9 pg (27.0-33.0); MEAN CORPUSCULAR HGB CONC 31.3 g/dl (32.0-36.5); MEAN CORPUSCULAR VOLUME 92.4 fl (80.0-96.0); MONO # 0.8 10^3/uL (0.0-0.8); MONO % 8.8 % (2.0-8.0); NEUTROPHILS # 6.9 10^3/uL (1.5-8.5); NEUTROPHILS % 76.5 % (36.0-66.0); PLATELET COUNT, AUTOMATED 199 10^3/uL (150-450)
[2021-02-20 19:12] LABS: ALBUMIN 4.2 GM/DL (3.2-5.2); BILIRUBIN,DIRECT 0.3 MG/DL (0.0-0.2); BILIRUBIN,TOTAL 0.8 MG/DL (0.2-1.0); THYROID STIMULATING HORMONE 1.78 uIU/ML (0.358-3.740); TOTAL PROTEIN 7.8 GM/DL (6.4-8.2)
[2021-02-20] MEDS ORDERED: FUROSEMIDE 100MG/10ML VIAL (J1940) IV ONE (20:05)
[2021-02-20] MEDS ORDERED: POTA10CA32 PO (20:31)
[2021-02-20] MEDS ORDERED: SPIR-10 PO (20:31)
--- NOTE | 2021-02-20 21:08 | REPVR ---
PROCEDURE INFORMATION: Exam: US Retroperitoneal Limited, Kidneys Exam date and time: 02/20/2021 8:42 PM Age: 70 years old Clinical indication: Abnormal findings; Abnormal lab test; Abnormal kidney function lab tests; Additional info: Arf TECHNIQUE: Imaging protocol: Real-time ultrasound of the retroperitoneum with image documentation. Examination was focused on the kidneys. COMPARISON: [facility] US 06/01/2019 2:15 PM FINDINGS: Right kidney: Right kidney measures 11.2 x 4.9 x 5.7 cm. Echogenic renal parenchyma. Small lower pole cyst right kidney measures 2.2 x 2.1 x 1.6 cm. Left kidney: Left kidney measures 11 x 4.2 x 5.8 cm. Echogenic renal parenchyma. Bladder: Visualized bladder unremarkable. Ureteral jets not demonstrated. IMPRESSION: 1. Bilaterally increased echogenicity in the renal parenchyma most likely related to patient age and body habitus. An underlying medical renal disorder not excluded. No obstructive disease demonstrated. 2. Otherwise unremarkable. Electronically signed by: Dayton Summers On 02/20/2021 21:07:47 PM
[2021-02-20 21:19] LABS: RSV AMPLIFICATION NEGATIVE (NEGATIVE)
[2021-02-20] MEDS ORDERED: GLUCOSE 4GM CHEW TABLET PO PRN (22:00)
[2021-02-20] MEDS ORDERED: GLUCAGON INJ 1MG VIAL SC PRN (22:00)
[2021-02-20] MEDS ORDERED: DEXTROSE 50% 50 ML SYRINGE IV PRN (22:00)
[2021-02-20] MEDS ORDERED: ALBUTEROL 90 MCG/ACT 8GM HFA INHALER INH PRN (22:00)
--- NOTE | 2021-02-20 22:01 | HPEPDOC ---
[facility] Medical History & Physical Date of Admission Feb 20, 2021 Date of Service: Feb 20, 2021 Attending Physician: NEO SUMMERS MD History and Physical CHIEF COMPLAINT: [70 y/o m c/o sob, increased edema x3 weeks] HISTORY OF PRESENT ILLNESS: [This is a 70 y/o male with a pmh of cad s/p stenting, a-fib s/p pacemaker not on anticoagulation d/t recurrent epistaxis, severe HFrEF of 20-25% s/p aicd placement, htn, hld, asthma, ckd3, bph s/p turp, iddm2 who presents to our ED on 02/20 with a cc of worsening sob and generalized edema for about three weeks. Patient states that his symptoms have gradually gotten worse. Patient was seen at his nephrology clinic approx one week ago and had his at home dose of torsemide increased, but this still did not provide relief of his symptoms. Patient states that he called his copper miner to tell them this and they recommended he report to our ED for diuresis. At the time of my exam, patient states that his only complaint is his difficulty breathing and orthopnea. Patient admits to occasional cough that is non productive. Patient denies chest pain, chest tightness, wheezing, dizziness, lightheadedness, headache, syncope, dysuria, n/v/d/c, abd pain, fevers, chills.] PAST MEDICAL HISTORY: 1. [See HPI PAST SURGICAL HISTORY: 1. [Pacemaker/AICD placement]. 2. [Cardiac stenting]. 3. [B/l cataract removal 4. Multiple paracentesis 5. TURP 6. Right rotator cuff repair 7. Left shoulder unspec. repair 8. colonoscopy]. SOCIAL HISTORY: Tobacco use:[Denies] ETOH: [Denies] Illicit drug use: [Denies] FAMILY HISTORY: Mother - htn Father - dm ALLERGIES: Please see below. REVIEW OF SYSTEMS: CONSTITUTIONAL: [See HPI]. HEENT: [Denies uri type sx]. CARDIOVASCULAR: [See HPI]. RESPIRATORY: [See HPI]. GASTROINTESTINAL: [See HPI]. GENITOURINARY: [Denies dysuria, oliguria]. SKIN: [Denies rash]. MUSCULOSKELETAL: [Denies acute joint/back pain]. NEUROLOGICAL: [See HPI]. ENDOCRINE: [Hx of DM]. HEMATOLOGIC/LYMPHATIC: [Denies easy bruising]. HOME MEDICATIONS: Please see below. PHYSICAL EXAMINATION: VITAL SIGNS: Please see below. GENERAL APPEARANCE: [This is a bloated appearing 70 y/o male. He is sitting up in bed and appears to have mild increase work of breathing.]. HEENT: [No mass or lesion. EOMI. No scleral icterus. Nares patent. Oral mucosa moist. Poor dentition]. CARDIOVASCULAR: [Regular rate, rhythm. No murmurs, rubs, gallops]. LUNGS: [Decreased breath sounds b/l. Scattered crackles]. ABDOMEN: [Grossly distended. Soft. nontender]. MUSCULOSKELETAL: [No joint deformity]. EXTREMITIES: [Dusky lower extremities consistent with chronic peripheral vascular disease. No open wounds noted. Trace pedal edema. Pulses intact.]. NEUROLOGICAL: [Speech clear. A+Ox3. No focal deficits]. PSYCHIATRIC: [Mood and affect appear appropriate.]. LABORATORY DATA: See below. IMAGING: [CXR: FINDINGS: Multilead AICD pacer with leads terminating in the right atrium, right ventricle and an epicardial lead. Battery unit projects over the mid upper left chest. Heart is enlarged with left atrial and ventricular enlargement. The aorta is mildly t ortuous without aneurysm. CP angles without definite effusion. Some minor lateral pleural thickening inferiorly. No dense consolidation or parenchymal mass. No shiloh edema. Some degenerative changes in the bones and a right shoulder arthroplasty with left the shoulder surgical anchors in the humeral head. IMPRESSION: Mild cardiomegaly with left atrial ventricular enlargement but no gross effu salo, definite consolidation or shiloh edema. Multilead AICD pacer. Mildly tortuous aorta but no definite aneurysm. Airway intact. Renal US: FINDINGS: Right kidney: Right kidney measures 11.2 x 4.9 x 5.7 cm. Echogenic renal parenchyma. Small lower pole cyst right kidney measures 2.2 x 2.1 x 1.6 cm. Left kidney: Left kidney measures 11 x 4.2 x 5.8 cm. Echogenic renal parenchyma. Bladder: Visualized bladder unremarkable. Ureteral jets not demonstrated. IMPRESSION: 1. Bilaterally increased echogenicity in the renal parenchyma most likely related to patient age and body habitus. An underlying medical renal disorder not excluded. No obstructive disease demonstrated. 2. Otherwise unremarkable. ADDENDUM REPORT 1 There is evidence of intraperitoneal fluid on the right consistent with localized ascites. This finding was inadvertently omitted from the original report.This report has been amended as of 02/20/2021 at 8:[address] Please replace the original report with this version. ] MICROBIOLOGY: Please see below. ASSESSMENT: [This is a 70 y/o male with a pmh of cad s/p stenting, a-fib s/p pacemaker not on anticoagulation d/t recurrent epistaxis, severe HFrEF of 20-25% s/p aicd placement, htn, hld, asthma, ckd3, bph s/p turp, iddm2 who presents to our ED on 02/20 with a cc of worsening sob and generalized edema for about three weeks. Patient states that his symptoms have gradually gotten worse. Patient was seen at his nephrology clinic approx one week ago and had his at home dose of torsemide increased, but this still did not provide relief of his symptoms. Patient states that he called his copper miner to tell them this and they recommended he report to our ED for diuresis. Of note, patient found to have elevated bnp of 1417 and elevated cr of 2.3 from baseline of 1.1]. . PLAN: 1. [Fluid overload - Likely secondary to acute heart failure exacerbation - Will begin iv diuresis with 40mg iv lasix q6 - 2l fluid restrict, is and os, daily weights - will order paracentesis for tx of ascites - admit to pcu with tele for tx 2. VLAD on CKD3 - cr acutely elevated to 2.3 from baseline 1.1 - likely pre-renal d/t fluid congestion. potentially cardiorenal - will not be giving iv fluids at this time d/t gross fluid overload - renal us done in ed shows no acute pathology or obstruction - ua, urine electrolytes, urine random protein ordered - holding at home torsemide and spironolactone for now - will trend renal function 3. DM2 - continue at home basal insulin - sliding scale coverage - hypoglycemic protocol 4. Asthma - continue at home inhaler DVT prophylaxis - mechanical ]. Vital Signs Vital Signs Date Time Temp Pulse Resp B/P (MAP) Pulse Ox O2 Delivery O2 Flow Rate FiO2 02/20/21 18:21 02/20/21 17:14 96.7 66 20 100 Room Air Laboratory Data Labs 24H Laboratory Tests 2 02/20/21 18:18: Total Bilirubin 0.8, Direct Bilirubin 0.3H, Aspartate Amino Transf (AST/SGOT) 37, Alanine Aminotransferase (ALT/SGPT) 30, Alkaline Phosphatase 156H, OO-Nml-L-Type Natriuretic Peptide 1417H, Total Protein 7.8, Albumin 4.2, Albumin/Globulin Ratio 1.2, Thyroid Stimulating Hormone (TSH) 1.780 02/20/21 18:19: Immature Granulocyte % (Auto) 0.3, Neutrophils (%) (Auto) 76.5H, Lymphocytes (%) (Auto) 8.6L, Monocytes (%) (Auto) 8.8H, Eosinophils (%) (Auto) 4.6H, Basophils (%) (Auto) 1.2H, Neutrophils # (Auto) 6.9, Lymphocytes # (Auto) 0.8L, Monocytes # (Auto) 0.8, Eosinophils # (Auto) 0.4, Basophils # (Auto) 0.1, Nucleated Red Blood Cells % (auto) 0.0, POC Glucose (Misc Panel) 159H, POC Sodium (Misc Panel) 139, POC Potassium (Misc Panel) 4.6, POC Chloride (Misc Panel) 100, POC Total CO2 (Misc Panel) 30.0H, POC Blood Urea Nitrogen (Misc Panel 80H, POC Ionized Calcium (Misc Panel) 4.6, POC Creatinine (Misc Panel) 2.3H, POC Hematocrit (Misc Panel) 42.0 02/20/21 18:27: POC Troponin I (Misc) 0.04 02/20/21 20:21: Coronavirus (COVID-19)(PCR) NEGATIVE, Influenza Type A (RT-PCR) NEGATIVE, Influenza Type B (RT-PCR) NEGATIVE, Respiratory Syncytial Virus (PCR) NEGATIVE CBC/BMP Laboratory Tests 02/20/21 18:19 Home Medications Scheduled Insulin Glargine (Lantus) 100 Unit/1 Ml Vial, 30 UNITS SC QHS Insulin Human Lispro (Humalog) 100 Unit/1 Ml Vial, 1 DOSE SC AC PER SLIDING SCALE Magnesium Oxide (Magnesium) 400 Mg Capsule, 400 MG PO QHS Multivitamins (Thera M Plus Tablet) 1 Each Tablet, 1 TAB PO DAILY Potassium Chloride (Potassium Chloride) 10 Meq Capsule.er, 10 MEQ PO DAILY Spironolactone (Spironolactone) 25 Mg Tablet, 50 MG PO Q2D ON ODD DAYS Spironolactone (Spironolactone) 25 Mg Tablet, 25 MG PO Q2D ON EVEN DAYS Torsemide (Torsemide) 20 Mg Tablet, 60 MG PO BID Scheduled PRN Albuterol Sulfate (Albuterol Sulfate Hfa) 8.5 Gm Hfa.aer.ad, 2 PUFFS INH QID PRN for SHORTNESS OF BREATH Allergies Coded Allergies: Penicillins (Verified Allergy, Intermediate, swelling, difficulty breathing, 09/18/20) clindamycin (Verified Allergy, Unknown, hives, 09/18/20) hydrocodone (Verified Allergy, Unknown, "sends him to the [facility]", 09/18/20) atenolol (Verified Adverse Reaction, Severe, decreased heart rate, 09/18/20) A-FIB/CHADSVASC A-FIB History Current/History of A-Fib/PAF?: Yes Current PO Anticoag Therapy: No (anticoagulation stopped d/t hx of frequent epistaxis) RYAN GÓMEZ Feb 20, 2021 22:01
[2021-02-20 22:45] VITALS: BP 140/75
[2021-02-20 23:00] VITALS: O2SAT 95
[2021-02-20] MEDS: MAGNESIUM OXIDE 400MG TAB (MAG-OX) PO SCH (23:12)
[2021-02-20] MEDS: LEVEMIR (INSULIN DETEMIR) 1 UNITS/0.01ML SC SCH (23:12)
[2021-02-20] MEDS: HumaLOG INSULIN (NovoLOG) PER UNIT SC SCH (23:13)
[2021-02-21] VITALS (9 sets, daily range): BP systolic 119–140; BP diastolic 64–95; O2SAT 93–97
[2021-02-21 00:44] LABS: CPK CREATINE PHOSPHOKINASE 36 U/L (39-308); MB/CK RELATIVE INDEX 5.56 (< OR =4); TROPONIN I < 0.02 NG/ML (< 0.10)
[2021-02-21] MEDS: FUROSEMIDE 40MG/4ML VIAL (J1940) IV SCH ×4 (02:31→17:38)
[2021-02-21 02:55] LABS: APPEARANCE, URINE CLEAR (CLEAR); BACTERIA, URINE AUTO NEGATIVE (NEGATIVE); BILIRUBIN, URINE AUTO NEGATIVE (NEGATIVE); BLOOD, URINE BLOOD NEGATIVE (NEGATIVE); COLOR, URINE STRAW (YELLOW); GLUCOSE, URINE (UA) AUTO 3+ mg/dL (NEGATIVE); KETONE, URINE AUTO NEGATIVE (NEGATIVE); LEUKOCYTE ESTERASE, URINE AUTO NEGATIVE (NEGATIVE); NITRITE, URINE AUTO NEGATIVE (NEGATIVE); PROTEIN, URINE AUTO NEGATIVE (NEGATIVE); RBC, URINE AUTO 0 /HPF (0-3); SPECIFIC GRAVITY URINE AUTO 1.006 (1.002-1.035); SQUAMOUS EPITHELIAL CELL UR AU 0 /HPF (0-6); UROBILINOGEN, URINE AUTO 0.2 mg/dL (0.0-2.0); WBC, URINE AUTO 0 /HPF (0-3)
[2021-02-21 03:05] LABS: OSMOLALITY URINE 370 MOSM/KG (50-1400)
[2021-02-21 03:13] LABS: CREATININE,RANDOM URINE 41.4 MG/DL; SODIUM,RANDOM URINE 68 MEQ/L; TOTAL PROTEIN,RANDOM URINE < 5.0 MG/DL (0.0-12.0)
--- NOTE | 2021-02-21 04:22 | HPEPDOC ---
[facility] Medical History & Physical Date of Admission Feb 20, 2021 Date of Service: Feb 20, 2021 History and Physical Hospitalist attending physician addendum to history and physical: Assessment and plan: 70-year-old male with history of systolic congestive heart failure ejection fraction 25% AICD complete heart block status post pacemaker paroxysmal atrial fibrillation hypertension hyperlipidemia chronic kidney disease stage III BPH status post transurethral resection of the prostate diabetes CAD ST elevation myocardial infarction with stent to the left anterior descending artery presented with shortness of breath increasing abdominal distention and weight gain found to have acute on chronic systolic congestive heart failure exacerbation, anasarca, fluid overload. Acute on chronic systolic congestive heart failure exacerbation Anasarca with ascites Chronic kidney disease stage III History of ST elevation myocardial infarction with stent to the left anterior descending artery/coronary artery disease History of complete heart block status post pacemaker Paroxysmal atrial fibrillation History of fluid overload with ascites requiring paracentesis -Nephrology consulted for help in managing patient's fluid balance . Currently on Lasix intravenously every 8 hourly. -Paracentesis ordered -Echo ordered -Cycle cardiac markers every 6 hourly to rule out acute coronary syndrome -Not on anticoagulation for atrial fibrillation due to recurrent epistaxis Vital Signs Vital Signs Date Time Temp Pulse Resp B/P (MAP) Pulse Ox O2 Delivery O2 Flow Rate FiO2 02/21/21 04:00 95 Room Air 02/20/21 22:45 97.3 69 20 140/75 (96) Laboratory Data Labs 24H Laboratory Tests 2 02/20/21 18:18: Total Bilirubin 0.8, Direct Bilirubin 0.3H, Aspartate Amino Transf (AST/SGOT) 37, Alanine Aminotransferase (ALT/SGPT) 30, Alkaline Phosphatase 156H, KB-Aqt-L-Type Natriuretic Peptide 1417H, Total Protein 7.8, Albumin 4.2, Albumin/Globulin Ratio 1.2, Thyroid Stimulating Hormone (TSH) 1.780 02/20/21 18:19: Immature Granulocyte % (Auto) 0.3, Neutrophils (%) (Auto) 76.5H, Lymphocytes (%) (Auto) 8.6L, Monocytes (%) (Auto) 8.8H, Eosinophils (%) (Auto) 4.6H, Basophils (%) (Auto) 1.2H, Neutrophils # (Auto) 6.9, Lymphocytes # (Auto) 0.8L, Monocytes # (Auto) 0.8, Eosinophils # (Auto) 0.4, Basophils # (Auto) 0.1, Nucleated Red Blood Cells % (auto) 0.0, POC Glucose (Misc Panel) 159H, POC Sodium (Misc Panel) 139, POC Potassium (Misc Panel) 4.6, POC Chloride (Misc Panel) 100, POC Total CO2 (Misc Panel) 30.0H, POC Blood Urea Nitrogen (Misc Panel 80H, POC Ionized Calcium (Misc Panel) 4.6, POC Creatinine (Misc Panel) 2.3H, POC Hematocrit (Misc Panel) 42.0 02/20/21 18:27: POC Troponin I (Misc) 0.04 02/20/21 20:21: Coronavirus (COVID-19)(PCR) NEGATIVE, Influenza Type A (RT-PCR) NEGATIVE, Influenza Type B (RT-PCR) NEGATIVE, Respiratory Syncytial Virus (PCR) NEGATIVE 02/20/21 23:05: Bedside Glucose (Misc Panel) 334H 02/20/21 23:53: Total Creatine Kinase 36L, Creatine Kinase MB 2.0, Creatine Kinase MB Relative Index 5.56H, Troponin I < 0.02 CBC/BMP Laboratory Tests 02/20/21 18:19 Home Medications Scheduled Insulin Glargine (Lantus) 100 Unit/1 Ml Vial, 30 UNITS SC QHS Insulin Human Lispro (Humalog) 100 Unit/1 Ml Vial, 1 DOSE SC AC PER SLIDING SCALE Magnesium Oxide (Magnesium) 400 Mg Capsule, 400 MG PO QHS Multivitamins (Thera M Plus Tablet) 1 Each Tablet, 1 TAB PO DAILY Potassium Chloride (Potassium Chloride) 10 Meq Capsule.er, 10 MEQ PO DAILY Spironolactone (Spironolactone) 25 Mg Tablet, 50 MG PO Q2D ON ODD DAYS Spironolactone (Spironolactone) 25 Mg Tablet, 25 MG PO Q2D ON EVEN DAYS Torsemide (Torsemide) 20 Mg Tablet, 60 MG PO BID Scheduled PRN Albuterol Sulfate (Albuterol Sulfate Hfa) 8.5 Gm Hfa.aer.ad, 2 PUFFS INH QID PRN for SHORTNESS OF BREATH Allergies Coded Allergies: Penicillins (Verified Allergy, Intermediate, swelling, difficulty breathing, 09/18/20) clindamycin (Verified Allergy, Unknown, hives, 09/18/20) hydrocodone (Verified Allergy, Unknown, "sends him to the [place]", 09/18/20) atenolol (Verified Adverse Reaction, Severe, decreased heart rate, 09/18/20) A-FIB/CHADSVASC A-FIB History Current/History of A-Fib/PAF?: Yes Current PO Anticoag Therapy: No Age/Risk Factor Scoring CHADSVASC: CHADSVASC Response (Comments) Value Age Risk Factor Age 65-74 years old 1 Gender Risk Factor Male 0 Hx of CHF Yes 1 Hx of HTN Yes 1 Hx of Stroke/TIA/or VTE No 0 Hx of Diabetes Yes 1 Hx of Vascular Disease No 0 Total 4 Treatment Treatment ordered: NONE Reason Anticoagulant not given: Current bleeding NEO SUMMERS MD Feb 21, 2021 04:22
[2021-02-21 05:56] LABS: BASO # 0.1 10^3/uL (0.0-0.2); BASO % 1.4 % (0.0-1.0); EOS # 0.3 10^3/uL (0.0-0.5); EOS % 4.1 % (0.0-3.0); HEMATOCRIT 37.5 % (42.0-52.0); HEMOGLOBIN 11.7 g/dl (13.5-17.5); LYMPH # 0.6 10^3/uL (1.5-5.0); LYMPH % 6.8 % (24.0-44.0); MEAN CORPUSCULAR HEMOGLOBIN 28.7 pg (27.0-33.0); MEAN CORPUSCULAR HGB CONC 31.2 g/dl (32.0-36.5); MEAN CORPUSCULAR VOLUME 91.9 fl (80.0-96.0); MONO # 0.8 10^3/uL (0.0-0.8); MONO % 9.7 % (2.0-8.0); NEUTROPHILS # 6.3 10^3/uL (1.5-8.5); NEUTROPHILS % 77.8 % (36.0-66.0); PLATELET COUNT, AUTOMATED 193 10^3/uL (150-450); RED BLOOD COUNT 4.08 10^6/uL (4.30-6.10); WHITE BLOOD COUNT 8.1 10^3/uL (4.0-10.0)
[2021-02-21 06:14] LABS: ALBUMIN 3.6 GM/DL (3.2-5.2); BLOOD UREA NITROGEN 70 MG/DL (7-18); CALCIUM LEVEL 9.6 MG/DL (8.8-10.2); CARBON DIOXIDE LEVEL 31 MEQ/L (21-32); CHLORIDE LEVEL 100 MEQ/L (98-107); CK-MB VALUE MASS 1.6 NG/ML (<3.6); CPK CREATINE PHOSPHOKINASE 42 U/L (39-308); CREATININE FOR GFR 2.22 MG/DL (0.70-1.30); GLOMERULAR FILTRATION RATE 31.2 (>42); GLUCOSE, FASTING 249 MG/DL (70-100); MB/CK RELATIVE INDEX 3.81 (< OR =4); POTASSIUM SERUM 4.1 MEQ/L (3.5-5.1); SODIUM LEVEL 137 MEQ/L (136-145); TOTAL PROTEIN 7.3 GM/DL (6.4-8.2); TROPONIN I < 0.02 NG/ML (< 0.10)
[2021-02-21] MEDS: HumaLOG INSULIN (NovoLOG) PER UNIT SC SCH ×4 (09:22→20:21)
[2021-02-21] MEDS: POTASSIUM CHLORIDE 10 MEQ SR TABLET PO SCH (09:23)
--- NOTE | 2021-02-21 09:57 | IPNPDOC ---
Text Note Date of Service The patient was seen on 02/21/21. NOTE Hospitalist Progress Note Subjective: Patient was sitting upright on the edge of the bed eating breakfast this morning. He reports that his orthopnea has essentially completely resolved, and his shortness of breath is significantly improved. The swelling in the bilateral feet has also improved, but he still has some remaining. He is aware of his pending paracentesis this afternoon, and does not have any questions regarding this. His echocardiogram was performed just prior to my entering the room this morning. Objective: General: Awake, alert, oriented 3. Not in any acute distress. HEENT: Head normocephalic, atraumatic, sclera are nonicteric. Hearing is grossly intact to conversation. Respiratory: Clear to auscultation bilaterally with no wheezes, rales, or rho nchi. Cardiovascular: Regular rate and rhythm, with no rubs, gallops, or murmur. Abdomen: Soft, nontender, nondistended, no hepatosplenomegaly appreciated. Bowel sounds present. Extremities: 2+ pulses in the radial and dorsalis pedis bilaterally. No evidence of clubbing or cyanosis. Assessment: Acute decompensation of congestive heart failure -Echocardiogram performed today, awaiting dictation. -Continue diuresis with Lasix 40 mg every 6 hours -Continue fluid restriction Anasarca and ascites -Anasarca is significantly improved, ascites still present -Paracentesis has been ordered, hopefully this will be accomplished today. Acute kidney injury in the setting of stage III chronic kidney disease -Creatinine baseline typically 1.1 -Continue to monitor renal function Paroxysmal atrial fibrillation -Status post pacemaker -Telemetry shows paced rhythm with only occasional PVC -Not on anticoagulation at home Diabetes mellitus type 2 -Continue basal as well as sliding scale insulin and hypoglycemic protocol Asthma -Continue home inhaler. DVT prophylaxis -Teds and sequentials VS,Fishbone, I+O VS, Fishbone, I+O Laboratory Tests 02/20/21 18:19 02/21/21 05:24 Vital Signs Date Time Temp Pulse Resp B/P (MAP) Pulse Ox O2 Delivery O2 Flow Rate FiO2 02/21/21 08:00 97.7 71 18 119/64 (82) 99 Room Air I&O- Last 24 Hours up to 6 AM 02/21/21 06:00 Intake Total 90 ml Output Total 1800 ml Balance -1710 ml AYAH FERRIS DO Feb 21, 2021 08:52
--- NOTE | 2021-02-21 11:14 | CR ---
NEPHROLOGY CONSULTATION DATE: 02/21/2021 REQUESTING PHYSICIAN: Rebecca Beonit M.D. REASON FOR CONSULTATION: Management of fluid overload. CHIEF COMPLAINT: Patient was sent from the nephrology office because of worsening shortness of breath and edema despite oral diuretics. HISTORY OF PRESENT ILLNESS: Jackson Lucia is a 70-year-old male with a past medical history of systolic congestive heart failure left ventricular ejection fraction (LVEF) of around 25%, status post automatic implantable cardioverter-defibrillator (AICD) and complete heart block status post pacemaker, paroxysmal atrial fibrillation, multiple other comorbidities, as mentioned below. He was seen in the nephrology office about a week ago and he was complaining of weight gain, lower extremity edema, persistent shortness of breath and orthopnea. His diuretic dose was increased as outpatient. However, despite that, he reported that he stopped gaining weight, but he was not losing weight and he was still short of breath. Because of these symptoms and failure of outpatient diuretic therapy, patient was advised to present to the emergency room. He was seen in the emergency room yesterday and he was admitted under the hospitalist service with acute on chronic congestive heart failure. Nephrology service was called for further help in the management in this patient at this point of his diuretic regimen. I saw and evaluated the patient today morning at the bedside. He reports that with the intravenous (IV) diuretic, he is making much more urine today and his breathing is getting better. PAST MEDICAL HISTORY: 1. Chronic kidney disease stage III. 2. History of chronic systolic congestive heart failure, left ventricular ejection fraction (LVEF) 25%. 3. History of automatic implantable cardioverter-defibrillator (AICD) placement and complete heart block status post pacemaker placement. 4. Atrial fibrillation. 5. Hypertension. 6. Hyperlipidemia. 7. Benign prostatic hypertrophy (BPH) status post transurethral resection of the prostate (TURP). 8. History of coronary artery disease. 9. ST-elevation myocardial infarction (TX) with a stent in the left anterior descending (LAD) artery. 10. History of recurrent epistaxis. 11. Hyperlipidemia. 12. Insulin dependent diabetes. PAST SURGICAL HISTORY: 1. Status post automatic implantable cardioverter-defibrillator (AICD)/pacemaker placement. 2. History of coronary artery stenting after myocardial infarction ([place]). 3. Bilateral cataract surgery. 4. History of paracentesis in the past. 7. Transurethral resection of the prostate in the past. 8. Right rotator cuff surgery. 9. Left shoulder surgery. 10. Colonoscopy. ALLERGIES: He is allergic to PENICILLIN, ATENOLOL, CLINDAMYCIN and HYDROCODONE. FAMILY HISTORY: No significant family history of end-stage renal disease. SOCIAL HISTORY: Patient denies any smoking, illicit drug abuse or alcohol abuse. REVIEW OF SYSTEMS: CONSTITUTIONAL: He denies any fevers or chills. EYES: He denies any blurry vision or double vision. EARS, NOSE AND THROAT (ENT): Denies any dysphagia or odynophagia. CARDIOVASCULAR: Reports orthopnea and lower extremity edema. RESPIRATORY: Reports progressive shortness of breath. GASTROINTESTINAL (GI): Reports abdominal distention and feels like he might have ascites as well. GENITOURINARY: Denies any dysuria or hematuria. MUSCULOSKELETAL: Denies any muscle aches or pains. SKIN: Denies any rashes or ulcers. HEMATOLOGICAL/ONCOLOGICAL: Denies any easy bleeding or bruising. ENDOCRINE: Reports history of diabetes. CENTRAL NERVOUS SYSTEM (LIBRARY CIRCULATION CLERK): Denies any weakness or seizures. All other review of systems is negative. PHYSICAL EXAMINATION: GENERAL: Patient is awake, alert, oriented times three, sitting up in bed, obese body habitus. VITAL SIGNS: Temperature 97.3 degrees Fahrenheit, blood pressure 119/64, pulse 71, respiratory rate 18, saturating 99% on room air. HEAD AND NECK EXAM: Extraocular muscles intact. Pupils equally round and reactive to light. Mucous membranes are moist. Neck is supple. Mildly elevated jugular venous distention (JVD). CARDIOVASCULAR: S1, S2. Regular rate. 2+ edema of the bilateral lower extremities. RESPIRATORY: Chest is clear to auscultation bilaterally. Bilateral equal air entry. No rales or rhonchi. ABDOMEN: Distended. Abdominal wall edema is noted. Mild amount of ascites is also noted. MUSCULOSKELETAL: Chronic venous stasis changes. No clubbing or cyanosis. 2+ edema of the bilateral lower extremities, as mentioned above. CENTRAL NERVOUS SYSTEM (LIBRARY CIRCULATION CLERK): No focal deficit. Power is 5/5 in all extremities. LABORATORY STUDIES: CBC showed WBC 8.1, hemoglobin 11.7, platelets 193. Urinalysis showed 3+ glucose, no leukocyte esterase, no protein. BMP done today morning showed sodium 137, potassium 4.1, chloride 100, bicarbonate 31, BUN 70, creatinine 2.2. Troponin is less than 0.02. BNP was 1417 on arrival. MICROBIOLOGY: No cultures are available at this time. IMAGING: Renal ultrasound was done, which showed chronic medical etiologies. A chest x-ray was also done yesterday, which also showed cardiomegaly with left atrial ventricle enlargement, but no effusion. Multilead automatic implantable cardioverter-defibrillator (AICD) with tortuous aorta. CURRENT INPATIENT MEDICATIONS: Patient's medications were all reviewed by myself. He is currently on: - albuterol as needed - Lasix 40 mg intravenous (IV) every 6 hours - Levemir 30 units subcutaneous daily - insulin sliding scale - magnesium oxide 400 mg by mouth daily - potassium chloride 10 mEq by mouth daily. ASSESSMENT AND PLAN: 1. Acute on chronic decompensated systolic congestive heart failure. Patient's echocardiogram was done. Report is pending. Continue the diuretics. I am going to increase the regimen. 2. Acute kidney injury superimposed on chronic kidney disease. Patient's creatinine was slightly high on admission. He is in cardiorenal syndrome at this time. Okay to continue aggressive diuresis at this time. 3. History of ascites and abdominal distention. Patient is going to have paracentesis done today by interventional radiology (IR). 4. History of gout secondary to chronic kidney disease. He denies any active complaints. Uric acid level will be checked in the morning. Thank you for involving me in the care of this patient. I shall be happy to follow the patient along with you tomorrow morning.
[2021-02-21 11:20] LABS: SPEC. GRAVITY BODY FLUIDS 1.029 (NOT ESTABLISHED)
[2021-02-21 11:23] LABS: APPEARANCE, BODY FLUID CLOUDY (CLEAR); PERITONEAL FL COLOR PALE YELLOW (COLORLESS); SOURCE, BODY FLUID PERITONEAL
[2021-02-21 11:33] LABS: SOURCE, BODY FLUID ALBUMIN PERITONEAL; SOURCE, BODY FLUID GLUCOSE PERITONEAL; SOURCE, BODY FLUID TOT PROTEIN PERITONEAL; TOTAL PROTEIN, BODY FLUID 4.5 G/DL (NOT ESTABLISHED)
--- NOTE | 2021-02-21 17:10 | REP ---
INDICATION: ANASARCA R/O ASCITES. COMPARISON: None. TECHNIQUE: The procedure was performed under the direct supervision of Dr. Rogers. The risks and benefits of the procedure were explained to the patient and informed consent was obtained. The largest pocket of fluid was localized in the right flank using ultrasound guidance. The skin was prepped and draped in a sterile fashion. 8 mL of 1% lidocaine was used as a local anesthetic. Using ultrasound guidance a an 8-Telugu multi side-hole catheter was inserted using trocar technique.1350 mL of meghan colored fluid was withdrawn with a sample sent to the lab for analysis. Estimated blood loss: Less than 1 The patient tolerated the procedure well and there were no immediate complications. After the appropriate amount of monitored convalescence, the patient was discharged from the department. FINDINGS: None IMPRESSION: Ultrasound-guided paracentesis [id number] mL of meghan colored fluid. <Electronically signed by Martin Lopez > 02/21/21 1526 <Electronically signed by Sen Rogers > 02/21/21 1753
[2021-02-21] MEDS: MAGNESIUM OXIDE 400MG TAB (MAG-OX) PO SCH (20:21)
[2021-02-21] MEDS: LEVEMIR (INSULIN DETEMIR) 1 UNITS/0.01ML SC SCH (20:21)
[2021-02-22] VITALS: BP 125/66
[2021-02-22 04:00] VITALS: BP 135/65
[2021-02-22] MEDS: FUROSEMIDE 40MG/4ML VIAL (J1940) IV SCH ×2 (05:18)
[2021-02-22 06:14] LABS: BASO # 0.1 10^3/uL (0.0-0.2); BASO % 1.1 % (0.0-1.0); EOS # 0.4 10^3/uL (0.0-0.5); EOS % 4.5 % (0.0-3.0); HEMATOCRIT 39.1 % (42.0-52.0); HEMOGLOBIN 12.4 g/dl (13.5-17.5); LYMPH # 0.6 10^3/uL (1.5-5.0); LYMPH % 7.6 % (24.0-44.0); MEAN CORPUSCULAR HGB CONC 31.7 g/dl (32.0-36.5); MEAN CORPUSCULAR VOLUME 91.6 fl (80.0-96.0); MONO # 0.8 10^3/uL (0.0-0.8); MONO % 9.4 % (2.0-8.0); NEUTROPHILS # 6.5 10^3/uL (1.5-8.5); NEUTROPHILS % 76.9 % (36.0-66.0); PLATELET COUNT, AUTOMATED 210 10^3/uL (150-450); RED BLOOD COUNT 4.27 10^6/uL (4.30-6.10); WHITE BLOOD COUNT 8.4 10^3/uL (4.0-10.0)
[2021-02-22 06:30] LABS: CALCIUM LEVEL 10.5 MG/DL (8.8-10.2); CREATININE FOR GFR 2.22 MG/DL (0.70-1.30); GLOMERULAR FILTRATION RATE 31.2 (>42); POTASSIUM SERUM 4.3 MEQ/L (3.5-5.1)
[2021-02-22 08:00] VITALS: BP 124/59
[2021-02-22] MEDS: POTASSIUM CHLORIDE 10 MEQ SR TABLET PO SCH (08:06)
[2021-02-22] MEDS: HumaLOG INSULIN (NovoLOG) PER UNIT SC SCH (08:07)
--- NOTE | 2021-02-22 10:38 | DS.PDOC ---
Discharge Summary General Date of Admission Feb 20, 2021 at 21:21 Date of Discharge 02/22/2021 Discharge Summary PRIMARY CARE PHYSICIAN: Carole Lxu MD ATTENDING AT TIME OF DISCHARGE: Dr. Ayah Ferris, DISCHARGE DIAGNOS(E)S: Acute on chronic decompensated systolic congestive heart failure (reduced ejection fraction) Acute kidney injury superimposed on stage III chronic kidney disease Cardiorenal syndrome Ascites Anasarca Gout Atrial fibrillation with complete heart block status post pacemaker and AICD placement Hypertension Hyperlipidemia Benign prostatic hypertrophy status post TURP Coronary artery disease Insulin-dependent diabetes mellitis type II HPI & HOSPITAL COURSE: 70-year-old male who had developed weight gain and lower extremity edema with persistent shortness of breath and orthopnea over 1 week's time prior to admission. He was seen in his nephrology office and his diuretic dose was increased as an outpatient however this only prevented him from gaining more weight, but did not necessarily ameliorate his symptoms, therefore he presented to the emergency department. He was found to be in cardiorenal syndrome, was aggressively diuresed, and had a net negative of approximately 4 L diuresed, and then he also had a paracentesis for ascites were 1.35 L was drawn off his abdomen. With all of this is shortness of breath, orthopnea has completely resolved, has bilateral lower extremity has resolved as well. Today he clinically does not appear fluid overloaded, is feeling quite well, and is stable for discharge at this time. Recently his dose of diuretic was increased outpatient as indicated above, will continue him on discharged with the same increased dose as this will likely maintain his current fluid status. PHYSICAL EXAMINATION ON DISCHARGE: GENERAL: Awake, alert, oriented x3. He is in no acute distress. CARDIOVASCULAR EXAMINATION: Regular rate and rhythm, with no rubs, gallops, or murmur. Paced rhythm on telemetry with only an occasional extemporaneously beat. RESPIRATORY EXAMINATION: Clear to auscultation bilaterally with no wheezes, rales, or rhonchi. ABDOMINAL EXAMINATION: Soft, nontender, nondistended. Bowel sounds present. EXTREMITIES: No clubbing or edema noted. 2+ pulses in the radial bilaterally. No edema in the bilateral feet today. 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 Recommend consistent carb hydrate diet with 2 g sodium restriction as well. Activity as tolerated. If symptoms return, or if you experience worsening of your symptoms, please call your doctor or return to the emergency department. Vital Signs/I&Os Vital Signs Date Time Temp Pulse Resp B/P (MAP) Pulse Ox O2 Delivery O2 Flow Rate FiO2 02/22/21 08:00 97.2 69 16 124/59 (80) 99 Room Air I&O- Last 24 Hours up to 6 AM 02/22/21 06:00 Intake Total 990 ml Output Total 4375 ml Balance -3385 ml Laboratory Data Labs 24H Laboratory Tests 2 02/21/21 10:58: Lab Scanned Report Miscellaneous Lab 02/21/21 12:11: Bedside Glucose (Misc Panel) 231H 02/21/21 17:07: Bedside Glucose (Misc Panel) 317H 02/21/21 20:11: Bedside Glucose (Misc Panel) 326H 02/22/21 05:55: Immature Granulocyte % (Auto) 0.5, Neutrophils (%) (Auto) 76.9H, Lymphocytes (%) (Auto) 7.6L, Monocytes (%) (Auto) 9.4H, Eosinophils (%) (Auto) 4.5H, Basophils (%) (Auto) 1.1H, Neutrophils # (Auto) 6.5, Lymphocytes # (Auto) 0.6L, Monocytes # (Auto) 0.8, Eosinophils # (Auto) 0.4, Basophils # (Auto) 0.1, Nucleated Red Blood Cells % (auto) 0.0, Anion Gap 7L, Glomerular Filtration Rate 31.2L, Calcium Level 10.5H CBC/BMP Laboratory Tests 02/22/21 05:55 FSBS Laboratory Tests Test 02/21/21 12:11 02/21/21 17:07 02/21/21 20:11 Range/Units Bedside Glucose (Misc Panel) 231 317 326 83-110 MG/DL Microbiology Microbiology 02/21/21 Fungal Smear, Received Pending 02/21/21 Fungal Culture, Received Pending 02/21/21 Anaerobic Culture, Received Pending 02/21/21 Gram Stain - Final, Resulted 02/21/21 Body Fluid Culture, Resulted Pending Discharge Medications Scheduled Insulin Glargine (Lantus) 100 Unit/1 Ml Vial, 30 UNITS SC QHS, (Reported) Insulin Human Lispro (Humalog) 100 Unit/1 Ml Vial, 1 DOSE SC AC, (Reported) PER SLIDING SCALE Magnesium Oxide (Magnesium) 400 Mg Capsule, 400 MG PO QHS, (Reported) Multivitamins (Thera M Plus Tablet) 1 Each Tablet, 1 TAB PO DAILY, (Reported) Potassium Chloride (Potassium Chloride) 10 Meq Capsule.er, 10 MEQ PO DAILY, (Reported) Spironolactone (Spironolactone) 25 Mg Tablet, 50 MG PO Q2D, (Reported) ON ODD DAYS Spironolactone (Spironolactone) 25 Mg Tablet, 25 MG PO Q2D, (Reported) ON EVEN DAYS Torsemide (Torsemide) 20 Mg Tablet, 60 MG PO BID, (Reported) Scheduled PRN Albuterol Sulfate (Albuterol Sulfate Hfa) 8.5 Gm Hfa.aer.ad, 2 PUFFS INH QID PRN for SHORTNESS OF BREATH, (Reported) Allergies Coded Allergies: Penicillins (Verified Allergy, Intermediate, swelling, difficulty breathing, 09/18/20) clindamycin (Verified Allergy, Unknown, hives, 09/18/20) hydrocodone (Verified Allergy, Unknown, "sends him to the [facility]", 09/18/20) atenolol (Verified Adverse Reaction, Severe, decreased heart rate, 09/18/20) AYAH FERRIS DO Feb 22, 2021 10:38
--- NOTE | 2021-02-22 21:10 | ECGEPIP ---
[facility] - ED Test Date: 2021-02-20 Pat Name: ADMAS ROSARIO Department: Room: [place] [address] Gender: Male [employer]ified [employer]: SHAW : 1950 Requested By: Tiffanie Velasquez Order Number: [id number] Reading MD: Tiffanie Velasquez Measurements Intervals [place] Rate: 66 P: CO: QRS: 129 QRSD: 100 T: 44 QT: 456 QTc: 478 Interpretive Statements sinus rhythm Incomplete right bundle branch block Right ventricular hypertrophy Possible Inferior infarct , age undetermined Cannot rule out Anterior infarct , age undetermined prolonged qtc No prior Electronically Signed on 02-22-2021 21:09:40 EDT by Tiffanie Velasquez
--- NOTE | 2021-02-23 12:29 | ECHO ---
ECHOCARDIOGRAM DATE OF PROCEDURE: 02/21/2021 Age: 71 Gender: Male Height: 71 inches Weight: 275 pounds Body surface area: 2.1 m2 PATIENT LOCATION: Inpatient progressive care unit (PCU) Room 3223. REFERRING PHYSICIAN: Rebecca Benoit M.D. INDICATION: Heart failure. MEASUREMENTS: 2D Measurements: RV - 6.0 cm LV - 5.6 cm Septum 1.3 cm Posterior wall 1.3 cm Aortic root 3.8 cm LA - 4.6 cm LVEF 45-50% Doppler Measurements: AV - 1.13 m/sec LVOT - 0.8 m/sec LVOT diameter 2.1 cm MV- E 91, A Early mitral deceleration time 246 msec E prime medial 5.2 E prime lateral 10.2 Average E/E prime ratio 11.8/PCWP 16.6 mmHg PV - 0.92 m/sec Pulmonary artery acceleration time 63 msec RVSP 70 mmHg IVC - 2.6 cm COMMENTS: No visualized atrial activity with regular narrow complex QRS at a regular rhythm. Somewhat difficult study in light of the patient's body habitus, but diagnostically useful information was still obtained. M-mode and 2-dimensional echocardiography was performed with pulse, continuous wave, color flow and tissue Doppler studies. At least mildly dilated right ventricle with borderline symmetrical hypertrophy and global hypokinesis with at least mild impairment of global resting systolic function. Moderately dilated left atrium. As mentioned, no visible atrial activity electrically or with Doppler flow signals. Estimated mean left atrial pressure currently upper limits of normal. Prominently dilated right heart chambers with virtual akinesis of right ventricular free wall and Doppler evidence of severe pulmonary hypertension. Prominently dilated inferior vena cava with absent respiratory collapse in keeping with an elevated central venous pressure in excess of 20 mmHg. Normal aortic dimensions. Normal appearing aortic valve with adequate cusp separation, but premature closure, in keeping with reduced forward stroke volume. Mild degenerative changes of the mitral valvular apparatus with "low flow" appears to leaflet motion, but no posterior systolic buckling and no more than trace insufficiency. Normal appearing tricuspid valve with at least moderate tricuspid insufficiency. Three separate pacing leads could be visualized, two of which cross the tricuspid valve and one ran in the coronary sinus, consistent with a biventricular pacing system. No separate intracardiac stuart or pericardial effusion.
== END 2021-02-22 12:30 | disposition home or self-care (01) | DRG 291 ==
LOC: M ED 17:12 → M ED INP 21:21 → ENRESERVDT 22:20 → ENRESERVTM 22:20 → M PCU 22:51
PROVIDERS: ADMIT General Practice; ATTEND Neuromusculoskeletal Medicine & OMM
PROC: 0W9G3ZZ Drainage of Peritoneal Cavity, Percutaneous Approach (ICD-10-PCS; principal; 2021-02-21 15:00)
DX: I13.0 Hypertensive heart and chronic kidney disease with heart failure and stage 1 through stage 4 chronic kidney disease, or unspecified chronic kidney disease (principal); I50.23 Acute on chronic systolic (congestive) heart failure; N17.9 Acute kidney failure, unspecified; R18.8 Other ascites; N18.30 Chronic kidney disease, stage 3 unspecified; E11.22 Type 2 diabetes mellitus with diabetic chronic kidney disease; I48.0 Paroxysmal atrial fibrillation; Z95.0 Presence of cardiac pacemaker; I25.10 Atherosclerotic heart disease of native coronary artery without angina pectoris; E78.5 Hyperlipidemia, unspecified; M10.30 Gout due to renal impairment, unspecified site; Z79.899 Other long term (current) drug therapy; Z79.4 Long term (current) use of insulin; Z88.0 Allergy status to penicillin; Z88.8 Allergy status to other drugs, medicaments and biological substances; Z88.5 Allergy status to narcotic agent; Z98.41 Cataract extraction status, right eye; Z98.42 Cataract extraction status, left eye; Z95.2 Presence of prosthetic heart valve; J45.909 Unspecified asthma, uncomplicated; I25.2 Old myocardial infarction

== ENCOUNTER → 2021-04-09 | Outpatient (REF) | payer MEDICARE ==
[~2021-04-09] MED LIST changes: +POTA10CA32 PO
== END ==
LOC: M LAB REF 16:50
PROVIDERS: ATTEND Internal Medicine Nephrology
DX: N18.4 Chronic kidney disease, stage 4 (severe) (principal)

== ENCOUNTER → 2021-04-16 | Outpatient (CLI) | payer MEDICARE ==
[~2021-04-16] MED LIST changes: +FEBU40TA2 PO
[2021-04-16 08:42] VITALS: BP 169/88
--- NOTE | 2021-04-16 09:18 | REP ---
INDICATION: R/O PLEURAL EFFUSION, WILL CALL WHEN PATIENT ARRIVES TO IR COMPARISON: 02/20/2021. TECHNIQUE: PA/Lateral FINDINGS: Lungs: Clear, no infiltrate. Heart: Slightly enlarged. Mediastinum: Mediastinal silhouette unremarkable. Pleural angles: There is no radiographic evidence of a significant joint effusion.. Bones and soft tissues: There are mild degenerative changes of the spine without compression deformity There is a left pacemaker. There is a right shoulder arthroplasty. IMPRESSION: No acute pulmonary disease. <Electronically signed by Sen Rogers > 04/16/21 0915
--- NOTE | 2021-04-16 09:20 | REP ---
INDICATION: EVAL FOR ASCITES PRIOR TO PARA. COMPARISON: 02/21/2021. TECHNIQUE: Real-time sonographic evaluation of abdomen and pelvis performed to evaluate for ascites, prior to a scheduled paracentesis. FINDINGS: There is only minimal ascites present. IMPRESSION: Minimal ascites, there is insufficient amount for therapeutic paracentesis. <Electronically signed by Sen Rogers > 04/16/21 0916
[2021-04-16 09:36] LABS: INR 1.04
== END ==
LOC: M IRPRO 08:17
PROVIDERS: ATTEND Internal Medicine Nephrology
DX: R18.8 Other ascites (principal); N18.4 Chronic kidney disease, stage 4 (severe); I50.22 Chronic systolic (congestive) heart failure; R05 Cough

== ENCOUNTER → 2021-05-15 | Outpatient (REF) | payer MEDICARE ==
[2021-05-15 16:38] LABS: HEMOGLOBIN A1c 8.1 %
== END ==
LOC: M LAB REF 15:49
PROVIDERS: ATTEND Surgery
DX: I87.312 Chronic venous hypertension (idiopathic) with ulcer of left lower extremity (principal)
CPT/HCPCS: 11042; 11045; 83036; G0463

== ENCOUNTER → 2021-06-11 | Outpatient (REF) | payer MEDICARE ==
[2021-06-11 13:25] LABS: INR 0.98; PROTHROMBIN TIME 13.4 SECONDS (12.7-14.5)
== END ==
LOC: M LAB REF 12:54
PROVIDERS: ATTEND Nurse Practitioner Family
DX: N18.4 Chronic kidney disease, stage 4 (severe) (principal); R18.8 Other ascites; Z01.812 Encounter for preprocedural laboratory examination

== ENCOUNTER → 2021-09-12 | Outpatient (CLI) | payer MEDICARE | LOC: M LABSMTC 09:05 | PROVIDERS: ATTEND Surgery | DX: Z01.812 Encounter for preprocedural laboratory examination (principal); Z20.822 Contact with and (suspected) exposure to COVID-19 ==

== ENCOUNTER 2021-09-17 10:36 | Day surgery (SDC) | payer MEDICARE ==
[~2021-09-17] VITALS: Ht 182.9 cm; Wt 118.4 kg
[~2021-09-17 10:36] MED LIST changes: +NS 1,000 ML IV ONE
== END 2021-09-17 15:06 | disposition home or self-care (01) ==
LOC: M OPP 10:36
PROVIDERS: ATTEND Surgery
DX: R19.5 Other fecal abnormalities (principal); Z53.21 Procedure and treatment not carried out due to patient leaving prior to being seen by health care provider

== ENCOUNTER → 2021-10-01 | Outpatient (CLI) | payer MEDICARE ==
[~2021-10-01] MED LIST changes: -D31000TA2 PO; -NS 1,000 ML IV ONE; +VITA100093 PO
[2021-10-01 12:47] VITALS: BP 117/58
== END ==
LOC: M IRPRO 11:10
PROVIDERS: ATTEND Nurse Practitioner Family
DX: R18.8 Other ascites (principal); I50.22 Chronic systolic (congestive) heart failure; R06.00 Dyspnea, unspecified; I51.7 Cardiomegaly; Z95.0 Presence of cardiac pacemaker

== ENCOUNTER → 2021-10-10 | Outpatient (CLI) | payer MEDICARE | LOC: M LABSMTC 09:03 | PROVIDERS: ATTEND Anesthesiology | DX: Z01.812 Encounter for preprocedural laboratory examination (principal); Z20.822 Contact with and (suspected) exposure to COVID-19 ==

== ENCOUNTER 2021-10-15 06:45 | Day surgery (SDC) | payer MEDICARE ==
[~2021-10-15] VITALS: Ht 180.3 cm; Wt 117.5 kg
[~2021-10-15 06:45] MED LIST changes: +NS 1,000 ML IV ONE
[2021-10-15] MEDS ORDERED: LIDOCAINE 2% 100MG/5ML SDV (FOR ANES.) As Ordered ONE (07:09)
[2021-10-15] MEDS ORDERED: propofoL 200 MG/20 ML VIAL As Ordered ONE ×2 (07:09→08:58)
[2021-10-15] MEDS ORDERED: ALBUTEROL SULFATE 2.5 MG/0.5 ML INH NEB SOLN As Ordered ONE (07:35)
[2021-10-15] MEDS ORDERED: ALBUTEROL SULFATE 2.5 MG/0.5 ML INH NEB SOLN INH ONE (07:40)
[2021-10-15 09:22] VITALS: BP 127/73
== END 2021-10-15 09:24 | disposition home or self-care (01) ==
LOC: M OPP 06:45
PROVIDERS: ATTEND Surgery
DX: D12.6 Benign neoplasm of colon, unspecified (principal); K64.1 Second degree hemorrhoids; R19.5 Other fecal abnormalities; B37.81 Candidal esophagitis; K29.70 Gastritis, unspecified, without bleeding; K31.7 Polyp of stomach and duodenum; I48.91 Unspecified atrial fibrillation; E11.9 Type 2 diabetes mellitus without complications; Z79.4 Long term (current) use of insulin; Z79.899 Other long term (current) drug therapy; Z88.0 Allergy status to penicillin; Z88.1 Allergy status to other antibiotic agents; Z88.5 Allergy status to narcotic agent; Z91.048 Other nonmedicinal substance allergy status; Z95.810 Presence of automatic (implantable) cardiac defibrillator; Z95.5 Presence of coronary angioplasty implant and graft; Z86.74 Personal history of sudden cardiac arrest

== ENCOUNTER → 2021-10-29 | Outpatient (CLI) | payer MEDICARE ==
[~2021-10-29] MED LIST changes: -NS 1,000 ML IV ONE
[2021-10-29 14:55] VITALS: BP 127/71
== END ==
LOC: M IRPRO 13:09
PROVIDERS: ATTEND Nurse Practitioner Family
DX: R18.8 Other ascites (principal); I50.22 Chronic systolic (congestive) heart failure

== ENCOUNTER → 2021-11-11 | Outpatient (CLI) | payer MEDICARE | LOC: M WHC 12:10 | PROVIDERS: ATTEND Nurse Practitioner Family | DX: R33.9 Retention of urine, unspecified (principal); N18.4 Chronic kidney disease, stage 4 (severe); R18.8 Other ascites; N32.89 Other specified disorders of bladder; N28.89 Other specified disorders of kidney and ureter ==

== ENCOUNTER → 2021-11-12 | Outpatient (CLI) | payer MEDICARE ==
[2021-11-12 14:31] VITALS: BP 143/74
[2021-11-12 14:51] VITALS: BP 120/62
[2021-11-12 15:01] VITALS: BP 124/63
[2021-11-12 15:06] VITALS: BP 121/67
[2021-11-12 15:20] VITALS: BP 126/62
== END ==
LOC: M IRPRO 13:47
PROVIDERS: ATTEND Internal Medicine Nephrology
DX: R18.8 Other ascites (principal)
CPT/HCPCS: 49083; 96365; P9047

== ENCOUNTER → 2021-11-26 | Outpatient (CLI) | payer MEDICARE | LOC: M RAD 10:34 | PROVIDERS: ATTEND Family Medicine | DX: R05.9 Cough, unspecified (principal) ==

== ENCOUNTER → 2021-11-26 | Outpatient (CLI) | payer MEDICARE ==
[2021-11-26 12:04] VITALS: BP 128/71
== END ==
LOC: M IRPRO 10:35
PROVIDERS: ATTEND Internal Medicine Nephrology
DX: R18.8 Other ascites (principal)

== ENCOUNTER → 2021-12-08 | Outpatient (CLI) | payer MEDICARE ==
[2021-12-08 10:50] VITALS: BP 114/66
== END ==
LOC: M IRPRO 09:34
PROVIDERS: ATTEND Internal Medicine Nephrology
DX: R18.8 Other ascites (principal)

== ENCOUNTER → 2021-12-16 | Outpatient (CLI) | payer MEDICARE ==
[2021-12-16 15:20] VITALS: BP 126/73
== END ==
LOC: M IRPRO 14:01
PROVIDERS: ATTEND Internal Medicine Nephrology
DX: R18.8 Other ascites (principal)

== ENCOUNTER → 2021-12-26 | Outpatient (CLI) | payer MEDICARE ==
[~2021-12-26] MED LIST changes: +MAGN250T7 PO; +SALI0.6530 NARES; +TORS100T PO; +VALA1TAB5 PO; +VENTAER INH
[2021-12-26 09:30] VITALS: BP 119/72
== END ==
LOC: M IRPRO 08:32
PROVIDERS: ATTEND Internal Medicine Nephrology
DX: R18.8 Other ascites (principal)

== ENCOUNTER 2021-12-30 10:33 | Emergency (ER) | payer MEDICARE ==
[~2021-12-30] VITALS: Ht 180.3 cm; Wt 127.1 kg
[2021-12-30 12:45] VITALS: BP 141/69
[2021-12-30 12:46] LABS: BASO # 0.1 10^3/uL (0.0-0.2); BASO % 0.9 % (0.0-1.0); EOS # 0.2 10^3/uL (0.0-0.5); HEMATOCRIT 34.8 % (42.0-52.0); HEMOGLOBIN 11.1 g/dl (13.5-17.5); LYMPH # 0.5 10^3/uL (1.5-5.0); LYMPH % 6.7 % (24.0-44.0); MEAN CORPUSCULAR HEMOGLOBIN 28.6 pg (27.0-33.0); MEAN CORPUSCULAR HGB CONC 31.9 g/dl (32.0-36.5); MEAN CORPUSCULAR VOLUME 89.7 fl (80.0-96.0); MONO # 0.7 10^3/uL (0.0-0.8); MONO % 9.6 % (2.0-8.0); NEUTROPHILS # 6.1 10^3/uL (1.5-8.5); NEUTROPHILS % 79.4 % (36.0-66.0); PLATELET COUNT, AUTOMATED 237 10^3/uL (150-450); RED BLOOD COUNT 3.88 10^6/uL (4.30-6.10); WHITE BLOOD COUNT 7.6 10^3/uL (4.0-10.0)
[2021-12-30 12:57] LABS: INR 0.97; PARTIAL THROMBOPLASTIN TIME 27.7 SECONDS (25.9-37.0); PROTHROMBIN TIME 13.3 SECONDS (12.7-14.5)
[2021-12-30 13:19] LABS: BILIRUBIN,DIRECT 0.3 MG/DL (0.0-0.2); BILIRUBIN,TOTAL 0.6 MG/DL (0.2-1.0); CALCIUM LEVEL 10.1 MG/DL (8.8-10.2); CREATININE FOR GFR 3.35 MG/DL (0.70-1.30); GLOMERULAR FILTRATION RATE 19.3 (>42); POTASSIUM SERUM 4.7 MEQ/L (3.5-5.1); TOTAL PROTEIN 6.6 GM/DL (6.4-8.2)
[2021-12-30 13:27] LABS: CK-MB VALUE MASS 4.4 NG/ML (<3.6); MB/CK RELATIVE INDEX 4.19 (< OR =4)
[2021-12-30] MEDS ORDERED: ASPIRIN 300 MG SUPP PR ONE (15:35)
[2021-12-31] MEDS ORDERED: METO25TA PO (23:28)
[2021-12-31] MEDS ORDERED: MAGN250T11 PO (23:28)
[2021-12-31] MEDS ORDERED: SALI0.6530 (23:28)
[2021-12-31] MEDS ORDERED: FEBU80TA PO (23:28)
== END 2021-12-30 15:45 | disposition left against medical advice (07) ==
LOC: M ED 10:33
DX: N50.89 Other specified disorders of the male genital organs (principal); Z53.9 Procedure and treatment not carried out, unspecified reason; I45.19 Other right bundle-branch block; I25.10 Atherosclerotic heart disease of native coronary artery without angina pectoris; E11.9 Type 2 diabetes mellitus without complications; I10 Essential (primary) hypertension; N18.9 Chronic kidney disease, unspecified; R06.02 Shortness of breath; Z79.4 Long term (current) use of insulin; Z79.899 Other long term (current) drug therapy; Z88.0 Allergy status to penicillin; Z88.1 Allergy status to other antibiotic agents; Z88.5 Allergy status to narcotic agent; Z91.89 Other specified personal risk factors, not elsewhere classified; Z88.8 Allergy status to other drugs, medicaments and biological substances

== ENCOUNTER 2021-12-31 17:10 | Inpatient (IN) | payer MEDICARE ==
[~2021-12-31] VITALS: Ht 180.3 cm; Wt 120.5 kg
[2021-12-31 19:07] LABS: BASO # 0.1 10^3/uL (0.0-0.2); BASO % 0.6 % (0.0-1.0); EOS # 0.2 10^3/uL (0.0-0.5); EOS % 1.3 % (0.0-3.0); HEMATOCRIT 35.7 % (42.0-52.0); HEMOGLOBIN 11.2 g/dl (13.5-17.5); LYMPH # 0.4 10^3/uL (1.5-5.0); LYMPH % 3.6 % (24.0-44.0); MEAN CORPUSCULAR HEMOGLOBIN 27.9 pg (27.0-33.0); MEAN CORPUSCULAR HGB CONC 31.4 g/dl (32.0-36.5); MEAN CORPUSCULAR VOLUME 88.8 fl (80.0-96.0); MONO # 0.9 10^3/uL (0.0-0.8); MONO % 7.8 % (2.0-8.0); NEUTROPHILS # 10.4 10^3/uL (1.5-8.5); NEUTROPHILS % 86.4 % (36.0-66.0); PLATELET COUNT, AUTOMATED 261 10^3/uL (150-450); RED BLOOD COUNT 4.02 10^6/uL (4.30-6.10); WHITE BLOOD COUNT 12.1 10^3/uL (4.0-10.0)
[2021-12-31 19:33] LABS: BILIRUBIN,DIRECT 0.3 MG/DL (0.0-0.2); BILIRUBIN,TOTAL 0.5 MG/DL (0.2-1.0); CREATININE FOR GFR 3.47 MG/DL (0.70-1.30); GLOMERULAR FILTRATION RATE 18.6 (>42); POTASSIUM SERUM 4.7 MEQ/L (3.5-5.1); THYROID STIMULATING HORMONE 2.75 uIU/ML (0.358-3.740)
[2021-12-31 19:35] LABS: RSV AMPLIFICATION NEGATIVE (NEGATIVE)
[2021-12-31] MEDS ORDERED: INSULIN LISPRO (NovoLOG) PER UNIT SC SCH (21:00)
[2021-12-31] MEDS ORDERED: FUROSEMIDE 100MG/10ML VIAL (J1940) IV ONE (21:25)
[2021-12-31] MEDS ORDERED: DEXTROSE 50% 50 ML SYRINGE IV PRN (21:55)
[2021-12-31] MEDS ORDERED: GLUCAGON INJ 1MG VIAL SC PRN (21:55)
[2021-12-31] MEDS ORDERED: GLUCOSE 4GM CHEW TABLET PO PRN (21:55)
[2021-12-31] MEDS ORDERED: ACETAMINOPHEN TAB 650MG DOSE (2X325MG) PO PRN (21:55)
[2021-12-31 22:21] LABS: INR 0.92; PROTHROMBIN TIME 12.8 SECONDS (12.7-14.5)
[2021-12-31 22:22] LABS: PARTIAL THROMBOPLASTIN TIME 28.7 SECONDS (25.9-37.0)
[2021-12-31 22:23] LABS: URIC ACID 4.9 MG/DL (3.5-7.2)
[2021-12-31] MEDS ORDERED: MAGN250T11 PO (23:28)
[2021-12-31] MEDS ORDERED: METO25TA PO (23:28)
[2021-12-31] MEDS ORDERED: FEBU80TA PO (23:28)
[2021-12-31] MEDS ORDERED: SALI0.6530 (23:28)
[2021-12-31] MEDS ORDERED: HOME MED LIST COMPLETE! XX SCH (23:30)
[2022-01-01] MEDS ORDERED: SODIUM CHLORIDE NASAL 0.65% SPRAY BTL (OCEAN) PRN (01:50)
[2022-01-01] MEDS ORDERED: INSULIN LISPRO (NovoLOG) PER UNIT SC SCH ×2 (03:00→07:30)
[2022-01-01] MEDS: FUROSEMIDE 40MG/4ML VIAL (J1940) IV SCH ×2 (04:20→08:56)
[2022-01-01 05:06] VITALS: BP 131/69
[2022-01-01] MEDS: HEPARIN SOD (PORCINE) 5000UNITS/ML 1ML VIAL/SYRINGE SQ SCH ×3 (06:00→21:38)
[2022-01-01 06:05] LABS: HEMATOCRIT 34.6 % (42.0-52.0); HEMOGLOBIN 11.1 g/dl (13.5-17.5); MEAN CORPUSCULAR HEMOGLOBIN 28.1 pg (27.0-33.0); MEAN CORPUSCULAR HGB CONC 32.1 g/dl (32.0-36.5); MEAN CORPUSCULAR VOLUME 87.6 fl (80.0-96.0); PLATELET COUNT, AUTOMATED 238 10^3/uL (150-450); RED BLOOD COUNT 3.95 10^6/uL (4.30-6.10); WHITE BLOOD COUNT 10.6 10^3/uL (4.0-10.0)
[2022-01-01 06:26] LABS: C REACTIVE PROTEIN QUANTITATIV 3.4 MG/DL (0.00-0.30); CALCIUM LEVEL 10.2 MG/DL (8.8-10.2); CREATININE FOR GFR 3.4 MG/DL (0.70-1.30); POTASSIUM SERUM 5.3 MEQ/L (3.5-5.1)
[2022-01-01 07:28] LABS: ERYTHROCYTE SEDIMENTATION RATE 45 mm/hr (0-20)
[2022-01-01 08:00] VITALS: BP 114/55
[2022-01-01] MEDS: INSULIN LISPRO (NovoLOG) PER UNIT SC SCH ×4 (08:56→21:37)
[2022-01-01] MEDS ORDERED: metOLazone 2.5 MG TAB PO ONE (11:00)
[2022-01-01] MEDS: FUROSEMIDE injection 250 MG in D5W 225 ML IV SCH (12:33)
[2022-01-01 14:00] VITALS: BP 114/59
[2022-01-01 20:56] VITALS: BP 126/59
[2022-01-01 20:58] LABS: HEMOGLOBIN A1c 8.2 %
[2022-01-01] MEDS ORDERED: LEVEMIR (INSULIN DETEMIR) 1 UNITS/0.01ML SC SCH (21:00)
[2022-01-01 23:36] VITALS: BP 114/56
[2022-01-02] MEDS: FUROSEMIDE injection 250 MG in D5W 225 ML IV SCH ×3 (00:46→20:06)
[2022-01-02 04:32] VITALS: BP 131/76
[2022-01-02] MEDS: HEPARIN SOD (PORCINE) 5000UNITS/ML 1ML VIAL/SYRINGE SQ SCH ×3 (05:35→21:13)
[2022-01-02 06:13] LABS: HEMATOCRIT 34.5 % (42.0-52.0); HEMOGLOBIN 11.1 g/dl (13.5-17.5); MEAN CORPUSCULAR HEMOGLOBIN 27.5 pg (27.0-33.0); MEAN CORPUSCULAR HGB CONC 32.2 g/dl (32.0-36.5); MEAN CORPUSCULAR VOLUME 85.6 fl (80.0-96.0); PLATELET COUNT, AUTOMATED 237 10^3/uL (150-450); RED BLOOD COUNT 4.03 10^6/uL (4.30-6.10); WHITE BLOOD COUNT 7.2 10^3/uL (4.0-10.0)
[2022-01-02 06:50] LABS: ALBUMIN 2.7 GM/DL (3.2-5.2); BILIRUBIN,TOTAL 0.7 MG/DL (0.2-1.0); CALCIUM LEVEL 9.7 MG/DL (8.8-10.2); CREATININE FOR GFR 3.27 MG/DL (0.70-1.30); GLOMERULAR FILTRATION RATE 19.9 (>42); POTASSIUM SERUM 4.5 MEQ/L (3.5-5.1); TOTAL PROTEIN 6.1 GM/DL (6.4-8.2)
[2022-01-02 08:10] VITALS: BP 126/70
[2022-01-02] MEDS: INSULIN LISPRO (NovoLOG) PER UNIT SC SCH ×4 (08:11→20:04)
[2022-01-02] MEDS ORDERED: LEVEMIR (INSULIN DETEMIR) 1 UNITS/0.01ML SC SCH ×2 (09:00→21:00)
[2022-01-02] MEDS ORDERED: metOLazone 5 MG TAB PO ONE (10:15)
[2022-01-02 12:35] VITALS: BP 135/69
[2022-01-02 15:52] VITALS: BP 117/56
[2022-01-02 20:00] VITALS: BP 128/65
[2022-01-03] VITALS: BP 128/65
[2022-01-03 04:00] VITALS: BP 117/64
[2022-01-03] MEDS: FUROSEMIDE injection 250 MG in D5W 225 ML IV SCH ×2 (04:30→13:00)
[2022-01-03] MEDS: HEPARIN SOD (PORCINE) 5000UNITS/ML 1ML VIAL/SYRINGE SQ SCH (05:27)
[2022-01-03 06:05] LABS: HEMATOCRIT 34.3 % (42.0-52.0); HEMOGLOBIN 11.1 g/dl (13.5-17.5); MEAN CORPUSCULAR HEMOGLOBIN 27.8 pg (27.0-33.0); MEAN CORPUSCULAR HGB CONC 32.4 g/dl (32.0-36.5); PLATELET COUNT, AUTOMATED 258 10^3/uL (150-450); RED BLOOD COUNT 3.99 10^6/uL (4.30-6.10); WHITE BLOOD COUNT 7.2 10^3/uL (4.0-10.0)
[2022-01-03 06:34] LABS: CREATININE FOR GFR 3.31 MG/DL (0.70-1.30); GLOMERULAR FILTRATION RATE 19.6 (>42); POTASSIUM SERUM 4.3 MEQ/L (3.5-5.1)
[2022-01-03 06:35] LABS: ALBUMIN 2.7 GM/DL (3.2-5.2); BILIRUBIN,TOTAL 0.7 MG/DL (0.2-1.0); TOTAL PROTEIN 6.4 GM/DL (6.4-8.2)
[2022-01-03 08:00] VITALS: BP 119/58
[2022-01-03] MEDS: INSULIN LISPRO (NovoLOG) PER UNIT SC SCH ×2 (08:16→11:51)
[2022-01-03] MEDS ORDERED: LEVEMIR (INSULIN DETEMIR) 1 UNITS/0.01ML SC SCH ×3 (09:00→21:00)
[2022-01-03] MEDS ORDERED: METO25TA PO (11:29)
[2022-01-03] MEDS ORDERED: SPIR-10 PO ×2 (11:29→11:58)
[2022-01-03] MEDS ORDERED: INSULANT SC (11:33)
[2022-01-03 12:47] VITALS: BP 107/58
[2022-01-06] MEDS ORDERED: METO25TA PO (04:21)
[2022-01-06] MEDS ORDERED: LANTINJ4 SC (04:21)
[2022-01-06] MEDS ORDERED: SPIR-10 PO (04:21)
[2022-01-09] MEDS ORDERED: XIFA550T PO (11:01)
[2022-01-09] MEDS ORDERED: LACT20EL PO (11:01)
[2022-01-09] MEDS ORDERED: CIPR-249 PO (11:01)
== END 2022-01-03 13:06 | disposition home or self-care (01) | DRG 291 ==
LOC: M ED 17:10 → M ED INP 21:52 → M PCU 01-01 05:06
PROVIDERS: ADMIT Family Medicine; ATTEND Internal Medicine
PROC: 0W9G3ZZ Drainage of Peritoneal Cavity, Percutaneous Approach (ICD-10-PCS; principal; 2022-01-01 09:00)
DX: I13.0 Hypertensive heart and chronic kidney disease with heart failure and stage 1 through stage 4 chronic kidney disease, or unspecified chronic kidney disease (principal); I50.33 Acute on chronic diastolic (congestive) heart failure; N17.9 Acute kidney failure, unspecified; N18.4 Chronic kidney disease, stage 4 (severe); I27.20 Pulmonary hypertension, unspecified; E11.22 Type 2 diabetes mellitus with diabetic chronic kidney disease; E11.649 Type 2 diabetes mellitus with hypoglycemia without coma; J45.909 Unspecified asthma, uncomplicated; I48.91 Unspecified atrial fibrillation; I25.10 Atherosclerotic heart disease of native coronary artery without angina pectoris; E78.5 Hyperlipidemia, unspecified; I27.81 Cor pulmonale (chronic); Z95.0 Presence of cardiac pacemaker; M10.9 Gout, unspecified; E66.9 Obesity, unspecified; Z79.899 Other long term (current) drug therapy; Z79.4 Long term (current) use of insulin; Z88.0 Allergy status to penicillin; Z88.5 Allergy status to narcotic agent; Z88.8 Allergy status to other drugs, medicaments and biological substances; Z95.2 Presence of prosthetic heart valve; Z98.41 Cataract extraction status, right eye; Z98.42 Cataract extraction status, left eye

== ENCOUNTER → 2022-01-16 | Outpatient (CLI) | payer MEDICARE ==
[~2022-01-16] MED LIST changes: +CIPR-249 PO; +FEBU80TA PO; +LACT20EL PO; +LANTINJ4 SC; +MAGN250T11 PO; +SALI0.6530; +XIFA550T PO
[2022-01-16 10:38] VITALS: BP 116/66
== END ==
LOC: M IRPRO 09:31
PROVIDERS: ATTEND Internal Medicine Nephrology
DX: R18.8 Other ascites (principal)

== ENCOUNTER → 2022-01-22 | Outpatient (CLI) | payer MEDICARE ==
[~2022-01-22] MED LIST changes: -LANTINJ4 SC; +LANTINJ4 SQ; +MIDO10TA PO; +MIDO5TA PO; +TYLE650T38 PO
[2022-01-22 11:46] VITALS: BP 95/60
== END ==
LOC: M IRPRO 10:51
PROVIDERS: ATTEND Internal Medicine Nephrology
DX: R18.8 Other ascites (principal)

== ENCOUNTER → 2022-01-29 | Outpatient (CLI) | payer MEDICARE ==
[~2022-01-29] MED LIST changes: +LANTINJ4 SC; -LANTINJ4 SQ; -MIDO10TA PO; -TYLE650T38 PO
[2022-01-29 12:10] VITALS: BP 102/67
== END ==
LOC: M IRPRO 10:31
PROVIDERS: ATTEND Internal Medicine Nephrology
DX: R18.8 Other ascites (principal)

== ENCOUNTER → 2022-02-05 | Outpatient (CLI) | payer MEDICARE ==
[2022-02-05 11:59] VITALS: BP 111/65
== END ==
LOC: M IRPRO 10:26
PROVIDERS: ATTEND Internal Medicine Nephrology
DX: R18.8 Other ascites (principal)

== ENCOUNTER 2022-02-09 17:40 | Emergency (ER) | payer MEDICARE ==
[~2022-02-09] VITALS: Ht 180.3 cm; Wt 136.4 kg
[2022-02-09 17:40] VITALS: BP 97/60
[~2022-02-09 17:40] MED LIST changes: -LANTINJ4 SC; +LANTINJ4 SQ
[2022-02-09] MEDS ORDERED: TYLE650T38 PO (18:13)
[2022-02-10] MEDS ORDERED: XIFA550T PO (15:49)
== END 2022-02-09 21:32 | disposition left against medical advice (07) ==
LOC: M ED 17:40
DX: Z53.21 Procedure and treatment not carried out due to patient leaving prior to being seen by health care provider (principal)

== ENCOUNTER 2022-02-10 10:48 | Inpatient (IN) | payer MEDICARE ==
[~2022-02-10] VITALS: Ht 180.3 cm; Wt 115.7 kg
[~2022-02-10 10:48] MED LIST changes: +TYLE650T38 PO
[2022-02-10 12:27] LABS: BASO # 0.1 10^3/uL (0.0-0.2); BASO % 0.9 % (0.0-1.0); EOS # 0.1 10^3/uL (0.0-0.5); EOS % 1.2 % (0.0-3.0); HEMOGLOBIN 10.8 g/dl (13.5-17.5); LYMPH # 0.4 10^3/uL (1.5-5.0); LYMPH % 6.6 % (24.0-44.0); MEAN CORPUSCULAR HEMOGLOBIN 29.2 pg (27.0-33.0); MEAN CORPUSCULAR HGB CONC 30.9 g/dl (32.0-36.5); MEAN CORPUSCULAR VOLUME 94.6 fl (80.0-96.0); MONO # 0.8 10^3/uL (0.0-0.8); MONO % 11.7 % (2.0-8.0); NEUTROPHILS # 5.3 10^3/uL (1.5-8.5); NEUTROPHILS % 79.3 % (36.0-66.0); PLATELET COUNT, AUTOMATED 224 10^3/uL (150-450); WHITE BLOOD COUNT 6.6 10^3/uL (4.0-10.0)
[2022-02-10 13:01] LABS: ALBUMIN 2.5 GM/DL (3.2-5.2); BILIRUBIN,DIRECT 0.4 MG/DL (0.0-0.2); BILIRUBIN,TOTAL 0.9 MG/DL (0.2-1.0); CALCIUM LEVEL 9.1 MG/DL (8.8-10.2); CREATININE FOR GFR 3.45 MG/DL (0.70-1.30); GLOMERULAR FILTRATION RATE 18.7 (>42); POTASSIUM SERUM 4.2 MEQ/L (3.5-5.1); TOTAL PROTEIN 5.7 GM/DL (6.4-8.2)
[2022-02-10 15:18] LABS: RSV AMPLIFICATION NEGATIVE (NEGATIVE)
[2022-02-10] MEDS ORDERED: ACETAMINOPHEN TAB 650MG DOSE (2X325MG) PO PRN (15:30)
[2022-02-10] MEDS ORDERED: XIFA550T PO (15:49)
[2022-02-10] MEDS ORDERED: HOME MED LIST COMPLETE! XX SCH (15:50)
[2022-02-10] MEDS ORDERED: GLUCOSE 4GM CHEW TABLET PO PRN (16:00)
[2022-02-10] MEDS ORDERED: DEXTROSE 50% 50 ML SYRINGE IV PRN (16:00)
[2022-02-10] MEDS ORDERED: GLUCAGON INJ 1MG VIAL SC PRN (16:00)
[2022-02-10 18:02] VITALS: BP 129/73
[2022-02-10] MEDS: INSULIN LISPRO (NovoLOG) PER UNIT SC SCH ×2 (19:43→21:00)
[2022-02-10 20:41] VITALS: BP 108/56
[2022-02-10] MEDS: LEVEMIR (INSULIN DETEMIR) 1 UNITS/0.01ML SQ SCH (21:46)
[2022-02-10] MEDS: rifAXIMin 550 MG TAB (XIFAXAN) PO SCH (21:46)
[2022-02-10] MEDS: HEPARIN SOD (PORCINE) 5000UNITS/ML 1ML VIAL/SYRINGE SC SCH (21:46)
[2022-02-10] MEDS: ACETAMINOPHEN 650MG ER TAB (TYLENOL ARTHRITIS) PO SCH (23:19)
[2022-02-11] MEDS ORDERED: carisoprodoL 350 MG TAB PO ONE (04:00)
[2022-02-11 05:05] VITALS: BP 104/56
[2022-02-11] MEDS: ACETAMINOPHEN 650MG ER TAB (TYLENOL ARTHRITIS) PO SCH ×2 (05:05→16:16)
[2022-02-11 06:21] LABS: HEMATOCRIT 33.5 % (42.0-52.0); HEMOGLOBIN 10.4 g/dl (13.5-17.5); MEAN CORPUSCULAR HEMOGLOBIN 29.5 pg (27.0-33.0); MEAN CORPUSCULAR VOLUME 94.9 fl (80.0-96.0); PLATELET COUNT, AUTOMATED 212 10^3/uL (150-450); RED BLOOD COUNT 3.53 10^6/uL (4.30-6.10); WHITE BLOOD COUNT 6.8 10^3/uL (4.0-10.0)
[2022-02-11 07:01] LABS: BLOOD UREA NITROGEN 34 MG/DL (7-18); CALCIUM LEVEL 9.4 MG/DL (8.8-10.2); CARBON DIOXIDE LEVEL 31 MEQ/L (21-32); CHLORIDE LEVEL 99 MEQ/L (98-107); CREATININE FOR GFR 4.39 MG/DL (0.70-1.30); GLOMERULAR FILTRATION RATE 14.1 (>42); GLUCOSE, FASTING 116 MG/DL (70-100); POTASSIUM SERUM 4.2 MEQ/L (3.5-5.1); SODIUM LEVEL 136 MEQ/L (136-145)
[2022-02-11] MEDS: INSULIN LISPRO (NovoLOG) PER UNIT SC SCH ×4 (07:30→20:59)
[2022-02-11] MEDS: rifAXIMin 550 MG TAB (XIFAXAN) PO SCH ×2 (09:51→20:57)
[2022-02-11] MEDS: HEPARIN SOD (PORCINE) 5000UNITS/ML 1ML VIAL/SYRINGE SC SCH ×2 (09:51→20:57)
[2022-02-11] MEDS ORDERED: ANALGESIC BALM CRM 3OZ TOP PRN (09:55)
[2022-02-11] MEDS: traMADol 50 MG TAB PO PRN ×2 (10:40→20:58)
[2022-02-11] MEDS ORDERED: SODIUM CHLORIDE 0.9% 1000ML IV PRN (10:50)
[2022-02-11 11:21] VITALS: BP 114/70
[2022-02-11] MEDS: MIDODRINE 5 MG TAB PO SCH (11:25)
[2022-02-11 11:28] LABS: HEPATITIS B SURFACE ANTIBODY NEGATIVE (POSITIVE)
[2022-02-11 11:38] LABS: HEPATITIS B SURFACE ANTIGEN NEGATIVE (NEGATIVE)
[2022-02-11 12:07] LABS: HEPATITIS B CORE ANTIBODY IGM NEGATIVE (NEGATIVE)
[2022-02-11 16:00] VITALS: BP 106/66
[2022-02-11] MEDS: FUROSEMIDE injection 250 MG in D5W 225 ML IV SCH (16:32)
[2022-02-11 18:27] VITALS: BP 101/62
[2022-02-11 20:08] VITALS: BP 101/61
[2022-02-11] MEDS: LEVEMIR (INSULIN DETEMIR) 1 UNITS/0.01ML SQ SCH (20:59)
[2022-02-12] VITALS (12 sets, daily range): BP systolic 76–107; BP diastolic 44–56
[2022-02-12] MEDS: ACETAMINOPHEN 650MG ER TAB (TYLENOL ARTHRITIS) PO SCH ×4 (00:04→22:20)
[2022-02-12] MEDS: FUROSEMIDE injection 250 MG in D5W 225 ML IV SCH (03:47)
[2022-02-12] MEDS: traMADol 50 MG TAB PO PRN ×3 (03:48→20:12)
[2022-02-12] MEDS ORDERED: MIDODRINE 5 MG TAB PO ONE ×2 (05:00→08:00)
[2022-02-12] MEDS: rifAXIMin 550 MG TAB (XIFAXAN) PO SCH ×2 (05:48→20:11)
[2022-02-12] MEDS ORDERED: SODIUM CHLORIDE 0.9% 1000ML IV PRN (06:00)
[2022-02-12 06:22] LABS: HEMATOCRIT 34.8 % (42.0-52.0); HEMOGLOBIN 10.6 g/dl (13.5-17.5); MEAN CORPUSCULAR HEMOGLOBIN 29.4 pg (27.0-33.0); MEAN CORPUSCULAR HGB CONC 30.5 g/dl (32.0-36.5); MEAN CORPUSCULAR VOLUME 96.7 fl (80.0-96.0); PLATELET COUNT, AUTOMATED 203 10^3/uL (150-450); WHITE BLOOD COUNT 6.7 10^3/uL (4.0-10.0)
[2022-02-12 06:39] LABS: CALCIUM LEVEL 9.3 MG/DL (8.8-10.2); CREATININE FOR GFR 5.75 MG/DL (0.70-1.30); GLOMERULAR FILTRATION RATE 10.4 (>42); POTASSIUM SERUM 4.6 MEQ/L (3.5-5.1)
[2022-02-12] MEDS: INSULIN LISPRO (NovoLOG) PER UNIT SC SCH ×4 (06:54→21:00)
[2022-02-12] MEDS: HEPARIN SOD (PORCINE) 5000UNITS/ML 1ML VIAL/SYRINGE SC SCH ×2 (07:58→20:09)
[2022-02-12] MEDS: MIDODRINE 5 MG TAB PO SCH ×3 (09:10→20:11)
[2022-02-12] MEDS: LEVEMIR (INSULIN DETEMIR) 1 UNITS/0.01ML SQ SCH (20:10)
[2022-02-12] MEDS: NYSTATIN 100,000 UNITS/GM TOPICAL PWD 15 GM TOP SCH (22:20)
[2022-02-13] VITALS (8 sets, daily range): BP systolic 81–99; BP diastolic 49–56
[2022-02-13] MEDS: ACETAMINOPHEN 650MG ER TAB (TYLENOL ARTHRITIS) PO SCH ×3 (05:04→21:36)
[2022-02-13] MEDS: MIDODRINE 5 MG TAB PO SCH ×3 (05:32→21:37)
[2022-02-13 05:53] LABS: HEMATOCRIT 35.4 % (42.0-52.0); HEMOGLOBIN 10.5 g/dl (13.5-17.5); MEAN CORPUSCULAR HEMOGLOBIN 28.4 pg (27.0-33.0); MEAN CORPUSCULAR HGB CONC 29.7 g/dl (32.0-36.5); MEAN CORPUSCULAR VOLUME 95.7 fl (80.0-96.0); PLATELET COUNT, AUTOMATED 195 10^3/uL (150-450); WHITE BLOOD COUNT 6.4 10^3/uL (4.0-10.0)
[2022-02-13] MEDS ORDERED: SODIUM CHLORIDE 0.9% 1000ML IV PRN (06:00)
[2022-02-13 06:17] LABS: CALCIUM LEVEL 9.4 MG/DL (8.8-10.2); CREATININE FOR GFR 4.78 MG/DL (0.70-1.30); GLOMERULAR FILTRATION RATE 12.8 (>42); POTASSIUM SERUM 4.5 MEQ/L (3.5-5.1)
[2022-02-13] MEDS: traMADol 50 MG TAB PO PRN ×2 (06:29→17:19)
[2022-02-13] MEDS: INSULIN LISPRO (NovoLOG) PER UNIT SC SCH ×4 (06:29→20:19)
[2022-02-13] MEDS: rifAXIMin 550 MG TAB (XIFAXAN) PO SCH ×2 (06:29→21:36)
[2022-02-13] MEDS: NYSTATIN 100,000 UNITS/GM TOPICAL PWD 15 GM TOP SCH ×2 (06:30→21:38)
[2022-02-13] MEDS: HEPARIN SOD (PORCINE) 5000UNITS/ML 1ML VIAL/SYRINGE SC SCH ×2 (09:00→21:36)
[2022-02-13] MEDS ORDERED: LIDOCAINE 1% MDV 20ML VIAL As Ordered ONE (12:52)
[2022-02-13] MEDS ORDERED: oxyCODONE 5MG TAB PO ONE (18:00)
[2022-02-13] MEDS: LEVEMIR (INSULIN DETEMIR) 1 UNITS/0.01ML SQ SCH (21:36)
[2022-02-14] VITALS: BP 95/52
[2022-02-14 04:00] VITALS: BP 90/56
[2022-02-14] MEDS: rifAXIMin 550 MG TAB (XIFAXAN) PO SCH ×2 (05:50→21:27)
[2022-02-14] MEDS: ACETAMINOPHEN 650MG ER TAB (TYLENOL ARTHRITIS) PO SCH ×3 (05:50→21:28)
[2022-02-14] MEDS: MIDODRINE 5 MG TAB PO SCH ×3 (05:50→21:28)
[2022-02-14] MEDS: INSULIN LISPRO (NovoLOG) PER UNIT SC SCH ×4 (07:30→19:53)
[2022-02-14] MEDS: HEPARIN SOD (PORCINE) 5000UNITS/ML 1ML VIAL/SYRINGE SC SCH ×2 (07:45→21:28)
[2022-02-14] MEDS: NYSTATIN 100,000 UNITS/GM TOPICAL PWD 15 GM TOP SCH ×2 (07:46→21:28)
[2022-02-14] MEDS: traMADol 50 MG TAB PO PRN ×2 (07:50→17:35)
[2022-02-14 07:55] LABS: HEMATOCRIT 36.8 % (42.0-52.0); HEMOGLOBIN 11.1 g/dl (13.5-17.5); MEAN CORPUSCULAR HEMOGLOBIN 28.8 pg (27.0-33.0); MEAN CORPUSCULAR HGB CONC 30.2 g/dl (32.0-36.5); MEAN CORPUSCULAR VOLUME 95.6 fl (80.0-96.0); PLATELET COUNT, AUTOMATED 209 10^3/uL (150-450); RED BLOOD COUNT 3.85 10^6/uL (4.30-6.10); WHITE BLOOD COUNT 5.7 10^3/uL (4.0-10.0)
[2022-02-14 08:31] LABS: CALCIUM LEVEL 9.4 MG/DL (8.8-10.2); CREATININE FOR GFR 6.25 MG/DL (0.70-1.30); GLOMERULAR FILTRATION RATE 9.4 (>42); POTASSIUM SERUM 4.7 MEQ/L (3.5-5.1)
[2022-02-14 16:00] VITALS: BP 96/52
[2022-02-14 20:00] VITALS: BP 94/52
[2022-02-14] MEDS: LEVEMIR (INSULIN DETEMIR) 1 UNITS/0.01ML SQ SCH (21:27)
[2022-02-15] VITALS: BP 93/52
[2022-02-15 04:00] VITALS: BP 102/58
[2022-02-15] MEDS: MIDODRINE 5 MG TAB PO SCH ×3 (06:13→20:49)
[2022-02-15] MEDS: ACETAMINOPHEN 650MG ER TAB (TYLENOL ARTHRITIS) PO SCH ×3 (06:13→22:08)
[2022-02-15] MEDS: rifAXIMin 550 MG TAB (XIFAXAN) PO SCH ×2 (06:13→20:49)
[2022-02-15 06:39] LABS: HEMATOCRIT 36.6 % (42.0-52.0); MEAN CORPUSCULAR HGB CONC 30.1 g/dl (32.0-36.5); MEAN CORPUSCULAR VOLUME 96.6 fl (80.0-96.0); PLATELET COUNT, AUTOMATED 191 10^3/uL (150-450); RED BLOOD COUNT 3.79 10^6/uL (4.30-6.10); WHITE BLOOD COUNT 6.2 10^3/uL (4.0-10.0)
[2022-02-15 07:05] LABS: CALCIUM LEVEL 9.4 MG/DL (8.8-10.2); CREATININE FOR GFR 5.2 MG/DL (0.70-1.30); GLOMERULAR FILTRATION RATE 11.6 (>42); POTASSIUM SERUM 4.6 MEQ/L (3.5-5.1)
[2022-02-15] MEDS: INSULIN LISPRO (NovoLOG) PER UNIT SC SCH ×4 (07:45→20:50)
[2022-02-15] MEDS: HEPARIN SOD (PORCINE) 5000UNITS/ML 1ML VIAL/SYRINGE SC SCH ×2 (07:45→20:49)
[2022-02-15] MEDS: NYSTATIN 100,000 UNITS/GM TOPICAL PWD 15 GM TOP SCH ×2 (07:46→20:50)
[2022-02-15] MEDS ORDERED: SODIUM CHLORIDE 0.9% 1000ML IV PRN (11:00)
[2022-02-15 14:00] VITALS: BP 98/54
[2022-02-15] MEDS: LEVEMIR (INSULIN DETEMIR) 1 UNITS/0.01ML SQ SCH (20:50)
[2022-02-15 22:00] VITALS: BP 99/53
[2022-02-16 02:00] VITALS: BP 97/53
[2022-02-16] MEDS ORDERED: SODIUM CHLORIDE 0.9% 1000ML IV PRN (05:45)
[2022-02-16 05:59] LABS: HEMATOCRIT 34.9 % (42.0-52.0); HEMOGLOBIN 10.8 g/dl (13.5-17.5); MEAN CORPUSCULAR HEMOGLOBIN 29.3 pg (27.0-33.0); MEAN CORPUSCULAR HGB CONC 30.9 g/dl (32.0-36.5); MEAN CORPUSCULAR VOLUME 94.8 fl (80.0-96.0); PLATELET COUNT, AUTOMATED 186 10^3/uL (150-450); RED BLOOD COUNT 3.68 10^6/uL (4.30-6.10)
[2022-02-16 06:00] VITALS: BP 99/53
[2022-02-16] MEDS: HEPARIN SOD (PORCINE) 5000UNITS/ML 1ML VIAL/SYRINGE SC SCH ×2 (06:11→20:21)
[2022-02-16] MEDS: MIDODRINE 5 MG TAB PO SCH ×3 (06:11→20:22)
[2022-02-16] MEDS: rifAXIMin 550 MG TAB (XIFAXAN) PO SCH ×2 (06:11→20:20)
[2022-02-16] MEDS: ACETAMINOPHEN 650MG ER TAB (TYLENOL ARTHRITIS) PO SCH ×3 (06:11→21:41)
[2022-02-16 06:20] LABS: CALCIUM LEVEL 9.7 MG/DL (8.8-10.2); CREATININE FOR GFR 6.93 MG/DL (0.70-1.30); GLOMERULAR FILTRATION RATE 8.4 (>42); POTASSIUM SERUM 5.1 MEQ/L (3.5-5.1)
[2022-02-16] MEDS: INSULIN LISPRO (NovoLOG) PER UNIT SC SCH ×4 (07:36→20:28)
[2022-02-16] MEDS: NYSTATIN 100,000 UNITS/GM TOPICAL PWD 15 GM TOP SCH ×2 (07:36→20:22)
[2022-02-16 10:00] VITALS: BP 110/57
[2022-02-16 17:47] VITALS: BP 101/56
[2022-02-16] MEDS: LEVEMIR (INSULIN DETEMIR) 1 UNITS/0.01ML SQ SCH (21:16)
[2022-02-16 22:00] VITALS: BP_SYST 92; BP_SYST 94; BP_DIAS 48; BP_DIAS 52
[2022-02-16 22:30] VITALS: BP 94/52
[2022-02-17 02:00] VITALS: BP 103/48
[2022-02-17] MEDS ORDERED: SODIUM CHLORIDE 0.9% 1000ML IV PRN (05:10)
[2022-02-17 05:38] VITALS: BP 102/49
[2022-02-17] MEDS: rifAXIMin 550 MG TAB (XIFAXAN) PO SCH (05:57)
[2022-02-17] MEDS: MIDODRINE 5 MG TAB PO SCH (05:57)
[2022-02-17] MEDS: ACETAMINOPHEN 650MG ER TAB (TYLENOL ARTHRITIS) PO SCH (05:57)
[2022-02-17] MEDS: HEPARIN SOD (PORCINE) 5000UNITS/ML 1ML VIAL/SYRINGE SC SCH (05:58)
[2022-02-17 06:48] LABS: HEMATOCRIT 35.6 % (42.0-52.0); HEMOGLOBIN 11.4 g/dl (13.5-17.5); MEAN CORPUSCULAR HEMOGLOBIN 29.3 pg (27.0-33.0); MEAN CORPUSCULAR VOLUME 91.5 fl (80.0-96.0); PLATELET COUNT, AUTOMATED 181 10^3/uL (150-450); RED BLOOD COUNT 3.89 10^6/uL (4.30-6.10); WHITE BLOOD COUNT 6.6 10^3/uL (4.0-10.0)
[2022-02-17 07:08] LABS: CALCIUM LEVEL 9.8 MG/DL (8.8-10.2); CREATININE FOR GFR 5.44 MG/DL (0.70-1.30); POTASSIUM SERUM 4.6 MEQ/L (3.5-5.1)
[2022-02-17] MEDS: INSULIN LISPRO (NovoLOG) PER UNIT SC SCH ×2 (07:56→12:33)
[2022-02-17] MEDS: NYSTATIN 100,000 UNITS/GM TOPICAL PWD 15 GM TOP SCH (07:57)
[2022-02-17 12:28] VITALS: BP 104/52
[2022-02-17] MEDS ORDERED: MIDO10TA PO (12:41)
[2022-02-17 13:48] VITALS: BP 119/58
== END 2022-02-17 15:07 | disposition home health service (06) | DRG 640 ==
LOC: M ED 10:48 → M ED INP 15:30 → ENRESERV 17:30 → M MSPAV 18:00
PROVIDERS: ADMIT Internal Medicine; ATTEND General Practice
PROC: 0W9G3ZZ Drainage of Peritoneal Cavity, Percutaneous Approach (ICD-10-PCS; principal; 2022-02-13 13:30)
PROC: 5A1D70Z Performance of Urinary Filtration, Intermittent, Less than 6 Hours Per Day (ICD-10-PCS; 2022-02-14)
DX: E87.70 Fluid overload, unspecified (principal); N18.6 End stage renal disease; I50.22 Chronic systolic (congestive) heart failure; I48.20 Chronic atrial fibrillation, unspecified; R18.8 Other ascites; E87.1 Hypo-osmolality and hyponatremia; E11.22 Type 2 diabetes mellitus with diabetic chronic kidney disease; Z99.2 Dependence on renal dialysis; K74.60 Unspecified cirrhosis of liver; I25.10 Atherosclerotic heart disease of native coronary artery without angina pectoris; E78.5 Hyperlipidemia, unspecified; D63.8 Anemia in other chronic diseases classified elsewhere; Z95.810 Presence of automatic (implantable) cardiac defibrillator; Z79.4 Long term (current) use of insulin; J45.909 Unspecified asthma, uncomplicated; I27.20 Pulmonary hypertension, unspecified; E66.01 Morbid (severe) obesity due to excess calories; Z79.899 Other long term (current) drug therapy; N40.0 Benign prostatic hyperplasia without lower urinary tract symptoms; Z88.0 Allergy status to penicillin; Z88.8 Allergy status to other drugs, medicaments and biological substances; Z95.2 Presence of prosthetic heart valve; Z98.41 Cataract extraction status, right eye; Z98.42 Cataract extraction status, left eye; I95.9 Hypotension, unspecified

== ENCOUNTER → 2022-02-19 | Outpatient (CLI) | payer MEDICARE ==
[~2022-02-19] MED LIST changes: +MIDO10TA PO
== END ==
LOC: M IRPRO 10:44
PROVIDERS: ATTEND Internal Medicine Nephrology
DX: R18.8 Other ascites (principal)

== ENCOUNTER → 2022-02-26 | Outpatient (CLI) | payer MEDICARE | LOC: M IRPRO 10:29 | PROVIDERS: ATTEND Internal Medicine Nephrology | DX: R18.8 Other ascites (principal) ==

== ENCOUNTER → 2022-03-12 | Outpatient (CLI) | payer MEDICARE ==
[~2022-03-12] MED LIST changes: +LIDOCAINE 1% MDV 20ML VIAL As Ordered ONE
[2022-03-12 11:00] VITALS: BP 100/51
== END ==
LOC: M IRPRO 10:41
PROVIDERS: ATTEND Internal Medicine Nephrology
DX: R18.8 Other ascites (principal); Z53.8 Procedure and treatment not carried out for other reasons

== ENCOUNTER 2022-03-21 08:19 | Emergency (ER) | payer MEDICARE ==
[~2022-03-21] VITALS: Ht 180.3 cm; Wt 109.1 kg
[~2022-03-21 08:19] MED LIST changes: -LIDOCAINE 1% MDV 20ML VIAL As Ordered ONE
[2022-03-21 08:43] VITALS: BP 104/59
== END 2022-03-21 11:29 | disposition home or self-care (01) ==
LOC: EDBD 08:19 → M ED 08:19
DX: T82.42XA Displacement of vascular dialysis catheter, initial encounter (principal); Y92.003 Bedroom of unspecified non-institutional (private) residence as the place of occurrence of the external cause; Y93.89 Activity, other specified; N18.6 End stage renal disease; Z99.2 Dependence on renal dialysis; I25.10 Atherosclerotic heart disease of native coronary artery without angina pectoris; I11.0 Hypertensive heart disease with heart failure; E11.9 Type 2 diabetes mellitus without complications; E78.5 Hyperlipidemia, unspecified; J45.909 Unspecified asthma, uncomplicated; N40.0 Benign prostatic hyperplasia without lower urinary tract symptoms; Z79.4 Long term (current) use of insulin; Z79.899 Other long term (current) drug therapy; Z88.0 Allergy status to penicillin; Z88.1 Allergy status to other antibiotic agents; Z88.5 Allergy status to narcotic agent; Z88.8 Allergy status to other drugs, medicaments and biological substances; Z91.89 Other specified personal risk factors, not elsewhere classified

== ENCOUNTER 2022-03-23 06:51 | Emergency (ER) | payer MEDICARE ==
[~2022-03-23] VITALS: Ht 180.3 cm; Wt 109.1 kg
[2022-03-23 08:02] LABS: HEMATOCRIT 35.5 % (42.0-52.0); MEAN CORPUSCULAR HEMOGLOBIN 29.3 pg (27.0-33.0); MEAN CORPUSCULAR VOLUME 94.4 fl (80.0-96.0); PLATELET COUNT, AUTOMATED 190 10^3/uL (150-450); RED BLOOD COUNT 3.76 10^6/uL (4.30-6.10); WHITE BLOOD COUNT 6.5 10^3/uL (4.0-10.0)
[2022-03-23 08:15] LABS: INR 1.01; PROTHROMBIN TIME 13.8 SECONDS (12.7-14.5)
[2022-03-23 08:16] LABS: PARTIAL THROMBOPLASTIN TIME 28.5 SECONDS (25.9-37.0)
[2022-03-23 08:37] LABS: RSV AMPLIFICATION NEGATIVE (NEGATIVE)
[2022-03-23] MEDS ORDERED: MIDAZOLAM INJ 2MG/2ML VIAL (J2250 PER 1MG) As Ordered ONE (08:42)
[2022-03-23] MEDS ORDERED: fentaNYL 100 MCG/2 ML INJECTION As Ordered ONE (08:42)
[2022-03-23] MEDS ORDERED: LIDOCAINE 1% MDV 20ML VIAL As Ordered ONE ×2 (08:42→09:43)
[2022-03-23 08:54] LABS: CALCIUM LEVEL 10.1 MG/DL (8.8-10.2); CREATININE FOR GFR 9.38 MG/DL (0.70-1.30); GLOMERULAR FILTRATION RATE 5.9 (>42); POTASSIUM SERUM 5.4 MEQ/L (3.5-5.1)
[2022-03-23] MEDS ORDERED: ceFAZolin 2 GM/D5W 50 ML IV BAG (J0690 PER 500MG) As Ordered ONE (09:17)
[2022-03-23] MEDS ORDERED: VANCOMYCIN 1000MG/20ML VIAL As Ordered ONE (09:33)
[2022-03-23] MEDS ORDERED: VANCOMYCIN 1000MG/20ML VIAL IV ONE (09:40)
[2022-03-23] MEDS ORDERED: VANCOMYCIN HCL 1,000 MG, VIAL MATE ADAPTER 1 EACH in D5W 250 ML IV ONE (09:50)
[2022-03-23 11:40] VITALS: BP 118/58
[2022-03-23 13:39] LABS: HIV SCREEN CENTAUR SOURCE NEGATIVE (NEGATIVE)
[2022-03-23 13:41] LABS: HEPATITIS B SURFACE ANTIGEN POSITIVE (NEGATIVE)
== END 2022-03-23 12:54 | disposition home or self-care (01) ==
LOC: M ED 06:51
DX: T82.49XA Other complication of vascular dialysis catheter, initial encounter (principal); N18.6 End stage renal disease; Z99.2 Dependence on renal dialysis; R79.9 Abnormal finding of blood chemistry, unspecified; Z95.0 Presence of cardiac pacemaker; I25.2 Old myocardial infarction; E78.00 Pure hypercholesterolemia, unspecified; I10 Essential (primary) hypertension; I48.91 Unspecified atrial fibrillation; J45.909 Unspecified asthma, uncomplicated; Z87.01 Personal history of pneumonia (recurrent); E66.9 Obesity, unspecified; N40.0 Benign prostatic hyperplasia without lower urinary tract symptoms; E11.9 Type 2 diabetes mellitus without complications; Z79.4 Long term (current) use of insulin; Z79.899 Other long term (current) drug therapy; Z88.0 Allergy status to penicillin; Z88.5 Allergy status to narcotic agent; Z88.8 Allergy status to other drugs, medicaments and biological substances; Z91.89 Other specified personal risk factors, not elsewhere classified
CPT/HCPCS: 36558; 80048; 85027; 85610; 85730; 86803; 86850; 86900; 86901; 87340; 87389; 87631; 96365; 99284; C1750; C1769; C1894; J0690; J1644; J2250; J3010; J3370

== ENCOUNTER → 2022-03-26 | Outpatient (CLI) | payer MEDICARE ==
[2022-03-26 10:50] VITALS: BP 104/61
== END ==
LOC: M IRPRO 10:42
PROVIDERS: ATTEND Internal Medicine Nephrology
DX: R18.8 Other ascites (principal)

== ENCOUNTER → 2022-04-02 | Outpatient (CLI) | payer MEDICARE ==
[~2022-04-02] MED LIST changes: +LIDOCAINE 1% MDV 20ML VIAL As Ordered ONE
[2022-04-02 11:36] VITALS: BP 104/60
== END ==
LOC: M IRPRO 10:47
PROVIDERS: ATTEND Internal Medicine Nephrology
DX: R18.8 Other ascites (principal)

== ENCOUNTER → 2022-04-09 | Outpatient (CLI) | payer MEDICARE | LOC: M IRPRO 10:21 | PROVIDERS: ATTEND Internal Medicine Nephrology | DX: R18.8 Other ascites (principal) ==

== ENCOUNTER → 2022-04-16 | Outpatient (CLI) | payer MEDICARE ==
[2022-04-16 11:20] VITALS: BP 122/52
== END ==
LOC: M IRPRO 10:38
PROVIDERS: ATTEND Internal Medicine Nephrology
DX: R18.8 Other ascites (principal)

== ENCOUNTER → 2022-04-23 | Outpatient (CLI) | payer MEDICARE ==
[2022-04-23 10:55] VITALS: BP 102/55
== END ==
LOC: M IRPRO 10:39
PROVIDERS: ATTEND Internal Medicine Nephrology
DX: R18.8 Other ascites (principal)

== ENCOUNTER → 2022-04-30 | Outpatient (CLI) | payer MEDICARE ==
[2022-04-30 11:11] VITALS: BP 120/67
== END ==
LOC: M IRPRO 10:36
PROVIDERS: ATTEND Internal Medicine Nephrology
DX: R18.8 Other ascites (principal)

== ENCOUNTER → 2022-05-07 | Outpatient (CLI) | payer MEDICARE ==
[~2022-05-07] MED LIST changes: -LIDOCAINE 1% MDV 20ML VIAL As Ordered ONE
== END ==
LOC: M IRPRO 10:21
PROVIDERS: ATTEND Internal Medicine Nephrology
DX: R18.8 Other ascites (principal)

== ENCOUNTER → 2022-05-14 | Outpatient (CLI) | payer MEDICARE | LOC: M IRPRO 12:19 | PROVIDERS: ATTEND Internal Medicine Nephrology | DX: R18.8 Other ascites (principal) ==

== ENCOUNTER → 2022-05-19 | Outpatient (POV) | payer MEDICARE ==
[~2022-05-19] VITALS: Ht 180.3 cm; Wt 111.3 kg
[2022-05-19 08:20] VITALS: BP 117/63
== END ==
LOC: M IRPOV 07:48
PROVIDERS: ATTEND Radiology Diagnostic Radiology
DX: Z45.2 Encounter for adjustment and management of vascular access device (principal); Z88.0 Allergy status to penicillin; Z88.1 Allergy status to other antibiotic agents; Z88.5 Allergy status to narcotic agent; Z88.8 Allergy status to other drugs, medicaments and biological substances; Z91.09 Other allergy status, other than to drugs and biological substances

== ENCOUNTER → 2022-05-21 | Outpatient (CLI) | payer MEDICARE | LOC: M IRPRO 10:43 | PROVIDERS: ATTEND Internal Medicine Nephrology | DX: R18.8 Other ascites (principal) ==

== ENCOUNTER → 2022-06-04 | Outpatient (CLI) | payer MEDICARE | LOC: M IRPRO 10:35 | PROVIDERS: ATTEND Internal Medicine Nephrology | DX: R18.8 Other ascites (principal) ==

== ENCOUNTER → 2022-06-11 | Outpatient (CLI) | payer MEDICARE | LOC: M IRPRO 10:44 | PROVIDERS: ATTEND Internal Medicine Nephrology | DX: R18.8 Other ascites (principal) ==

== ENCOUNTER → 2022-07-09 | Outpatient (CLI) | payer MEDICARE ==
[2022-07-09 12:00] VITALS: BP 106/62
== END ==
LOC: M IRPRO 10:48
PROVIDERS: ATTEND Internal Medicine Nephrology
DX: R18.8 Other ascites (principal)

== ENCOUNTER → 2022-07-14 | Outpatient (POV) | payer MEDICARE ==
[~2022-07-14] VITALS: Ht 180.3 cm; Wt 111.3 kg
[~2022-07-14] MED LIST changes: -POTA10CA32 PO; +POTA10CA33 PO
[2022-07-14 12:55] VITALS: BP 132/63
== END ==
LOC: M IRPOV 12:28
PROVIDERS: ATTEND Radiology Diagnostic Radiology
DX: Z45.2 Encounter for adjustment and management of vascular access device (principal); Z88.0 Allergy status to penicillin; Z88.1 Allergy status to other antibiotic agents; Z88.5 Allergy status to narcotic agent; Z88.8 Allergy status to other drugs, medicaments and biological substances; Z91.09 Other allergy status, other than to drugs and biological substances

== ENCOUNTER → 2022-07-23 | Outpatient (CLI) | payer MEDICARE | LOC: M IRPRO 11:10 | PROVIDERS: ATTEND Internal Medicine Nephrology | DX: R18.8 Other ascites (principal); Z53.8 Procedure and treatment not carried out for other reasons ==

== ENCOUNTER → 2022-07-30 | Outpatient (CLI) | payer MEDICARE ==
[2022-07-30 12:06] VITALS: BP 113/67
== END ==
LOC: M IRPRO 10:50
PROVIDERS: ATTEND Internal Medicine Nephrology
DX: R18.8 Other ascites (principal)

== ENCOUNTER 2022-08-11 14:52 | Inpatient (IN) | payer MEDICARE, OTHER ==
[~2022-08-11] VITALS: Ht 180.3 cm; Wt 110.3 kg
[2022-08-11 16:52] LABS: BASO # 0.1 10^3/uL (0.0-0.2); BASO % 0.7 % (0.0-1.0); EOS # 0.1 10^3/uL (0.0-0.5); EOS % 0.8 % (0.0-3.0); HEMATOCRIT 35.4 % (42.0-52.0); HEMOGLOBIN 11.5 g/dl (13.5-17.5); LYMPH # 0.4 10^3/uL (1.5-5.0); LYMPH % 3.8 % (24.0-44.0); MEAN CORPUSCULAR HEMOGLOBIN 31.4 pg (27.0-33.0); MEAN CORPUSCULAR HGB CONC 32.5 g/dl (32.0-36.5); MEAN CORPUSCULAR VOLUME 96.7 fl (80.0-96.0); MONO # 0.7 10^3/uL (0.0-0.8); NEUTROPHILS # 8.5 10^3/uL (1.5-8.5); NEUTROPHILS % 87.1 % (36.0-66.0); PLATELET COUNT, AUTOMATED 205 10^3/uL (150-450); RED BLOOD COUNT 3.66 10^6/uL (4.30-6.10); WHITE BLOOD COUNT 9.8 10^3/uL (4.0-10.0)
[2022-08-11 17:21] LABS: ERYTHROCYTE SEDIMENTATION RATE 52 mm/hr (0-20)
[2022-08-11] MEDS ORDERED: ceFAZolin SOD 1 GM in D5W MINI-BAG PLUS 50 ML IV ONE (17:25)
[2022-08-11 17:29] LABS: CREATININE FOR GFR 7.23 MG/DL (0.70-1.30); GLOMERULAR FILTRATION RATE 7.9 (>42); POTASSIUM SERUM 6.3 MMOL/L (3.5-5.1)
[2022-08-11 17:39] LABS: C REACTIVE PROTEIN QUANTITATIV 4.5 MG/DL (<1.0)
[2022-08-11 18:40] LABS: RSV AMPLIFICATION NEGATIVE (NEGATIVE)
[2022-08-11] MEDS ORDERED: CALCIUM GLUCONATE 1,000 MG in D5W MINI-BAG PLUS 100 ML IV ONE (18:50)
[2022-08-11] MEDS ORDERED: HumuLIN R (REGULAR) INSULIN (NovoLIN R) **100U/ML** PER UNIT IV ONE (18:50)
[2022-08-11] MEDS ORDERED: DEXTROSE 50% 50ML SYRINGE IV PRN (19:45)
[2022-08-11] MEDS ORDERED: GLUCAGON INJ 1MG VIAL SC PRN (19:45)
[2022-08-11] MEDS ORDERED: GLUCOSE 4GM CHEW TABLET PO PRN (19:45)
[2022-08-11] MEDS ORDERED: ACETAMINOPHEN TAB 650MG DOSE (2X325MG) PO PRN (19:45)
[2022-08-11] MEDS ORDERED: MIDO5TA PO ×2 (19:56)
[2022-08-11] MEDS ORDERED: CALC1CAP PO (19:56)
[2022-08-11] MEDS ORDERED: OXYC-517 PO (20:01)
[2022-08-11] MEDS ORDERED: VELP5CHW PO (20:02)
[2022-08-11] MEDS ORDERED: HOME MED LIST COMPLETE! XX SCH (20:05)
[2022-08-11] MEDS ORDERED: MIDODRINE 5 MG TAB PO SCH (20:50)
[2022-08-11] MEDS ORDERED: INSULIN LISPRO (NovoLOG) PER UNIT SC SCH (21:00)
[2022-08-11] MEDS ORDERED: PATIROMER SORBITEX CALCIUM 8.4 GM POWDER PACKET (VELTASSA) PO ONE (21:00)
[2022-08-11] MEDS: oxyCODONE 5MG TAB PO SCH (21:14)
[2022-08-11] MEDS: rifAXIMin 550 MG TAB (XIFAXAN) PO SCH (21:14)
[2022-08-11] MEDS: LEVEMIR (INSULIN DETEMIR) 1 UNITS/0.01ML SQ SCH (21:14)
[2022-08-11] MEDS: HEPARIN SOD (PORCINE) 5000UNITS/ML 1ML VIAL/SYRINGE SC SCH (21:15)
[2022-08-12 02:19] LABS: CALCIUM LEVEL 10.4 MG/DL (8.3-10.6); CREATININE FOR GFR 7.77 MG/DL (0.70-1.30); GLOMERULAR FILTRATION RATE 7.3 (>42); POTASSIUM SERUM 5.9 MMOL/L (3.5-5.1)
[2022-08-12 05:12] LABS: HEMOGLOBIN 10.9 g/dl (13.5-17.5); MEAN CORPUSCULAR HEMOGLOBIN 31.1 pg (27.0-33.0); MEAN CORPUSCULAR HGB CONC 32.1 g/dl (32.0-36.5); MEAN CORPUSCULAR VOLUME 96.9 fl (80.0-96.0); PLATELET COUNT, AUTOMATED 194 10^3/uL (150-450); RED BLOOD COUNT 3.51 10^6/uL (4.30-6.10); WHITE BLOOD COUNT 8.3 10^3/uL (4.0-10.0)
[2022-08-12 05:39] LABS: MAGNESIUM LEVEL 2.4 MG/DL (1.8-2.4)
[2022-08-12 05:45] LABS: ALBUMIN 3.2 G/DL (3.2-5.2); BILIRUBIN,TOTAL 0.9 MG/DL (0.3-1.2); CALCIUM LEVEL 10.2 MG/DL (8.3-10.6); CREATININE FOR GFR 8.09 MG/DL (0.70-1.30); POTASSIUM SERUM 6.1 MMOL/L (3.5-5.1); TOTAL PROTEIN 6.3 G/DL (5.7-8.2)
[2022-08-12] MEDS: HEPARIN SOD (PORCINE) 5000UNITS/ML 1ML VIAL/SYRINGE SC SCH ×3 (05:50→21:29)
[2022-08-12 06:05] VITALS: BP 90/51
[2022-08-12] MEDS ORDERED: SOD POLYSTYRENE SULFONATE SUSP 15GM 60ML UD PO ONE (07:00)
[2022-08-12] MEDS: INSULIN LISPRO (NovoLOG) PER UNIT SC SCH ×3 (07:30→17:34)
[2022-08-12 07:49] LABS: POTASSIUM SERUM 6.1 MMOL/L (3.5-5.1)
[2022-08-12] MEDS ORDERED: MIDODRINE 5 MG TAB PO SCH (08:00)
[2022-08-12] MEDS: SUCROFERRIC OXYHYDROXIDE 500MG CHEW TAB (VELPHORO) PO SCH ×3 (08:20→17:34)
[2022-08-12] MEDS: rifAXIMin 550 MG TAB (XIFAXAN) PO SCH ×2 (08:23→21:29)
[2022-08-12] MEDS: CALCIUM ACETATE 667MG GELCAP PO SCH ×3 (08:23→17:34)
[2022-08-12] MEDS: FEBUXOSTAT 40 MG TABLET (ULORIC) PO SCH (08:25)
[2022-08-12 08:32] LABS: ANTI-STREPTOLYSIN O QUANT 60.1 IU/ML (<195)
[2022-08-12] MEDS ORDERED: HEPARIN 1,000UNITS/ML 10ML VIAL (FOR RADIOLOGY & DIALYSIS ONLY) XX SCH (09:40)
[2022-08-12] MEDS ORDERED: HEPARIN 1,000UNITS/ML 10ML VIAL (FOR RADIOLOGY & DIALYSIS ONLY) IV PRN (09:40)
[2022-08-12] MEDS ORDERED: SODIUM CHLORIDE 0.9% 1000ML IV PRN (09:40)
[2022-08-12 16:30] VITALS: BP 114/55
[2022-08-12] MEDS ORDERED: ceFAZolin SOD 1 GM in D5W MINI-BAG PLUS 50 ML IV SCH (17:00)
[2022-08-12 17:13] LABS: MAGNESIUM LEVEL 2.2 MG/DL (1.8-2.4)
[2022-08-12 17:17] LABS: CALCIUM LEVEL 9.9 MG/DL (8.3-10.6); CREATININE FOR GFR 4.31 MG/DL (0.70-1.30); GLOMERULAR FILTRATION RATE 14.4 (>42); POTASSIUM SERUM 4.3 MMOL/L (3.5-5.1)
[2022-08-12 20:00] VITALS: BP_SYST 110; BP_SYST 112; BP_DIAS 56
[2022-08-12] MEDS ORDERED: INSULIN LISPRO (NovoLOG) PER UNIT SC SCH (21:00)
[2022-08-12] MEDS: oxyCODONE 5MG TAB PO SCH (21:30)
[2022-08-12] MEDS: LEVEMIR (INSULIN DETEMIR) 1 UNITS/0.01ML SQ SCH (21:31)
[2022-08-13] VITALS: BP 92/55
[2022-08-13 04:00] VITALS: BP 93/53
[2022-08-13 06:00] LABS: BASO # 0.1 10^3/uL (0.0-0.2); BASO % 1.8 % (0.0-1.0); EOS # 0.3 10^3/uL (0.0-0.5); EOS % 4.6 % (0.0-3.0); HEMOGLOBIN 11.6 g/dl (13.5-17.5); LYMPH # 0.6 10^3/uL (1.5-5.0); LYMPH % 9.7 % (24.0-44.0); MEAN CORPUSCULAR HEMOGLOBIN 30.8 pg (27.0-33.0); MEAN CORPUSCULAR HGB CONC 31.4 g/dl (32.0-36.5); MEAN CORPUSCULAR VOLUME 98.1 fl (80.0-96.0); MONO # 0.8 10^3/uL (0.0-0.8); MONO % 12.4 % (2.0-8.0); NEUTROPHILS # 4.5 10^3/uL (1.5-8.5); NEUTROPHILS % 71.2 % (36.0-66.0); PLATELET COUNT, AUTOMATED 197 10^3/uL (150-450); RED BLOOD COUNT 3.77 10^6/uL (4.30-6.10); WHITE BLOOD COUNT 6.3 10^3/uL (4.0-10.0)
[2022-08-13 06:08] LABS: MAGNESIUM LEVEL 2.2 MG/DL (1.8-2.4)
[2022-08-13] MEDS: HEPARIN SOD (PORCINE) 5000UNITS/ML 1ML VIAL/SYRINGE SC SCH (06:11)
[2022-08-13 06:16] LABS: ALBUMIN 3.6 G/DL (3.2-5.2); BILIRUBIN,TOTAL 0.7 MG/DL (0.3-1.2); CALCIUM LEVEL 10.3 MG/DL (8.3-10.6); CREATININE FOR GFR 5.85 MG/DL (0.70-1.30); GLOMERULAR FILTRATION RATE 10.1 (>42); TOTAL PROTEIN 7.2 G/DL (5.7-8.2)
[2022-08-13] MEDS: INSULIN LISPRO (NovoLOG) PER UNIT SC SCH ×2 (07:29→12:02)
[2022-08-13] MEDS: MIDODRINE 5 MG TAB PO SCH ×2 (07:51→12:01)
[2022-08-13] MEDS: FEBUXOSTAT 40 MG TABLET (ULORIC) PO SCH (07:51)
[2022-08-13] MEDS: SUCROFERRIC OXYHYDROXIDE 500MG CHEW TAB (VELPHORO) PO SCH ×2 (07:51→12:01)
[2022-08-13] MEDS: rifAXIMin 550 MG TAB (XIFAXAN) PO SCH (07:51)
[2022-08-13] MEDS: CALCIUM ACETATE 667MG GELCAP PO SCH ×2 (07:51→12:01)
[2022-08-13 08:00] VITALS: BP 106/53
[2022-08-13] MEDS ORDERED: LIDOCAINE 1% MDV 20ML VIAL As Ordered ONE (10:55)
[2022-08-13] MEDS ORDERED: CEPH500T PO (11:14)
[2022-08-13 12:00] VITALS: BP 120/58
[2022-08-15] MEDS ORDERED: MIDODRINE 5 MG TAB PO SCH (08:00)
[2022-08-16] MEDS ORDERED: MIDODRINE 5 MG TAB PO SCH (08:00)
[2022-08-18] MEDS ORDERED: MIDODRINE 5 MG TAB PO SCH (08:00)
== END 2022-08-13 13:15 | disposition home or self-care (01) | DRG 602 ==
LOC: M ED 17:40 → M ED INP 19:45 → ENRESERV 08-12 12:36 → M PCU 08-12 16:27
PROVIDERS: ADMIT Internal Medicine; ATTEND Internal Medicine
PROC: 5A1D70Z Performance of Urinary Filtration, Intermittent, Less than 6 Hours Per Day (ICD-10-PCS; 2022-08-12)
PROC: 0W9G3ZZ Drainage of Peritoneal Cavity, Percutaneous Approach (ICD-10-PCS; principal; 2022-08-13 11:30)
DX: L03.116 Cellulitis of left lower limb (principal); N18.6 End stage renal disease; R18.8 Other ascites; I13.2 Hypertensive heart and chronic kidney disease with heart failure and with stage 5 chronic kidney disease, or end stage renal disease; L97.929 Non-pressure chronic ulcer of unspecified part of left lower leg with unspecified severity; I50.22 Chronic systolic (congestive) heart failure; K76.6 Portal hypertension; E87.20 Acidosis, unspecified; I25.10 Atherosclerotic heart disease of native coronary artery without angina pectoris; E11.22 Type 2 diabetes mellitus with diabetic chronic kidney disease; Z99.2 Dependence on renal dialysis; E78.5 Hyperlipidemia, unspecified; I27.20 Pulmonary hypertension, unspecified; N40.0 Benign prostatic hyperplasia without lower urinary tract symptoms; E87.5 Hyperkalemia; D63.8 Anemia in other chronic diseases classified elsewhere; E83.39 Other disorders of phosphorus metabolism; K74.60 Unspecified cirrhosis of liver; M10.9 Gout, unspecified; I95.1 Orthostatic hypotension; E11.622 Type 2 diabetes mellitus with other skin ulcer; E11.36 Type 2 diabetes mellitus with diabetic cataract; I48.0 Paroxysmal atrial fibrillation; Z98.41 Cataract extraction status, right eye; Z98.42 Cataract extraction status, left eye; Z95.5 Presence of coronary angioplasty implant and graft; Z95.810 Presence of automatic (implantable) cardiac defibrillator; Z79.4 Long term (current) use of insulin; Z79.891 Long term (current) use of opiate analgesic; Z79.899 Other long term (current) drug therapy; Z88.0 Allergy status to penicillin; Z88.1 Allergy status to other antibiotic agents; Z88.6 Allergy status to analgesic agent; Z91.048 Other nonmedicinal substance allergy status; Z91.119 Patient's noncompliance with dietary regimen due to unspecified reason

== ENCOUNTER → 2022-09-10 | Outpatient (CLI) | payer MEDICARE ==
[~2022-09-10] MED LIST changes: +CALC1CAP PO; +CEPH500T PO; +OXYC-517 PO; +VELP5CHW PO
[2022-09-10 11:35] VITALS: BP 112/64
== END ==
LOC: M IRPRO 10:53
PROVIDERS: ATTEND Internal Medicine Nephrology
DX: R18.8 Other ascites (principal)

== ENCOUNTER → 2022-10-08 | Outpatient (CLI) | payer MEDICARE ==
[2022-10-08 11:52] VITALS: BP 101/60
== END ==
LOC: M IRPRO 11:16
PROVIDERS: ATTEND Internal Medicine Nephrology
DX: R18.8 Other ascites (principal)

== ENCOUNTER 2022-10-28 03:05 | Inpatient (IN) | payer MEDICARE, MEDICAID ==
[~2022-10-28] VITALS: Ht 180.3 cm; Wt 114.8 kg
[~2022-10-28 03:05] MED LIST changes: +LANTINJ4 SC; -LANTINJ4 SQ
[2022-10-28 04:22] LABS: BASO # 0.1 10^3/uL (0.0-0.2); BASO % 0.6 % (0.0-1.0); EOS % 0.1 % (0.0-3.0); HEMATOCRIT 36.4 % (42.0-52.0); HEMOGLOBIN 12.1 g/dl (13.5-17.5); LYMPH # 0.3 10^3/uL (1.5-5.0); MEAN CORPUSCULAR HEMOGLOBIN 31.3 pg (27.0-33.0); MEAN CORPUSCULAR HGB CONC 33.2 g/dl (32.0-36.5); MEAN CORPUSCULAR VOLUME 94.1 fl (80.0-96.0); MONO # 0.6 10^3/uL (0.0-0.8); MONO % 4.3 % (2.0-8.0); NEUTROPHILS # 13.2 10^3/uL (1.5-8.5); NEUTROPHILS % 92.5 % (36.0-66.0); PLATELET COUNT, AUTOMATED 212 10^3/uL (150-450); RED BLOOD COUNT 3.87 10^6/uL (4.30-6.10); WHITE BLOOD COUNT 14.3 10^3/uL (4.0-10.0)
[2022-10-28 04:53] LABS: ALBUMIN 3.4 G/DL (3.2-5.2); BILIRUBIN,DIRECT 0.7 MG/DL (<0.4); BILIRUBIN,TOTAL 1.5 MG/DL (0.3-1.2); CREATININE FOR GFR 7.58 MG/DL (0.70-1.30); GLOMERULAR FILTRATION RATE 7.5 (>42); POTASSIUM SERUM 5.7 MMOL/L (3.5-5.1); THYROID STIMULATING HORMONE 2.977 uIU/ML (0.55-4.78); TOTAL PROTEIN 6.6 G/DL (5.7-8.2)
[2022-10-28] MEDS ORDERED: LACTULOSE 20GM/30ML SYRUP UDC PO ONE (06:20)
[2022-10-28] MEDS ORDERED: HEPARIN 1,000UNITS/ML 10ML VIAL (FOR RADIOLOGY & DIALYSIS ONLY) IV PRN (07:35)
[2022-10-28] MEDS ORDERED: SODIUM CHLORIDE 0.9% 1000ML IV PRN (07:35)
[2022-10-28] MEDS ORDERED: LIDOCAINE 1% SDV 5ML VIAL SC PRN (07:35)
[2022-10-28] MEDS ORDERED: HEPARIN 1,000UNITS/ML 10ML VIAL (FOR RADIOLOGY & DIALYSIS ONLY) XX SCH (07:35)
[2022-10-28 07:57] LABS: RSV AMPLIFICATION NEGATIVE (NEGATIVE)
[2022-10-28] MEDS ORDERED: OXYC-517 PO (08:35)
[2022-10-28] MEDS ORDERED: HOME MED LIST COMPLETE! XX SCH (08:40)
[2022-10-28 11:17] VITALS: BP 118/70
[2022-10-28] MEDS: LACTULOSE 20GM/30ML SYRUP UDC PO SCH ×4 (11:28→22:39)
[2022-10-28] MEDS: MIDODRINE 5 MG TAB PO SCH ×2 (12:45→16:00)
[2022-10-28 20:09] VITALS: BP 123/65
[2022-10-28] MEDS ORDERED: oxyCODONE 5MG TAB PO SCH (21:00)
[2022-10-28] MEDS ORDERED: LEVEMIR (INSULIN DETEMIR) 1 UNITS/0.01ML SC SCH (21:00)
[2022-10-28] MEDS ORDERED: LIDOCAINE 5% (LIDODERM) PATCH TD PRN (21:15)
[2022-10-29] MEDS ORDERED: GLUCOSE 4GM CHEW TABLET PO PRN (00:45)
[2022-10-29] MEDS ORDERED: DEXTROSE 50% 50ML SYRINGE IV PRN (00:45)
[2022-10-29] MEDS ORDERED: GLUCAGON INJ 1MG VIAL SC PRN (00:45)
[2022-10-29] MEDS ORDERED: oxyCODONE 5MG TAB PO PRN (00:45)
[2022-10-29] MEDS: rifAXIMin 550 MG TAB (XIFAXAN) PO SCH ×3 (01:09→20:32)
[2022-10-29] MEDS ORDERED: LEVEMIR (INSULIN DETEMIR) 1 UNITS/0.01ML SC ONE (01:15)
[2022-10-29 06:34] VITALS: BP 127/72
[2022-10-29 06:42] LABS: BASO # 0.1 10^3/uL (0.0-0.2); EOS # 0.2 10^3/uL (0.0-0.5); EOS % 2.2 % (0.0-3.0); HEMATOCRIT 35.1 % (42.0-52.0); HEMOGLOBIN 11.3 g/dl (13.5-17.5); LYMPH # 0.4 10^3/uL (1.5-5.0); LYMPH % 4.9 % (24.0-44.0); MEAN CORPUSCULAR HEMOGLOBIN 30.7 pg (27.0-33.0); MEAN CORPUSCULAR HGB CONC 32.2 g/dl (32.0-36.5); MEAN CORPUSCULAR VOLUME 95.4 fl (80.0-96.0); MONO # 0.9 10^3/uL (0.0-0.8); MONO % 11.6 % (2.0-8.0); NEUTROPHILS # 6.5 10^3/uL (1.5-8.5); NEUTROPHILS % 79.9 % (36.0-66.0); PLATELET COUNT, AUTOMATED 188 10^3/uL (150-450); RED BLOOD COUNT 3.68 10^6/uL (4.30-6.10); WHITE BLOOD COUNT 8.1 10^3/uL (4.0-10.0)
[2022-10-29 07:03] LABS: CREATININE FOR GFR 5.72 MG/DL (0.70-1.30); GLOMERULAR FILTRATION RATE 10.4 (>42); POTASSIUM SERUM 4.7 MMOL/L (3.5-5.1)
[2022-10-29] MEDS ORDERED: SODIUM CHLORIDE 0.9% 1000ML IV PRN (07:25)
[2022-10-29] MEDS ORDERED: HEPARIN 1,000UNITS/ML 10ML VIAL (FOR RADIOLOGY & DIALYSIS ONLY) XX SCH (07:25)
[2022-10-29] MEDS ORDERED: HEPARIN 1,000UNITS/ML 10ML VIAL (FOR RADIOLOGY & DIALYSIS ONLY) IV PRN (07:25)
[2022-10-29] MEDS: MIDODRINE 5 MG TAB PO SCH ×3 (07:40→18:07)
[2022-10-29] MEDS: LACTULOSE 20GM/30ML SYRUP UDC PO SCH ×3 (07:41→20:33)
[2022-10-29] MEDS: SUCROFERRIC OXYHYDROXIDE 500MG CHEW TAB (VELPHORO) PO SCH ×3 (07:41→18:07)
[2022-10-29] MEDS: INSULIN LISPRO (NovoLOG) PER UNIT SC SCH ×4 (07:42→20:32)
[2022-10-29 14:00] VITALS: BP 106/59
[2022-10-29 15:25] LABS: PERITONEAL FL COLOR AMBER (COLORLESS); SOURCE, BODY FLUID PERITONEAL
[2022-10-29 15:26] LABS: APPEARANCE, BODY FLUID TURBID (CLEAR)
[2022-10-29 15:47] LABS: SOURCE, BODY FLUID ALBUMIN PERITONEAL
[2022-10-29 15:52] LABS: SOURCE, BODY FLUID GLUCOSE PERITONEAL
[2022-10-29 15:54] LABS: SOURCE, BODY FLUID TOT PROTEIN PERITONEAL; TOTAL PROTEIN, BODY FLUID 3.8 G/DL (NOT ESTABLISHED)
[2022-10-29] MEDS: oxyCODONE 5MG TAB PO PRN (18:39)
[2022-10-29] MEDS: LEVEMIR (INSULIN DETEMIR) 1 UNITS/0.01ML SC SCH (20:32)
[2022-10-29 21:50] VITALS: BP 112/54
[2022-10-30 05:35] VITALS: BP 101/54
[2022-10-30] MEDS: INSULIN LISPRO (NovoLOG) PER UNIT SC SCH ×4 (07:30→21:19)
[2022-10-30 08:00] LABS: BASO # 0.1 10^3/uL (0.0-0.2); BASO % 1.2 % (0.0-1.0); EOS # 0.4 10^3/uL (0.0-0.5); EOS % 6.3 % (0.0-3.0); HEMATOCRIT 35.2 % (42.0-52.0); HEMOGLOBIN 11.3 g/dl (13.5-17.5); LYMPH # 0.4 10^3/uL (1.5-5.0); LYMPH % 5.8 % (24.0-44.0); MEAN CORPUSCULAR HEMOGLOBIN 30.2 pg (27.0-33.0); MEAN CORPUSCULAR HGB CONC 32.1 g/dl (32.0-36.5); MEAN CORPUSCULAR VOLUME 94.1 fl (80.0-96.0); MONO # 0.8 10^3/uL (0.0-0.8); MONO % 11.8 % (2.0-8.0); NEUTROPHILS # 5.1 10^3/uL (1.5-8.5); NEUTROPHILS % 74.5 % (36.0-66.0); PLATELET COUNT, AUTOMATED 193 10^3/uL (150-450); RED BLOOD COUNT 3.74 10^6/uL (4.30-6.10); WHITE BLOOD COUNT 6.9 10^3/uL (4.0-10.0)
[2022-10-30] MEDS ORDERED: HEPARIN 1,000UNITS/ML 10ML VIAL (FOR RADIOLOGY & DIALYSIS ONLY) IV PRN (08:20)
[2022-10-30] MEDS ORDERED: HEPARIN 1,000UNITS/ML 10ML VIAL (FOR RADIOLOGY & DIALYSIS ONLY) XX SCH (08:20)
[2022-10-30] MEDS ORDERED: SODIUM CHLORIDE 0.9% 1000ML IV PRN (08:20)
[2022-10-30 08:22] LABS: CALCIUM LEVEL 9.9 MG/DL (8.3-10.6); CREATININE FOR GFR 7.22 MG/DL (0.70-1.30); GLOMERULAR FILTRATION RATE 7.9 (>42); POTASSIUM SERUM 4.6 MMOL/L (3.5-5.1)
[2022-10-30] MEDS: MIDODRINE 5 MG TAB PO SCH ×3 (08:49→17:11)
[2022-10-30] MEDS: rifAXIMin 550 MG TAB (XIFAXAN) PO SCH ×2 (08:49→21:15)
[2022-10-30] MEDS: SUCROFERRIC OXYHYDROXIDE 500MG CHEW TAB (VELPHORO) PO SCH ×3 (08:49→17:11)
[2022-10-30] MEDS: LACTULOSE 20GM/30ML SYRUP UDC PO SCH ×3 (08:50→21:15)
[2022-10-30] MEDS: oxyCODONE 5MG TAB PO PRN (14:04)
[2022-10-30] MEDS: LEVEMIR (INSULIN DETEMIR) 1 UNITS/0.01ML SC SCH (21:16)
[2022-10-30 21:19] VITALS: BP 117/70
[2022-10-31 04:59] VITALS: BP 116/71
[2022-10-31 06:40] LABS: BASO # 0.1 10^3/uL (0.0-0.2); BASO % 1.1 % (0.0-1.0); EOS # 0.2 10^3/uL (0.0-0.5); EOS % 3.6 % (0.0-3.0); HEMATOCRIT 36.3 % (42.0-52.0); HEMOGLOBIN 12.3 g/dl (13.5-17.5); LYMPH # 0.3 10^3/uL (1.5-5.0); LYMPH % 4.6 % (24.0-44.0); MEAN CORPUSCULAR HEMOGLOBIN 31.1 pg (27.0-33.0); MEAN CORPUSCULAR HGB CONC 33.9 g/dl (32.0-36.5); MEAN CORPUSCULAR VOLUME 91.9 fl (80.0-96.0); MONO # 0.7 10^3/uL (0.0-0.8); MONO % 11.7 % (2.0-8.0); NEUTROPHILS % 78.7 % (36.0-66.0); PLATELET COUNT, AUTOMATED 215 10^3/uL (150-450); RED BLOOD COUNT 3.95 10^6/uL (4.30-6.10); WHITE BLOOD COUNT 6.3 10^3/uL (4.0-10.0)
[2022-10-31 07:08] LABS: CALCIUM LEVEL 9.7 MG/DL (8.3-10.6); CREATININE FOR GFR 5.18 MG/DL (0.70-1.30); GLOMERULAR FILTRATION RATE 11.7 (>42); POTASSIUM SERUM 3.7 MMOL/L (3.5-5.1)
[2022-10-31] MEDS ORDERED: MIDO5TA PO (07:14)
[2022-10-31] MEDS ORDERED: LACT10SO3 PO ×2 (07:14→09:13)
[2022-10-31] MEDS ORDERED: SELF1KIT MC (07:15)
[2022-10-31] MEDS: LACTULOSE 20GM/30ML SYRUP UDC PO SCH ×7 (08:20→14:40)
[2022-10-31] MEDS: INSULIN LISPRO (NovoLOG) PER UNIT SC SCH ×3 (08:21→17:30)
[2022-10-31] MEDS: SUCROFERRIC OXYHYDROXIDE 500MG CHEW TAB (VELPHORO) PO SCH ×3 (08:22→17:33)
[2022-10-31] MEDS: rifAXIMin 550 MG TAB (XIFAXAN) PO SCH (08:22)
[2022-10-31] MEDS: oxyCODONE 5MG TAB PO PRN (08:23)
[2022-10-31] MEDS: MIDODRINE 5 MG TAB PO SCH ×3 (08:24→16:00)
[2022-10-31] MEDS ORDERED: LACTULOSE 20GM/30ML SYRUP UDC PO SCH (09:00)
[2022-10-31] MEDS ORDERED: LACTULOSE 20GM/30ML SYRUP UDC PR ONE (12:30)
[2022-10-31 14:00] VITALS: BP 117/60
[2022-11-01] MEDS ORDERED: MIDO5TA PO (14:09)
== END 2022-10-31 17:15 | disposition home health service (06) | DRG 441 ==
LOC: EDBD 03:05 → M ED 03:05 → M ED INP 08:01 → ENRESERV 08:43 → M MS5PR 10:30
PROVIDERS: ADMIT General Practice; ATTEND General Practice
PROC: 5A1D70Z Performance of Urinary Filtration, Intermittent, Less than 6 Hours Per Day (ICD-10-PCS; 2022-10-28)
PROC: 0W9G3ZZ Drainage of Peritoneal Cavity, Percutaneous Approach (ICD-10-PCS; principal; 2022-10-29 13:00)
DX: K76.1 Chronic passive congestion of liver (principal); N18.6 End stage renal disease; G93.41 Metabolic encephalopathy; K65.2 Spontaneous bacterial peritonitis; R18.8 Other ascites; I13.2 Hypertensive heart and chronic kidney disease with heart failure and with stage 5 chronic kidney disease, or end stage renal disease; E87.1 Hypo-osmolality and hyponatremia; I50.22 Chronic systolic (congestive) heart failure; K76.6 Portal hypertension; I25.10 Atherosclerotic heart disease of native coronary artery without angina pectoris; E11.22 Type 2 diabetes mellitus with diabetic chronic kidney disease; M10.9 Gout, unspecified; I95.89 Other hypotension; Z99.2 Dependence on renal dialysis; I48.0 Paroxysmal atrial fibrillation; E78.5 Hyperlipidemia, unspecified; N40.0 Benign prostatic hyperplasia without lower urinary tract symptoms; D64.9 Anemia, unspecified; R29.6 Repeated falls; K76.82 Hepatic encephalopathy; E87.5 Hyperkalemia; E87.70 Fluid overload, unspecified; E87.6 Hypokalemia; I45.10 Unspecified right bundle-branch block; I27.20 Pulmonary hypertension, unspecified; Z98.41 Cataract extraction status, right eye; K72.90 Hepatic failure, unspecified without coma; Z98.42 Cataract extraction status, left eye; Z95.5 Presence of coronary angioplasty implant and graft; Z95.810 Presence of automatic (implantable) cardiac defibrillator; Z20.822 Contact with and (suspected) exposure to COVID-19; Z79.4 Long term (current) use of insulin; Z79.891 Long term (current) use of opiate analgesic; Z79.899 Other long term (current) drug therapy; Z88.0 Allergy status to penicillin; Z88.1 Allergy status to other antibiotic agents; Z88.5 Allergy status to narcotic agent; Z88.8 Allergy status to other drugs, medicaments and biological substances; Z91.048 Other nonmedicinal substance allergy status; S51.012A Laceration without foreign body of left elbow, initial encounter; W01.0XXA Fall on same level from slipping, tripping and stumbling without subsequent striking against object, initial encounter; Y92.009 Unspecified place in unspecified non-institutional (private) residence as the place of occurrence of the external cause

== ENCOUNTER 2022-11-01 10:33 | Inpatient (IN) | payer MEDICARE, MEDICAID ==
[~2022-11-01] VITALS: Ht 180.3 cm; Wt 104.5 kg
[~2022-11-01 10:33] MED LIST changes: +LACT10SO3 PO; +SELF1KIT MC
[2022-11-01] MEDS ORDERED: LACTULOSE 20GM/30ML SYRUP UDC PR ONE ×2 (10:55→15:00)
[2022-11-01 11:07] LABS: BASO # 0.1 10^3/uL (0.0-0.2); BASO % 0.8 % (0.0-1.0); EOS # 0.1 10^3/uL (0.0-0.5); EOS % 1.1 % (0.0-3.0); HEMATOCRIT 38.6 % (42.0-52.0); HEMOGLOBIN 12.9 g/dl (13.5-17.5); LYMPH # 0.3 10^3/uL (1.5-5.0); LYMPH % 4.5 % (24.0-44.0); MEAN CORPUSCULAR HEMOGLOBIN 30.4 pg (27.0-33.0); MEAN CORPUSCULAR HGB CONC 33.4 g/dl (32.0-36.5); MONO # 0.7 10^3/uL (0.0-0.8); MONO % 10.7 % (2.0-8.0); NEUTROPHILS # 5.3 10^3/uL (1.5-8.5); NEUTROPHILS % 82.6 % (36.0-66.0); PLATELET COUNT, AUTOMATED 228 10^3/uL (150-450); RED BLOOD COUNT 4.24 10^6/uL (4.30-6.10); WHITE BLOOD COUNT 6.4 10^3/uL (4.0-10.0)
[2022-11-01 11:33] LABS: BILIRUBIN,DIRECT 0.6 MG/DL (<0.4); TOTAL PROTEIN 6.5 G/DL (5.7-8.2)
[2022-11-01] MEDS ORDERED: D5W/0.45% SODIUM CHLORIDE 1,000 ML IV SCH (12:05)
[2022-11-01] MEDS ORDERED: NS 500 ML IV ONE ×2 (12:05→12:10)
[2022-11-01] MEDS ORDERED: DEXTROSE 50% 50ML SYRINGE IV PRN (12:10)
[2022-11-01] MEDS ORDERED: GLUCAGON INJ 1MG VIAL SC PRN (12:10)
[2022-11-01] MEDS ORDERED: GLUCOSE 4GM CHEW TABLET PO PRN (12:10)
[2022-11-01 12:11] LABS: ABG BASE EXCESS -2.2 (-2.0-2.0); ABG HCO3 20.5 MEQ/L (22.0-26.0); ABG O2 SATURATION 98.7 % (95.0-99.0); ABG PARTIAL PRESSURE CO2 29.6 mmHg (35.0-45.0); ABG PARTIAL PRESSURE O2 114.5 mmHg (75.0-100.0); ABG STANDARD HCO3 22.7 MEQ/L (22.0-26.0); ABG TOTAL CO2 21.4 MEQ/L (23.0-31.0); ABG pH (ARTERIAL) 7.458 UNITS (7.350-7.450)
[2022-11-01] MEDS ORDERED: HOME MED LIST COMPLETE! XX SCH (12:20)
[2022-11-01] MEDS: INSULIN LISPRO (NovoLOG) PER UNIT SC SCH ×3 (12:52→23:50)
[2022-11-01] MEDS ORDERED: cefTRIAXone SOD 1 GM in D5W MINI-BAG PLUS 50 ML IV SCH (13:00)
[2022-11-01] MEDS ORDERED: LACTULOSE 20GM/30ML SYRUP UDC PO SCH (13:00)
[2022-11-01] MEDS ORDERED: ONDANSETRON 4MG 2ML VIAL IV PRN (14:05)
[2022-11-01] MEDS ORDERED: MIDO5TA PO (14:09)
[2022-11-01 14:15] VITALS: BP 128/61
[2022-11-01] MEDS: LACTULOSE 20GM/30ML SYRUP UDC NG SCH ×3 (14:43→23:49)
[2022-11-01 16:00] VITALS: BP 128/55
[2022-11-01 16:06] LABS: C REACTIVE PROTEIN QUANTITATIV 13.3 MG/DL (<1.0); CK-MB VALUE MASS 12.5 NG/ML (<3.6)
[2022-11-01 16:12] LABS: MB/CK RELATIVE INDEX 1.63 (< OR =4)
[2022-11-01] MEDS ORDERED: LACTULOSE 20GM/30ML SYRUP UDC PR SCH (18:00)
[2022-11-01 20:00] VITALS: BP 105/54
[2022-11-01] MEDS ORDERED: LEVEMIR (INSULIN DETEMIR) 1 UNITS/0.01ML SC SCH ×2 (21:00)
[2022-11-01] MEDS: LACTULOSE 20GM/30ML SYRUP UDC PR SCH (21:04)
[2022-11-01] MEDS: PANTOPRAZOLE 40MG VIAL IV SCH (21:04)
[2022-11-02 00:31] VITALS: BP 117/56
[2022-11-02 01:01] LABS: CALCIUM LEVEL 9.6 MG/DL (8.3-10.6); CREATININE FOR GFR 7.82 MG/DL (0.70-1.30); GLOMERULAR FILTRATION RATE 7.2 (>42); POTASSIUM SERUM 3.8 MMOL/L (3.5-5.1)
[2022-11-02] MEDS: LACTULOSE 20GM/30ML SYRUP UDC PR SCH (02:34)
[2022-11-02 03:54] VITALS: BP 106/53
[2022-11-02] MEDS: LACTULOSE 20GM/30ML SYRUP UDC NG SCH ×2 (03:54→06:39)
[2022-11-02 05:59] LABS: BASO % 1.1 % (0.0-1.0); EOS # 0.1 10^3/uL (0.0-0.5); EOS % 1.8 % (0.0-3.0); HEMOGLOBIN 12.9 g/dl (13.5-17.5); LYMPH # 0.2 10^3/uL (1.5-5.0); LYMPH % 7.4 % (24.0-44.0); MEAN CORPUSCULAR HGB CONC 34.9 g/dl (32.0-36.5); MEAN CORPUSCULAR VOLUME 88.9 fl (80.0-96.0); MONO # 0.5 10^3/uL (0.0-0.8); MONO % 15.8 % (2.0-8.0); NEUTROPHILS # 2.1 10^3/uL (1.5-8.5); NEUTROPHILS % 73.5 % (36.0-66.0); PLATELET COUNT, AUTOMATED 257 10^3/uL (150-450); RED BLOOD COUNT 4.16 10^6/uL (4.30-6.10); WHITE BLOOD COUNT 2.9 10^3/uL (4.0-10.0)
[2022-11-02] MEDS: INSULIN LISPRO (NovoLOG) PER UNIT SC SCH (06:13)
[2022-11-02 06:26] LABS: ALBUMIN 2.8 G/DL (3.2-5.2); BILIRUBIN,DIRECT 0.4 MG/DL (<0.4); BILIRUBIN,TOTAL 0.7 MG/DL (0.3-1.2); CALCIUM LEVEL 9.6 MG/DL (8.3-10.6); CREATININE FOR GFR 8.21 MG/DL (0.70-1.30); GLOMERULAR FILTRATION RATE 6.8 (>42); POTASSIUM SERUM 3.9 MMOL/L (3.5-5.1); TOTAL PROTEIN 6.2 G/DL (5.7-8.2)
[2022-11-02 07:34] VITALS: BP 112/61
[2022-11-02] MEDS ORDERED: LACTULOSE 20GM/30ML SYRUP UDC PO SCH (08:00)
[2022-11-02] MEDS ORDERED: LACTULOSE 20GM/30ML SYRUP UDC PR SCH ×2 (08:00)
[2022-11-02] MEDS: LACTULOSE 20GM/30ML SYRUP UDC PO SCH ×3 (08:27→10:23)
[2022-11-02 08:52] LABS: ABG BASE EXCESS -2.5 (-2.0-2.0); ABG HCO3 19.2 MEQ/L (22.0-26.0); ABG PARTIAL PRESSURE CO2 25.8 mmHg (35.0-45.0); ABG PARTIAL PRESSURE O2 100.6 mmHg (75.0-100.0); ABG STANDARD HCO3 22.4 MEQ/L (22.0-26.0)
[2022-11-02] MEDS ORDERED: HEPARIN 1,000UNITS/ML 10ML VIAL (FOR RADIOLOGY & DIALYSIS ONLY) IV PRN (09:15)
[2022-11-02] MEDS: PANTOPRAZOLE 40MG VIAL IV SCH (09:47)
[2022-11-02] MEDS ORDERED: LACTULOSE 20GM/30ML SYRUP UDC NG SCH (11:00)
[2022-11-02] MEDS ORDERED: ONDANSETRON 4MG 2ML VIAL IV PRN (11:25)
[2022-11-02] MEDS ORDERED: MORPHINE 2 MG/ML 1ML VIAL IV PRN (11:25)
[2022-11-02] MEDS: SCOPOLAMINE 1MG TRANSDERMAL PATCH TOP PRN (11:51)
[2022-11-02 16:49] VITALS: BP 145/70
[2022-11-03] MEDS: LORazepam 2 MG/ML 1ML VIAL IV PRN ×2 (10:50→15:38)
[2022-11-03] MEDS: ATROPINE SULFATE 1% OPHTH SOLN 2ML BTL SL PRN ×2 (11:20→13:48)
[2022-11-03] MEDS: SCOPOLAMINE 1MG TRANSDERMAL PATCH TOP PRN (15:05)
== END 2022-11-03 17:28 | disposition expired | DRG 441 ==
LOC: M ED 10:33 → M ED INP 11:54 → ENRESERV 13:16 → M PCU 14:12 → M MSPAV 11-02 18:14
PROVIDERS: ADMIT General Practice; ATTEND Internal Medicine
DX: K76.82 Hepatic encephalopathy (principal); G93.41 Metabolic encephalopathy; N18.6 End stage renal disease; J96.01 Acute respiratory failure with hypoxia; I50.22 Chronic systolic (congestive) heart failure; E87.1 Hypo-osmolality and hyponatremia; R18.8 Other ascites; E87.20 Acidosis, unspecified; I13.2 Hypertensive heart and chronic kidney disease with heart failure and with stage 5 chronic kidney disease, or end stage renal disease; K76.6 Portal hypertension; Z66 Do not resuscitate; Z95.810 Presence of automatic (implantable) cardiac defibrillator; I48.91 Unspecified atrial fibrillation; E11.22 Type 2 diabetes mellitus with diabetic chronic kidney disease; K76.1 Chronic passive congestion of liver; Z99.2 Dependence on renal dialysis; R29.6 Repeated falls; E87.70 Fluid overload, unspecified; K72.90 Hepatic failure, unspecified without coma; S51.012D Laceration without foreign body of left elbow, subsequent encounter; I95.9 Hypotension, unspecified; I73.9 Peripheral vascular disease, unspecified; I67.9 Cerebrovascular disease, unspecified; D64.9 Anemia, unspecified; Z98.41 Cataract extraction status, right eye; Z98.42 Cataract extraction status, left eye; R11.10 Vomiting, unspecified; Z90.79 Acquired absence of other genital organ(s); I25.10 Atherosclerotic heart disease of native coronary artery without angina pectoris; E11.51 Type 2 diabetes mellitus with diabetic peripheral angiopathy without gangrene; I27.20 Pulmonary hypertension, unspecified; E78.5 Hyperlipidemia, unspecified; N40.0 Benign prostatic hyperplasia without lower urinary tract symptoms; Z88.0 Allergy status to penicillin; Z88.1 Allergy status to other antibiotic agents; Z88.5 Allergy status to narcotic agent; Z88.8 Allergy status to other drugs, medicaments and biological substances; Z91.048 Other nonmedicinal substance allergy status